=== PATIENT | female | born 1950 | race Caucasian/White ===

== ENCOUNTER 2018-08-08 11:29 | Emergency (ER) | payer MEDICARE, OTHER, SELFPAY ==
[2018-08-08] VITALS (8 sets, daily range): BP systolic 194–207; BP diastolic 107–134; PULSE 86–110; RESP 14–18; TEMP 36.9; O2SAT 91–95; BMI 29.5
--- NOTE | 2018-08-08 12:14 | EKG12_ITS ---
Test Reason : CP Blood Pressure : / mmHG Vent. Rate : 085 BPM Atrial Rate : 085 BPM P-R Int : 224 ms QRS Dur : 098 ms QT Int : 406 ms P-R-T Axes : 064 -22 074 degrees QTc Int : 483 ms Sinus rhythm with 1st degree A-V block Possible Left atrial enlargement Incomplete right bundle branch block Poor R wave progression Borderline ECG Confirmed by ALEJANDRO COX, ROBE ([id number]), offline editor KELVIN WAY ([id number]) on 08/11/2018 10:05:50 AM Referred By: EJ Confirmed By:ROBE ALLEN MD
[2018-08-08] MEDS: Ondansetron 4 MG/2 ML Vial IV (12:28)
[2018-08-08] MEDS: 0.9% Normal Saline 1,000 ML 1000 ML IV (12:28)
[2018-08-08 12:32] LABS: Absolute Lymphocyte Count 1.31 X10^3/ul (0.83-4.51); Absolute Neutrophil Count 6.2 X10^3/uL (2.0-7.7); Basophil# 0.03 X10^3/uL; Basophil% 0.4 % (0-1); Eosinophil# 0.01 X10^3/uL; Eosinophils% 0.1 % (0-5); Hematocrit 42.6 % (37-47); Hemoglobin 14.7 g/dl (12.0-15.0); Lymphocyte # 1.31 X10^3/ul (4.0); Mean Corp Hgb Conc 34.5 g/gl (32-36); Mean Corpuscular Hgb 31.6 pg (27.0-32.0); Mean Corpuscular Volume 91.6 fL (81-99); Mean Platelet Vol. 9.2 fl (6.2-12.0); Monocyte# 0.66 X10^3/uL; Monocyte% 8.1 % (0-10); Neutrophil # 6.16 X10^3/uL (2.7-7.7); Neutrophil % 75.2 % (47-70); Platelet Count 316 K/mm3 (150-450); RBC Distribution Width CV 13.1 % (11.6-14.6); RBC Distribution Width SD 43.3 fl (35.1-43.9); Red Blood Count 4.65 M/mm3 (4.2-5.4); White Blood Count 8.2 K/mm3 (4.4-11.0)
[2018-08-08 12:36] LABS: POSITIVE COUNT NO; POSITIVE DIFFERENTIAL NO; POSITIVE MORPHOLOGY NO
[2018-08-08 12:43] LABS: AST(SGOT) 68 U/L (15-37); Alanine Aminotransfer ALT/SGPT 88 U/L (13-56); Alkaline Phosphatase 110 U/L (45-117); Anion Gap 14 (5-15); BUN 11 mg/dL (7-18); BUN/Creat Ratio 17.7 RATIO (10-20); Bilirubin, Direct 0.22 mg/dL (0.00-0.30); Calcium,Total 9.2 mg/dL (8.5-10.1); Chloride 101 mmol/L (98-107); Creatinine, Serum 0.62 mg/dL (0.55-1.02); EST Glomerular Filtration Rate 102 mL/min (>60); Est Glom Filt Rate - Afr Amer 124 mL/min (>60); Estimated Creatinine Clearance 57.83 ml/min; Globulin 3.9 g/dL (2.2-4.2); Glucose 108 mg/dL (74-106); Lipase 83 U/L (73-393); Potassium 3.5 mmol/L (3.5-5.1); Protein, Total 7.9 g/dL (6.4-8.2); Sodium Level 137 mmol/L (136-145)
[2018-08-08 13:28] LABS: Lactic Acid 4.5 mmol/L (0.4-2.0)
[2018-08-08] MEDS: Mag Hydrox/Al Hydrox/Simeth 30 ML UDC PO (13:51)
--- NOTE | 2018-08-08 13:56 | CT_ITS ---
STUDY: CT ABDOMEN AND PELVIS WITH CONTRAST REASON FOR EXAM: Female, 68 years old. Nausea and vomiting RADIATION DOSAGE (If Supplied By Facility): CTDIvol = ( 19.55 ) mGy, DLP = ( 1431.92 ) mGycm TECHNIQUE: Transaxial images were obtained from the dome of the diaphragm to the symphysis pubis without oral contrast. 100 ml of Isovue 300 contrast was administered. Sagittal and coronal images were reconstructed. Individualized dose optimization techniques were used for this CT. COMPARISON: None. FINDINGS: There are chronic interstitial fibrotic changes of the lung bases. The visualized portions of the heart are within normal limits. There is hepatomegaly. Cysts in the liver measuring 4.2 cm and 1.6 cm. There is non-visualization of the gallbladder, which may be secondary to either contraction or a prior cholecystectomy. Normal spleen. Normal pancreas. Normal bilateral adrenal glands. Normal right kidney. Normal left kidney. There is a small hiatal hernia. Normal small intestine. There are multiple colonic diverticula consistent with diverticulosis. There is non-visualization of the appendix. Normal abdominal aorta. Normal inferior vena cava. Normal retroperitoneum. Normal urinary bladder. There is no free fluid in the abdomen or pelvis. Normal abdominal wall. There are diffuse degenerative changes of the visualized lumbar spine. Nonunited left ninth rib fracture. There are bilateral hip replacements. CT/Abdomen/Pelvis W IV Cont ONLY IMPRESSION: Colonic diverticulosis. No obstruction or abscess. Electronically Signed: Donaldo Santos MD at 15:08 EDT , Service support ,
--- NOTE | 2018-08-08 15:38 | ED.DCSUM_ITS ---
- ER Visit Summary Date of Service: 08/08/18 Chief Complaint: Vomiting History of Present Illness: The patient is a 68 F who states that she drank too much alcohol last night. She states that she probably drank more vodka than what she normally does. This morning she started vomiting around 10 AM and her brought her to the hospital and dropped her off. She notes a central to left-sided chest pain described as sharp. She states everything makes it worse. History of hypertension alcoholism neuropathy and GERD. Longtime smoker longtime drinker. Physical Examination: Afebrile vital signs are stable noted hypertension Gen: Well-nourished well-developed patient is holding in his face and with vomit on her face. Head: Normocephalic atraumatic Eyes: Perrl EOMI ENT: TMs clear no rhinorrhea moist mucous membranes Neck: Supple no lymphadenopathy no JVD nontender CVS: Regular rate rhythm no murmurs normal S1-S2 Respiratory: No distress clear to auscultation bilaterally anterior left chest wall is tender to palpation Abdomen: Soft nontender nondistended normal bowel sounds no masses Back: Nontender Extremity: Nontender no edema Skin: Normal color no rash Neuro: alert orientated ?3 CN II-XII intact normal strength sensation reflexes gait cerebellar Psych: Normal affect normal mood Test Results: Alcohol level 90. CBC normal. Chemistries glucose 108. Liver enzymes ALT of 88 AST of 68. Normal lipase. Troponin less than 0.015. Lactic acid 4.5. Ketones are negative. CT the abdomen pelvis was negative for acute. Chest x-ray I do not see any mediastinal air or infiltrate/effusion in the lung. Emergency Department Course and Treatment: Patient received IV fluids, Zofran, and a GI cocktail. I do not see evidence of Boerhaave syndrome. This is not the first time this is occurred. notes that typically when this happens she is hypertensive and Ativan usually helps her especially with some anxiety. I will give her some Ativan. She has had approximately 10 cups of ice and is no longer vomiting. Lactic acid is improved. Delta troponin is negative. Patient will be discharged home. She should follow-up with her doctor. Impression: 1. Vomiting 2. Alcoholism This note was generated with [employer] dictation software. It may contain incorrect words, spelling, and punctuation that were not noted in review of the chart prior to signing ED Disposition - Plan for ED Patient: Disposition: Home or Assisted Living Chief Complaint: ETOH Intox Instructions: ED Alcohol Abuse, ED Nausea Vomiting Prescriptions: Ondansetron [Zofran Odt] 4 mg PO Q8H PRN PRN #10 tab PRN Reason: Nausea Referrals: Yuki Lopez MD [Primary Care Provider] - As soon as possible
--- NOTE | 2018-08-08 15:40 | RAD_ITS ---
STUDY: X-RAY CHEST REASON FOR EXAM: Female, 68 years old. EtOH chest pain TECHNIQUE: Single AP portable view of the chest. COMPARISON: February 28, 2017 chest x-ray FINDINGS: There is slightly greater interstitial prominence in the lung bases when compared to prior study. There is no demonstrated pleural abnormality. There is mild cardiac enlargement. Normal mediastinum and althea. Normal visualized pulmonary arteries. There is atherosclerotic calcification of the aortic arch with tortuosity. Normal visualized thoracic spine. There is a right-sided shoulder arthroplasty. There is degenerative change in the left shoulder joint. There is no demonstrated abnormality of the visualized soft tissue structures of the upper abdomen. RAD/Chest 1 View (Portable) IMPRESSION: Lower lobe atelectasis. Mild cardiomegaly. Right shoulder arthroplasty. Electronically Signed: Pricila Bates MD at 16:30 EDT Tel , Service support ,
[2018-08-08 16:03] LABS: Lactic Acid 3.4 mmol/L (0.4-2.0)
[2018-08-08] MEDS: Ketorolac 15 MG/ML Vial IV (16:03)
[2018-08-08] MEDS: LORazepam 2 MG/ML Syringe 1 MG IV (16:26)
[2018-08-08 16:47] LABS: Reflex Lactate? Y
[2018-08-08 19:23] LABS: Reflex Lactate? Y
== END 2018-08-08 17:07 | disposition home or self-care (01) ==
PROVIDERS: Emergency Provider Emergency Medicine; Family Provider Internal Medicine; PCP Internal Medicine
DX: R11.2 Nausea with vomiting, unspecified (principal); R07.9 Chest pain, unspecified; F10.20 Alcohol dependence, uncomplicated; Y90.4 Blood alcohol level of 80-99 mg/100 ml; I10 Essential (primary) hypertension; K21.9 Gastro-esophageal reflux disease without esophagitis; G62.9 Polyneuropathy, unspecified; F17.200 Nicotine dependence, unspecified, uncomplicated
CPT/HCPCS: 71045; 74177; 80048; 80076; 80320; 82009; 83605; 83690; 84484; 85025; 93005; 96361; 96374; 96375; 99284; Q9967; A4216; G0480; J2405

== ENCOUNTER 2019-02-04 08:20 | Inpatient (IN) | payer MEDICARE, OTHER, SELFPAY ==
[2019-02-04] VITALS (15 sets, daily range): BP systolic 87–117; BP diastolic 59–74; PULSE 100–122; RESP 14–18; TEMP 36.4–37.5; O2SAT 90–96; BMI 27.3; BMI 25.1
--- NOTE | 2019-02-04 08:35 | ED.VISSUMM ---
- ER Visit Summary Date of Service: 02/04/19 Chief Complaint: Nausea and vomiting History of Present Illness: The patient is a 68 F with nausea and vomiting along with mild diarrhea for the past 3 days. She denies fever or chills. The pain is epigastric and suprapubic region. Patient did have shoulder surgery on January 05 at [facility]. said that her symptoms seem to worsen after they refilled her oxycodone, but is unsure if this is related or just coincidence. Patient is noted to have history of alcoholism in the computer. Her last drink was 6 days ago and patient states she has not been drinking much at all since her surgery. Physical Examination: Blood pressure is 101/60, temperature 98.2, heart rate 122, respiratory rate 18, pulse ox 94% on room air. Patient lying in the bed no acute distress. Head and neck examination unremarkable. Heart is tachycardic and regular. Lung sounds are clear. Abdomen is soft with epigastric tenderness. No guarding or rebound. Hypoactive bowel sounds are present throughout. Extremity examination reveals left arm to be in a sling. She has palpable distal pulses. Test Results: CBC was a white count 13.7 and hemoglobin is concentrated at 17.4. Chemistry studies significant for sodium of 125 and chloride of 83. Potassium slightly low at 3.4. Leukosis 220, BUN is 56, creatinine is 3.35. Her creatinine was 0.62 in July 2018. LFTs and lipase are grossly unremarkable. Emergency Department Course and Treatment: Patient received morphine, Zofran, and IV fluids. At this time she is tolerating ice chips. Because of her acute renal failure I do feel she will require IV fluids overnight. I will speak with hospitalist regarding admission. Treatment Plan: [] Disposition: Admit Impression: Dehydration with acute renal failure Addendum: Prior to the patient being taken upstairs, I was advised that she was complaining of increased nausea and had requested a dose of nausea meds. I was then told by nursing staff that she was complaining of pain rating up to the central portion of her chest. EKG is obtained and reveals sinus tachycardia at 103 with no sign of acute ischemia. When I reexamined the patient she states her pain is worse after trying the ice chips. Her abdomen is palpated multiple times. Occasionally she will complain of pain, but she will allow deep palpation of the epigastrium with no pain response at times as well. There is no guarding. Patient will be admitted at this time for further treatment. This note was generated with [employer] dictation software. It may contain incorrect words, spelling, and punctuation that were not noted in review of the chart prior to signing ED Disposition - Plan for ED Patient:
[2019-02-04] MEDS: 0.9% Normal Saline 1,000 ML 1000 ML IV (09:10)
[2019-02-04] MEDS: Morphine 4 MG/ML Syringe IV ×2 (09:13→11:15)
[2019-02-04] MEDS: Ondansetron 4 MG/2 ML Vial IV ×2 (09:13→10:44)
[2019-02-04 09:23] LABS: Absolute Neutrophil Count 11.5 X10^3/uL (2.0-7.7); Hematocrit 48.9 % (37-47); Lymphocyte % 5.9 % (19-41); Mean Corpuscular Volume 84.9 fL (81-99); Mean Platelet Vol. 9.7 fl (6.2-12.0); Monocyte# 1.28 X10^3/uL; Monocyte% 9.4 % (0-10); Neutrophil # 11.54 X10^3/uL (2.7-7.7); Neutrophil % 84.5 % (47-70); Platelet Count 332 K/mm3 (150-450); RBC Distribution Width CV 13.2 % (11.6-14.6); RBC Distribution Width SD 40.3 fl (35.1-43.9); Red Blood Count 5.76 M/mm3 (4.2-5.4); White Blood Count 13.7 K/mm3 (4.4-11.0)
[2019-02-04 09:25] LABS: Hemoglobin 17.4 g/dl (12.0-15.0); Mean Corp Hgb Conc 35.6 g/gl (32-36); Mean Corpuscular Hgb 30.2 pg (27.0-32.0)
[2019-02-04 09:26] LABS: POSITIVE COUNT NO; POSITIVE DIFFERENTIAL NO; POSITIVE MORPHOLOGY NO
[2019-02-04 09:34] LABS: AST(SGOT) 32 U/L (15-37); Alanine Aminotransfer ALT/SGPT 38 U/L (13-56); Albumin, Serum 4.2 g/dL (3.2-5.0); Alkaline Phosphatase 124 U/L (45-117); Anion Gap 19 (5-15); BUN 56 mg/dL (7-18); BUN/Creat Ratio 16.7 RATIO (10-20); Bilirubin, Direct 0.21 mg/dL (0.00-0.30); Calcium,Total 9.2 mg/dL (8.5-10.1); Chloride 83 mmol/L (98-107); Creatinine, Serum 3.35 mg/dL (0.55-1.02); EST Glomerular Filtration Rate 15 mL/min (>60); Est Glom Filt Rate - Afr Amer 18 mL/min (>60); Estimated Creatinine Clearance 17.26 ml/min; Globulin 4.6 g/dL (2.2-4.2); Glucose 220 mg/dL (74-106); Lipase 118 U/L (73-393); Potassium 3.4 mmol/L (3.5-5.1); Protein, Total 8.8 g/dL (6.4-8.2); Sodium Level 125 mmol/L (136-145)
--- NOTE | 2019-02-04 10:30 | EKG12_ITS ---
Test Reason : CP Blood Pressure : / mmHG Vent. Rate : 103 BPM Atrial Rate : 103 BPM P-R Int : 200 ms QRS Dur : 100 ms QT Int : 368 ms P-R-T Axes : 049 -40 038 degrees QTc Int : 482 ms Sinus tachycardia Left axis deviation Incomplete right bundle branch block Minimal voltage criteria for LVH, may be normal variant Cannot rule out Anterior infarct , age undetermined Abnormal ECG Confirmed by ALEJANDRO COX, ROBE ([id number]), deputy editor in chief RICHELLE GALICIA ([id number]) on 02/08/2019 10:57:42 AM Referred By: SAUL Confirmed By:ROBE ALLEN MD
[2019-02-04] MEDS: 0.9% Normal Saline 1,000 ML 150 ML IV (10:46)
--- NOTE | 2019-02-04 10:49 | ED.RN ---
DID NOT WANT PT STRAIGHT CATH FOR URINE.
--- NOTE | 2019-02-04 10:51 | CASEMGMT ---
RN CM Assessment Introduced role of RN CM to patient.? Patient is alert, oriented and able?to participate in RN CM Assessment. ?Care providers, pharmacy, and demographics verified. Presentation: N/V Admit Dx: KARIS, Chronic Alcohol Use Re-Admit: No Barriers/Issues: Smokes 1/2/Day, Alochol use- Patient stated Occasional to this CM during assessment, however per chart review h/o alcohol abuse, per ER note, last drink 6 days ago. Had Shoulder surgery at the end of December. PCP: Yuki Lopez Specialists: Ortho- [facility] DR Marr Preferred Pharmacy: [facility] Insurance: [employer], [employer] Rx Benefit:?Yes LNOK: Vicente Mascorro LW/HPOA: No, Would like information Living Arrangements:?Lives with her in a 2 story home, 2 steps to enter ADL?s: Independent with ambulation and ADL's Transportation: Patient drives, will transport on DC DME: [employer] HHC: Past, cannot recall Agency SNF: None Goal: Home and denies any needed help, concerns, issues, or questions. DC PLAN: Home with no anticipated needs identified at this time. CARLOS Salmeron
--- NOTE | 2019-02-04 10:54 | NURSING ---
MED SURG VOMITING, ARF JUDD
--- NOTE | 2019-02-04 11:33 | EKG12_ITS ---
Test Reason : AM Blood Pressure : / mmHG Vent. Rate : 085 BPM Atrial Rate : 085 BPM P-R Int : 190 ms QRS Dur : 102 ms QT Int : 394 ms P-R-T Axes : 048 -28 018 degrees QTc Int : 468 ms Normal sinus rhythm Leftward [place] Poor R-Wave Progression Confirmed by ALEJANDRO COX, ROBE ([id number]), sound editor RICHELLE GALICIA ([id number]) on 02/08/2019 12:34:05 PM Referred By: JUDD Confirmed By:ROBE ALLEN MD
[2019-02-04] MEDS: Enoxaparin 30 MG/0.3 ML Syringe SC (12:06)
[2019-02-04 12:46] LABS: Magnesium 1.5 mg/dL (1.6-2.6)
--- NOTE | 2019-02-04 13:19 | PCM.HP.STD ---
Problem List (1) ARF (acute renal failure) Status: Acute Qualifiers: (2) Fall Status: Chronic (3) Fractured nose Status: Chronic (4) Hypokalemia Status: Acute (5) Hypotension Status: Acute Qualifiers: (6) Hypothermia Status: Resolved (7) Hypoxia Status: Resolved (8) Alcohol abuse Status: Chronic (9) Alcohol dependence Status: Chronic (10) Anxiety Status: Chronic (11) Chest pain Status: Resolved (12) HTN (hypertension) Status: Chronic (13) Left shoulder pain Status: Chronic (14) Neuropathy Status: Chronic (15) Epigastric abdominal pain Status: Acute (16) Intractable nausea and vomiting Status: Acute (17) Acute alcohol withdrawal Status: Acute History of Present Illness Date of Admission: 02/04/19 Chief Complaint: Nausea vomiting and epigastric abdominal pain. The patient is a 68 year old F with history of chronic alcohol use and dependence with last admission in February 2017 for hypovolemic shock, alcohol withdrawal, , Acute kidney injury and hypokalemia came to ED with increased nausea, vomiting for last 2 days. Patient has about 5-10 clear vomitus since yesterday. She is also not eating since last Friday about 4 days ago. Complain of abdominal pain, mainly in epigastric location 7-8/10 intensity localized. Denies lower urinary tract symptoms including increased frequency, urgency, burning micturition or recent change. Denies fever or chills. No recent history of GI bleed. Patient had EGD done more than [address] burris [facility]. Patient does not know the report. In ED, patient was found febrile, heart rate in 100s, blood pressure 100/69 and pulse ox 90% on room air. Basic blood work in the ED shows leukocytosis 13.7 thousand, H&H 17.4/48.9 and platelet count 332,000. She is very dehydrated evident with hemoconcentration. BMP shows sodium 125, K3.4, chloride 83, BUN 56 and creatinine 3.35 suggestive of acute kidney injury. Her baseline creatinine runs around 1.0. Patient has tremors but denies recent history of seizures. She admits to drinking vodka once in 3 to 4 days but as per the nurse she drinks half pint vodka daily. [] Past Medical History Past Medical History (Chronic Problems): Chronic Problems Neuropathy (Chronic) Anxiety (Chronic) Left shoulder pain (Chronic) HTN (hypertension) (Chronic) Alcohol abuse (Chronic) Fractured nose (Chronic) Fall (Chronic) Alcohol dependence (Chronic) Allergies No Known Allergies Allergy (Verified 02/04/19 08:22) Home Medications: Ambulatory Orders Medication Instructions Recorded Fluoxetine HCl 40 mg PO DAILY 08/15/16 Gabapentin [Neurontin] 300 mg PO DAILY 08/15/16 Gabapentin [Neurontin] 600 mg PO QHS 08/15/16 Lamotrigine [Lamictal] 150 mg PO DAILY 08/15/16 Multivitamins,Therapeutic 1 tablet PO DAILY 08/15/16 [Multivitamin] Propranolol HCl [Inderal (Beta 10 mg PO DAILY 08/15/16 Samantha)] Quetiapine Fumarate [Seroquel] 100 - 150 mg PO QHS 08/15/16 Melatonin 20 mg PO QHS 02/28/17 Pantoprazole Sodium [Protonix] 40 mg PO DAILY #15 tablet 03/03/17 Surgical History: - - bilateral hip replacement, shoulder repair, cholecystectomy, hysterectomy Smoking Status: Heavy Smoker (>10/day) Tobacco Use: Cigarettes - *Family History Paternal History Items: No pertinent history Maternal History Items: - - alcohol abuse, heart attack Review of Systems Constitutional: Reports: Anorexia, Malaise, Weakness, Fatigue. Denies: Chills, Fever, Weight Change HEENT: Denies: Head Aches, Sinus Congestion, Sinus Drainage Cardiovascular: Denies: Chest Pain, Palpitations Respiratory: Denies: Cough, Shortness of breath at rest, Sputum production Gastrointestinal: Reports: Abdominal Pain, Diarrhea - Loose bowel movement, soft 1-2 for last 2 days. Denies melena or hematochezia, Nausea, Vomiting. Denies: Hematemesis, Hematochezia, Melena Genitourinary: Denies: Dysuria, Frequency, Hematuria, Hesitancy, Urgency Musculoskeletal: Reports: Arm Pain, Joint Pain, Shoulder Pain - Recent left shoulder surgery on January 05 at [facility]. Denies: Joint Tenderness Skin: Denies: Rash, Wounds Neurological: Reports: Balance problems. Denies: Focal weakness, Numbness, Tingling Psychiatric: Reports: Anxiety, Depression. Denies: Homicidal Ideations, Suicidal Ideations Hematologic/ Lymphatic: Denies: Easy Bruising, Easy Bleeding VTE Information - Inpt Only VTE Present on Admission: No VTE Mechan Device Prophylaxis: SCD's VTE Pharm Prophylaxis ordered?: No Patient Problems: Active and Suspected Problems Epigastric abdominal pain (Acute) Intractable nausea and vomiting (Acute) Acute alcohol withdrawal (Acute) - Physical Exam General: Oriented x3, Cooperative, Lethargic HEENT: Atraumatic, PERRLA, EOMI, Normocephalic Oral: Dry Mucosa Neck: Supple, No JVD, Negative Carotid Bruits Lungs: Clear to auscultation, No rhonchi, No wheeze, No rales, Diminished - Air entry is diminished in bilateral lung bases. Cardiovascular: Regular rate, Regular Rhythm, Normal S1, Normal S2, No murmurs Abdomen: Bowel Sounds Present, Soft, Hepatomegaly - Mild tender hepatomegaly. Spleen not palpable., Tender - Tenderness present over epigastrium. No guarding/rigidity. Extremities: No edema, Capillary Refill Less than 3 Seconds Musculoskeletal: Arthritic Changes, Muscle Wasting, Tenderness - Tenderness present over left shoulder with recent surgery. Lymphatic: No Cervical, Supraclavicular, or Inguinal Adenopathy Neurological: Cranial nerves II-XII grossly intact, Deep Tendon Reflexes 2+/4 and Symmetrical, Neuro grossly intact Vital Signs Temp Pulse Resp BP Pulse Ox 97.5 F L 100 16 101/69 96 02/04/19 12:00 02/04/19 12:00 02/04/19 12:00 02/04/19 12:00 02/04/19 12:00 Oxygen Flow Rate (L/min) 2 Oxygen Delivery Method Nasal Cannula Weight: 170 lb Body Mass Index (BMI) 25.1 Laboratory Tests Past 24 Hrs 02/04/19 02/04/19 02/04/19 09:05 09:05 09:05 WBC 13.7 H RBC 5.76 H Hgb 17.4 H Hct 48.9 H MCV 84.9 MCH 30.2 MCHC 35.6 RDW 13.2 RDW Differential 40.3 Plt Count 332 MPV 9.7 Immature Gran % (Auto) 0.200 Neut % (Auto) 84.5 H Lymph % (Auto) 5.9 L [place] % (Auto) 9.4 Eos % (Auto) 0.0 Baso % (Auto) 0.0 Absolute Neuts (auto) 11.5 H Absolute Lymphs (auto) 0.80 L Total Counted Not Reportable Sodium 125 L Potassium 3.4 L Chloride 83 L Carbon Dioxide 23.0 Anion Gap 19 H BUN 56 H Creatinine 3.35 H Estim Creat Clear Calc 17.26 Est GFR (MDRD) Af Amer 18 L Est GFR (MDRD) Non-Af 15 L BUN/Creatinine Ratio 16.7 Glucose 220 H Calcium 9.2 Magnesium 1.5 L Total Bilirubin 0.90 Direct Bilirubin 0.21 AST 32 ALT 38 Alkaline Phosphatase 124 H Total Protein 8.8 H Albumin 4.2 Globulin 4.6 H Lipase 118 Assessment/Plan All Active Problems Epigastric abdominal pain (Acute) Intractable nausea and vomiting (Acute) Acute alcohol withdrawal (Acute) Chest pain (Resolved) ARF (acute renal failure) (Acute) Hypokalemia (Acute) Hypotension (Acute) Hypothermia (Resolved) Hypoxia (Resolved) The patient is a 68 year old F with history of chronic alcohol use and dependence with last admission in February 2017 for hypovolemic shock, alcohol withdrawal, , Acute kidney injury and hypokalemia came to ED with increased nausea, vomiting for last 2 days. Patient has about 5-10 clear vomitus since yesterday. She is also not eating since last Friday about 4 days ago. Complain of abdominal pain, mainly in epigastric location 7-8/10 intensity localized. Denies lower urinary tract symptoms including increased frequency, urgency, burning micturition or recent change. Denies fever or chills. No recent history of GI bleed. Patient had EGD done more than [address] burris [facility]. Patient does not know the report. In ED, patient was found febrile, heart rate in 100s, blood pressure 100/69 and pulse ox 90% on room air. Basic blood work in the ED shows leukocytosis 13.7 thousand, H&H 17.4/48.9 and platelet count 332,000. She is very dehydrated evident with hemoconcentration. BMP shows sodium 125, K3.4, chloride 83, BUN 56 and creatinine 3.35 suggestive of acute kidney injury. Her baseline creatinine runs around 1.0. Patient has tremors but denies recent history of seizures. She admits to drinking vodka once in 3 to 4 days but as per the nurse she drinks half pint vodka daily. 1. Intractable nausea/vomiting and loose bowel movement with epigastric pain suggestive of acute gastritis/GERD: Patient is being admitted to [facility] floor. IV fluid resuscitation. General surgeon Dr. Barker is been consulted for EGD. There is suspicion that patient might have ulcerative gastritis. Lipase is negative. IV Protonix 40 mg every 12 hourly. Check H&H in the evening. Stool for occult blood ordered. 5. 2. Acute kidney injury, prerenal etiology from nausea and vomiting: Volume resuscitation with normal saline with IV KCl. Electrolyte abnormality with hypokalemia, hypotonic hypovolemic hyponatremia, hypochloremia: Electrolytes being replaced. Monitor kidney function and electrolytes daily. Monitor intake and output. 3. Acute alcohol withdrawal with history of chronic alcohol use and dependence: LFT shows normal ALT and AST but elevated alkaline phosphatase possible bowel origin. Hypomagnesemia, magnesium 1.5 being replaced. Tender hepatomegaly from chronic alcohol use. On Ativan scheduled and as needed protocol as per MANISHA. If patient alcohol withdrawal gets worse, will change Ativan to Librium. 4. Bilateral shoulder arthritis with recent left shoulder surgery on 01/05 in [facility] with old right shoulder surgical scar: PT and OT ordered. Pain management as required DVT prophylaxis: Bilateral SCDs. Pharmacological prophylaxis contraindicated in view of possible suspicion of GI bleed and also acute kidney injury. Code Visit Inpatient E&M: 34306 Init Hosp L3
--- NOTE | 2019-02-04 13:27 | HP.PCM_ITS ---
Problem List (1) ARF (acute renal failure) Status: Acute Qualifiers: (2) Fall Status: Chronic (3) Fractured nose Status: Chronic (4) Hypokalemia Status: Acute (5) Hypotension Status: Acute Qualifiers: (6) Hypothermia Status: Resolved (7) Hypoxia Status: Resolved (8) Alcohol abuse Status: Chronic (9) Alcohol dependence Status: Chronic (10) Anxiety Status: Chronic (11) Chest pain Status: Resolved (12) HTN (hypertension) Status: Chronic (13) Left shoulder pain Status: Chronic (14) Neuropathy Status: Chronic (15) Epigastric abdominal pain Status: Acute (16) Intractable nausea and vomiting Status: Acute (17) Acute alcohol withdrawal Status: Acute History of Present Illness Date of Admission: 02/04/19 Chief Complaint: Nausea vomiting and epigastric abdominal pain. The patient is a 68 year old F with history of chronic alcohol use and dependence with last admission in February 2017 for hypovolemic shock, alcohol withdrawal, , Acute kidney injury and hypokalemia came to ED with increased nausea, vomiting for last 2 days. Patient has about 5-10 clear vomitus since yesterday. She is also not eating since last Friday about 4 days ago. Complain of abdominal pain, mainly in epigastric location 7-8/10 intensity localized. Denies lower urinary tract symptoms including increased frequency, urgency, burning micturition or recent change. Denies fever or chills. No recent history of GI bleed. Patient had EGD done more than [address] burris [facility]. Patient does not know the report. In ED, patient was found febrile, heart rate in 100s, blood pressure 100/69 and pulse ox 90% on room air. Basic blood work in the ED shows leukocytosis 13.7 thousand, H&H 17.4/48.9 and platelet count 332,000. She is very dehydrated evident with hemoconcentration. BMP shows sodium 125, K3.4, chloride 83, BUN 56 and creatinine 3.35 suggestive of acute kidney injury. Her baseline creatinine runs around 1.0. Patient has tremors but denies recent history of seizures. She admits to drinking vodka once in 3 to 4 days but as per the nurse she drinks half pint vodka daily. [] Past Medical History Past Medical History (Chronic Problems): Chronic Problems Neuropathy (Chronic) Anxiety (Chronic) Left shoulder pain (Chronic) HTN (hypertension) (Chronic) Alcohol abuse (Chronic) Fractured nose (Chronic) Fall (Chronic) Alcohol dependence (Chronic) Allergies No Known Allergies Allergy (Verified 02/04/19 08:22) Home Medications: Ambulatory Orders Medication Instructions Recorded Fluoxetine HCl 40 mg PO DAILY 08/15/16 Gabapentin [Neurontin] 300 mg PO DAILY 08/15/16 Gabapentin [Neurontin] 600 mg PO QHS 08/15/16 Lamotrigine [Lamictal] 150 mg PO DAILY 08/15/16 Multivitamins,Therapeutic 1 tablet PO DAILY 08/15/16 [Multivitamin] Propranolol HCl [Inderal (Beta 10 mg PO DAILY 08/15/16 Samantha)] Quetiapine Fumarate [Seroquel] 100 - 150 mg PO QHS 08/15/16 Melatonin 20 mg PO QHS 02/28/17 Pantoprazole Sodium [Protonix] 40 mg PO DAILY #15 tablet 03/03/17 Surgical History: - - bilateral hip replacement, shoulder repair, cholecystectomy, hysterectomy Smoking Status: Heavy Smoker (>10/day) Tobacco Use: Cigarettes - *Family History Paternal History Items: No pertinent history Maternal History Items: - - alcohol abuse, heart attack Review of Systems Constitutional: Reports: Anorexia, Malaise, Weakness, Fatigue. Denies: Chills, Fever, Weight Change HEENT: Denies: Head Aches, Sinus Congestion, Sinus Drainage Cardiovascular: Denies: Chest Pain, Palpitations Respiratory: Denies: Cough, Shortness of breath at rest, Sputum production Gastrointestinal: Reports: Abdominal Pain, Diarrhea - Loose bowel movement, soft 1-2 for last 2 days. Denies melena or hematochezia, Nausea, Vomiting. Denies: Hematemesis, Hematochezia, Melena Genitourinary: Denies: Dysuria, Frequency, Hematuria, Hesitancy, Urgency Musculoskeletal: Reports: Arm Pain, Joint Pain, Shoulder Pain - Recent left shoulder surgery on January 05 at [facility]. Denies: Joint Tenderness Skin: Denies: Rash, Wounds Neurological: Reports: Balance problems. Denies: Focal weakness, Numbness, Tingling Psychiatric: Reports: Anxiety, Depression. Denies: Homicidal Ideations, Suicidal Ideations Hematologic/ Lymphatic: Denies: Easy Bruising, Easy Bleeding VTE Information - Inpt Only VTE Present on Admission: No VTE Mechan Device Prophylaxis: SCD's VTE Pharm Prophylaxis ordered?: No Patient Problems: Active and Suspected Problems Epigastric abdominal pain (Acute) Intractable nausea and vomiting (Acute) Acute alcohol withdrawal (Acute) - Physical Exam General: Oriented x3, Cooperative, Lethargic HEENT: Atraumatic, PERRLA, EOMI, Normocephalic Oral: Dry Mucosa Neck: Supple, No JVD, Negative Carotid Bruits Lungs: Clear to auscultation, No rhonchi, No wheeze, No rales, Diminished - Air entry is diminished in bilateral lung bases. Cardiovascular: Regular rate, Regular Rhythm, Normal S1, Normal S2, No murmurs Abdomen: Bowel Sounds Present, Soft, Hepatomegaly - Mild tender hepatomegaly. Spleen not palpable., Tender - Tenderness present over epigastrium. No guarding/rigidity. Extremities: No edema, Capillary Refill Less than 3 Seconds Musculoskeletal: Arthritic Changes, Muscle Wasting, Tenderness - Tenderness present over left shoulder with recent surgery. Lymphatic: No Cervical, Supraclavicular, or Inguinal Adenopathy Neurological: Cranial nerves II-XII grossly intact, Deep Tendon Reflexes 2+/4 and Symmetrical, Neuro grossly intact Vital Signs Temp Pulse Resp BP Pulse Ox 97.5 F L 100 16 101/69 96 02/04/19 12:00 02/04/19 12:00 02/04/19 12:00 02/04/19 12:00 02/04/19 12:00 Oxygen Flow Rate (L/min) 2 Oxygen Delivery Method Nasal Cannula Weight: 170 lb Body Mass Index (BMI) 25.1 Laboratory Tests Past 24 Hrs 02/04/19 02/04/19 02/04/19 09:05 09:05 09:05 WBC 13.7 H RBC 5.76 H Hgb 17.4 H Hct 48.9 H MCV 84.9 MCH 30.2 MCHC 35.6 RDW 13.2 RDW Differential 40.3 Plt Count 332 MPV 9.7 Immature Gran % (Auto) 0.200 Neut % (Auto) 84.5 H Lymph % (Auto) 5.9 L [place] % (Auto) 9.4 Eos % (Auto) 0.0 Baso % (Auto) 0.0 Absolute Neuts (auto) 11.5 H Absolute Lymphs (auto) 0.80 L Total Counted Not Reportable Sodium 125 L Potassium 3.4 L Chloride 83 L Carbon Dioxide 23.0 Anion Gap 19 H BUN 56 H Creatinine 3.35 H Estim Creat Clear Calc 17.26 Est GFR (MDRD) Af Amer 18 L Est GFR (MDRD) Non-Af 15 L BUN/Creatinine Ratio 16.7 Glucose 220 H Calcium 9.2 Magnesium 1.5 L Total Bilirubin 0.90 Direct Bilirubin 0.21 AST 32 ALT 38 Alkaline Phosphatase 124 H Total Protein 8.8 H Albumin 4.2 Globulin 4.6 H Lipase 118 Assessment/Plan All Active Problems Epigastric abdominal pain (Acute) Intractable nausea and vomiting (Acute) Acute alcohol withdrawal (Acute) Chest pain (Resolved) ARF (acute renal failure) (Acute) Hypokalemia (Acute) Hypotension (Acute) Hypothermia (Resolved) Hypoxia (Resolved) The patient is a 68 year old F with history of chronic alcohol use and dependence with last admission in February 2017 for hypovolemic shock, alcohol withdrawal, , Acute kidney injury and hypokalemia came to ED with increased n ausea, vomiting for last 2 days. Patient has about 5-10 clear vomitus since yesterday. She is also not eating since last Friday about 4 days ago. Complain of abdominal pain, mainly in epigastric location 7-8/10 intensity localized. Denies lower urinary tract symptoms including increased frequency, urgency, burning micturition or recent change. Denies fever or chills. No recent history of GI bleed. Patient had EGD done more than [address] burris [facility]. Patient does not know the report. In ED, patient was found febrile, heart rate in 100s, blood pressure 100/69 and pulse ox 90% on room air. Basic blood work in the ED shows leukocytosis 13.7 thousand, H&H 17.4/48.9 and platelet count 332,000. She is very dehydrated evident with hemoconcentration. BMP shows sodium 125, K3.4, chloride 83, BUN 56 and creatinine 3.35 suggestive of acute kidney injury. Her baseline creatinine runs around 1.0. Patient has tremors but denies recent history of seizures. She admits to drinking vodka once in 3 to 4 days but as per the nurse she drinks half pint vodka daily. 1. Intractable nausea/vomiting and loose bowel movement with epigastric pain suggestive of acute gastritis/GERD: [facility] IV fluid resuscitation. General surgeon Dr. Barker is been consulted for EGD. There is suspicion that patient might have ulcerative gastritis. Lipase is negative. IV Protonix 40 mg every 12 hourly. Check H&H in the evening. Stool for occult blood ordered. 5. 2. Acute kidney injury, prerenal etiology from nausea and vomiting: Volume resuscitation with normal saline with IV KCl. Electrolyte abnormality with hypokalemia, hypotonic hypovolemic hyponatremia, hypochloremia: Electrolytes being replaced. Monitor kidney function and electrolytes daily. Monitor intake and output. 3. Acute alcohol withdrawal with history of chronic alcohol use and dependence: LFT shows normal ALT and AST but elevated alkaline phosphatase possible bowel origin. Hypomagnesemia, magnesium 1.5 being replaced. Tender hepatomegaly from chronic alcohol use. On Ativan scheduled and as needed protocol as per CIWA. If patient alcohol withdrawal gets worse, will change Ativan to Librium. 4. Bilateral shoulder arthritis with recent left shoulder surgery on 01/05 in [facility] with old right shoulder surgical scar: PT and OT ordered. Pain management as required DVT prophylaxis: Bilateral SCDs. Pharmacological prophylaxis contraindicated in view of possible suspicion of GI bleed and also acute kidney injury. Code Visit Inpatient E&M: 29890 Init Hosp L3
[2019-02-04 13:30] LABS: Internal QC Validated? YES +Cl - CLEAR BKGD; Pregnancy, Serum, hCG Quali. NEGATIVE Negative
[2019-02-04 14:05] LABS: Alcohol, Blood (Medical)-Serum < 3.0 mg/dL
[2019-02-04 14:06] LABS: International Normalized Ratio 1.1; Prothrombin Time (Protime)PT. 13.9 SECONDS (11.7-14.9)
[2019-02-04] MEDS: LORazepam 1 MG Tablet PO ×2 (14:12→19:05)
[2019-02-04] MEDS: Thiamine Hydrochloride 100 MG Tablet PO ×2 (14:12→17:28)
--- NOTE | 2019-02-04 17:27 | PCM.CONS.GEN ---
Reason for Consult Date of Consultation: 02/04/19 History of Present Illness: The patient is a 68 year old F with a 2 day history of vomiting and upper abdominal pain. The patient has a long-standing history of alcohol abuse. She has been admitted in the past for alcohol withdrawal and renal failure secondary to dehydration likely felt to alcohol withdrawal. she states she is vomited 5-10 times since yesterday. This was clear vomitus without blood or coffee grounds. She said she is not been eating for the last 4 days she denies black tarry stools or melena. She notes her pain in the epigastric region be 7-8 out of 10. in the ER she was noted to be hemoconcentrated with an elevated BUN and creatinine. She admitted to the [place] physician that she drinks vodka once every 3-4 days but admitted to the nurse that she drinks approximately half pint of vodka daily. her past medical history includes generalized anxiety disorder, diverticulosis, depression. She underwent a colonoscopy Dr. Khan [id number] which demonstrated a diverticulosis and no other abnormalities.she had a colonoscopy in 2012 before that which demonstrated an adenomatous polyp.she had follow-up colonoscopy in June 2017 which demonstrated a 5 mm polyp in the sigmoid which was removed.this returned as a hyperplastic polyp.I do not see record of her previous upper endoscopy which she does carry a diagnosis of gastric esophageal reflux disease. Past Medical History Past Medical History (Chronic Problems): Chronic Problems Neuropathy (Chronic) Anxiety (Chronic) Left shoulder pain (Chronic) HTN (hypertension) (Chronic) Alcohol abuse (Chronic) Fractured nose (Chronic) Fall (Chronic) Alcohol dependence (Chronic) Allergies No Known Allergies Allergy (Verified 02/04/19 08:22) Home Medications: Ambulatory Orders Medication Instructions Recorded Fluoxetine HCl 40 mg PO DAILY 08/15/16 Gabapentin [Neurontin] 300 mg PO DAILY 08/15/16 Gabapentin [Neurontin] 600 mg PO QHS 08/15/16 Lamotrigine [Lamictal] 150 mg PO DAILY 08/15/16 Multivitamins,Therapeutic 1 tablet PO DAILY 08/15/16 [Multivitamin] Propranolol HCl [Inderal (Beta 10 mg PO DAILY 08/15/16 Samantha)] Quetiapine Fumarate [Seroquel] 100 - 150 mg PO QHS 08/15/16 Melatonin 20 mg PO QHS 02/28/17 Pantoprazole Sodium [Protonix] 40 mg PO DAILY #15 tablet 03/03/17 Surgical History: - - bilateral hip replacement, shoulder repair, cholecystectomy, hysterectomy Smoking Status: Heavy Smoker (>10/day) Tobacco Use: Cigarettes - *Family History Paternal History Items: No pertinent history Maternal History Items: - - alcohol abuse, heart attack Review of Systems Constitutional: Reports: Weakness. Denies: Chills, Fever, Weight Change HEENT: Denies: Head Aches, Sinus Congestion, Sinus Drainage Cardiovascular: Denies: Chest Pain, Palpitations Respiratory: Denies: Cough, Shortness of breath at rest, Sputum production Gastrointestinal: Reports: Abdominal Pain, Vomiting. Denies: Nausea Genitourinary: Denies: Dysuria Musculoskeletal: Denies: Joint Pain, Joint Tenderness Skin: Denies: Rash, Wounds Neurological: Denies: Numbness, Tingling, Focal weakness Psychiatric: Denies: Anxiety, Depression, Homicidal Ideations, Suicidal Ideations Hematologic/ Lymphatic: Denies: Easy Bruising, Easy Bleeding Unable to obtain accurate/complete ROS d/t: patient somewhat obtunded Patient Problems: Active and Suspected Problems Epigastric abdominal pain (Acute) Intractable nausea and vomiting (Acute) Acute alcohol withdrawal (Acute) - Physical Exam General: Cooperative HEENT: PERRLA, EOMI Lungs: Diminished, - - few coarse breath sounds Cardiovascular: Regular rate, Regular Rhythm Abdomen: Bowel Sounds Present, Soft, Tender - in the epigastrium Vital Signs Temp Pulse Resp BP Pulse Ox 99.5 F H 101 H 16 91/60 94 02/04/19 13:49 02/04/19 13:49 02/04/19 13:49 02/04/19 13:49 02/04/19 13:48 Oxygen Flow Rate (L/min) 2 Oxygen Delivery Method Room Air Weight: 77.111 kg Body Mass Index (BMI) 25.1 Laboratory Tests Past 24 Hrs 02/04/19 02/04/19 02/04/19 09:05 09:05 09:05 WBC 13.7 H RBC 5.76 H Hgb 17.4 H Hct 48.9 H MCV 84.9 MCH 30.2 MCHC 35.6 RDW 13.2 RDW Differential 40.3 Plt Count 332 MPV 9.7 Immature Gran % (Auto) 0.200 Neut % (Auto) 84.5 H Lymph % (Auto) 5.9 L [place] % (Auto) 9.4 Eos % (Auto) 0.0 Baso % (Auto) 0.0 Absolute Neuts (auto) 11.5 H Absolute Lymphs (auto) 0.80 L Total Counted Not Reportable PT INR Sodium 125 L Potassium 3.4 L Chloride 83 L Carbon Dioxide 23.0 Anion Gap 19 H BUN 56 H Creatinine 3.35 H Estim Creat Clear Calc 17.26 Est GFR (MDRD) Af Amer 18 L Est GFR (MDRD) Non-Af 15 L BUN/Creatinine Ratio 16.7 Glucose 220 H Calcium 9.2 Magnesium 1.5 L Total Bilirubin 0.90 Direct Bilirubin 0.21 AST 32 ALT 38 Alkaline Phosphatase 124 H Total Protein 8.8 H Albumin 4.2 Globulin 4.6 H Lipase 118 Serum , Qual Ethyl Alcohol 02/04/19 02/04/19 02/04/19 09:05 09:05 09:05 WBC RBC Hgb Hct MCV MCH MCHC RDW RDW Differential Plt Count MPV Immature Gran % (Auto) Neut % (Auto) Lymph % (Auto) [place] % (Auto) Eos % (Auto) Baso % (Auto) Absolute Neuts (auto) Absolute Lymphs (auto) Total Counted PT Cancelled INR Cancelled Sodium Potassium Chloride Carbon Dioxide Anion Gap BUN Creatinine Estim Creat Clear Calc Est GFR (MDRD) Af Amer Est GFR (MDRD) Non-Af BUN/Creatinine Ratio Glucose Calcium Magnesium Total Bilirubin Direct Bilirubin AST ALT Alkaline Phosphatase Total Protein Albumin Globulin Lipase Serum , Qual NEGATIVE Ethyl Alcohol < 3.0 02/04/19 13:40 WBC RBC Hgb Hct MCV MCH MCHC RDW RDW Differential Plt Count MPV Immature Gran % (Auto) Neut % (Auto) Lymph % (Auto) [place] % (Auto) Eos % (Auto) Baso % (Auto) Absolute Neuts (auto) Absolute Lymphs (auto) Total Counted PT 13.9 INR 1.1 Sodium Potassium Chloride Carbon Dioxide Anion Gap BUN Creatinine Estim Creat Clear Calc Est GFR (MDRD) Af Amer Est GFR (MDRD) Non-Af BUN/Creatinine Ratio Glucose Calcium Magnesium Total Bilirubin Direct Bilirubin AST ALT Alkaline Phosphatase Total Protein Albumin Globulin Lipase Serum , Qual Ethyl Alcohol Assessment/Plan All Active Problems Epigastric abdominal pain (Acute) Intractable nausea and vomiting (Acute) Acute alcohol withdrawal (Acute) Chest pain (Resolved) ARF (acute renal failure) (Acute) Hypokalemia (Acute) Hypotension (Acute) Hypothermia (Resolved) Hypoxia (Resolved) vomiting, epigastric pain, dehydration, ARF, Etoh Abuse Would plan to give IV thiamine/Folate/MVI - will bolus as no urine output since admission. Patient on Ativan for DT prevention - follow MSE vomiting/epigastric pain - Will plan for EGD tomorrow - The patient understands the risks, benefits and alternatives, Consents but will discuss again tomorrow. Will check stool for occult blood
[2019-02-04] MEDS: Ensure Clear 120 ML Liquid PO ×2 (17:28→22:34)
--- NOTE | 2019-02-04 20:24 | NURSING ---
Dr. Adamss up here on MS3 and he went in to see this pt since she was lethargic per Chelita BANEGAS's report. Adjustments made to pt's medications.
[2019-02-04 20:54] LABS: Hematocrit 42.6 % (37-47); Hemoglobin 15.6 g/dl (12.0-15.0)
[2019-02-04] MEDS: QUEtiapine 25 MG Tablet 50 MG PO (22:34)
[2019-02-04] MEDS: 0.9% NaCl Peripheral Flush Adult/Peds IV (22:48)
[2019-02-04 23:43] LABS: Mucous, Urine 0 SEEN /hpf (<or=2+)
[2019-02-04 23:56] LABS: Color, Urine Yellow (Yellow); Glucose, Dipstick Normal (Normal); Ketone-Dipstick 5 mg/dl (Negative); Leukocyte Esterase-Dipstick 25 /ul (Negative); Nitrite-Dipstick Negative (Negative); Occult Blood-Urine 50 /ul (Negative); Protein-Dipstick 100 mg/dl (Negative); Urine Clarity Sl. Cloudy (Clear); Urine Urobilinogen 1 mg/dl (Normal)
[2019-02-05] VITALS (12 sets, daily range): BP systolic 108–171; BP diastolic 62–104; PULSE 78–89; RESP 14–18; TEMP 36.6–37.2; O2SAT 92–97; BMI 25.1
--- NOTE | 2019-02-05 | IMM_PTH ---
PATIENT: SANDEEP KIMBLE LOC: PCU U#:[id number] AGE/SX: 68/F ROOM: [facility] RE02/04/[address]: Dr. Charles Viveros MD : 1950 BED: 1 DIS: 02/09/2019 SPEC #: [id number] RECD: 02/08/19 13:55 STATUS: ABELARDO REQ #: [id number] [place]: 02/05/19 00:[address]: Jeff Payne DEPT: IMMUNOHISTOCHEMISTRY RECD BY: Talia Wilkinson ENTERED: 02/08/19 13:56 SP TYPE: IMMUNO OTHR DR: DO Dr. Yuki Cortez MD Dr. Prakash Chand, MD Tissues: A - Stomach, NOS Procedures: H Pylori (initial) PHYSICIAN & INSTITUTION [place] [id number] SPECIMEN INFORMATION: Tissue Source: A - Antral biopsy Clinical Info: Epigastric pain, nausea, vomiting Specimen Number: [id number] CPT code: 44652 METHODOLOGY: Deparaffinized sections of prefer/formalin-fixed tissue or PAP/DQ stained slides are incubated with monoclonal/polyclonal antibodies/oligonucleotide probes. Localization is made via biotin free immunoperoxidase method. Appropriate controls are performed and reacted as expected. Results on target cell population are indicated in the following table: RESULTS: ANTIBODY / CLONE RESULT Block A H Pylori (polyclonal) negative These tests were developed and their performance characteristics determined by [facility]. They may not have been cleared or approved by the U.S. Food and Drug Administration. The FDA has determined that such clearance or approval is not necessary. INTERPRETATION: A. Antral biopsy: Negative for Helicobacter pylori organisms. SJ:zhou 02/09/19
[2019-02-05 00:04] LABS: Amphetamine Urine VISTA NEGATIVE (<1000 ng/mL); Barbiturate Urine VISTA NEGATIVE (< 200 ng/mL); Benzodiazepine Urine VISTA NEGATIVE (< 200 ng/mL); Cocaine Urine VISTA NEGATIVE (< 300 ng/mL); Ecstacy Urine VISTA NEGATIVE (< 500 ng/mL); Methadone Urine VISTA NEGATIVE (< 300 ng/mL); PCP Urine VISTA NEGATIVE (< 25 ng/mL); THC Urine VISTA NEGATIVE (< 50 ng/mL); Vista UDS pH Range 5
[2019-02-05 00:12] LABS: Urine Bilirubin Dipstick 3 mg/dL (Negative)
[2019-02-05 00:17] LABS: Bacteria 1+ /hpf (None Seen); Red Blood Cells-Urine 0-5 SEEN /hpf (0-5); Squamous Epithelial Cells - UA 0-5 SEEN /hpf (5-10); White Blood Cells 0-5 SEEN /hpf (0-5)
[2019-02-05 05:41] LABS: Absolute Lymphocyte Count 1.32 X10^3/ul (0.83-4.51); Absolute Neutrophil Count 7.3 X10^3/uL (2.0-7.7); Basophil# 0.01 X10^3/uL; Basophil% 0.1 % (0-1); Hematocrit 36.4 % (37-47); Hemoglobin 13.1 g/dl (12.0-15.0); Lymphocyte # 1.32 X10^3/ul (4.0); Lymphocyte % 13.4 % (19-41); Mean Corpuscular Volume 86.1 fL (81-99); Mean Platelet Vol. 9.7 fl (6.2-12.0); Monocyte# 1.18 X10^3/uL; Neutrophil # 7.29 X10^3/uL (2.7-7.7); Neutrophil % 74.3 % (47-70); Platelet Count 223 K/mm3 (150-450); RBC Distribution Width CV 12.6 % (11.6-14.6); RBC Distribution Width SD 38.5 fl (35.1-43.9); Red Blood Count 4.23 M/mm3 (4.2-5.4); White Blood Count 9.8 K/mm3 (4.4-11.0)
[2019-02-05 05:42] LABS: POSITIVE COUNT NO; POSITIVE DIFFERENTIAL NO; POSITIVE MORPHOLOGY NO
[2019-02-05 05:46] LABS: Partial Thromboplast Time 30.4 Seconds (24.1-36.2)
--- NOTE | 2019-02-05 05:55 | EKG12_ITS ---
Test Reason : CP Blood Pressure : / mmHG Vent. Rate : 083 BPM Atrial Rate : 083 BPM P-R Int : 204 ms QRS Dur : 090 ms QT Int : 354 ms P-R-T Axes : 028 -32 013 degrees QTc Int : 415 ms Normal sinus rhythm with sinus arrhythmia Left axis deviation Poor R-Wave Progression Abnormal ECG Confirmed by ALEJANDRO COX, ROBE ([id number]), field map editor RICHELLE GALICIA ([id number]) on 02/09/2019 11:25:31 AM Referred By: ROSARIO Confirmed By:ROBE ALLEN MD
[2019-02-05 06:03] LABS: AST(SGOT) 13 U/L (15-37); Alanine Aminotransfer ALT/SGPT 23 U/L (13-56); Albumin, Serum 2.9 g/dL (3.2-5.0); Alkaline Phosphatase 80 U/L (45-117); Anion Gap 11 (5-15); BUN 55 mg/dL (7-18); BUN/Creat Ratio 27.1 RATIO (10-20); Calcium,Total 7.9 mg/dL (8.5-10.1); Chloride 103 mmol/L (98-107); Creatinine, Serum 2.03 mg/dL (0.55-1.02); EST Glomerular Filtration Rate 26 mL/min (>60); Est Glom Filt Rate - Afr Amer 31 mL/min (>60); Estimated Creatinine Clearance 28.49 ml/min; Glucose 116 mg/dL (74-106); Magnesium 2.4 mg/dL (1.6-2.6); Phosphorus 2.1 mg/dL (2.5-4.9); Potassium 3.2 mmol/L (3.5-5.1); Protein, Total 5.9 g/dL (6.4-8.2); Sodium Level 137 mmol/L (136-145)
[2019-02-05] MEDS: Folic Acid 1 MG Tablet PO (07:39)
[2019-02-05] MEDS: Thiamine Hydrochloride 100 MG Tablet PO ×2 (07:40→17:09)
[2019-02-05] MEDS: Multivitamins,Ther W-Minerals Tablet 1 TABLET PO (07:40)
[2019-02-05] MEDS: Ensure Clear 120 ML Liquid PO ×2 (07:43→17:07)
[2019-02-05] MEDS: LORazepam 1 MG Tablet PO ×3 (08:16→18:59)
[2019-02-05] MEDS: Potassium Chloride 10mEq/100mL 10 MEQ/100 ML IV.SOLN. 100 MEQ IV BOLUS (08:54)
[2019-02-05] MEDS: LORazepam 2 MG/ML Syringe IV (09:26)
--- NOTE | 2019-02-05 09:30 | NURSING ---
pt restless in bed yelling out and pt also c/o nausea, anxiety and has tremors in arms and legs. pt vomited. dr chen at bedside and ordered libium and iv ativan to help calm pt down.
--- NOTE | 2019-02-05 10:53 | CASEMGMT ---
Social Work Note SW attempted to see pt in regards to advanced directives and ETOH abuse. Pt soundly sleeping. Per notes pt has been restless and vomiting today. SW will attempt to see pt as time permits today. Jodi Peralta ENGINEERING TECHNICAL WRITER, RESOLUTION AGENT
--- NOTE | 2019-02-05 11:05 | NURSING ---
called report to brendon [place] in [place]. pt left for procedure
--- NOTE | 2019-02-05 12:00 | EGD_PTH ---
PATIENT: SANDEEP KIMBLE LOC: PCU U#:[id number] AGE/SX: 68/F ROOM: [facility] RE02/04/[address]: Dr. Charles Viveros MD : 1950 BED: 1 DIS: 02/09/2019 SPEC #: [id number] RECD: 02/05/19 13:12 STATUS: ABELARDO RELetty #: [id number] [place]: 02/05/19 12:[address]: Jeff Payne DEPT: SURGICAL PATHOLOGY RECD BY: Clark Shaw ENTERED: 02/05/19 13:27 SP TYPE: EGD BIOPSY OT DR: MD Dr. Charles Ratliff MD Tissues: A - Gastric mucous membrane B - Esophageal mucous membrane C - Esophageal mucous membrane Procedures: PAS Fungus (control) Special Stain Group II Special Stain Group I Surgery Specimen Level IV Alcian Blue/PAS (control) HEADER OPERATION: EGD (MAC) PRE-OP DIAGNOSIS: Epigastric pain, nausea, vomiting TISSUE SUBMITTED: A - Antral biopsy, B - Distal esophagus biopsy, C - Mid esophagus biopsy MICROSCOPIC DIAGNOSIS A. Antral biopsy: Mild gastritis. See microscopic description and comment. B. Distal esophagus, biopsy: Fragments of squamous epithelium with extensive ulceration and acute inflammation. Special stain for fungi is negative for organisms; matched control is appropriate. C. Mid esophagus, biopsy: Fragments of squamous epithelium with extensive ulceration and acute inflammation. Special stain for fungi is positive for organisms (yeast and pseudohyphae),consistent with Jolene species; matched control is appropriate. SJ:zhou 02/08/19 COMMENT A. The results of immunohistochemistry for Helicobacter pylori will be reported separately ([id number]). Correlation with clinical, endoscopic findings and appropriate follow up are necessary. MICROSCOPIC DESCRIPTION Slides are reviewed. A. The specimen shows fragments of gastric mucosa with chronic inflammatory cell infiltrates in the lamina propria consisting of lymphocytes and plasma cells, consistent with mild chronic gastritis. A few cells suspicious for intestinal metaplasia (goblet cells metaplasia) are noted. Alcian blue/PAS stain with matched control is used in the evaluation of the specimen and negative for intestinal metaplasia. GROSS DESCRIPTION A - Received in fixative is one container labeled with the patient's name and designated antral biopsy. The specimen consists of one irregular fragment of light garay soft tissue that measures 0.8 x 0.2 x 0.1 cm. The specimen is totally submitted in one cassette. B - Received in fixative is one container labeled with the patient's name and designated distal esophagus biopsy. The specimen consists of multiple irregular fragments of light garay soft tissue that in aggregate measure 0.4 x 0.2 x 0.1 cm. The specimen is totally submitted in one cassette. C - Received in fixative is one container labeled with the patient's name and designated mid esophagus biopsy. The specimen consists of multiple irregular fragments of light garay soft tissue that in aggregate measure 0.4 x 0.2 x 0.1 cm. The specimen is totally submitted in one cassette. / SJ:rg 02/05/19 TC:2 CPT: 67735 x3, 20197, 33087 x2
--- NOTE | 2019-02-05 13:07 | OP.ENDO_ITS ---
02/05/2019 Yuki Lopez [address] [place] [address] Re : Upper GI endoscopy procedure for Karrie Mascorro Dear Dr. Lopez This procedure was performed on Tuesday, February 05, 2019. My impressions and recommendations are as follows: Impressions : - Normal examined jejunum. - Duodenitis. - Gastritis. Biopsied. - Moderately severe candidiasis esophagitis. Biopsied. Recommendations : - [facility]. - Use Protonix (pantoprazole) 80 mg IV daily. - Nystatin suspension 100,000 units PO QID. - Continue present medications. My findings are described in the full procedure note, which is enclosed. If I can be of further assistance, please feel free to contact me at Doctor phone number(s): , Work: . Sincerely, Jeff Payne MD 02/05/2019 1:06:57 PM This report has been signed electronically.
--- NOTE | 2019-02-05 13:31 | PCA ---
pt off floor
--- NOTE | 2019-02-05 13:43 | PCM.PN.HOSP ---
Patient Problems: Active and Suspected Problems Epigastric abdominal pain (Acute) Intractable nausea and vomiting (Acute) Acute alcohol withdrawal (Acute) Subjective: Patient complain of severe pain on swallowing food but denies food getting stuck in esophagus. This is consistent with odynophagia. Patient also has withdrawal symptoms including restlessness, anxiety and shivering in the morning. Patient did not respond with 2 mg p.o. Ativan and therefore 2 mg IV Ativan and Librium 50 mg oral given. Furthermore, patient had EGD which shows severe candidal esophagitis. Vitals/I&O's: Vital Signs Temp Pulse Resp BP Pulse Ox 97.9 F 85 16 143/90 H 94 02/05/19 13:20 02/05/19 13:20 02/05/19 13:20 02/05/19 13:20 02/05/19 13:20 Oxygen Flow Rate (L/min) 2 Oxygen Delivery Method Nasal Cannula Weight: 170 lb 0.01 oz Body Mass Index (BMI) 25.1 Intake and Output for Last 24 Hours 02/03/19 02/04/19 02/05/19 23:59 23:59 23:59 Intake Total 360 / 360 4070 / 4070 Output Total 1325 / 1325 Balance 360 / 360 2745 / 2745 General: Alert, Cooperative, Disoriented HEENT: Atraumatic, PERRLA, EOMI, Normocephalic Oral: Dry Mucosa, - - No whitish patch seen in the tongue or palate Neck: Supple, No JVD, Negative Carotid Bruits Lungs: Clear to auscultation, No rhonchi, No wheeze, No rales, Diminished Cardiovascular: Regular rate, Regular Rhythm, Normal S1, Normal S2, No murmurs Abdomen: Bowel Sounds Present, Soft, Non Tender, Non-Distended Extremities: No edema, Capillary Refill Less than 3 Seconds Skin: No rashes, No breakdown Musculoskeletal: No Tenderness to Palpation of Joints or Extremities, Arthritic Changes Neurological: Cranial nerves II-XII grossly intact Psych/Mental Status: Normal Affect, Appropriate Laboratory Results 02/04/19 09:05: Ethyl Alcohol < 3.0 02/04/19 13:40: PT 13.9, INR 1.1 02/04/19 20:20: Hgb 15.6 H, Hct 42.6 02/04/19 23:30: Urine Color Yellow, Urine Clarity Sl. Cloudy, Urine pH 5.0, Ur Specific [place] 1.020, Urine Protein 100 H, Urine Glucose (UA) Normal, Urine Ketones 5 H, Urine Occult Blood 50 H, Urine Nitrite Negative, Urine Bilirubin 3 H, Urine Urobilinogen 1 H, Ur Leukocyte Esterase 25 H, Urine RBC 0-5 SEEN, Urine WBC 0-5 SEEN, Ur Squamous Epith Cells 0-5 SEEN, Urine Bacteria 1+, Urine Mucus 0 SEEN 02/04/19 23:30: Urine Opiates Screen POSITIVE H, Urine Methadone Screen NEGATIVE, Ur Barbiturates Screen NEGATIVE, Ur Phencyclidine Scrn NEGATIVE, Ur Amphetamines Screen NEGATIVE, U Methamphetamin-MDMA NEGATIVE, U Benzodiazepines Scrn NEGATIVE, Urine Cocaine Screen NEGATIVE, U Cannabinoids Screen NEGATIVE, Ur Drug Screen Comment 02/05/19 05:17: WBC 9.8, RBC 4.23, Hgb 13.1, Hct 36.4 L, MCV 86.1, MCH 31.0, MCHC 36.0, RDW 12.6, RDW Differential 38.5, Plt Count 223, MPV 9.7, Immature Gran % (Auto) 0.200, Neut % (Auto) 74.3 H, Lymph % (Auto) 13.4 L, [place] % (Auto) 12.0 H, Eos % (Auto) 0.0, Baso % (Auto) 0.1, Absolute Neuts (auto) 7.3, Absolute Lymphs (auto) 1.32, Total Counted Not Reportable 02/05/19 05:17: Sodium 137, Potassium 3.2 L, Chloride 103, Carbon Dioxide 23.0, Anion Gap 11, BUN 55 H, Creatinine 2.03 H, Estim Creat Clear Calc 28.49, Est GFR (MDRD) Af Amer 31 L, Est GFR (MDRD) Non-Af 26 L, BUN/Creatinine Ratio 27.1 H, Glucose 116 H, Calcium 7.9 L, Phosphorus 2.1 L, Magnesium 2.4, Total Bilirubin 0.60, AST 13 L, ALT 23, Alkaline Phosphatase 80, Total Protein 5.9 L, Albumin 2.9 L, Globulin 3.0, Albumin/Globulin Ratio 1.0 02/05/19 05:17: APTT 30.4 02/05/19 05:17: Lamotrigine Pending Current Medications Acetaminophen (Tylenol) 650 mg PO Q6H PRN PRN PRN Reason: Mild Pain (1-3)/Temp > 100.7 F Albuterol Sulfate (Ventolin Aerosols) 2.5 mg INHALATION Q2H PRN PRN PRN Reason: Shortness of Breath/Wheezing Folic Acid (Folic Acid) 1 mg PO DAILY@0800 [facility] Stop: 02/07/19 08:01 Last Admin: 02/05/19 07:39 Dose: 1 mg Gabapentin (Neurontin) 600 mg PO QHS [facility] Last Admin: 02/04/19 22:33 Dose: Not Given Gabapentin (Neurontin) 300 mg PO DAILY [facility] Last Admin: 02/05/19 07:38 Dose: Not Given Potassium Chloride/Sodium Chloride () 1,000 mls @ 150 mls/hr IV .Q6H40M [facility] Last Admin: 02/05/19 08:54 Dose: 150 mls/hr Pantoprazole Sodium 40 mg/ (Sodium Chloride) 110 mls @ 330 mls/hr IV Q12 [facility] Last Admin: 02/05/19 08:59 Dose: 330 mls/hr Potassium Phosphate 30 mm/ (Sodium Chloride) 260 mls @ 42 mls/hr IV X1 ONE Stop: 02/05/19 17:41 Lamotrigine (Lamictal) 150 mg PO DAILY [facility] Lorazepam (Ativan) 2 mg PO Q2H PRN PRN; Protocol PRN Reason: CIWA score > 8 but <15 Lorazepam (Ativan) 2 mg PO UD PRN; Protocol PRN Reason: CIWA score >/=15. Lorazepam (Ativan) 2 mg IV Q2H PRN PRN; Protocol PRN Reason: CIWA score > 8 but <15 Last Admin: 02/05/19 09:26 Dose: 2 mg Lorazepam (Ativan) 2 mg IV UD PRN; Protocol PRN Reason: CIWA score >/=15. Lorazepam (Ativan) 2 mg PO Q6H [facility]; Taper Stop: 02/10/19 13:14 Last Admin: 02/05/19 08:16 Dose: 2 mg Lorazepam (Ativan) 1 mg PO Q24H PRN PRN Reason: Agitation Lorazepam (Ativan) 2 mg IV X1 PRN PRN Reason: Seizure Multivitamins/Minerals ([facility]) [facility] Admin: 02/05/19 07:40 Dose: 1 tablet Nicotine (Nicoderm Cq (Pbkc)) 21 mg TRANSDERM. DAILY [facility] Last Admin: 02/05/19 07:40 Dose: 21 mg Nutritional Formula (Lactose Free) (Ensure Clear) 120 ml PO 4X/DAY [facility] Last Admin: 02/05/19 07:43 Dose: 120 ml Oxycodone HCl (Oxyir) 5 mg PO Q4H PRN PRN PRN Reason: Moderate Pain (4-6/10) Potassium Chloride (K-Dur) 20 meq PO DAILY@0800 [facility] Last Admin: 02/05/19 07:40 Dose: 20 meq Prochlorperazine Edisylate (Compazine Iv) 5 mg IV Q4H PRN PRN PRN Reason: Breakthrough nausea/vomiting Propranolol HCl (Inderal) 10 mg PO DAILY@1200 [facility] Last Admin: 02/04/19 12:37 Dose: Not Given Quetiapine Fumarate (Seroquel) 50 mg PO QHS [facility] Last Admin: 02/04/19 22:34 Dose: 50 mg Sodium Chloride () 5 - 15 ml IV UD PRN PRN Reason: SALINE FLUSH Last Admin: 02/04/19 22:48 Dose: 10 ml Thiamine HCl ([facility]amin B1) [facility] Stop: 02/06/19 17:01 Last Admin: 02/05/19 07:40 Dose: 100 mg Trazodone HCl (Desyrel) 50 mg PO QHS [facility] Last Admin: 02/04/19 22:32 Dose: Not Given Medical Necessity - Tobacco Use Smoking Status: Heavy Smoker (>10/day) Tobacco Use: Cigarettes Assessment/Plan All Active Problems Epigastric abdominal pain (Acute) Intractable nausea and vomiting (Acute) Acute alcohol withdrawal (Acute) Chest pain (Resolved) ARF (acute renal failure) (Acute) Hypokalemia (Acute) Hypotension (Acute) Hypothermia (Resolved) Hypoxia (Resolved) The patient is a 68 year old F with history of chronic alcohol use and dependence with last admission in February 2017 for hypovolemic shock, alcohol withdrawal, , Acute kidney injury and hypokalemia came to ED with increased nausea, vomiting for last 2 days. Patient has about 5-10 clear vomitus since yesterday. She is also not eating since last Friday about 4 days ago. Complain of abdominal pain, mainly in epigastric location 7-8/10 intensity localized. Denies lower urinary tract symptoms including increased frequency, urgency, burning micturition or recent change. Denies fever or chills. No recent history of GI bleed. Patient had EGD done more than [address] burris [facility]. Patient does not know the report. In ED, patient was found febrile, heart rate in 100s, blood pressure 100/69 and pulse ox 90% on room air. Basic blood work in the ED shows leukocytosis 13.7 thousand, H&H 17.4/48.9 and platelet count 332,000. She is very dehydrated evident with hemoconcentration. BMP shows sodium 125, K3.4, chloride 83, BUN 56 and creatinine 3.35 suggestive of acute kidney injury. Her baseline creatinine runs around 1.0. Patient has tremors but denies recent history of seizures. She admits to drinking vodka once in 3 to 4 days but as per the nurse she drinks half pint vodka daily. 1. Intractable nausea/vomiting with epigastric pain and odynophagia suggestive of severe candidal esophagitis: Patient is being admitted to [facility] floor. IV fluid resuscitation. General surgeon Dr. Payne is been consulted for EGD. Lipase is negative. IV Protonix 40 mg every 12 hourly. Check H&H in the evening. Stool for occult blood ordered. EGD showed moderately severe esophagitis which was biopsied. Gastritis and duodenitis. Patient is on 40 mg IV Protonix twice daily. Nystatin suspension 100,006 and swallow 4 times daily. And fluconazole 200 mg daily. 2. Acute kidney injury, prerenal etiology from nausea and vomiting: Volume resuscitation with normal saline with IV KCl. Monitor kidney function and electrolytes daily. Monitor intake and output. BUN and creatinine shows improvement. Electrolyte abnormality with hypokalemia, hypotonic hypovolemic hyponatremia, hypochloremia and hypomagnesemia: Electrolytes being replaced.Patient is still hypokalemic, K3.2. Phosphorus 2.1. On IV K-Phos. Repeat magnesium after replacement is normal. 3. Acute alcohol withdrawal with history of chronic alcohol use and dependence: LFT shows normal ALT and AST but elevated alkaline phosphatase possible bowel origin. Hypomagnesemia, magnesium 1.5 being replaced. Tender hepatomegaly from chronic alcohol use. On Ativan scheduled and as needed protocol as per [facility]. If patient alcohol withdrawal gets worse, will change Ativan to Librium. On p.o. Ativan and IV Ativan as needed. If needed can give Librium intermittently. 4. Bilateral shoulder arthritis with recent left shoulder surgery on 01/05 in [facility] with old right shoulder surgical scar: PT and OT ordered. Pain management as required DVT prophylaxis: Bilateral SCDs. Pharmacological prophylaxis contraindicated in view of possible suspicion of GI bleed and also acute kidney injury. Laboratory Results 02/04/19 09:05: Ethyl Alcohol < 3.0 02/04/19 13:40: PT 13.9, INR 1.1 02/04/19 20:20: Hgb 15.6 H, Hct 42.6 02/04/19 23:30: Urine Color Yellow, Urine Clarity Sl. Cloudy, Urine pH 5.0, Ur Specific [place] 1.020, Urine Protein 100 H, Urine Glucose (UA) Normal, Urine Ketones 5 H, Urine Occult Blood 50 H, Urine Nitrite Negative, Urine Bilirubin 3 H, Urine Urobilinogen 1 H, Ur Leukocyte Esterase 25 H, Urine RBC 0-5 SEEN, Urine WBC 0-5 SEEN, Ur Squamous Epith Cells 0-5 SEEN, Urine Bacteria 1+, Urine Mucus 0 SEEN 02/04/19 23:30: Urine Opiates Screen POSITIVE H, Urine Methadone Screen NEGATIVE, Ur Barbiturates Screen NEGATIVE, Ur Phencyclidine Scrn NEGATIVE, Ur Amphetamines Screen NEGATIVE, U Methamphetamin-MDMA NEGATIVE, U Benzodiazepines Scrn NEGATIVE, Urine Cocaine Screen NEGATIVE, U Cannabinoids Screen NEGATIVE, Ur Drug Screen Comment 02/05/19 05:17: WBC 9.8, RBC 4.23, Hgb 13.1, Hct 36.4 L, MCV 86.1, MCH 31.0, MCHC 36.0, RDW 12.6, RDW Differential 38.5, Plt Count 223, MPV 9.7, Immature Gran % (Auto) 0.200, Neut % (Auto) 74.3 H, Lymph % (Auto) 13.4 L, [place] % (Auto) 12.0 H, Eos % (Auto) 0.0, Baso % (Auto) 0.1, Absolute Neuts (auto) 7.3, Absolute Lymphs (auto) 1.32, Total Counted Not Reportable 02/05/19 05:17: Sodium 137, Potassium 3.2 L, Chloride 103, Carbon Dioxide 23.0, Anion Gap 11, BUN 55 H, Creatinine 2.03 H, Estim Creat Clear Calc 28.49, Est GFR (MDRD) Af Amer 31 L, Est GFR (MDRD) Non-Af 26 L, BUN/Creatinine Ratio 27.1 H, Glucose 116 H, Calcium 7.9 L, Phosphorus 2.1 L, Magnesium 2.4, Total Bilirubin 0.60, AST 13 L, ALT 23, Alkaline Phosphatase 80, Total Protein 5.9 L, Albumin 2.9 L, Globulin 3.0, Albumin/Globulin Ratio 1.0 02/05/19 05:17: APTT 30.4 02/05/19 05:17: Lamotrigine Pending Active Medications Acetaminophen (Tylenol) 650 mg PO Q6H PRN PRN PRN Reason: Mild Pain (1-3)/Temp > 100.7 F Albuterol Sulfate (Ventolin Aerosols) 2.5 mg INHALATION Q2H PRN PRN PRN Reason: Shortness of Breath/Wheezing Folic Acid (Folic Acid) 1 mg PO DAILY@0800 [facility] Stop: 02/07/19 08:01 Last Admin: 02/05/19 07:39 Dose: 1 mg Gabapentin (Neurontin) 600 mg PO QHS [facility] Last Admin: 02/04/19 22:33 Dose: Not Given Gabapentin (Neurontin) 300 mg PO DAILY [facility] Last Admin: 02/05/19 07:38 Dose: Not Given Potassium Chloride/Sodium Chloride () 1,000 mls @ 150 mls/hr IV .Q6H40M [facility] Last Admin: 02/05/19 08:54 Dose: 150 mls/hr Pantoprazole Sodium 40 mg/ (Sodium Chloride) 110 mls @ 330 mls/hr IV Q12 [facility] Last Admin: 02/05/19 08:59 Dose: 330 mls/hr Potassium Phosphate 30 mm/ (Sodium Chloride) 260 mls @ 42 mls/hr IV X1 ONE Stop: 02/05/19 17:41 Lamotrigine (Lamictal) 150 mg PO DAILY [facility] Lorazepam (Ativan) 2 mg PO Q2H PRN PRN; Protocol PRN Reason: CIWA score > 8 but <15 Lorazepam (Ativan) 2 mg PO UD PRN; Protocol PRN Reason: CIWA score >/=15. Lorazepam (Ativan) 2 mg IV Q2H PRN PRN; Protocol PRN Reason: CIWA score > 8 but <15 Last Admin: 02/05/19 09:26 Dose: 2 mg Lorazepam (Ativan) 2 mg IV UD PRN; Protocol PRN Reason: CIWA score >/=15. Lorazepam (Ativan) 2 mg PO Q6H [facility]; Taper Stop: 02/10/19 13:14 Last Admin: 02/05/19 08:16 Dose: 2 mg Lorazepam (Ativan) 1 mg PO Q24H PRN PRN Reason: Agitation Lorazepam (Ativan) 2 mg IV X1 PRN PRN Reason: Seizure Multivitamins/Minerals ([facility]ivitamin With Minerals) [facility] Last Admin: 02/05/19 07:40 Dose: 1 tablet Nicotine (Nicoderm Cq (Pbkc)) 21 mg TRANSDERM. DAILY [facility] Last Admin: 02/05/19 07:40 Dose: 21 mg Nutritional Formula (Lactose Free) (Ensure Clear) 120 ml PO 4X/DAY [facility] Last Admin: 02/05/19 07:43 Dose: 120 ml Oxycodone HCl (Oxyir) 5 mg PO Q4H PRN PRN PRN Reason: Moderate Pain (4-6/10) Potassium Chloride (K-Dur) 20 meq PO DAILY@0800 [facility] Last Admin: 02/05/19 07:40 Dose: 20 meq Prochlorperazine Edisylate (Compazine Iv) 5 mg IV Q4H PRN PRN PRN Reason: Breakthrough nausea/vomiting Propranolol HCl (Inderal) 10 mg PO DAILY@1200 [facility] Last Admin: 02/04/19 12:37 Dose: Not Given Quetiapine Fumarate (Seroquel) 50 mg PO QHS [facility] Last Admin: 02/04/19 22:34 Dose: 50 mg Sodium Chloride () 5 - 15 ml IV UD PRN PRN Reason: SALINE FLUSH Last Admin: 02/04/19 22:48 Dose: 10 ml Thiamine HCl (Vitamin B1) [facility] Stop: 02/06/19 17:01 Last Admin: 02/05/19 07:40 Dose: 100 mg Trazodone HCl (Desyrel) 50 mg PO QHS [facility] Last Admin: 02/04/19 22:32 Dose: Not Given Code Visit Inpatient E&M: 14348 Subs Hosp L3
--- NOTE | 2019-02-05 13:50 | PN_ITS ---
Patient Problems: Active and Suspected Problems Epigastric abdominal pain (Acute) Intractable nausea and vomiting (Acute) Acute alcohol withdrawal (Acute) Subjective: Patient complain of severe pain on swallowing food but denies food getting stuck in esophagus. This is consistent with odynophagia. Patient also has withdrawal symptoms including restlessness, anxiety and shivering in the morning. Patient did not respond with 2 mg p.o. Ativan and therefore 2 mg IV Ativan and Librium 50 mg oral given. Furthermore, patient had EGD which shows severe candidal esophagitis. Vitals/I&O's: Vital Signs Temp Pulse Resp BP Pulse Ox 97.9 F 85 16 143/90 H 94 02/05/19 13:20 02/05/19 13:20 02/05/19 13:20 02/05/19 13:20 02/05/19 13:20 Oxygen Flow Rate (L/min) 2 Oxygen Delivery Method Nasal Cannula Weight: 170 lb 0.01 oz Body Mass Index (BMI) 25.1 Intake and Output for Last 24 Hours 02/03/19 02/04/19 02/05/19 23:59 23:59 23:59 Intake Total 360 / 360 4070 / 4070 Output Total 1325 / 1325 Balance 360 / 360 2745 / 2745 General: Alert, Cooperative, Disoriented HEENT: Atraumatic, PERRLA, EOMI, Normocephalic Oral: Dry Mucosa, - - No whitish patch seen in the tongue or palate Neck: Supple, No JVD, Negative Carotid Bruits Lungs: Clear to auscultation, No rhonchi, No wheeze, No rales, Diminished Cardiovascular: Regular rate, Regular Rhythm, Normal S1, Normal S2, No murmurs Abdomen: Bowel Sounds Present, Soft, Non Tender, Non-Distended Extremities: No edema, Capillary Refill Less than 3 Seconds Skin: No rashes, No breakdown Musculoskeletal: No Tenderness to Palpation of Joints or Extremities, Arthritic Changes Neurological: Cranial nerves II-XII grossly intact Psych/Mental Status: Normal Affect, Appropriate Laboratory Results 02/04/19 09:05: Ethyl Alcohol < 3.0 02/04/19 13:40: PT 13.9, INR 1.1 02/04/19 20:20: Hgb 15.6 H, Hct 42.6 02/04/19 23:30: Urine Color Yellow, Urine Clarity Sl. Cloudy, Urine pH 5.0, Ur Specific [place] 1.020, Urine Protein 100 H, Urine Glucose (UA) Normal, Urine Ketones 5 H, Urine Occult Blood 50 H, Urine Nitrite Negative, Urine Bilirubin 3 H, Urine Urobilinogen 1 H, Ur Leukocyte Esterase 25 H, Urine RBC 0-5 SEEN, Urine WBC 0-5 SEEN, Ur Squamous Epith Cells 0-5 SEEN, Urine Bacteria 1+, Urine Mucus 0 SEEN 02/04/19 23:30: Urine Opiates Screen POSITIVE H, Urine Methadone Screen NEGATIVE, Ur Barbiturates Screen NEGATIVE, Ur Phencyclidine Scrn NEGATIVE, Ur Amphetamines Screen NEGATIVE, U Methamphetamin-MDMA NEGATIVE, U Benzodiazepines Scrn NEGATIVE, Urine Cocaine Screen NEGATIVE, U Cannabinoids Screen NEGATIVE, Ur Drug Screen Comment 02/05/19 05:17: WBC 9.8, RBC 4.23, Hgb 13.1, Hct 36.4 L, MCV 86.1, MCH 31.0, MCHC 36.0, RDW 12.6, RDW Differential 38.5, Plt Count 223, MPV 9.7, Immature Gran % (Auto) 0.200, Neut % (Auto) 74.3 H, Lymph % (Auto) 13.4 L, [place] % (Auto) 12.0 H, Eos % (Auto) 0.0, Baso % (Auto) 0.1, Absolute Neuts (auto) 7.3, Absolute Lymphs (auto) 1.32, Total Counted Not Reportable 02/05/19 05:17: Sodium 137, Potassium 3.2 L, Chloride 103, Carbon Dioxide 23.0, Anion Gap 11, BUN 55 H, Creatinine 2.03 H, Estim Creat Clear Calc 28.49, Est GFR (MDRD) Af Amer 31 L, Est GFR (MDRD) Non-Af 26 L, BUN/Creatinine Ratio 27.1 H, Glucose 116 H, Calcium 7.9 L, Phosphorus 2.1 L, Magnesium 2.4, Total Bilirubin 0.60, AST 13 L, ALT 23, Alkaline Phosphatase 80, Total Protein 5.9 L, Albumin 2.9 L, Globulin 3.0, Albumin/Globulin Ratio 1.0 02/05/19 05:17: APTT 30.4 02/05/19 05:17: Lamotrigine Pending Current Medications Acetaminophen (Tylenol) 650 mg PO Q6H PRN PRN PRN Reason: Mild Pain (1-3)/Temp > 100.7 F Albuterol Sulfate (Ventolin Aerosols) 2.5 mg INHALATION Q2H PRN PRN PRN Reason: Shortness of Breath/Wheezing Folic Acid (Folic Acid) 1 mg PO DAILY@0800 [facility] Stop: 02/07/19 08:01 Last Admin: 02/05/19 07:39 Dose: 1 mg Gabapentin (Neurontin) 600 mg PO QHS [facility] Last Admin: 02/04/19 22:33 Dose: Not Given Gabapentin (Neurontin) 300 mg PO DAILY [facility] Last Admin: 02/05/19 07:38 Dose: Not Given Potassium Chloride/Sodium Chloride () 1,000 mls @ 150 mls/hr IV .Q6H40M [facility] Last Admin: 02/05/19 08:54 Dose: 150 mls/hr Pantoprazole Sodium 40 mg/ (Sodium Chloride) 110 mls @ 330 mls/hr IV Q12 [facility] Last Admin: 02/05/19 08:59 Dose: 330 mls/hr Potassium Phosphate 30 mm/ (Sodium Chloride) 260 mls @ 42 mls/hr IV X1 ONE Stop: 02/05/19 17:41 Lamotrigine (Lamictal) 150 mg PO DAILY [facility] Lorazepam (Ativan) 2 mg PO Q2H PRN PRN; Protocol PRN Reason: CIWA score > 8 but <15 Lorazepam (Ativan) 2 mg PO UD PRN; Protocol PRN Reason: CIWA score >/=15. Lorazepam (Ativan) 2 mg IV Q2H PRN PRN; Protocol PRN Reason: CIWA score > 8 but <15 Last Admin: 02/05/19 09:26 Dose: 2 mg Lorazepam (Ativan) 2 mg IV UD PRN; Protocol PRN Reason: CIWA score >/=15. Lorazepam (Ativan) 2 mg PO Q6H [facility]; Taper Stop: 02/10/19 13:14 Last Admin: 02/05/19 08:16 Dose: 2 mg Lorazepam (Ativan) 1 mg PO Q24H PRN PRN Reason: Agitation Lorazepam (Ativan) 2 mg IV X1 PRN PRN Reason: Seizure Multivitamins/Minerals ([facility]) [facility] Last Admin: 02/05/19 07:40 Dose: 1 tablet Nicotine (Nicoderm Cq (Pbkc)) 21 mg TRANSDERM. DAILY [facility] Last Admin: 02/05/19 07:40 Dose: 21 mg Nutritional Formula (Lactose Free) (Ensure Clear) 120 ml PO 4X/DAY [facility] Last Admin: 02/05/19 07:43 Dose: 120 ml Oxycodone HCl (Oxyir) 5 mg PO Q4H PRN PRN PRN Reason: Moderate Pain (4-6/10) Potassium Chloride (K-Dur) 20 meq PO DAILY@0800 [facility] Last Admin: 02/05/19 07:40 Dose: 20 meq Prochlorperazine Edisylate (Compazine Iv) 5 mg IV Q4H PRN PRN PRN Reason: Breakthrough nausea/vomiting Propranolol HCl (Inderal) 10 mg PO DAILY@1200 [facility] Last Admin: 02/04/19 12:37 Dose: Not Given Quetiapine Fumarate (Seroquel) 50 mg PO QHS [facility] Last Admin: 02/04/19 22:34 Dose: 50 mg Sodium Chloride () 5 - 15 ml IV UD PRN PRN Reason: SALINE FLUSH Last Admin: 02/04/19 22:48 Dose: 10 ml Thiamine HCl ([facility]itamin B1) [facility] Stop: 02/06/19 17:01 Last Admin: 02/05/19 07:40 Dose: 100 mg Trazodone HCl (Desyrel) 50 mg PO QHS [facility] Last Admin: 02/04/19 22:32 Dose: Not Given Medical Necessity - Tobacco Use Smoking Status: Heavy Smoker (>10/day) Tobacco Use: Cigarettes Assessment/Plan All Active Problems Epigastric abdominal pain (Acute) Intractable nausea and vomiting (Acute) Acute alcohol withdrawal (Acute) Chest pain (Resolved) ARF (acute renal failure) (Acute) Hypokalemia (Acute) Hypotension (Acute) Hypothermia (Resolved) Hypoxia (Resolved) The patient is a 68 year old F with history of chronic alcohol use and dependence with last admission in February 2017 for hypovolemic shock, alcohol withdrawal, , Acute kidney injury and hypokalemia came to ED with increased nausea, vomiting for last 2 days. Patient has about 5-10 clear vomitus since yesterday. She is also not eating since last Friday about 4 days ago. Complain of abdominal pain, mainly in epigastric location 7-8/10 intensity localized. Denies lower urinary tract symptoms including increased frequency, urgency, burning micturition or recent change. Denies fever or chills. No recent history of GI bleed. Patient had EGD done more than [address] burris [facility]. Patient does not know the report. In ED, patient was found febrile, heart rate in 100s, blood pressure 100/69 and pulse ox 90% on room air. Basic blood work in the ED shows leukocytosis 13.7 thousand, H&H 17.4/48.9 and platelet count 332,000. She is very dehydrated evident with hemoconcentration. BMP shows sodium 125, K3.4, chloride 83, BUN 56 and creatinine 3.35 suggestive of acute kidney injury. Her baseline creatinine runs around 1.0. Patient has tremors but denies recent history of seizures. She admits to drinking vodka once in 3 to 4 days but as per the nurse she drinks half pint vodka daily. 1. Intractable nausea/vomiting with epigastric pain and odynophagia suggestive of severe candidal esophagitis: Patient is being admitted to MedSur floor. IV fluid resuscitation. General surgeon Dr. Payne is been consulted for EGD. Lipase is negative. IV Protonix 40 mg every 12 hourly. Check H&H in the evening. Stool for occult blood ordered. EGD showed moderately severe esophagitis which was biopsied. Gastritis and duodenitis. Patient is on 40 mg IV Protonix twice daily. Nystatin suspension 100,006 and swallow 4 times daily. And fluconazole 200 mg daily. 2. Acute kidney injury, prerenal etiology from nausea and vomiting: Volume resuscitation with normal saline with IV KCl. Monitor kidney function and electrolytes daily. Monitor intake and output. BUN and creatinine shows improvement. Electrolyte abnormality with hypokalemia, hypotonic hypovolemic hyponatremia, hypochloremia and hypomagnesemia: Electrolytes being replaced.Patient is still hypokalemic, K3.2. Phosphorus 2.1. On IV K-Phos. Repeat magnesium after replacement is normal. 3. Acute alcohol withdrawal with history of chronic alcohol use and dependence: LFT shows normal ALT and AST but elevated alkaline phosphatase possible bowel origin. Hypomagnesemia, magnesium 1.5 being replaced. Tender hepatomegaly from chronic alcohol use. On Ativan scheduled and as needed protocol as per [facility]. If patient alcohol withdrawal gets worse, will change Ativan to Librium. On p.o. Ativan and IV Ativan as needed. If needed can give Librium intermittently. 4. Bilateral shoulder arthritis with recent left shoulder surgery on 01/05 in [facility] with old right shoulder surgical scar: PT and OT ordered. Pain management as required DVT prophylaxis: Bilateral SCDs. Pharmacological prophylaxis contraindicated in view of possible suspicion of GI bleed and also acute kidney injury. Laboratory Results 02/04/19 09:05: Ethyl Alcohol < 3.0 02/04/19 13:40: PT 13.9, INR 1.1 02/04/19 20:20: Hgb 15.6 H, Hct 42.6 02/04/19 23:30: Urine Color Yellow, Urine Clarity Sl. Cloudy, Urine pH 5.0, Ur Specific [place] 1.020, Urine Protein 100 H, Urine Glucose (UA) Normal, Urine Ketones 5 H, Urine Occult Blood 50 H, Urine Nitrite Negative, Urine Bilirubin 3 H, Urine Urobilinogen 1 H, Ur Leukocyte Esterase 25 H, Urine RBC 0-5 SEEN, Urine WBC 0-5 SEEN, Ur Squamous Epith Cells 0-5 SEEN, Urine Bacteria 1+, Urine Mucus 0 SEEN 02/04/19 23:30: Urine Opiates Screen POSITIVE H, Urine Methadone Screen NEGATIVE, Ur Barbiturates Screen NEGATIVE, Ur Phencyclidine Scrn NEGATIVE, Ur Amphetamines Screen NEGATIVE, U Methamphetamin-MDMA NEGATIVE, U Benzodiazepines Scrn NEGATIVE, Urine Cocaine Screen NEGATIVE, U Cannabinoids Screen NEGATIVE, Ur Drug Screen Comment 02/05/19 05:17: WBC 9.8, RBC 4.23, Hgb 13.1, Hct 36.4 L, MCV 86.1, MCH 31.0, MCHC 36.0, RDW 12.6, RDW Differential 38.5, Plt Count 223, MPV 9.7, Immature Gran % (Auto) 0.200, Neut % (Auto) 74.3 H, Lymph % (Auto) 13.4 L, [place] % (Auto) 12.0 H, Eos % (Auto) 0.0, Baso % (Auto) 0.1, Absolute Neuts (auto) 7.3, Absolute Lymphs (auto) 1.32, Total Counted Not Reportable 02/05/19 05:17: Sodium 137, Potassium 3.2 L, Chloride 103, Carbon Dioxide 23.0, Anion Gap 11, BUN 55 H, Creatinine 2.03 H, Estim Creat Clear Calc 28.49, Est GFR (MDRD) Af Amer 31 L, Est GFR (MDRD) Non-Af 26 L, BUN/Creatinine Ratio 27.1 H, Glucose 116 H, Calcium 7.9 L, Phosphorus 2.1 L, Magnesium 2.4, Total Bilirubin 0.60, AST 13 L, ALT 23, Alkaline Phosphatase 80, Total Protein 5.9 L, Albumin 2.9 L, Globulin 3.0, Albumin/Globulin Ratio 1.0 02/05/19 05:17: APTT 30.4 02/05/19 05:17: Lamotrigine Pending Active Medications Acetaminophen (Tylenol) 650 mg PO Q6H PRN PRN PRN Reason: Mild Pain (1-3)/Temp > 100.7 F Albuterol Sulfate (Ventolin Aerosols) 2.5 mg INHALATION Q2H PRN PRN PRN Reason: Shortness of Breath/Wheezing Folic Acid (Folic Acid) 1 mg PO DAILY@0800 [facility] Stop: 02/07/19 08:01 Last Admin: 02/05/19 07:39 Dose: 1 mg Gabapentin (Neurontin) 600 mg PO QHS [facility] Last Admin: 02/04/19 22:33 Dose: Not Given Gabapentin (Neurontin) 300 mg PO DAILY [facility] Last Admin: 02/05/19 07:38 Dose: Not Given Potassium Chloride/Sodium Chloride () 1,000 mls @ 150 mls/hr IV .Q6H40M [facility] Last Admin: 02/05/19 08:54 Dose: 150 mls/hr Pantoprazole Sodium 40 mg/ (Sodium Chloride) 110 mls @ 330 mls/hr IV Q12 [facility] Last Admin: 02/05/19 08:59 Dose: 330 mls/hr Potassium Phosphate 30 mm/ (Sodium Chloride) 260 mls @ 42 mls/hr IV X1 ONE Stop: 02/05/19 17:41 Lamotrigine (Lamictal) 150 mg PO DAILY [facility] Lorazepam (Ativan) 2 mg PO Q2H PRN PRN; Protocol PRN Reason: CIWA score > 8 but <15 Lorazepam (Ativan) 2 mg PO UD PRN; Protocol PRN Reason: CIWA score >/=15. Lorazepam (Ativan) 2 mg IV Q2H PRN PRN; Protocol PRN Reason: CIWA score > 8 but <15 Last Admin: 02/05/19 09:26 Dose: 2 mg Lorazepam (Ativan) 2 mg IV UD PRN; Protocol PRN Reason: CIWA score >/=15. Lorazepam (Ativan) 2 mg PO Q6H [facility]; Taper Stop: 02/10/19 13:14 Last Admin: 02/05/19 08:16 Dose: 2 mg Lorazepam (Ativan) 1 mg PO Q24H PRN PRN Reason: Agitation Lorazepam (Ativan) 2 mg IV X1 PRN PRN Reason: Seizure Multivitamins/Minerals (Multivitamin With Minerals) [facility] Last Admin: 02/05/19 07:40 Dose: 1 tablet Nicotine (Nicoderm Cq (Pbkc)) 21 mg TRANSDERM. DAILY [facility] Last Admin: 02/05/19 07:40 Dose: 21 mg Nutritional Formula (Lactose Free) (Ensure Clear) 120 ml PO 4X/DAY [facility] Last Admin: 02/05/19 07:43 Dose: 120 ml Oxycodone HCl (Oxyir) 5 mg PO Q4H PRN PRN PRN Reason: Moderate Pain (4-6/10) Potassium Chloride (K-Dur) 20 meq PO DAILY@0800 [facility] Last Admin: 02/05/19 07:40 Dose: 20 meq Prochlorperazine Edisylate (Compazine Iv) 5 mg IV Q4H PRN PRN PRN Reason: Breakthrough nausea/vomiting Propranolol HCl (Inderal) 10 mg PO DAILY@1200 [facility] Last Admin: 02/04/19 12:37 Dose: Not Given Quetiapine Fumarate (Seroquel) 50 mg PO QHS [facility] Last Admin: 02/04/19 22:34 Dose: 50 mg Sodium Chloride () 5 - 15 ml IV UD PRN PRN Reason: SALINE FLUSH Last Admin: 02/04/19 22:48 Dose: 10 ml Thiamine HCl (Vitamin B1) [facility] Stop: 02/06/19 17:01 Last Admin: 02/05/19 07:40 Dose: 100 mg Trazodone HCl (Desyrel) 50 mg PO QHS [facility] Last Admin: 02/04/19 22:32 Dose: Not Given Code Visit Inpatient E&M: 49046 Subs Hosp L3
[2019-02-05] MEDS: lamoTRIgine 150 MG Tablet PO (13:51)
[2019-02-05] MEDS: Propranolol 10 MG Tablet PO (13:51)
--- NOTE | 2019-02-05 14:08 | CASEMGMT ---
Social Work Note Pt back from procedure. CESAR met with pt, introduced self and role at [facility]. Pt is alert and orientated but states she has a major headache right now. Per RN POONAM Manzanares pt wanted more information regarding advanced directives. SW provided pt with advanced directive documents, encouraged pt to review documents, and provided pt with Social Service Rac Card for advanced directives. Pt states understanding, denied wanting to complete documents at this time. Pt states that she has anxiety and depression, states she was previously in counseling but not currently. Pt denied wanting counseling resources. Pt denied any suicidal/homicidal thoughts/plans/ideations. Pt states that she has a past alcohol abuse history, but currently denied any alcohol abuse. Per H+P, pt had told RN that she drinks half pint of vodka a day. Pt denied wanting any substance abuse resources. Jodi Peralta HUNTING AND FISHING GUIDE, DIRECTOR REGULATORY AGENCY
[2019-02-05] MEDS: NYSTATIN 500,000 UNIT/5 ML UDC 500000 UNIT PO ×3 (15:47→21:54)
[2019-02-05] MEDS: chlordiazePOXIDE 25 MG Capsule PO ×2 (17:08→21:52)
[2019-02-05] MEDS: Acetaminophen 325 MG Tablet 650 MG PO (17:13)
--- NOTE | 2019-02-05 19:05 | PCM.PN.SRG ---
Patient Problems: Active and Suspected Problems Epigastric abdominal pain (Acute) Intractable nausea and vomiting (Acute) Acute alcohol withdrawal (Acute) Subjective: still complaining of epigastric pain. - Physical Exam Lungs: Clear to auscultation, Diminished Cardiovascular: Regular rate, Regular Rhythm Abdomen: Bowel Sounds Present, Soft, Tender - in the epigastrium Vital Signs Temp Pulse Resp BP Pulse Ox 98.3 F 78 16 171/104 H 97 02/05/19 19:00 02/05/19 19:00 02/05/19 19:00 02/05/19 19:00 02/05/19 19:00 Oxygen Flow Rate (L/min) 2 Oxygen Delivery Method Nasal Cannula Weight: 77.111 kg Body Mass Index (BMI) 25.1 Intake and Output for Last 24 Hours 02/03/19 02/04/19 02/05/19 23:59 23:59 23:59 Intake Total 360 / 360 4791 / 4791 Output Total 2975 / 2975 Balance 360 / 360 1816 / 1816 Laboratory Tests Past 24 Hrs 02/04/19 02/04/19 02/04/19 20:20 23:30 23:30 WBC RBC Hgb 15.6 H Hct 42.6 MCV MCH MCHC RDW RDW Differential Plt Count MPV Immature Gran % (Auto) Neut % (Auto) Lymph % (Auto) [place] % (Auto) Eos % (Auto) Baso % (Auto) Absolute Neuts (auto) Absolute Lymphs (auto) Total Counted APTT Sodium Potassium Chloride Carbon Dioxide Anion Gap BUN Creatinine Estim Creat Clear Calc Est GFR (MDRD) Af Amer Est GFR (MDRD) Non-Af BUN/Creatinine Ratio Glucose Calcium Phosphorus Magnesium Total Bilirubin AST ALT Alkaline Phosphatase Total Protein Albumin Globulin Albumin/Globulin Ratio Urine Color Yellow Urine Clarity Sl. Cloudy Urine pH 5.0 Ur Specific [place] 1.020 Urine Protein 100 H Urine Glucose (UA) Normal Urine Ketones 5 H Urine Occult Blood 50 H Urine Nitrite Negative Urine Bilirubin 3 H Urine Urobilinogen 1 H Ur Leukocyte Esterase 25 H Urine RBC 0-5 SEEN Urine WBC 0-5 SEEN Ur Squamous Epith Cells 0-5 SEEN Urine Bacteria 1+ Urine Mucus 0 SEEN Urine Opiates Screen POSITIVE H Urine Methadone Screen NEGATIVE Ur Barbiturates Screen NEGATIVE Lamotrigine Ur Phencyclidine Scrn NEGATIVE Ur Amphetamines Screen NEGATIVE U Methamphetamin-MDMA NEGATIVE U Benzodiazepines Scrn NEGATIVE Urine Cocaine Screen NEGATIVE U Cannabinoids Screen NEGATIVE Ur Drug Screen Comment 02/05/19 02/05/19 02/05/19 05:17 05:17 05:17 WBC 9.8 RBC 4.23 Hgb 13.1 Hct 36.4 L MCV 86.1 MCH 31.0 MCHC 36.0 RDW 12.6 RDW Differential 38.5 Plt Count 223 MPV 9.7 Immature Gran % (Auto) 0.200 Neut % (Auto) 74.3 H Lymph % (Auto) 13.4 L [place] % (Auto) 12.0 H Eos % (Auto) 0.0 Baso % (Auto) 0.1 Absolute Neuts (auto) 7.3 Absolute Lymphs (auto) 1.32 Total Counted Not Reportable APTT 30.4 Sodium 137 Potassium 3.2 L Chloride 103 Carbon Dioxide 23.0 Anion Gap 11 BUN 55 H Creatinine 2.03 H Estim Creat Clear Calc 28.49 Est GFR (MDRD) Af Amer 31 L Est GFR (MDRD) Non-Af 26 L BUN/Creatinine Ratio 27.1 H Glucose 116 H Calcium 7.9 L Phosphorus 2.1 L Magnesium 2.4 Total Bilirubin 0.60 AST 13 L ALT 23 Alkaline Phosphatase 80 Total Protein 5.9 L Albumin 2.9 L Globulin 3.0 Albumin/Globulin Ratio 1.0 Urine Color Urine Clarity Urine pH Ur Specific [place] Urine Protein Urine Glucose (UA) Urine Ketones Urine Occult Blood Urine Nitrite Urine Bilirubin Urine Urobilinogen Ur Leukocyte Esterase Urine RBC Urine WBC Ur Squamous Epith Cells Urine Bacteria Urine Mucus Urine Opiates Screen Urine Methadone Screen Ur Barbiturates Screen Lamotrigine Ur Phencyclidine Scrn Ur Amphetamines Screen U Methamphetamin-MDMA U Benzodiazepines Scrn Urine Cocaine Screen U Cannabinoids Screen Ur Drug Screen Comment 02/05/19 05:17 WBC RBC Hgb Hct MCV MCH MCHC RDW RDW Differential Plt Count MPV Immature Gran % (Auto) Neut % (Auto) Lymph % (Auto) [place] % (Auto) Eos % (Auto) Baso % (Auto) Absolute Neuts (auto) Absolute Lymphs (auto) Total Counted APTT Sodium Potassium Chloride Carbon Dioxide Anion Gap BUN Creatinine Estim Creat Clear Calc Est GFR (MDRD) Af Amer Est GFR (MDRD) Non-Af BUN/Creatinine Ratio Glucose Calcium Phosphorus Magnesium Total Bilirubin AST ALT Alkaline Phosphatase Total Protein Albumin Globulin Albumin/Globulin Ratio Urine Color Urine Clarity Urine pH Ur Specific [place] Urine Protein Urine Glucose (UA) Urine Ketones Urine Occult Blood Urine Nitrite Urine Bilirubin Urine Urobilinogen Ur Leukocyte Esterase Urine RBC Urine WBC Ur Squamous Epith Cells Urine Bacteria Urine Mucus Urine Opiates Screen Urine Methadone Screen Ur Barbiturates Screen Lamotrigine Pending Ur Phencyclidine Scrn Ur Amphetamines Screen U Methamphetamin-MDMA U Benzodiazepines Scrn Urine Cocaine Screen U Cannabinoids Screen Ur Drug Screen Comment Medical Necessity - Tobacco Use Smoking Status: Heavy Smoker (>10/day) Tobacco Use: Cigarettes Assessment/Plan All Active Problems Epigastric abdominal pain (Acute) Intractable nausea and vomiting (Acute) Acute alcohol withdrawal (Acute) Chest pain (Resolved) ARF (acute renal failure) (Acute) Hypokalemia (Acute) Hypotension (Acute) Hypothermia (Resolved) Hypoxia (Resolved) vomiting, epigastric pain, dehydration, ARF, Etoh Abuse EGD was performed. This demonstrated hemorrhagic gastritis consistent with alcohol abuse. There was also diffuse esophagitis felt to be likely Jolene esophagitis. Biopsies were obtained. Would recommend continue the patient on proton pump inhibitors and start nystatin.
[2019-02-05] MEDS: proCHLORPERazine 10 MG/2 ML Vial 5 MG IV (21:50)
[2019-02-05] MEDS: Gabapentin 600 MG Tablet PO (21:52)
[2019-02-05] MEDS: QUEtiapine 25 MG Tablet 50 MG PO (21:53)
[2019-02-06] VITALS (7 sets, daily range): BP systolic 95–177; BP diastolic 64–118; PULSE 71–95; RESP 14–18; TEMP 36.7–37.4; O2SAT 93–98
--- NOTE | 2019-02-06 05:55 | EKG12_ITS ---
Test Reason : Blood Pressure : / mmHG Vent. Rate : 098 BPM Atrial Rate : 098 BPM P-R Int : 194 ms QRS Dur : 098 ms QT Int : 392 ms P-R-T Axes : 040 -42 034 degrees QTc Int : 500 ms Normal sinus rhythm Left axis deviation Poor R-Wave Progression Abnormal ECG Confirmed by ALEJANDRO COX, ROBE ([id number]), communications editor RICHELLE GALICIA ([id number]) on 02/08/2019 12:34:35 PM Referred By: ODELL Confirmed By:ROBE ALLEN MD
[2019-02-06 06:49] LABS: Absolute Lymphocyte Count 2.08 X10^3/ul (0.83-4.51); Absolute Neutrophil Count 3.8 X10^3/uL (2.0-7.7); Basophil# 0.01 X10^3/uL; Basophil% 0.1 % (0-1); Eosinophil# 0.05 X10^3/uL; Eosinophils% 0.7 % (0-5); Hematocrit 35.5 % (37-47); Hemoglobin 12.5 g/dl (12.0-15.0); Lymphocyte # 2.08 X10^3/ul (4.0); Mean Corp Hgb Conc 35.2 g/gl (32-36); Mean Corpuscular Hgb 31.1 pg (27.0-32.0); Mean Corpuscular Volume 88.3 fL (81-99); Mean Platelet Vol. 9.8 fl (6.2-12.0); Monocyte% 11.9 % (0-10); Neutrophil # 3.76 X10^3/uL (2.7-7.7); Neutrophil % 56.3 % (47-70); Platelet Count 211 K/mm3 (150-450); RBC Distribution Width CV 12.4 % (11.6-14.6); Red Blood Count 4.02 M/mm3 (4.2-5.4); White Blood Count 6.7 K/mm3 (4.4-11.0)
[2019-02-06 06:50] LABS: POSITIVE COUNT NO; POSITIVE DIFFERENTIAL NO; POSITIVE MORPHOLOGY NO
[2019-02-06] MEDS: chlordiazePOXIDE 25 MG Capsule PO (06:58)
[2019-02-06 07:06] LABS: Anion Gap 7 (5-15); BUN 25 mg/dL (7-18); BUN/Creat Ratio 25.4 RATIO (10-20); Chloride 109 mmol/L (98-107); Creatinine, Serum 0.98 mg/dL (0.55-1.02); EST Glomerular Filtration Rate 60 mL/min (>60); Est Glom Filt Rate - Afr Amer 72 mL/min (>60); Estimated Creatinine Clearance 59.01 ml/min; Glucose 89 mg/dL (74-106); Magnesium 1.8 mg/dL (1.6-2.6); Phosphorus 2.2 mg/dL (2.5-4.9); Potassium 3.5 mmol/L (3.5-5.1); Sodium Level 141 mmol/L (136-145)
[2019-02-06] MEDS: Acetaminophen 325 MG Tablet 650 MG PO (07:06)
--- NOTE | 2019-02-06 10:12 | PCM.PN.HOSP ---
Patient Problems: Active and Suspected Problems Epigastric abdominal pain (Acute) Intractable nausea and vomiting (Acute) Acute alcohol withdrawal (Acute) Subjective: Patient seen and examined. She was very lethargic during review. Per discussion with her nurse, patient has been receiving Librium as well as Ativan on account of alcohol withdrawal. Was noted that as soon as patient gets Librium she becomes very lethargic. Unable to do review of systems as patient is lethargic. Per her nurse, patient was alert and oriented and able to communicate this morning prior to her getting Librium. Vitals/I&O's: Vital Signs Temp Pulse Resp BP Pulse Ox 98.4 F 73 16 119/73 93 02/06/19 08:38 02/06/19 08:38 02/06/19 08:38 02/06/19 08:38 02/06/19 08:38 Oxygen Flow Rate (L/min) 2 Oxygen Delivery Method Nasal Cannula Weight: 170 lb 0.01 oz Body Mass Index (BMI) 25.1 Intake and Output for Last 24 Hours 02/04/19 02/05/19 02/06/19 23:59 23:59 23:59 Intake Total 360 / 360 6061 / 6061 759 / 759 Output Total 3375 / 3375 450 / 450 Balance 360 / 360 2686 / 2686 309 / 309 General: Disoriented, Lethargic, Non-Cooperative HEENT: Atraumatic, PERRLA, EOMI, Normocephalic Oral: Moist Mucosa Neck: Supple, No JVD, Negative Carotid Bruits Lungs: Clear to auscultation, Normal air movement, No rhonchi, No wheeze, No rales Cardiovascular: Regular rate, Regular Rhythm, Normal S1, Normal S2, No murmurs Abdomen: Bowel Sounds Present, Soft, Non Tender, Non-Distended, No Hepato-splenomegaly Extremities: No clubbing, No cyanosis, No edema, Capillary Refill Less than 3 Seconds Skin: No rashes, No breakdown Musculoskeletal: No Tenderness to Palpation of Joints or Extremities Lymphatic: No Cervical, Supraclavicular, or Inguinal Adenopathy Neurological: Muscle tone normal, - - very lethargic Psych/Mental Status: - - lethargic, noncooperative Microbiology Past 72 Hours 02/04/19 23:30 Urine Catheter - Fregoso Urine Culture - Preliminary Culture exhibits no growth. Laboratory Results 02/06/19 06:25: WBC 6.7, RBC 4.02 L, Hgb 12.5, Hct 35.5 L, MCV 88.3, MCH 31.1, MCHC 35.2, RDW 12.4, RDW Differential 39.0, Plt Count 211, MPV 9.8, Immature Gran % (Auto) 0.000, Neut % (Auto) 56.3, Lymph % (Auto) 31.0, Kleberg % (Auto) 11.9 H, Eos % (Auto) 0.7, Baso % (Auto) 0.1, Absolute Neuts (auto) 3.8, Absolute Lymphs (auto) 2.08, Total Counted Not Reportable 02/06/19 06:25: Sodium 141, Potassium 3.5, Chloride 109 H, Carbon Dioxide 25.0, Anion Gap 7, BUN 25 H, Creatinine 0.98, Estim Creat Clear Calc 59.01, Est GFR (MDRD) Af Amer 72, Est GFR (MDRD) Non-Af 60, BUN/Creatinine Ratio 25.4 H, Glucose 89, Calcium 8.0 L, Phosphorus 2.2 L, Magnesium 1.8 Current Medications Acetaminophen (Tylenol) 650 mg PO Q6H PRN PRN PRN Reason: Mild Pain (1-3)/Temp > 100.7 F Last Admin: 02/06/19 07:06 Dose: 650 mg Albuterol Sulfate (Ventolin Aerosols) 2.5 mg INHALATION Q2H PRN PRN PRN Reason: Shortness of Breath/Wheezing Folic Acid (Folic Acid) 1 mg PO DAILY@0800 [facility] Stop: 02/07/19 08:01 Last Admin: 02/06/19 08:28 Dose: Not Given Gabapentin (Neurontin) 600 mg PO QHS [facility] Last Admin: 02/05/19 21:52 Dose: 600 mg Gabapentin (Neurontin) 300 mg PO DAILY [facility] Last Admin: 02/06/19 08:29 Dose: Not Given Pantoprazole Sodium 40 mg/ (Sodium Chloride) 110 mls @ 330 mls/hr IV Q12 [facility] Last Admin: 02/06/19 08:32 Dose: 330 mls/hr Fluconazole (Diflucan) 200 mg in 100 mls @ 100 mls/hr IV Q24 [facility] Last Admin: 02/06/19 09:05 Dose: 100 mls/hr Potassium Chloride/Sodium Chloride () 1,000 mls @ 100 mls/hr IV .Q10H [facility] Last Admin: 02/06/19 07:00 Dose: 100 mls/hr Lamotrigine (Lamictal) 150 mg PO DAILY [facility] Last Admin: 02/06/19 08:29 Dose: Not Given Lorazepam (Ativan) 2 mg PO Q2H PRN PRN; Protocol PRN Reason: CIWA score > 8 but <15 Lorazepam (Ativan) 2 mg PO UD PRN; Protocol PRN Reason: CIWA score >/=15. Lorazepam (Ativan) 2 mg IV Q2H PRN PRN; Protocol PRN Reason: CIWA score > 8 but <15 Last Admin: 02/05/19 09:26 Dose: 2 mg Lorazepam (Ativan) 2 mg IV UD PRN; Protocol PRN Reason: CIWA score >/=15. Lorazepam (Ativan) 2 mg PO Q6H [facility]; Taper Stop: 02/10/19 13:14 Last Admin: 02/06/19 08:24 Dose: Not Given Lorazepam (Ativan) 1 mg PO Q24H PRN PRN Reason: Agitation Lorazepam (Ativan) 2 mg IV X1 PRN PRN Reason: Seizure Multivitamins/Minerals ([facility] With [facility]) [facility] Last Admin: 02/06/19 08:28 Dose: Not Given Nicotine (Nicoderm Cq (Pbkc)) 21 mg TRANSDERM. DAILY [facility] Last Admin: 02/06/19 08:32 Dose: 21 mg Nutritional Formula (Lactose Free) (Ensure Clear) 120 ml PO 4X/DAY [facility] Last Admin: 02/06/19 08:28 Dose: Not Given Nystatin (Nystatin) 500,000 unit PO 4X/DAY [facility] Last Admin: 02/06/19 08:29 Dose: Not Given Oxycodone HCl (Oxyir) 5 mg PO Q4H PRN PRN PRN Reason: Moderate Pain (4-6/10) Potassium Chloride (K-Dur) 40 meq PO BIDCM [facility] Stop: 02/07/19 17:01 Last Admin: 02/06/19 08:28 Dose: Not Given Prochlorperazine Edisylate (Compazine Iv) 5 mg IV Q4H PRN PRN PRN Reason: Breakthrough nausea/vomiting Last Admin: 02/05/19 21:50 Dose: 5 mg Propranolol HCl (Inderal) 10 mg PO DAILY@1200 [facility] Last Admin: 02/05/19 13:51 Dose: 10 mg Quetiapine Fumarate (Seroquel) 50 mg PO QHS [facility] Last Admin: 02/05/19 21:53 Dose: 50 mg Sodium Chloride () 5 - 15 ml IV UD PRN PRN Reason: SALINE FLUSH Last Admin: 02/04/19 22:48 Dose: 10 ml Thiamine HCl (Vitamin B1) 100 mg PO BIDCM [facility] Stop: 02/06/19 17:01 Last Admin: 02/06/19 08:28 Dose: Not Given Medical Necessity - Tobacco Use Smoking Status: Heavy Smoker (>10/day) Tobacco Use: Cigarettes Assessment/Plan All Active Problems Epigastric abdominal pain (Acute) Intractable nausea and vomiting (Acute) Acute alcohol withdrawal (Acute) Chest pain (Resolved) ARF (acute renal failure) (Acute) Hypokalemia (Acute) Hypotension (Acute) Hypothermia (Resolved) Hypoxia (Resolved) 1.Acute metabolic encephalopathy likely medication induced patient was started on librium yesterday as she wasnt responding very well to Ativan patient now gets very lethargic after receiving librium will dc librium and continue with ativan for alcohol withdrawal aspiration precautions fall precautions We will hold gabapentin as can contribute to confusion. 2. Esophageal candidiasis EGD showed moderately severe esophagitis as well as gastritis and duodenitis on IV protonix 40mg bid and Nystatin suspension swish and swallow 4x daily. also on IV fluconazole 200mg daily. WIll monitor 3. KARIS: resolved. Cr was 3.35 on admission and is now 0.98 today. 4. Hyponatremia: Sodium was 125 on admission and is not up to 141. Resolved with IV fluid demonstration. 5. Hypokalemia: Potassium is 3.5 today. Will monitor. 6. Acute alcohol withdrawal Has history of chronic alcohol abuse. Librium added on as under 1. Will DC Librium on account of acute metabolic encephalopathy and will continue with Ativan. CIWA score this morning was 6. 7. Bilateral shoulder arthritis 6 weeks post left shoulder surgery at [facility] on 326. Board. DVT prophylaxis: On SCDs. Code Visit Inpatient E&M: 26787 [facility] Hosp L3
--- NOTE | 2019-02-06 10:22 | PN_ITS ---
Patient Problems: Active and Suspected Problems Epigastric abdominal pain (Acute) Intractable nausea and vomiting (Acute) Acute alcohol withdrawal (Acute) Subjective: Patient seen and examined. She was very lethargic during review. Per discussion with her nurse, patient has been receiving Librium as well as Ativan on account of alcohol withdrawal. Was noted that as soon as patient gets Librium she becomes very lethargic. Unable to do review of systems as patient is lethargic. Per her nurse, patient was alert and oriented and able to communicate this morning prior to her getting Librium. Vitals/I&O's: Vital Signs Temp Pulse Resp BP Pulse Ox 98.4 F 73 16 119/73 93 02/06/19 08:38 02/06/19 08:38 02/06/19 08:38 02/06/19 08:38 02/06/19 08:38 Oxygen Flow Rate (L/min) 2 Oxygen Delivery Method Nasal Cannula Weight: 170 lb 0.01 oz Body Mass Index (BMI) 25.1 Intake and Output for Last 24 Hours 02/04/19 02/05/19 02/06/19 23:59 23:59 23:59 Intake Total 360 / 360 6061 / 6061 759 / 759 Output Total 3375 / 3375 450 / 450 Balance 360 / 360 2686 / 2686 309 / 309 General: Disoriented, Lethargic, Non-Cooperative HEENT: Atraumatic, PERRLA, EOMI, Normocephalic Oral: Moist Mucosa Neck: Supple, No JVD, Negative Carotid Bruits Lungs: Clear to auscultation, Normal air movement, No rhonchi, No wheeze, No rales Cardiovascular: Regular rate, Regular Rhythm, Normal S1, Normal S2, No murmurs Abdomen: Bowel Sounds Present, Soft, Non Tender, Non-Distended, No Hepato-splenomegaly Extremities: No clubbing, No cyanosis, No edema, Capillary Refill Less than 3 Seconds Skin: No rashes, No breakdown Musculoskeletal: No Tenderness to Palpation of Joints or Extremities Lymphatic: No Cervical, Supraclavicular, or Inguinal Adenopathy Neurological: Muscle tone normal, - - very lethargic Psych/Mental Status: - - lethargic, noncooperative Microbiology Past 72 Hours 02/04/19 23:30 Urine Catheter - Fregoso Urine Culture - Preliminary Culture exhibits no growth. Laboratory Results 02/06/19 06:25: WBC 6.7, RBC 4.02 L, Hgb 12.5, Hct 35.5 L, MCV 88.3, MCH 31.1, MCHC 35.2, RDW 12.4, RDW Differential 39.0, Plt Count 211, MPV 9.8, Immature Gran % (Auto) 0.000, Neut % (Auto) 56.3, Lymph % (Auto) 31.0, Wallace % (Auto) 11.9 H, Eos % (Auto) 0.7, Baso % (Auto) 0.1, Absolute Neuts (auto) 3.8, Absolute Lymphs (auto) 2.08, Total Counted Not Reportable 02/06/19 06:25: Sodium 141, Potassium 3.5, Chloride 109 H, Carbon Dioxide 25.0, Anion Gap 7, BUN 25 H, Creatinine 0.98, Estim Creat Clear Calc 59.01, Est GFR (MDRD) Af Amer 72, Est GFR (MDRD) Non-Af 60, BUN/Creatinine Ratio 25.4 H, Glucose 89, Calcium 8.0 L, Phosphorus 2.2 L, Magnesium 1.8 Current Medications Acetaminophen (Tylenol) 650 mg PO Q6H PRN PRN PRN Reason: Mild Pain (1-3)/Temp > 100.7 F Last Admin: 02/06/19 07:06 Dose: 650 mg Albuterol Sulfate (Ventolin Aerosols) 2.5 mg INHALATION Q2H PRN PRN PRN Reason: Shortness of Breath/Wheezing Folic Acid (Folic Acid) 1 mg PO DAILY@0800 [facility] Stop: 02/07/19 08:01 Last Admin: 02/06/19 08:28 Dose: Not Given Gabapentin (Neurontin) 600 mg PO QHS [facility] Last Admin: 02/05/19 21:52 Dose: 600 mg Gabapentin (Neurontin) 300 mg PO DAILY [facility] Last Admin: 02/06/19 08:29 Dose: Not Given Pantoprazole Sodium 40 mg/ (Sodium Chloride) 110 mls @ 330 mls/hr IV Q12 [facility] Last Admin: 02/06/19 08:32 Dose: 330 mls/hr Fluconazole (Diflucan) 200 mg in 100 mls @ 100 mls/hr IV Q24 [facility] Last Admin: 02/06/19 09:05 Dose: 100 mls/hr Potassium Chloride/Sodium Chloride () 1,000 mls @ 100 mls/hr IV .Q10H [facility] Last Admin: 02/06/19 07:00 Dose: 100 mls/hr Lamotrigine (Lamictal) 150 mg PO DAILY [facility] Last Admin: 02/06/19 08:29 Dose: Not Given Lorazepam (Ativan) 2 mg PO Q2H PRN PRN; Protocol PRN Reason: CIWA score > 8 but <15 Lorazepam (Ativan) 2 mg PO UD PRN; Protocol PRN Reason: CIWA score >/=15. Lorazepam (Ativan) 2 mg IV Q2H PRN PRN; Protocol PRN Reason: CIWA score > 8 but <15 Last Admin: 02/05/19 09:26 Dose: 2 mg Lorazepam (Ativan) 2 mg IV UD PRN; Protocol PRN Reason: CIWA score >/=15. Lorazepam (Ativan) 2 mg PO Q6H [facility]; Taper Stop: 02/10/19 13:14 Last Admin: 02/06/19 08:24 Dose: Not Given Lorazepam (Ativan) 1 mg PO Q24H PRN PRN Reason: Agitation Lorazepam (Ativan) 2 mg IV X1 PRN PRN Reason: Seizure Multivitamins/Minerals ([facility]) [facility] Last Admin: 02/06/19 08:28 Dose: Not Given Nicotine (Nicoderm Cq (Pbkc)) 21 mg TRANSDERM. DAILY [facility] Last Admin: 02/06/19 08:32 Dose: 21 mg Nutritional Formula (Lactose Free) (Ensure Clear) 120 ml PO 4X/DAY [facility] Last Admin: 02/06/19 08:28 Dose: Not Given Nystatin (Nystatin) 500,000 unit PO 4X/DAY [facility] Last Admin: 02/06/19 08:29 Dose: Not Given Oxycodone HCl (Oxyir) 5 mg PO Q4H PRN PRN PRN Reason: Moderate Pain (4-6/10) Potassium Chloride (K-Dur) 40 meq PO BIDCM [facility] Stop: 02/07/19 17:01 Last Admin: 02/06/19 08:28 Dose: Not Given Prochlorperazine Edisylate (Compazine Iv) 5 mg IV Q4H PRN PRN PRN Reason: Breakthrough nausea/vomiting Last Admin: 02/05/19 21:50 Dose: 5 mg Propranolol HCl (Inderal) 10 mg PO DAILY@1200 [facility] Last Admin: 02/05/19 13:51 Dose: 10 mg Quetiapine Fumarate (Seroquel) 50 mg PO QHS [facility] Last Admin: 02/05/19 21:53 Dose: 50 mg Sodium Chloride () 5 - 15 ml IV UD PRN PRN Reason: SALINE FLUSH Last Admin: 02/04/19 22:48 Dose: 10 ml Thiamine HCl (Vitamin B1) 100 mg PO BIDCM [facility] Stop: 02/06/19 17:01 Last Admin: 02/06/19 08:28 Dose: Not Given Medical Necessity - Tobacco Use Smoking Status: Heavy Smoker (>10/day) Tobacco Use: Cigarettes Assessment/Plan All Active Problems Epigastric abdominal pain (Acute) Intractable nausea and vomiting (Acute) Acute alcohol withdrawal (Acute) Chest pain (Resolved) ARF (acute renal failure) (Acute) Hypokalemia (Acute) Hypotension (Acute) Hypothermia (Resolved) Hypoxia (Resolved) 1.Acute metabolic encephalopathy likely medication induced * patient was started on librium yesterday as she wasnt responding very well to Ativan * patient now gets very lethargic after receiving librium * will dc librium and continue with ativan for alcohol withdrawal * aspiration precautions * fall precautions * We will hold gabapentin as can contribute to confusion. * 2. Esophageal candidiasis * EGD showed moderately severe esophagitis as well as gastritis and duodenitis * on IV protonix 40mg bid and Nystatin suspension swish and swallow 4x daily. * also on IV fluconazole 200mg daily. * WIll monitor * 3. KARIS: resolved. Cr was 3.35 on admission and is now 0.98 today. 4. Hyponatremia: Sodium was 125 on admission and is not up to 141. Resolved with IV fluid demonstration. 5. Hypokalemia: Potassium is 3.5 today. Will monitor. 6. Acute alcohol withdrawal * Has history of chronic alcohol abuse. Librium added on as under 1. Will DC Librium on account of acute metabolic encephalopathy and will continue with Ativan. * CIWA score this morning was 6. * * 7. Bilateral shoulder arthritis * 6 weeks post left shoulder surgery at [facility] on 326. * Board. DVT prophylaxis: On SCDs. Code Visit Inpatient E&M: 78423 [facility] Hosp L3
[2019-02-06] MEDS: NYSTATIN 500,000 UNIT/5 ML UDC 500000 UNIT PO ×3 (13:40→21:28)
[2019-02-06] MEDS: Ensure Clear 120 ML Liquid PO ×2 (13:40→21:30)
[2019-02-06] MEDS: LORazepam 1 MG Tablet PO ×2 (13:42→21:29)
[2019-02-06] MEDS: proCHLORPERazine 10 MG/2 ML Vial 5 MG IV (15:10)
[2019-02-06] MEDS: LORazepam 1 MG Tablet 2 MG PO (15:32)
[2019-02-06] MEDS: lamoTRIgine 150 MG Tablet PO (21:29)
[2019-02-06] MEDS: QUEtiapine 25 MG Tablet 50 MG PO (21:29)
[2019-02-06] MEDS: Propranolol 10 MG Tablet PO (21:30)
[2019-02-07] VITALS (26 sets, daily range): BP systolic 128–212; BP diastolic 81–133; PULSE 75–88; RESP 14–24; TEMP 36.7–37.3; O2SAT 94–98
[2019-02-07] MEDS: LORazepam 1 MG Tablet PO ×3 (05:18→21:43)
[2019-02-07] MEDS: Acetaminophen 325 MG Tablet 650 MG PO (06:03)
[2019-02-07 07:34] LABS: Absolute Lymphocyte Count 2.42 X10^3/ul (0.83-4.51); Absolute Neutrophil Count 6.3 X10^3/uL (2.0-7.7); Basophil# 0.01 X10^3/uL; Basophil% 0.1 % (0-1); Eosinophil# 0.15 X10^3/uL; Eosinophils% 1.5 % (0-5); Hematocrit 38.5 % (37-47); Hemoglobin 13.6 g/dl (12.0-15.0); Lymphocyte # 2.42 X10^3/ul (4.0); Lymphocyte % 24.3 % (19-41); Mean Corp Hgb Conc 35.3 g/gl (32-36); Mean Corpuscular Hgb 30.8 pg (27.0-32.0); Mean Corpuscular Volume 87.3 fL (81-99); Mean Platelet Vol. 9.9 fl (6.2-12.0); Monocyte# 1.07 X10^3/uL; Monocyte% 10.8 % (0-10); Neutrophil # 6.28 X10^3/uL (2.7-7.7); Neutrophil % 63.1 % (47-70); Platelet Count 256 K/mm3 (150-450); RBC Distribution Width CV 12.2 % (11.6-14.6); RBC Distribution Width SD 38.5 fl (35.1-43.9); Red Blood Count 4.41 M/mm3 (4.2-5.4)
[2019-02-07 07:42] LABS: POSITIVE COUNT NO; POSITIVE DIFFERENTIAL NO; POSITIVE MORPHOLOGY NO
[2019-02-07] MEDS: Folic Acid 1 MG Tablet PO (07:44)
[2019-02-07] MEDS: Multivitamins,Ther W-Minerals Tablet 1 TABLET PO (07:46)
[2019-02-07] MEDS: Ensure Clear 120 ML Liquid PO ×3 (07:47→21:43)
[2019-02-07] MEDS: NYSTATIN 500,000 UNIT/5 ML UDC 500000 UNIT PO ×4 (07:47→21:44)
[2019-02-07] MEDS: lamoTRIgine 150 MG Tablet PO (07:48)
--- NOTE | 2019-02-07 08:05 | EKG12_ITS ---
Test Reason : CP Blood Pressure : / mmHG Vent. Rate : 083 BPM Atrial Rate : 083 BPM P-R Int : 204 ms QRS Dur : 100 ms QT Int : 378 ms P-R-T Axes : 035 -38 026 degrees QTc Int : 444 ms Normal sinus rhythm Left axis deviation Poor R-Wave Progression Abnormal ECG Confirmed by ALEJANDRO COX, ROBE ([id number]), restaurant expeditor RICHELLE GALICIA ([id number]) on 02/09/2019 11:39:14 AM Referred By: ROSARIO Confirmed By:ROBE ALLEN MD
--- NOTE | 2019-02-07 08:07 | NURSING ---
Addendum entered by Lakisha López 02/07/19 08:10: replies that she just vomitted. 100cc of emesis but complaining of sharp pain to her chest. C.o SOB, applied 2L [place] oxygen. Vitals taken, BP 204/134. paged Dr. Bruce stat via doughnut machine operator helper. Original Note: Bed exit alarming. pt still in bed, leg hanging out. pt c/o pain swallowing.
--- NOTE | 2019-02-07 08:18 | NURSING ---
Addendum entered by Lakisha López 02/07/19 08:21: Dr. Bruce up here to see pt. Manual bp being done by Carmen BANEGAS at this time. Another BP was 207/[address] Bruce looked at EKG that was done. Original Note: 12 lead EKG done at this time by Morena HARMON.
--- NOTE | 2019-02-07 08:27 | NURSING ---
Pt climbing out of bed, states intense chest pressure, call placed for stat ekg, paged to whom reported to room, pt remain diaphretic, bp remains elevated, pt continous to complain of intense chest pressure, and bp remains elevated. orders obtained for stat sl nitrox1 ,hydralazine, would like pt transferred and started on nitro drip.
[2019-02-07] MEDS: hydrALAZINE 20 MG/ML Vial 10 MG IV (08:33)
[2019-02-07 08:34] LABS: ALB/GLOB Ratio 1.1 RATIO (0.9-2.4); AST(SGOT) 14 U/L (15-37); Alanine Aminotransfer ALT/SGPT 21 U/L (13-56); Alkaline Phosphatase 84 U/L (45-117); Anion Gap 10 (5-15); BUN 15 mg/dL (7-18); BUN/Creat Ratio 17.1 RATIO (10-20); Calcium,Total 8.6 mg/dL (8.5-10.1); Chloride 107 mmol/L (98-107); Creatinine, Serum 0.88 mg/dL (0.55-1.02); EST Glomerular Filtration Rate 68 mL/min (>60); Est Glom Filt Rate - Afr Amer 83 mL/min (>60); Estimated Creatinine Clearance 65.72 ml/min; Globulin 2.8 g/dL (2.2-4.2); Glucose 124 mg/dL (74-106); Potassium 3.4 mmol/L (3.5-5.1); Protein, Total 5.8 g/dL (6.4-8.2); Sodium Level 138 mmol/L (136-145)
--- NOTE | 2019-02-07 09:06 | CT_ITS ---
STUDY: CTA CHEST REASON FOR EXAM: Female, 68 years old. Substernal chest pain, hypertension RADIATION DOSAGE (If Supplied By Facility): CTDIvol = ( 12.62 ) mGy, DLP = ( 457.35 ) mGycm TECHNIQUE: The examination was performed with the intravenous administration of 75 IV Isovue 370. Post-processing of the angiographic images was performed, with multiplanar reformation and 3D reconstruction. Individualized dose optimization techniques were used for this CT. COMPARISON: Previous plain films FINDINGS: There are subtle, but persistent filling defects noted within branches of the left pulmonary artery leading to the left lower lobe, these are best seen on axial images 81, 85, and 90 as well as on coronal recon images 182-184. There is mild prominence to the ascending aorta without aneurysm or dissection. Maximum dimension of the ascending aorta is 4.4 cm. There is no demonstrated aortic dissection. Normal heart and pericardium. Normal mediastinum. Normal hilar regions. There is peribronchial thickening. The lungs are well expanded. Chronic interstitial changes noted in both lung gage, bibasilar atelectasis. No organized infiltrate, or suspicious noncalcified mass or nodule. Normal pleura. Normal chest wall structures. There are degenerative changes of thoracic spine. Limited cuts through the upper abdomen show multiple likely hepatic cysts the largest measures [address]/CTA Chest W/WO Contrast IMPRESSION: Subtle but persistent filling defects noted in branches of the left pulmonary artery and the left lower lobe as described above. No evidence of aortic dissection, there is mild prominence to the ascending aorta at 4.4 cm. Chronic interstitial changes in both lung gage with bibasilar atelectasis, no organized infiltrate Degenerative bony changes Likely hepatic cysts Findings discussed with patient's nurse prior to dictation N.B. : The above information has been verbally conveyed by Melo Regan MD to BASSAM Nava, on 02/07/2019 10:05:15 (ET). Electronically Signed: Melo Regan MD at 10:07 EDT , Service support ,
--- NOTE | 2019-02-07 09:08 | PCM.PN.HOSP ---
Patient Problems: Active and Suspected Problems Epigastric abdominal pain (Acute) Intractable nausea and vomiting (Acute) Acute alcohol withdrawal (Acute) Subjective: Patient seen and examined. She developed sudden onset sharp chest pain this morning. Pain was very severe and much worse than the retrosternal chest pain showed me having from candidal esophagitis. Her blood pressure was also severely elevated was in the 200 systolic when checked. Repeat check manually in both arms still showed elevated blood pressure with systolic being around 230. Patient denied any shortness of breath but looks very anxious and agitated during review. Of note, hair Librium was stopped yesterday on account of lethargy and patient was much more alert this morning. She had also thrown up once this morning. Stat EKG done showed normal sinus rhythm with no acute ST changes. Decision made to transfer patient emergently to ICU with PCU status. Vitals/I&O's: Vital Signs Temp Pulse Resp BP Pulse Ox 99.1 F 88 18 202/120 H 96 02/07/19 07:39 02/07/19 08:39 02/07/19 07:39 02/07/19 08:39 02/07/19 07:39 Oxygen Flow Rate (L/min) 2 Oxygen Delivery Method Room Air Weight: 170 lb 0.01 oz Body Mass Index (BMI) 25.1 Intake and Output for Last 24 Hours 02/05/19 02/06/19 02/07/19 23:59 23:59 23:59 Intake Total 6061 / 6061 3892 / 3892 511 / 511 Output Total 3375 / 3375 950 / 950 400 / 400 Balance 2686 / 2686 2942 / 2942 111 / 111 General: Alert, Oriented x3, Cooperative, - - agitated, very anxious and in pain HEENT: Atraumatic, PERRLA, EOMI, Normocephalic Oral: Dry Mucosa Neck: Supple, No JVD, Negative Carotid Bruits Lungs: Clear to auscultation, Normal air movement, No rhonchi, No wheeze, No rales Cardiovascular: Regular rate, Regular Rhythm, Normal S1, Normal S2, No murmurs Abdomen: Bowel Sounds Present, Soft, Non Tender, Non-Distended, No Hepato-splenomegaly Extremities: No clubbing, No cyanosis, No edema, Capillary Refill Less than 3 Seconds Skin: No rashes, No breakdown Musculoskeletal: No Tenderness to Palpation of Joints or Extremities Lymphatic: No Cervical, Supraclavicular, or Inguinal Adenopathy Neurological: Cranial nerves II-XII grossly intact, Neuro grossly intact, Motor Exam 5/5 strength throughout Psych/Mental Status: Agitated, Anxious, Alert and oriented to time, place, person, mood and affect Microbiology Past 72 Hours 02/04/19 23:30 Urine Catheter - Fregoso Urine Culture - Final Culture exhibits no growth. Laboratory Results 02/06/19 10:46: Ammonia 23.0 02/07/19 06:15: WBC 10.0, RBC 4.41, Hgb 13.6, Hct 38.5, MCV 87.3, MCH 30.8, MCHC 35.3, RDW 12.2, RDW Differential 38.5, Plt Count 256, MPV 9.9, Immature Gran % (Auto) 0.200, Neut % (Auto) 63.1, Lymph % (Auto) 24.3, [place] % (Auto) 10.8 H, Eos % (Auto) 1.5, Baso % (Auto) 0.1, Absolute Neuts (auto) 6.3, Absolute Lymphs (auto) 2.42, Total Counted Not Reportable 02/07/19 06:15: Sodium 138, Potassium 3.4 L, Chloride 107, Carbon Dioxide 21.0, Anion Gap 10, BUN 15, Creatinine 0.88, Estim Creat Clear Calc 65.72, Est GFR (MDRD) Af Amer 83, Est GFR (MDRD) Non-Af 68, BUN/Creatinine Ratio 17.1, Glucose 124 H, Calcium 8.6, Total Bilirubin 0.60, AST 14 L, ALT 21, Alkaline Phosphatase 84, Total Protein 5.8 L, Albumin 3.0 L, Globulin 2.8, Albumin/Globulin Ratio 1.1 02/07/19 06:15: Troponin I < 0.015 02/07/19 07:00: Troponin I Cancelled Current Medications Acetaminophen (Tylenol) 650 mg PO Q6H PRN PRN PRN Reason: Mild Pain (1-3)/Temp > 100.7 F Last Admin: 02/07/19 06:03 Dose: 650 mg Albuterol Sulfate (Ventolin Aerosols) 2.5 mg INHALATION Q2H PRN PRN PRN Reason: Shortness of Breath/Wheezing Gabapentin (Neurontin) 600 mg PO QHS [facility] Last Admin: 02/05/19 21:52 Dose: 600 mg Gabapentin (Neurontin) 300 mg PO DAILY [facility] Last Admin: 02/06/19 08:29 Dose: Not Given Pantoprazole Sodium 40 mg/ (Sodium Chloride) 110 mls @ 330 mls/hr IV Q12 [facility] Last Admin: 02/07/19 07:43 Dose: 330 mls/hr Fluconazole (Diflucan) 200 mg in 100 mls @ 100 mls/hr IV Q24 [facility] Last Admin: 02/06/19 09:05 Dose: 100 mls/hr Potassium Chloride/Sodium Chloride () 1,000 mls @ 100 mls/hr IV .Q10H [facility] Last Admin: 02/07/19 05:18 Dose: 100 mls/hr Nitroglycerin/Dextrose () 250 mls @ 3 mls/hr CONT INF .[id number] [facility] Lamotrigine (Lamictal) 150 mg PO DAILY [facility] Last Admin: 02/07/19 07:48 Dose: 150 mg Lorazepam (Ativan) 2 mg PO Q2H PRN PRN; Protocol PRN Reason: CIWA score > 8 but <15 Last Admin: 02/06/19 15:32 Dose: 2 mg Lorazepam (Ativan) 2 mg PO UD PRN; Protocol PRN Reason: CIWA score >/=15. Lorazepam (Ativan) 2 mg IV Q2H PRN PRN; Protocol PRN Reason: CIWA score > 8 but <15 Last Admin: 02/05/19 09:26 Dose: 2 mg Lorazepam (Ativan) 2 mg IV UD PRN; Protocol PRN Reason: CIWA score >/=15. Lorazepam (Ativan) 2 mg PO Q8H [facility]; Taper Stop: 02/10/19 13:14 Last Admin: 02/07/19 05:18 Dose: 2 mg Lorazepam (Ativan) 1 mg PO Q24H PRN PRN Reason: Agitation Lorazepam (Ativan) 2 mg IV X1 PRN PRN Reason: Seizure Multivitamins/Minerals ([facility]ivitamin With Minerals) [facility] Last Admin: 02/07/19 07:46 Dose: 1 tablet Nicotine (Nicoderm Cq (Pbkc)) 21 mg TRANSDERM. DAILY [facility] Last Admin: 02/07/19 07:47 Dose: 21 mg Nutritional Formula (Lactose Free) (Ensure Clear) 120 ml PO 4X/DAY [facility] Last Admin: 02/07/19 07:47 Dose: 120 ml Nystatin (Nystatin) 500,000 unit PO 4X/DAY [facility] Last Admin: 02/07/19 07:47 Dose: 500,000 unit Oxycodone HCl (Oxyir) 5 mg PO Q4H PRN PRN PRN Reason: Moderate Pain (4-6/10) Potassium Chloride (K-Dur) 40 meq PO BIDCM [facility] Stop: 02/07/19 17:01 Last Admin: 02/07/19 07:44 Dose: 40 meq Prochlorperazine Edisylate (Compazine Iv) 5 mg IV Q4H PRN PRN PRN Reason: Breakthrough nausea/vomiting Last Admin: 02/06/19 15:10 Dose: 5 mg Propranolol HCl (Inderal) 10 mg PO DAILY@1200 [facility] Last Admin: 02/06/19 21:30 Dose: 10 mg Quetiapine Fumarate (Seroquel) 50 mg PO QHS [facility] Last Admin: 02/06/19 21:29 Dose: 50 mg Sodium Chloride () 5 - 15 ml IV UD PRN PRN Reason: SALINE FLUSH Last Admin: 02/04/19 22:48 Dose: 10 ml Medical Necessity - Tobacco Use Smoking Status: Heavy Smoker (>10/day) Tobacco Use: Cigarettes Assessment/Plan All Active Problems Epigastric abdominal pain (Acute) Intractable nausea and vomiting (Acute) Acute alcohol withdrawal (Acute) Chest pain (Resolved) ARF (acute renal failure) (Acute) Hypokalemia (Acute) Hypotension (Acute) Hypothermia (Resolved) Hypoxia (Resolved) 1.Acute metabolic encephalopathy likely medication induced resolved. Librium was dc's yesterday and patient's mentation improved. on ativan protocol for alcohol withdrawal aspiration precautions. gabapentin and opiates on hold 2. hypertensive emergency patient developed sudden onset chest pain this morning, with associated elevated BP; BP was in 230s systolic EKG done showed normal sinus rhythm with no acute ST changes will start nitroglycerin drip, and transfer patient to ICU stat troponin and will cycle patient has been on SCDs for DVT prophylaxis; stat CTA showed small filling defects in left pulmonary artery branches started on SC lovenox therapeutic dose. PUlmonology consulted 3. PE: as under 2. 4. Esophageal candidiasis EGD showed moderately severe esophagitis as well as gastritis and duodenitis on IV protonix 40mg bid and Nystatin suspension swish and swallow 4x daily. also on IV fluconazole 200mg daily. 5. KARIS: resolved. Cr was 3.35 on admission and is now 0.98 today. 6. Hyponatremia: resolved. 7. Hypokalemia: Potassium is 3.4 today. will replace and monitor 8. Acute alcohol withdrawal CIWA score this morning is 20, due to agitation from chest pain and elevated BP continue ativan withdrawal protocol continue holding librium 9. Bilateral shoulder arthritis 6 weeks post left shoulder surgery at [facility] on 326. Board. DVT prophylaxis:therapeutic lovenox Code Visit Inpatient E&M: [id number] [facility] L3
[2019-02-07] MEDS: LORazepam 2 MG/ML Syringe IV (09:09)
--- NOTE | 2019-02-07 09:16 | PN_ITS ---
Patient Problems: Active and Suspected Problems Epigastric abdominal pain (Acute) Intractable nausea and vomiting (Acute) Acute alcohol withdrawal (Acute) Subjective: Patient seen and examined. She developed sudden onset sharp chest pain this morning. Pain was very severe and much worse than the retrosternal chest pain showed me having from candidal esophagitis. Her blood pressure was also severely elevated was in the 200 systolic when checked. Repeat check manually in both arms still showed elevated blood pressure with systolic being around 230. Patient denied any shortness of breath but looks very anxious and agitated during review. Of note, hair Librium was stopped yesterday on account of lethargy and patient was much more alert this morning. She had also thrown up once this morning. Stat EKG done showed normal sinus rhythm with no acute ST changes. Decision made to transfer patient emergently to ICU with PCU status. Vitals/I&O's: Vital Signs Temp Pulse Resp BP Pulse Ox 99.1 F 88 18 202/120 H 96 02/07/19 07:39 02/07/19 08:39 02/07/19 07:39 02/07/19 08:39 02/07/19 07:39 Oxygen Flow Rate (L/min) 2 Oxygen Delivery Method Room Air Weight: 170 lb 0.01 oz Body Mass Index (BMI) 25.1 Intake and Output for Last 24 Hours 02/05/19 02/06/19 02/07/19 23:59 23:59 23:59 Intake Total 6061 / 6061 3892 / 3892 511 / 511 Output Total 3375 / 3375 950 / 950 400 / 400 Balance 2686 / 2686 2942 / 2942 111 / 111 General: Alert, Oriented x3, Cooperative, - - agitated, very anxious and in pain HEENT: Atraumatic, PERRLA, EOMI, Normocephalic Oral: Dry Mucosa Neck: Supple, No JVD, Negative Carotid Bruits Lungs: Clear to auscultation, Normal air movement, No rhonchi, No wheeze, No rales Cardiovascular: Regular rate, Regular Rhythm, Normal S1, Normal S2, No murmurs Abdomen: Bowel Sounds Present, Soft, Non Tender, Non-Distended, No Hepato- splenomegaly Extremities: No clubbing, No cyanosis, No edema, Capillary Refill Less than 3 Seconds Skin: No rashes, No breakdown Musculoskeletal: No Tenderness to Palpation of Joints or Extremities Lymphatic: No Cervical, Supraclavicular, or Inguinal Adenopathy Neurological: Cranial nerves II-XII grossly intact, Neuro grossly intact, Motor Exam 5/5 strength throughout Psych/Mental Status: Agitated, Anxious, Alert and oriented to time, place, person, mood and affect Microbiology Past 72 Hours 02/04/19 23:30 Urine Catheter - Fregoso Urine Culture - Final Culture exhibits no growth. Laboratory Results 02/06/19 10:46: Ammonia 23.0 02/07/19 06:15: WBC 10.0, RBC 4.41, Hgb 13.6, Hct 38.5, MCV 87.3, MCH 30.8, MCHC 35.3, RDW 12.2, RDW Differential 38.5, Plt Count 256, MPV 9.9, Immature Gran % (Auto) 0.200, Neut % (Auto) 63.1, Lymph % (Auto) 24.3, [place] % (Auto) 10.8 H, Eos % (Auto) 1.5, Baso % (Auto) 0.1, Absolute Neuts (auto) 6.3, Absolute Lymphs (auto) 2.42, Total Counted Not Reportable 02/07/19 06:15: Sodium 138, Potassium 3.4 L, Chloride 107, Carbon Dioxide 21.0, Anion Gap 10, BUN 15, Creatinine 0.88, Estim Creat Clear Calc 65.72, Est GFR (MDRD) Af Amer 83, Est GFR (MDRD) Non-Af 68, BUN/Creatinine Ratio 17.1, Glucose 124 H, Calcium 8.6, Total Bilirubin 0.60, AST 14 L, ALT 21, Alkaline Phosphatase 84, Total Protein 5.8 L, Albumin 3.0 L, Globulin 2.8, Albumin/Globulin Ratio 1.1 02/07/19 06:15: Troponin I < 0.015 02/07/19 07:00: Troponin I Cancelled Current Medications Acetaminophen (Tylenol) 650 mg PO Q6H PRN PRN PRN Reason: Mild Pain (1-3)/Temp > 100.7 F Last Admin: 02/07/19 06:03 Dose: 650 mg Albuterol Sulfate (Ventolin Aerosols) 2.5 mg INHALATION Q2H PRN PRN PRN Reason: Shortness of Breath/Wheezing Gabapentin (Neurontin) 600 mg PO QHS [facility] Last Admin: 02/05/19 21:52 Dose: 600 mg Gabapentin (Neurontin) 300 mg PO DAILY [facility] Last Admin: 02/06/19 08:29 Dose: Not Given Pantoprazole Sodium 40 mg/ (Sodium Chloride) 110 mls @ 330 mls/hr IV Q12 [facility] Last Admin: 02/07/19 07:43 Dose: 330 mls/hr Fluconazole (Diflucan) 200 mg in 100 mls @ 100 mls/hr IV Q24 [facility] Last Admin: 02/06/19 09:05 Dose: 100 mls/hr Potassium Chloride/Sodium Chloride () 1,000 mls @ 100 mls/hr IV .Q10H [facility] Last Admin: 02/07/19 05:18 Dose: 100 mls/hr Nitroglycerin/Dextrose () 250 mls @ 3 mls/hr CONT INF .[id number] [facility] Lamotrigine (Lamictal) 150 mg PO DAILY [facility] Last Admin: 02/07/19 07:48 Dose: 150 mg Lorazepam (Ativan) 2 mg PO Q2H PRN PRN; Protocol PRN Reason: CIWA score > 8 but <15 Last Admin: 02/06/19 15:32 Dose: 2 mg Lorazepam (Ativan) 2 mg PO UD PRN; Protocol PRN Reason: CIWA score >/=15. Lorazepam (Ativan) 2 mg IV Q2H PRN PRN; Protocol PRN Reason: CIWA score > 8 but <15 Last Admin: 02/05/19 09:26 Dose: 2 mg Lorazepam (Ativan) 2 mg IV UD PRN; Protocol PRN Reason: CIWA score >/=15. Lorazepam (Ativan) 2 mg PO Q8H [facility]; Taper Stop: 02/10/19 13:14 Last Admin: 02/07/19 05:18 Dose: 2 mg Lorazepam (Ativan) 1 mg PO Q24H PRN PRN Reason: Agitation Lorazepam (Ativan) 2 mg IV X1 PRN PRN Reason: Seizure Multivitamins/Minerals (Multivitamin With Minerals) [facility] Last Admin: 02/07/19 07:46 Dose: 1 tablet Nicotine (Nicoderm Cq (Pbkc)) 21 mg TRANSDERM. DAILY [facility] Last Admin: 02/07/19 07:47 Dose: 21 mg Nutritional Formula (Lactose Free) (Ensure Clear) 120 ml PO 4X/DAY [facility] Last Admin: 02/07/19 07:47 Dose: 120 ml Nystatin (Nystatin) 500,000 unit PO 4X/DAY [facility] Last Admin: 02/07/19 07:47 Dose: 500,000 unit Oxycodone HCl (Oxyir) 5 mg PO Q4H PRN PRN PRN Reason: Moderate Pain (4-6/10) Potassium Chloride (K-Dur) 40 meq PO BIDCM [facility] Stop: 02/07/19 17:01 Last Admin: 02/07/19 07:44 Dose: 40 meq Prochlorperazine Edisylate (Compazine Iv) 5 mg IV Q4H PRN PRN PRN Reason: Breakthrough nausea/vomiting Last Admin: 02/06/19 15:10 Dose: 5 mg Propranolol HCl (Inderal) 10 mg PO DAILY@1200 [facility] Last Admin: 02/06/19 21:30 Dose: 10 mg Quetiapine Fumarate (Seroquel) 50 mg PO QHS [facility] Last Admin: 02/06/19 21:29 Dose: 50 mg Sodium Chloride () 5 - 15 ml IV UD PRN PRN Reason: SALINE FLUSH Last Admin: 02/04/19 22:48 Dose: 10 ml Medical Necessity - Tobacco Use Smoking Status: Heavy Smoker (>10/day) Tobacco Use: Cigarettes Assessment/Plan All Active Problems Epigastric abdominal pain (Acute) Intractable nausea and vomiting (Acute) Acute alcohol withdrawal (Acute) Chest pain (Resolved) ARF (acute renal failure) (Acute) Hypokalemia (Acute) Hypotension (Acute) Hypothermia (Resolved) Hypoxia (Resolved) 1.Acute metabolic encephalopathy likely medication induced * resolved. Librium was dc's yesterday and patient's mentation improved. * on ativan protocol for alcohol withdrawal * aspiration precautions. * gabapentin and opiates on hold * 2. hypertensive emergency * patient developed sudden onset chest pain this morning, with associated elevated BP; BP was in 230s systolic * EKG done showed normal sinus rhythm with no acute ST changes * will start nitroglycerin drip, and transfer patient to ICU * stat troponin and will cycle * patient has been on SCDs for DVT prophylaxis; * stat CTA showed small filling defects in left pulmonary artery branches * started on SC lovenox therapeutic dose. PUlmonology consulted * 3. PE: as under 2. * 4. Esophageal candidiasis * EGD showed moderately severe esophagitis as well as gastritis and duodenitis * on IV protonix 40mg bid and Nystatin suspension swish and swallow 4x daily. * also on IV fluconazole 200mg daily. * * 5. KARIS: resolved. Cr was 3.35 on admission and is now 0.98 today. 6. Hyponatremia: resolved. 7. Hypokalemia: Potassium is 3.4 today. will replace and monitor 8. Acute alcohol withdrawal * CIWA score this morning is 20, due to agitation from chest pain and elevated BP * continue ativan withdrawal protocol * continue holding librium * 9. Bilateral shoulder arthritis * 6 weeks post left shoulder surgery at [facility] on 326. * Board. DVT prophylaxis:therapeutic lovenox Code Visit Inpatient E&M: [id number] [facility] L3
[2019-02-07] MEDS: Enoxaparin 80 MG/0.8 ML Syringe SC ×2 (10:33→17:09)
[2019-02-07] MEDS: 0.9% NaCl Peripheral Flush Adult/Peds IV (10:34)
[2019-02-07] MEDS: Morphine 2 MG/ML Syringe 1 MG IV (13:16)
[2019-02-07] MEDS: Propranolol 10 MG Tablet PO (13:22)
[2019-02-07] MEDS: oxyCODONE 5 MG Tablet PO (16:58)
[2019-02-07] MEDS: QUEtiapine 25 MG Tablet 50 MG PO (21:44)
[2019-02-08] VITALS (12 sets, daily range): BP systolic 101–220; BP diastolic 64–140; PULSE 68–92; RESP 16–20; TEMP 36.7–37; O2SAT 92–96
[2019-02-08] MEDS: LORazepam 1 MG Tablet PO ×2 (05:46→13:33)
[2019-02-08] MEDS: Enoxaparin 80 MG/0.8 ML Syringe SC ×2 (05:46→17:58)
--- NOTE | 2019-02-08 05:55 | ECHOD_ITS ---
Reason For Study: Hypertension Procedure This was a 2D Doppler, Color Flow transthoracic echocardiogram. The study was technically difficult. Exam performed with patient supine due to left shoulder surgery. PT had chest pain and vomitted during exam. Exam performed portable in patient room. Left Ventricle Normal LV size. Left ventricular systolic function is normal. The estimated ejection fraction is 60 %. Diastolic function is indeterminate. No regional wall motion abnormalities noted. Right Ventricle Normal RV size. Normal systolic function. Atria Normal left atrium. Normal right atrium. No doppler evidence for ASD. Mitral Valve There is no mitral annular calcification. Normal mitral valve. Trivial mitral valve insufficiency. Tricuspid Valve Normal tricuspid valve. Trivial tricuspid valve insufficiency. Unable to estimate RV systolic pressure/pulmonary artery pressure due to technically difficult study. Aortic Valve The aortic valve is not well visualized. Pulmonic Valve The pulmonic valve is not well visualized. Great Vessels Normal sized aortic root. Pericardium/Pleural No pericardial effusion. MMode/2D Measurements & Calculations LVIDd: 4.5 cm IVSd: 1.2 cm Ao root diam: 3.6 cm LVIDs: 3.1 cm LVPWd: 1.3 cm RVDd: 2.9 cm FS: 32.4 % LAV(MOD-bp): 59.7 ml LA A4 area: 17.8 cm2 LA dimension(2D): 3.1 cm LAV(MOD-bp) Indexed: 31.0 ml/m2 LAV(MOD-sp2): 53.3 ml LAV(MOD-sp4): 52.9 ml RA A4 area: 13.1 cm2 Time Measurements MV dec time: 0.12 sec Doppler Measurements & Calculations MV E max amadou: 71.3 cm/sec Lat Peak E' Amadou: 5.2 cm/sec Med Peak E' Amadou: 5.6 cm/sec MV A max amadou: 139.5 cm/sec E/E' lat: 13.8 E/E' med: 12.7 MV E/A: 0.51 Ao V2 max: 121.5 cm/sec LV V1 max: 105.2 cm/sec PA V2 max: 100.0 cm/sec Ao max P.9 mmHg LV V1 max P.4 mmHg Interpretation Summary The study was technically difficult. Left ventricular systolic function is normal. The estimated ejection fraction is 60 %. Trivial mitral valve insufficiency. Trivial tricuspid valve insufficiency. Unable to estimate RV systolic pressure/pulmonary artery pressure due to technically difficult study. Diastolic function is indeterminate. Ordering Physician: Samia Bruce Referring Physician: Yuki Lopez Performed By: Monica Leon, TR, RVT
[2019-02-08 06:59] LABS: Absolute Lymphocyte Count 2.69 X10^3/ul (0.83-4.51); Absolute Neutrophil Count 5.1 X10^3/uL (2.0-7.7); Basophil# 0.02 X10^3/uL; Basophil% 0.2 % (0-1); Eosinophil# 0.29 X10^3/uL; Eosinophils% 3.1 % (0-5); Hematocrit 40.5 % (37-47); Hemoglobin 14.1 g/dl (12.0-15.0); Lymphocyte # 2.69 X10^3/ul (4.0); Lymphocyte % 28.5 % (19-41); Mean Corp Hgb Conc 34.8 g/gl (32-36); Mean Corpuscular Hgb 30.5 pg (27.0-32.0); Mean Corpuscular Volume 87.5 fL (81-99); Mean Platelet Vol. 9.6 fl (6.2-12.0); Monocyte# 1.29 X10^3/uL; Monocyte% 13.7 % (0-10); Neutrophil # 5.13 X10^3/uL (2.7-7.7); Neutrophil % 54.2 % (47-70); Platelet Count 308 K/mm3 (150-450); RBC Distribution Width CV 12.5 % (11.6-14.6); RBC Distribution Width SD 39.1 fl (35.1-43.9); Red Blood Count 4.63 M/mm3 (4.2-5.4); White Blood Count 9.5 K/mm3 (4.4-11.0)
[2019-02-08 07:11] LABS: ALB/GLOB Ratio 0.9 RATIO (0.9-2.4); AST(SGOT) 14 U/L (15-37); Alanine Aminotransfer ALT/SGPT 19 U/L (13-56); Albumin, Serum 2.9 g/dL (3.2-5.0); Alkaline Phosphatase 82 U/L (45-117); Anion Gap 5 (5-15); BUN 14 mg/dL (7-18); BUN/Creat Ratio 14.9 RATIO (10-20); Calcium,Total 8.5 mg/dL (8.5-10.1); Chloride 111 mmol/L (98-107); Creatinine, Serum 0.94 mg/dL (0.55-1.02); EST Glomerular Filtration Rate 63 mL/min (>60); Est Glom Filt Rate - Afr Amer 76 mL/min (>60); Estimated Creatinine Clearance 61.52 ml/min; Globulin 3.3 g/dL (2.2-4.2); Glucose 98 mg/dL (74-106); Protein, Total 6.2 g/dL (6.4-8.2); Sodium Level 138 mmol/L (136-145)
[2019-02-08 07:18] LABS: POSITIVE COUNT NO; POSITIVE DIFFERENTIAL NO; POSITIVE MORPHOLOGY NO
[2019-02-08] MEDS: Propranolol 10 MG Tablet PO (09:45)
[2019-02-08] MEDS: lamoTRIgine 150 MG Tablet PO (09:45)
[2019-02-08] MEDS: Multivitamins,Ther W-Minerals Tablet 1 TABLET PO (09:45)
[2019-02-08] MEDS: Morphine 2 MG/ML Syringe 1 MG IV (10:00)
--- NOTE | 2019-02-08 10:23 | EKG12_ITS ---
Test Reason : AM EKG Blood Pressure : / mmHG Vent. Rate : 064 BPM Atrial Rate : 064 BPM P-R Int : 208 ms QRS Dur : 096 ms QT Int : 414 ms P-R-T Axes : 019 -27 014 degrees QTc Int : 427 ms Normal sinus rhythm Leftward [place] Poor R-Wave Progression Confirmed by ALEJANDRO COX, ROBE ([id number]), communications editor RICHELLE GALICIA ([id number]) on 02/09/2019 11:39:38 AM Referred By: JUDD Confirmed By:ROBE ALLEN MD
[2019-02-08] MEDS: cloNIDine HCl 0.1 MG Tablet 0.2 MG PO ×2 (11:57→22:20)
[2019-02-08] MEDS: NYSTATIN 500,000 UNIT/5 ML UDC 500000 UNIT PO ×4 (11:57→22:20)
--- NOTE | 2019-02-08 12:19 | CON.PCM_ITS ---
Problem List (1) Intractable nausea and vomiting Status: Acute (2) Acute alcohol withdrawal Status: Acute (3) Neuropathy Status: Chronic (4) Anxiety Status: Chronic (5) Left shoulder pain Status: Chronic (6) HTN (hypertension) Status: Chronic (7) Alcohol abuse Status: Chronic Reason for Consult Date of Consultation: 02/08/19 Reason for Consultation: Pulmonary embolism History of Present Illness: The patient is a 68 year old F, with past medical history listed below, who presented to [facility] on 02/04/2019 secondary to nausea and vomiting for 3 days duration. Patient denied any fever or chills. Patient stated the pain was epigastric and suprapubic without radiation. Patient had recently had shoulder surgery at the [facility] on January 05 and reportedly symptoms had worsened with the refill of oxycodone. Patient reportedly had a history of alcoholism, but had reported she had not drank in 6 days. On presentation to the ER, patient was tachycardic at 122 bpm and 94% on room air. Blood pressure was acceptable. Abdomen was soft with epigastric tenderness. CBC showed a concentrated hemoglobin at 17.4, sodium of 125 and creatinine of 3.35. This was up significantly from her baseline of 0.62. Patient was placed on IV fluids and then admitted to the hospital for evaluation of acute renal failure. While in the hospital, patient had reported odynophagia and once seen by surgery. Patient was initiated on Librium therapy and did require 2 L nasal cannula to maintain saturations. An EGD was performed showing moderately severe esophagitis which was biopsied. Patient was placed on PPI and nystatin. Patient's renal function improved with IV hydration, but patient has had multiple electrolyte abnormalities through the hospitalization. Patient is on CIWA protocol. Yesterday, patient was noted to be very lethargic and this was thought to be secondary to Librium. This was held and patient reportedly is having better mental status. Patient has had significantly elevated blood pressures after cessation of Librium therapy. There was discussion about transfer to the intensive care unit for antihypertensive therapy. This led to a CT scan showing pulmonary embolism. Patient was initiated on Lovenox therapy. Patient is a very poor historian. Patient denies any issues with alcohol or opiate medications. Patient states she is never been seen by administrative assistant receptionist. Patient does have an extensive smoking history, but is never had pulmonary function tests for quantification of lung function. Patient does report a cough on a daily basis that is productive of clear to white sputum. Patient denies any history of previous blood clots. Patient does report decreased mobility secondary to recent surgery. Review of systems otherwise negative x10 systems. Past Medical History Past Medical History (Chronic Problems): Chronic Problems Neuropathy (Chronic) Anxiety (Chronic) Left shoulder pain (Chronic) HTN (hypertension) (Chronic) Alcohol abuse (Chronic) Fractured nose (Chronic) Fall (Chronic) Alcohol dependence (Chronic) Allergies No Known Allergies Allergy (Verified 02/04/19 08:22) Home Medications: Ambulatory Orders Medication Instructions Recorded Fluoxetine HCl 40 mg PO DAILY 08/15/16 Gabapentin [Neurontin] 300 mg PO DAILY 08/15/16 Gabapentin [Neurontin] 600 mg PO QHS 08/15/16 Lamotrigine [Lamictal] 150 mg PO DAILY 08/15/16 Multivitamins,Therapeutic 1 tablet PO DAILY 08/15/16 [Multivitamin] Propranolol HCl [Inderal (Beta 10 mg PO DAILY 08/15/16 Samantha)] Quetiapine Fumarate [Seroquel] 100 - 150 mg PO QHS 08/15/16 Melatonin 20 mg PO QHS 02/28/17 Pantoprazole Sodium [Protonix] 40 mg PO DAILY #15 tablet 03/03/17 Surgical History: - - bilateral hip replacement, shoulder repair, cholecystectomy, hysterectomy Smoking Status: Heavy Smoker (>10/day) Tobacco Use: Cigarettes - *Family History Paternal History Items: No pertinent history Maternal History Items: - - alcohol abuse, heart attack Review of Systems Comment: See HPI Patient Problems: Active and Suspected Problems Epigastric abdominal pain (Acute) Intractable nausea and vomiting (Acute) Acute alcohol withdrawal (Acute) Objective: All imaging was personally reviewed. CT scan of the chest does show left filling defects and chronic interstitial changes. Some emphysematous changes are appreciated. Patient states the echocardiogram was completed, but formal report is not available prior to my evaluation - Physical Exam General: Alert, Cooperative, No apparent distress, - - Slow to respond to some questions. No conversational dyspnea. HEENT: Atraumatic, PERRLA, EOMI, Normocephalic, - - Scleral injection without icterus Oral: Moist Mucosa, No Gingival or Mucosal Lesions/ Ulcerations Neck: Supple, No Nodes, Trachea Midline, JVD, Right Lungs: No rhonchi, No wheeze, No rales, Diminished, - - Symmetric expansion. No dullness to percussion. Cardiovascular: Regular rate, Regular Rhythm, Normal S1, Normal S2, No murmurs, No rub noted, No Gallop Abdomen: Bowel Sounds Present, Soft, Non Tender, Non-Distended Extremities: No clubbing, No cyanosis, Edema Skin: No rashes, No breakdown Musculoskeletal: No Tenderness to Palpation of Joints or Extremities Lymphatic: No Cervical, Supraclavicular, or Inguinal Adenopathy Neurological: Cranial nerves II-XII grossly intact, Neuro grossly intact, Motor Exam 5/5 strength throughout Psych/Mental Status: - - Odd affect. Answers appropriately, but slow to respond. Vital Signs Temp Pulse Resp BP Pulse Ox 36.7 C 82 18 220/140 H 96 02/08/19 11:15 02/08/19 11:15 02/08/19 11:15 02/08/19 11:15 02/08/19 11:15 Oxygen Flow Rate (L/min) 2 Oxygen Delivery Method Room Air Weight: 79.2 kg Body Mass Index (BMI) 25.1 Intake and Output for Last 24 Hours 02/06/19 02/07/19 02/08/19 23:59 23:59 23:59 Intake Total 3892 / 3892 1443 / 1443 2292 / 2292 Output Total 950 / 950 1000 / 1000 300 / 300 Balance 2942 / 2942 443 / 443 1991 Microbiology Past 72 Hours 02/04/19 23:30 Urine Culture - Final Urine Catheter - Fregoso Culture exhibits no growth. Laboratory Tests Past 24 Hrs 02/07/19 02/08/19 02/08/19 13:30 06:30 06:30 WBC 9.5 RBC 4.63 Hgb 14.1 Hct 40.5 MCV 87.5 MCH 30.5 MCHC 34.8 RDW 12.5 RDW Differential 39.1 Plt Count 308 MPV 9.6 Immature Gran % (Auto) 0.300 Neut % (Auto) 54.2 Lymph % (Auto) 28.5 Mora % (Auto) 13.7 H Eos % (Auto) 3.1 Baso % (Auto) 0.2 Absolute Neuts (auto) 5.1 Absolute Lymphs (auto) 2.69 Total Counted Not Reportable Sodium 138 Potassium 4.0 Chloride 111 H Carbon Dioxide 22.0 Anion Gap 5 BUN 14 Creatinine 0.94 Estim Creat Clear Calc 61.52 Est GFR (MDRD) Af Amer 76 Est GFR (MDRD) Non-Af 63 BUN/Creatinine Ratio 14.9 Glucose 98 Calcium 8.5 Total Bilirubin 0.50 AST 14 L ALT 19 Alkaline Phosphatase 82 Troponin I < 0.015 Total Protein 6.2 L Albumin 2.9 L Globulin 3.3 Albumin/Globulin Ratio 0.9 Assessment/Plan All Active Problems Epigastric abdominal pain (Acute) Intractable nausea and vomiting (Acute) Acute alcohol withdrawal (Acute) Chest pain (Resolved) ARF (acute renal failure) (Acute) Hypokalemia (Acute) Hypotension (Acute) Hypothermia (Resolved) Hypoxia (Resolved) RECOMMENDATIONS: 1. Continue anticoagulation 2. Await esophageal biopsies 3. Aggressive control of blood pressure 4. Continue with CIWA protocol 5. Outpatient complete PFT 6. Await echocardiogram, walking oximetry prior to discharge IMPRESSIONS: 1. Acute pulmonary embolism Likely secondary to recent surgery. Would not recommend obtaining lower extremity Dopplers as this will not change therapeutic intervention. Patient is not a very good historian, but agree with systemic anticoagulation for at least 6 months. Await echocardiogram for evaluation of pulmonary artery pressures. Patient should have a walking oximetry prior to discharge. Some concern patient may have malignancy leading to increased risk, but biopsies are currently pending. 2. Acute toxic encephalopathy Patient is receiving Ativan and Librium secondary to alcohol withdrawal. Patient is very slow to respond, but has a nonfocal exam at this time. Clinical suspicion for medication side effects. Continue to monitor closely. Defer to hospitalist. 3. Esophageal candidiasis Patient currently on antifungal therapy. Biopsies are pending. General surgery is following. 4. Resolved acute kidney injury/hyponatremia/hypokalemia/recent shoulder surgery/suspected COPD/hypertensive urgency Complicates care, management, recovery and prognosis. Continue with current therapy. Appears to be effective. Patient should complete PFT as an outpatient for quantification and clarification of lung function. Rate well controlled at this time. Defer antihypertensives to hospitalist. Code Visit Inpatient E&M: 26409 Init Hosp L3
--- NOTE | 2019-02-08 15:56 | PCM.PN.HOSP ---
Patient Problems: Active and Suspected Problems Epigastric abdominal pain (Acute) Intractable nausea and vomiting (Acute) Acute alcohol withdrawal (Acute) Subjective: Patient is awake but I think she has difficulty in retaining information and deep understanding. Complain of pain over epigastrium which radiates along the diaphragm as per the patient. When I told this probably secondary to esophageal candidiasis as her serial troponin enzymes are negative. She is asking question again and again about esophageal candidiasis She had CTPA done which shows pulmonary embolism and left lower lobe branch of pulmonary artery. On Lovenox. Vitals/I&O's: Vital Signs Temp Pulse Resp BP Pulse Ox 98.3 F 70 16 156/113 H 94 02/08/19 13:30 02/08/19 15:08 02/08/19 13:30 02/08/19 13:30 02/08/19 13:30 Oxygen Flow Rate (L/min) 2 Oxygen Delivery Method Room Air Weight: 174 lb 9.698 oz Body Mass Index (BMI) 25.1 Intake and Output for Last 24 Hours 02/06/19 02/07/19 02/08/19 23:59 23:59 23:59 Intake Total 3892 / 3892 1443 / 1443 2292 / 2292 Output Total 950 / 950 1000 / 1000 300 / 300 Balance 2942 / 2942 443 / 443 1991 General: Alert, Cooperative, Lethargic, - - Slow to respond HEENT: Atraumatic, PERRLA, EOMI, Normocephalic Neck: Supple, No JVD, Negative Carotid Bruits Lungs: No rhonchi, No wheeze, No rales, Diminished Cardiovascular: Regular rate, Regular Rhythm, Normal S1, Normal S2, No murmurs Abdomen: Bowel Sounds Present, Soft, Non Tender, Non-Distended Extremities: No edema, Capillary Refill Less than 3 Seconds Skin: No rashes, No breakdown Musculoskeletal: No Tenderness to Palpation of Joints or Extremities, Arthritic Changes, Muscle Wasting Neurological: Cranial nerves II-XII grossly intact Psych/Mental Status: Normal Affect, Appropriate Microbiology Past 72 Hours 02/04/19 23:30 Urine Catheter - Fregoso Urine Culture - Final Culture exhibits no growth. Laboratory Results 02/08/19 06:30: WBC 9.5, RBC 4.63, Hgb 14.1, Hct 40.5, MCV 87.5, MCH 30.5, MCHC 34.8, RDW 12.5, RDW Differential 39.1, Plt Count 308, MPV 9.6, Immature Gran % (Auto) 0.300, Neut % (Auto) 54.2, Lymph % (Auto) 28.5, Geary % (Auto) 13.7 H, Eos % (Auto) 3.1, Baso % (Auto) 0.2, Absolute Neuts (auto) 5.1, Absolute Lymphs (auto) 2.69, Total Counted Not Reportable 02/08/19 06:30: Sodium 138, Potassium 4.0, Chloride 111 H, Carbon Dioxide 22.0, Anion Gap 5, BUN 14, Creatinine 0.94, Estim Creat Clear Calc 61.52, Est GFR (MDRD) Af Amer 76, Est GFR (MDRD) Non-Af 63, BUN/Creatinine Ratio 14.9, Glucose 98, Calcium 8.5, Total Bilirubin 0.50, AST 14 L, ALT 19, Alkaline Phosphatase 82, Total Protein 6.2 L, Albumin 2.9 L, Globulin 3.3, Albumin/Globulin Ratio 0.9 Current Medications Acetaminophen (Tylenol) 650 mg PO Q6H PRN PRN PRN Reason: Mild Pain (1-3)/Temp > 100.7 F Last Admin: 02/07/19 06:03 Dose: 650 mg Albuterol Sulfate (Ventolin Aerosols) 2.5 mg INHALATION Q2H PRN PRN PRN Reason: Shortness of Breath/Wheezing Clonidine (Catapres) 0.2 mg PO BID [facility] Last Admin: 02/08/19 11:57 Dose: 0.2 mg Enoxaparin Sodium (Lovenox) 80 mg SC Q12@0600,1800 [facility] Last Admin: 02/08/19 05:46 Dose: 80 mg Gabapentin (Neurontin) 600 mg PO QHS [facility] Last Admin: 02/05/19 21:52 Dose: 600 mg Gabapentin (Neurontin) 300 mg PO DAILY [facility] Last Admin: 02/06/19 08:29 Dose: Not Given Hydralazine HCl (Apresoline Iv) 10 mg IV Q4H PRN PRN PRN Reason: BP > 180 mmhg Pantoprazole Sodium 40 mg/ (Sodium Chloride) 110 mls @ 330 mls/hr IV Q12 [facility] Last Admin: 02/08/19 10:30 Dose: 330 mls/hr Fluconazole (Diflucan) 200 mg in 100 mls @ 100 mls/hr IV Q24 [facility] Last Admin: 02/08/19 11:19 Dose: 100 mls/hr Potassium Chloride/Sodium Chloride () 1,000 mls @ 100 mls/hr IV .Q10H [facility] Last Admin: 02/08/19 09:46 Dose: 100 mls/hr Lamotrigine (Lamictal) 150 mg PO DAILY [facility] Last Admin: 02/08/19 09:45 Dose: 150 mg Lorazepam (Ativan) 2 mg PO Q2H PRN PRN; Protocol PRN Reason: CIWA score > 8 but <15 Last Admin: 02/06/19 15:32 Dose: 2 mg Lorazepam (Ativan) 2 mg PO UD PRN; Protocol PRN Reason: CIWA score >/=15. Lorazepam (Ativan) 2 mg IV Q2H PRN PRN; Protocol PRN Reason: CIWA score > 8 but <15 Last Admin: 02/05/19 09:26 Dose: 2 mg Lorazepam (Ativan) 2 mg IV UD PRN; Protocol PRN Reason: CIWA score >/=15. Last Admin: 02/07/19 09:09 Dose: 2 mg Lorazepam (Ativan) 1 mg PO Q12H [facility]; Taper Stop: 02/10/19 13:14 Last Admin: 02/08/19 13:33 Dose: 1 mg Lorazepam (Ativan) 1 mg PO Q24H PRN PRN Reason: Agitation Lorazepam (Ativan) 2 mg IV X1 PRN PRN Reason: Seizure Morphine Sulfate () 1 mg IV Q4H PRN PRN PRN Reason: SEVERE PAIN (6-10/10) Last Admin: 02/08/19 10:00 Dose: 1 mg Multivitamins/Minerals (Multivitamin With Minerals) 1 tablet PO DAILYCM [facility] Last Admin: 02/08/19 09:45 Dose: 1 tablet Nicotine (Nicoderm Cq (Pbkc)) 21 mg TRANSDERM. DAILY [facility] Last Admin: 02/08/19 09:45 Dose: 21 mg Nutritional Formula (Lactose Free) (Ensure Clear) 120 ml PO 4X/DAY [facility] Last Admin: 02/08/19 13:34 Dose: Not Given Nystatin (Nystatin) 500,000 unit PO 4X/DAY [facility] Last Admin: 02/08/19 13:34 Dose: 500,000 unit Oxycodone HCl (Oxyir) 5 mg PO Q4H PRN PRN PRN Reason: Moderate Pain (4-6/10) Last Admin: 02/07/19 16:58 Dose: 5 mg Prochlorperazine Edisylate (Compazine Iv) 5 mg IV Q4H PRN PRN PRN Reason: Breakthrough nausea/vomiting Last Admin: 02/06/19 15:10 Dose: 5 mg Propranolol HCl (Inderal) 10 mg PO DAILY@1200 RAFFAELE Last Admin: 02/08/19 09:45 Dose: 10 mg Quetiapine Fumarate (Seroquel) 50 mg PO QHS [facility] Last Admin: 02/07/19 21:44 Dose: 50 mg Sodium Chloride () 5 - 15 ml IV UD PRN PRN Reason: SALINE FLUSH Last Admin: 02/07/19 10:34 Dose: 10 ml Medical Necessity - Tobacco Use Smoking Status: Heavy Smoker (>10/day) Tobacco Use: Cigarettes Assessment/Plan All Active Problems Epigastric abdominal pain (Acute) Intractable nausea and vomiting (Acute) Acute alcohol withdrawal (Acute) Chest pain (Resolved) ARF (acute renal failure) (Acute) Hypokalemia (Acute) Hypotension (Acute) Hypothermia (Resolved) Hypoxia (Resolved) The patient is a 68 year old F with history of chronic alcohol use and dependence with last admission in February 2017 for hypovolemic shock, alcohol withdrawal, , Acute kidney injury and hypokalemia came to ED with increased nausea, vomiting for last 2 days. Patient has about 5-10 clear vomitus since yesterday. She is also not eating since last Friday about 4 days ago. Complain of abdominal pain, mainly in epigastric location 7-8/10 intensity localized. Denies lower urinary tract symptoms including increased frequency, urgency, burning micturition or recent change. Denies fever or chills. No recent history of GI bleed. Patient had EGD done more than [address] burris [facility]. Patient does not know the report. In ED, patient was found febrile, heart rate in 100s, blood pressure 100/69 and pulse ox 90% on room air. Basic blood work in the ED shows leukocytosis 13.7 thousand, H&H 17.4/48.9 and platelet count 332,000. She is very dehydrated evident with hemoconcentration. BMP shows sodium 125, K3.4, chloride 83, BUN 56 and creatinine 3.35 suggestive of acute kidney injury. Her baseline creatinine runs around 1.0. Patient has tremors but denies recent history of seizures. She admits to drinking vodka once in 3 to 4 days but as per the nurse she drinks half pint vodka daily. 1. Intractable nausea/vomiting with epigastric pain and odynophagia suggestive of severe candidal esophagitis: Patient is being admitted to [facility] floor. IV fluid resuscitation. General surgeon Dr. Payne is been consulted for EGD. Lipase is negative. IV Protonix 40 mg every 12 hourly. Check H&H in the evening. Stool for occult blood ordered. EGD showed moderately severe esophagitis which was biopsied. Gastritis and duodenitis. Patient is on 40 mg IV Protonix twice daily. Nystatin suspension 100,006 and swallow 4 times daily. And fluconazole 200 mg daily. 2. Atypical chest pain most relief from candidal esophagitis: Repeated EKGs were done. normal sinus rhythm with sinus arrhythmia at 83 bpm. QTc interval 450 ms improved from the first EKG of 500 ms on 02/04. CTPA was done which showed persistent filling defect in left pulmonary artery leading to left lower lobe branch. On Lovenox 1 mg/kg body weight. Will transition to Eliquis 10 mg p.o. twice daily. No RV strain as troponins are negative. ACS ruled out. College [employer] consult reviewed and appreciated. Echo was done reported as normal LV size systolic function with EF 60%. Normal RV size and systolic function. Trivial TR and unable to estimate RV systolic pressure due to technically difficult study. Aortic and pulmonic valve not well visualized. 3. Acute kidney injury, prerenal etiology from nausea and vomiting: Patient was resuscitated with normal saline with IV KCl. Resolved 3. Electrolyte abnormality with hypokalemia, hypotonic hypovolemic hyponatremia, hypochloremia and hypomagnesemia: Replaced. Resolved. 3. Acute alcohol withdrawal with history of chronic alcohol use and dependence: LFT shows normal ALT and AST but elevated alkaline phosphatase possible bowel origin. Tender hepatomegaly from chronic alcohol use. On Ativan as needed protocol as per MANISHA. Librium discontinued. 4. Hypertensive urgency: She was transferred to ICU on weekend and was started on nitroglycerin drip secondary to chest pain and blood pressure systolic 230s. Acute coronary syndrome ruled out and patient transferred to PCU. Blood pressure still high 220/140 in the morning. Started on clonidine 0.2 mg twice daily and hydralazine 10 mg IV as needed. 5 Bilateral shoulder arthritis with recent left shoulder surgery on 01/05 in [facility] with old right shoulder surgical scar: PT and OT ordered. Pain management as required Other comorbidities include suspected COPD due to history smoking: It further follow-up PCP and outpatient PFT to clarify and quantify the diagnosis of COPD. DVT prophylaxis: Bilateral SCDs. Pharmacological prophylaxis contraindicated in view of possible suspicion of GI bleed and also acute kidney injury. Clinical Impression(s) from Imaging Studies Chest CTA 02/07/19 09:06 IMPRESSION: Subtle but persistent filling defects noted in branches of the left pulmonary artery and the left lower lobe as described above. No evidence of aortic dissection, there is mild prominence to the ascending aorta at 4.4 cm. Chronic interstitial changes in both lung gage with bibasilar atelectasis, no organized infiltrate Degenerative bony changes Likely hepatic cysts Microbiology Past 72 Hours 02/04/19 23:30 Urine Catheter - Fregoso Urine Culture - Final Culture exhibits no growth. Laboratory Results 02/08/19 06:30: WBC 9.5, RBC 4.63, Hgb 14.1, Hct 40.5, MCV 87.5, MCH 30.5, MCHC 34.8, RDW 12.5, RDW Differential 39.1, Plt Count 308, MPV 9.6, Immature Gran % (Auto) 0.300, Neut % (Auto) 54.2, Lymph % (Auto) 28.5, Geary % (Auto) 13.7 H, Eos % (Auto) 3.1, Baso % (Auto) 0.2, Absolute Neuts (auto) 5.1, Absolute Lymphs (auto) 2.69, Total Counted Not Reportable 02/08/19 06:30: Sodium 138, Potassium 4.0, Chloride 111 H, Carbon Dioxide 22.0, Anion Gap 5, BUN 14, Creatinine 0.94, Estim Creat Clear Calc 61.52, Est GFR (MDRD) Af Amer 76, Est GFR (MDRD) Non-Af 63, BUN/Creatinine Ratio 14.9, Glucose 98, Calcium 8.5, Total Bilirubin 0.50, AST 14 L, ALT 19, Alkaline Phosphatase 82, Total Protein 6.2 L, Albumin 2.9 L, Globulin 3.3, Albumin/Globulin Ratio 0.9 Microbiology Past 72 Hours 02/04/19 23:30 Urine Catheter - Fregoso Urine Culture - Final Culture exhibits no growth. Active Medications Acetaminophen (Tylenol) 650 mg PO Q6H PRN PRN PRN Reason: Mild Pain (1-3)/Temp > 100.7 F Last Admin: 02/07/19 06:03 Dose: 650 mg Albuterol Sulfate (Ventolin Aerosols) 2.5 mg INHALATION Q2H PRN PRN PRN Reason: Shortness of Breath/Wheezing Clonidine (Catapres) 0.2 mg PO BID [facility] Last Admin: 02/08/19 11:57 Dose: 0.2 mg Enoxaparin Sodium (Lovenox) 80 mg SC Q12@0600,1800 [facility] Last Admin: 02/08/19 05:46 Dose: 80 mg Gabapentin (Neurontin) 600 mg PO QHS [facility] Last Admin: 02/05/19 21:52 Dose: 600 mg Gabapentin (Neurontin) 300 mg PO DAILY [facility] Last Admin: 02/06/19 08:29 Dose: Not Given Hydralazine HCl (Apresoline Iv) 10 mg IV Q4H PRN PRN PRN Reason: BP > 180 mmhg Pantoprazole Sodium 40 mg/ (Sodium Chloride) 110 mls @ 330 mls/hr IV Q12 [facility] Last Admin: 02/08/19 10:30 Dose: 330 mls/hr Fluconazole (Diflucan) 200 mg in 100 mls @ 100 mls/hr IV Q24 [facility] Last Admin: 02/08/19 11:19 Dose: 100 mls/hr Potassium Chloride/Sodium Chloride () 1,000 mls @ 100 mls/hr IV .Q10H [facility] Last Admin: 02/08/19 09:46 Dose: 100 mls/hr Lamotrigine (Lamictal) 150 mg PO DAILY [facility] Last Admin: 02/08/19 09:45 Dose: 150 mg Lorazepam (Ativan) 2 mg PO Q2H PRN PRN; Protocol PRN Reason: CIWA score > 8 but <15 Last Admin: 02/06/19 15:32 Dose: 2 mg Lorazepam (Ativan) 2 mg PO UD PRN; Protocol PRN Reason: CIWA score >/=15. Lorazepam (Ativan) 2 mg IV Q2H PRN PRN; Protocol PRN Reason: CIWA score > 8 but <15 Last Admin: 02/05/19 09:26 Dose: 2 mg Lorazepam (Ativan) 2 mg IV UD PRN; Protocol PRN Reason: CIWA score >/=15. Last Admin: 02/07/19 09:09 Dose: 2 mg Lorazepam (Ativan) 1 mg PO Q12H RAFFAELE; Taper Stop: 02/10/19 13:14 Last Admin: 02/08/19 13:33 Dose: 1 mg Lorazepam (Ativan) 1 mg PO Q24H PRN PRN Reason: Agitation Lorazepam (Ativan) 2 mg IV X1 PRN PRN Reason: Seizure Morphine Sulfate () 1 mg IV Q4H PRN PRN PRN Reason: SEVERE PAIN (6-10/10) Last Admin: 02/08/19 10:00 Dose: 1 mg Multivitamins/Minerals (Multivitamin With Minerals) 1 tablet PO DAILYCM [facility] Last Admin: 02/08/19 09:45 Dose: 1 tablet Nicotine (Nicoderm Cq (Pbkc)) 21 mg TRANSDERM. DAILY [facility] Last Admin: 02/08/19 09:45 Dose: 21 mg Nutritional Formula (Lactose Free) (Ensure Clear) 120 ml PO 4X/DAY [facility] Last Admin: 02/08/19 13:34 Dose: Not Given Nystatin (Nystatin) 500,000 unit PO 4X/DAY [facility] Last Admin: 02/08/19 13:34 Dose: 500,000 unit Oxycodone HCl (Oxyir) 5 mg PO Q4H PRN PRN PRN Reason: Moderate Pain (4-6/10) Last Admin: 02/07/19 16:58 Dose: 5 mg Prochlorperazine Edisylate (Compazine Iv) 5 mg IV Q4H PRN PRN PRN Reason: Breakthrough nausea/vomiting Last Admin: 02/06/19 15:10 Dose: 5 mg Propranolol HCl (Inderal) 10 mg PO DAILY@1200 RAFFAELE Last Admin: 02/08/19 09:45 Dose: 10 mg Quetiapine Fumarate (Seroquel) 50 mg PO QHS [facility] Last Admin: 02/07/19 21:44 Dose: 50 mg Sodium Chloride () 5 - 15 ml IV UD PRN PRN Reason: SALINE FLUSH Last Admin: 02/07/19 10:34 Dose: 10 ml Code Visit Inpatient E&M: 68974 Subs Hosp L3
--- NOTE | 2019-02-08 16:10 | PN_ITS ---
Patient Problems: Active and Suspected Problems Epigastric abdominal pain (Acute) Intractable nausea and vomiting (Acute) Acute alcohol withdrawal (Acute) Subjective: Patient is awake but I think she has difficulty in retaining information and deep understanding. Complain of pain over epigastrium which radiates along the diaphragm as per the patient. When I told this probably secondary to esophageal candidiasis as her serial troponin enzymes are negative. She is asking question again and again about esophageal candidiasis She had CTPA done which shows pulmonary embolism and left lower lobe branch of pulmonary artery. On Lovenox. Vitals/I&O's: Vital Signs Temp Pulse Resp BP Pulse Ox 98.3 F 70 16 156/113 H 94 02/08/19 13:30 02/08/19 15:08 02/08/19 13:30 02/08/19 13:30 02/08/19 13:30 Oxygen Flow Rate (L/min) 2 Oxygen Delivery Method Room Air Weight: 174 lb 9.698 oz Body Mass Index (BMI) 25.1 Intake and Output for Last 24 Hours 02/06/19 02/07/19 02/08/19 23:59 23:59 23:59 Intake Total 3892 / 3892 1443 / 1443 2292 / 2292 Output Total 950 / 950 1000 / 1000 300 / 300 Balance 2942 / 2942 443 / 443 1991 General: Alert, Cooperative, Lethargic, - - Slow to respond HEENT: Atraumatic, PERRLA, EOMI, Normocephalic Neck: Supple, No JVD, Negative Carotid Bruits Lungs: No rhonchi, No wheeze, No rales, Diminished Cardiovascular: Regular rate, Regular Rhythm, Normal S1, Normal S2, No murmurs Abdomen: Bowel Sounds Present, Soft, Non Tender, Non-Distended Extremities: No edema, Capillary Refill Less than 3 Seconds Skin: No rashes, No breakdown Musculoskeletal: No Tenderness to Palpation of Joints or Extremities, Arthritic Changes, Muscle Wasting Neurological: Cranial nerves II-XII grossly intact Psych/Mental Status: Normal Affect, Appropriate Microbiology Past 72 Hours 02/04/19 23:30 Urine Catheter - Fregoso Urine Culture - Final Culture exhibits no growth. Laboratory Results 02/08/19 06:30: WBC 9.5, RBC 4.63, Hgb 14.1, Hct 40.5, MCV 87.5, MCH 30.5, MCHC 34.8, RDW 12.5, RDW Differential 39.1, Plt Count 308, MPV 9.6, Immature Gran % (Auto) 0.300, Neut % (Auto) 54.2, Lymph % (Auto) 28.5, Glasscock % (Auto) 13.7 H, Eos % (Auto) 3.1, Baso % (Auto) 0.2, Absolute Neuts (auto) 5.1, Absolute Lymphs (auto) 2.69, Total Counted Not Reportable 02/08/19 06:30: Sodium 138, Potassium 4.0, Chloride 111 H, Carbon Dioxide 22.0, Anion Gap 5, BUN 14, Creatinine 0.94, Estim Creat Clear Calc 61.52, Est GFR (MDRD) Af Amer 76, Est GFR (MDRD) Non-Af 63, BUN/Creatinine Ratio 14.9, Glucose 98, Calcium 8.5, Total Bilirubin 0.50, AST 14 L, ALT 19, Alkaline Phosphatase 82, Total Protein 6.2 L, Albumin 2.9 L, Globulin 3.3, Albumin/Globulin Ratio 0.9 Current Medications Acetaminophen (Tylenol) 650 mg PO Q6H PRN PRN PRN Reason: Mild Pain (1-3)/Temp > 100.7 F Last Admin: 02/07/19 06:03 Dose: 650 mg Albuterol Sulfate (Ventolin Aerosols) 2.5 mg INHALATION Q2H PRN PRN PRN Reason: Shortness of Breath/Wheezing Clonidine (Catapres) 0.2 mg PO BID [facility] Last Admin: 02/08/19 11:57 Dose: 0.2 mg Enoxaparin Sodium (Lovenox) 80 mg SC Q12@0600,1800 [facility] Last Admin: 02/08/19 05:46 Dose: 80 mg Gabapentin (Neurontin) 600 mg PO QHS [facility] Last Admin: 02/05/19 21:52 Dose: 600 mg Gabapentin (Neurontin) 300 mg PO DAILY [facility] Last Admin: 02/06/19 08:29 Dose: Not Given Hydralazine HCl (Apresoline Iv) 10 mg IV Q4H PRN PRN PRN Reason: BP > 180 mmhg Pantoprazole Sodium 40 mg/ (Sodium Chloride) 110 mls @ 330 mls/hr IV Q12 [facility] Last Admin: 02/08/19 10:30 Dose: 330 mls/hr Fluconazole (Diflucan) 200 mg in 100 mls @ 100 mls/hr IV Q24 [facility] Last Admin: 02/08/19 11:19 Dose: 100 mls/hr Potassium Chloride/Sodium Chloride () 1,000 mls @ 100 mls/hr IV .Q10H [facility] Last Admin: 02/08/19 09:46 Dose: 100 mls/hr Lamotrigine (Lamictal) 150 mg PO DAILY [facility] Last Admin: 02/08/19 09:45 Dose: 150 mg Lorazepam (Ativan) 2 mg PO Q2H PRN PRN; Protocol PRN Reason: CIWA score > 8 but <15 Last Admin: 02/06/19 15:32 Dose: 2 mg Lorazepam (Ativan) 2 mg PO UD PRN; Protocol PRN Reason: CIWA score >/=15. Lorazepam (Ativan) 2 mg IV Q2H PRN PRN; Protocol PRN Reason: CIWA score > 8 but <15 Last Admin: 02/05/19 09:26 Dose: 2 mg Lorazepam (Ativan) 2 mg IV UD PRN; Protocol PRN Reason: CIWA score >/=15. Last Admin: 02/07/19 09:09 Dose: 2 mg Lorazepam (Ativan) 1 mg PO Q12H [facility]; Taper Stop: 02/10/19 13:14 Last Admin: 02/08/19 13:33 Dose: 1 mg Lorazepam (Ativan) 1 mg PO Q24H PRN PRN Reason: Agitation Lorazepam (Ativan) 2 mg IV X1 PRN PRN Reason: Seizure Morphine Sulfate () 1 mg IV Q4H PRN PRN PRN Reason: SEVERE PAIN (6-10/10) Last Admin: 02/08/19 10:00 Dose: 1 mg Multivitamins/Minerals (Multivitamin With Minerals) 1 tablet PO DAILYCM [facility] Last Admin: 02/08/19 09:45 Dose: 1 tablet Nicotine (Nicoderm Cq (Pbkc)) 21 mg TRANSDERM. DAILY [facility] Last Admin: 02/08/19 09:45 Dose: 21 mg Nutritional Formula (Lactose Free) (Ensure Clear) 120 ml PO 4X/DAY [facility] Last Admin: 02/08/19 13:34 Dose: Not Given Nystatin (Nystatin) 500,000 unit PO 4X/DAY [facility] Last Admin: 02/08/19 13:34 Dose: 500,000 unit Oxycodone HCl (Oxyir) 5 mg PO Q4H PRN PRN PRN Reason: Moderate Pain (4-6/10) Last Admin: 02/07/19 16:58 Dose: 5 mg Prochlorperazine Edisylate (Compazine Iv) 5 mg IV Q4H PRN PRN PRN Reason: Breakthrough nausea/vomiting Last Admin: 02/06/19 15:10 Dose: 5 mg Propranolol HCl (Inderal) 10 mg PO DAILY@1200 [facility] Last Admin: 02/08/19 09:45 Dose: 10 mg Quetiapine Fumarate (Seroquel) 50 mg PO QHS [facility] Last Admin: 02/07/19 21:44 Dose: 50 mg Sodium Chloride () 5 - 15 ml IV UD PRN PRN Reason: SALINE FLUSH Last Admin: 02/07/19 10:34 Dose: 10 ml Medical Necessity - Tobacco Use Smoking Status: Heavy Smoker (>10/day) Tobacco Use: Cigarettes Assessment/Plan All Active Problems Epigastric abdominal pain (Acute) Intractable nausea and vomiting (Acute) Acute alcohol withdrawal (Acute) Chest pain (Resolved) ARF (acute renal failure) (Acute) Hypokalemia (Acute) Hypotension (Acute) Hypothermia (Resolved) Hypoxia (Resolved) The patient is a 68 year old F with history of chronic alcohol use and dependence with last admission in February 2017 for hypovolemic shock, alcohol withdrawal, , Acute kidney injury and hypokalemia came to ED with increased nausea, vomiting for last 2 days. Patient has about 5-10 clear vomitus since yesterday. She is also not eating since last Friday about 4 days ago. Complain of abdominal pain, mainly in epigastric location 7-8/10 intensity localized. Denies lower urinary tract symptoms including increased frequency, urgency, burning micturition or recent change. Denies fever or chills. No recent history of GI bleed. Patient had EGD done more than [address] burris [facility]. Patient does not know the report. In ED, patient was found febrile, heart rate in 100s, blood pressure 100/69 and pulse ox 90% on room air. Basic blood work in the ED shows leukocytosis 13.7 thousand, H&H 17.4/48.9 and platelet count 332,000. She is very dehydrated evident with hemoconcentration. BMP shows sodium 125, K3.4, chloride 83, BUN 56 and creatinine 3.35 suggestive of acute kidney injury. Her baseline creatinine runs around 1.0. Patient has tremors but denies recent history of seizures. She admits to drinking vodka once in 3 to 4 days but as per the nurse she drinks half pint vodka daily. 1. Intractable nausea/vomiting with epigastric pain and odynophagia suggestive of severe candidal esophagitis: Patient is being admitted to [facility] floor. IV fluid resuscitation. General surgeon Dr. Payne is been consulted for EGD. Lipase is negative. IV Protonix 40 mg every 12 hourly. Check H&H in the evening. Stool for occult blood ordered. EGD showed moderately severe esophagitis which was biopsied. Gastritis and duodenitis. Patient is on 40 mg IV Protonix twice daily. Nystatin suspension 100,006 and swallow 4 times daily. And fluconazole 200 mg daily. 2. Atypical chest pain most relief from candidal esophagitis: Repeated EKGs were done. normal sinus rhythm with sinus arrhythmia at 83 bpm. QTc interval 450 ms improved from the first EKG of 500 ms on 02/04. CTPA was done which showed persistent filling defect in left pulmonary artery leading to left lower lobe branch. On Lovenox 1 mg/kg body weight. Will transition to Eliquis 10 mg p.o. twice daily. No RV strain as troponins are negative. ACS ruled out. Inventory Associate consult reviewed and appreciated. Echo was done reported as normal LV size systolic function with EF 60%. Normal RV size and systolic function. Trivial TR and unable to estimate RV systolic pressure due to technically difficult study. Aortic and pulmonic valve not well visualized. 3. Acute kidney injury, prerenal etiology from nausea and vomiting: Patient was resuscitated with normal saline with IV KCl. Resolved 3. Electrolyte abnormality with hypokalemia, hypotonic hypovolemic hyponatremia, hypochloremia and hypomagnesemia: Replaced. Resolved. 3. Acute alcohol withdrawal with history of chronic alcohol use and dependence: LFT shows normal ALT and AST but elevated alkaline phosphatase possible bowel origin. Tender hepatomegaly from chronic alcohol use. On Ativan as needed protocol as per MANISHA. Librium discontinued. 4. Hypertensive urgency: She was transferred to ICU on weekend and was started on nitroglycerin drip secondary to chest pain and blood pressure systolic 230s. Acute coronary syndrome ruled out and patient transferred to PCU. Blood pressure still high 220/140 in the morning. Started on clonidine 0.2 mg twice daily and hydralazine 10 mg IV as needed. 5 Bilateral shoulder arthritis with recent left shoulder surgery on 01/05 in [facility] with old right shoulder surgical scar: PT and OT ordered. Pain management as required Other comorbidities include suspected COPD due to history smoking: It further follow-up PCP and outpatient PFT to clarify and quantify the diagnosis of COPD. DVT prophylaxis: Bilateral SCDs. Pharmacological prophylaxis contraindicated in view of possible suspicion of GI bleed and also acute kidney injury. Clinical Impression(s) from Imaging Studies Chest CTA 02/07/19 09:06 IMPRESSION: Subtle but persistent filling defects noted in branches of the left pulmonary artery and the left lower lobe as described above. No evidence of aortic dissection, there is mild prominence to the ascending aorta at 4.4 cm. Chronic interstitial changes in both lung gage with bibasilar atelectasis, no organized infiltrate Degenerative bony changes Likely hepatic cysts Microbiology Past 72 Hours 02/04/19 23:30 Urine Catheter - Fregoso Urine Culture - Final Culture exhibits no growth. Laboratory Results 02/08/19 06:30: WBC 9.5, RBC 4.63, Hgb 14.1, Hct 40.5, MCV 87.5, MCH 30.5, MCHC 34.8, RDW 12.5, RDW Differential 39.1, Plt Count 308, MPV 9.6, Immature Gran % (Auto) 0.300, Neut % (Auto) 54.2, Lymph % (Auto) 28.5, Glasscock % (Auto) 13.7 H, Eos % (Auto) 3.1, Baso % (Auto) 0.2, Absolute Neuts (auto) 5.1, Absolute Lymphs (auto) 2.69, Total Counted Not Reportable 02/08/19 06:30: Sodium 138, Potassium 4.0, Chloride 111 H, Carbon Dioxide 22.0, Anion Gap 5, BUN 14, Creatinine 0.94, Estim Creat Clear Calc 61.52, Est GFR (MDRD) Af Amer 76, Est GFR (MDRD) Non-Af 63, BUN/Creatinine Ratio 14.9, Glucose 98, Calcium 8.5, Total Bilirubin 0.50, AST 14 L, ALT 19, Alkaline Phosphatase 82, Total Protein 6.2 L, Albumin 2.9 L, Globulin 3.3, Albumin/Globulin Ratio 0.9 Microbiology Past 72 Hours 02/04/19 23:30 Urine Catheter - Fregoso Urine Culture - Final Culture exhibits no growth. Active Medications Acetaminophen (Tylenol) 650 mg PO Q6H PRN PRN PRN Reason: Mild Pain (1-3)/Temp > 100.7 F Last Admin: 02/07/19 06:03 Dose: 650 mg Albuterol Sulfate (Ventolin Aerosols) 2.5 mg INHALATION Q2H PRN PRN PRN Reason: Shortness of Breath/Wheezing Clonidine (Catapres) 0.2 mg PO BID [facility] Last Admin: 02/08/19 11:57 Dose: 0.2 mg Enoxaparin Sodium (Lovenox) 80 mg SC Q12@0600,1800 [facility] Last Admin: 02/08/19 05:46 Dose: 80 mg Gabapentin (Neurontin) 600 mg PO QHS [facility] Last Admin: 02/05/19 21:52 Dose: 600 mg Gabapentin (Neurontin) 300 mg PO DAILY [facility] Last Admin: 02/06/19 08:29 Dose: Not Given Hydralazine HCl (Apresoline Iv) 10 mg IV Q4H PRN PRN PRN Reason: BP > 180 mmhg Pantoprazole Sodium 40 mg/ (Sodium Chloride) 110 mls @ 330 mls/hr IV Q12 [facility] Last Admin: 02/08/19 10:30 Dose: 330 mls/hr Fluconazole (Diflucan) 200 mg in 100 mls @ 100 mls/hr IV Q24 [facility] Last Admin: 02/08/19 11:19 Dose: 100 mls/hr Potassium Chloride/Sodium Chloride () 1,000 mls @ 100 mls/hr IV .Q10H [facility] Last Admin: 02/08/19 09:46 Dose: 100 mls/hr Lamotrigine (Lamictal) 150 mg PO DAILY [facility] Last Admin: 02/08/19 09:45 Dose: 150 mg Lorazepam (Ativan) 2 mg PO Q2H PRN PRN; Protocol PRN Reason: CIWA score > 8 but <15 Last Admin: 02/06/19 15:32 Dose: 2 mg Lorazepam (Ativan) 2 mg PO UD PRN; Protocol PRN Reason: CIWA score >/=15. Lorazepam (Ativan) 2 mg IV Q2H PRN PRN; Protocol PRN Reason: CIWA score > 8 but <15 Last Admin: 02/05/19 09:26 Dose: 2 mg Lorazepam (Ativan) 2 mg IV UD PRN; Protocol PRN Reason: CIWA score >/=15. Last Admin: 02/07/19 09:09 Dose: 2 mg Lorazepam (Ativan) 1 mg PO Q12H [facility]; Taper Stop: 02/10/19 13:14 Last Admin: 02/08/19 13:33 Dose: 1 mg Lorazepam (Ativan) 1 mg PO Q24H PRN PRN Reason: Agitation Lorazepam (Ativan) 2 mg IV X1 PRN PRN Reason: Seizure Morphine Sulfate () 1 mg IV Q4H PRN PRN PRN Reason: SEVERE PAIN (6-10/10) Last Admin: 02/08/19 10:00 Dose: 1 mg Multivitamins/Minerals (Multivitamin With Minerals) 1 tablet PO DAILYCM [facility] Last Admin: 02/08/19 09:45 Dose: 1 tablet Nicotine (Nicoderm Cq (Pbkc)) 21 mg TRANSDERM. DAILY [facility] Last Admin: 02/08/19 09:45 Dose: 21 mg Nutritional Formula (Lactose Free) (Ensure Clear) 120 ml PO 4X/DAY [facility] Last Admin: 02/08/19 13:34 Dose: Not Given Nystatin (Nystatin) 500,000 unit PO 4X/DAY [facility] Last Admin: 02/08/19 13:34 Dose: 500,000 unit Oxycodone HCl (Oxyir) 5 mg PO Q4H PRN PRN PRN Reason: Moderate Pain (4-6/10) Last Admin: 02/07/19 16:58 Dose: 5 mg Prochlorperazine Edisylate (Compazine Iv) 5 mg IV Q4H PRN PRN PRN Reason: Breakthrough nausea/vomiting Last Admin: 02/06/19 15:10 Dose: 5 mg Propranolol HCl (Inderal) 10 mg PO DAILY@1200 [facility] Last Admin: 02/08/19 09:45 Dose: 10 mg Quetiapine Fumarate (Seroquel) 50 mg PO QHS [facility] Last Admin: 02/07/19 21:44 Dose: 50 mg Sodium Chloride () 5 - 15 ml IV UD PRN PRN Reason: SALINE FLUSH Last Admin: 02/07/19 10:34 Dose: 10 ml Code Visit Inpatient E&M: 89145 Subs Hosp L3
--- NOTE | 2019-02-08 16:55 | NEWVISION ---
Dr Viveros request consult for patient. Patient was with 2 staff members from therapy. [facility] to follow up in the morning to attempt to provide resources for patient's AOD problem.
[2019-02-08] MEDS: Ensure Clear 120 ML Liquid PO (22:21)
[2019-02-08] MEDS: QUEtiapine 25 MG Tablet 50 MG PO (22:21)
[2019-02-08] MEDS: oxyCODONE 5 MG Tablet PO (22:27)
[2019-02-09] VITALS (10 sets, daily range): BP systolic 89–132; BP diastolic 50–85; PULSE 55–67; RESP 16; TEMP 36.4–36.8; O2SAT 92–95
[2019-02-09] MEDS: LORazepam 1 MG Tablet PO (01:02)
[2019-02-09] MEDS: Enoxaparin 80 MG/0.8 ML Syringe SC (05:26)
[2019-02-09] MEDS: Acetaminophen 325 MG Tablet 650 MG PO (05:32)
[2019-02-09] MEDS: NYSTATIN 500,000 UNIT/5 ML UDC 500000 UNIT PO ×2 (08:36→13:25)
[2019-02-09] MEDS: Multivitamins,Ther W-Minerals Tablet 1 TABLET PO (08:36)
[2019-02-09] MEDS: lamoTRIgine 150 MG Tablet PO (08:36)
[2019-02-09] MEDS: cloNIDine HCl 0.1 MG Tablet 0.2 MG PO (08:36)
[2019-02-09] MEDS: Ensure Clear 120 ML Liquid PO (08:39)
[2019-02-09] MEDS: oxyCODONE 5 MG Tablet PO (08:41)
--- NOTE | 2019-02-09 10:34 | PCM.PN.PUL ---
Patient Problems: Active and Suspected Problems Epigastric abdominal pain (Acute) Intractable nausea and vomiting (Acute) Acute alcohol withdrawal (Acute) Subjective: Patient did okay overnight. No acute issues were reported. Patient feels subjectively improved compared to previous. Patient has been weaned to room air overnight. No bleeding complications have been reported. - Physical Exam General: Alert, Cooperative, No apparent distress, - - Woken from sleep. Answered appropriately. Appears older than stated age. HEENT: Atraumatic, PERRLA, EOMI, Normocephalic, - - Scleral injection without icterus Oral: Moist Mucosa, No Gingival or Mucosal Lesions/ Ulcerations Neck: Supple, No JVD, No Nodes, Trachea Midline Lungs: No rhonchi, No wheeze, No rales, Diminished, - - Symmetric expansion Cardiovascular: Regular rate, Regular Rhythm, Normal S1, Normal S2, No murmurs, No rub noted, No Gallop Abdomen: Bowel Sounds Present, Soft, Non Tender, Non-Distended Extremities: No clubbing, No cyanosis, Edema - Trace lower extremity Skin: No rashes, No breakdown, - - No excessive bruising noted Musculoskeletal: No Tenderness to Palpation of Joints or Extremities Lymphatic: No Cervical, Supraclavicular, or Inguinal Adenopathy Neurological: Cranial nerves II-XII grossly intact, Neuro grossly intact Psych/Mental Status: Normal Affect, Appropriate Vital Signs Temp Pulse Resp BP Pulse Ox 36.7 C 61 16 109/76 95 02/09/19 08:23 02/09/19 08:23 02/09/19 08:23 02/09/19 08:23 02/09/19 08:23 Oxygen Flow Rate (L/min) 2 Oxygen Delivery Method Room Air Weight: 79.9 kg Body Mass Index (BMI) 25.1 Intake and Output for Last 24 Hours 02/07/19 02/08/19 02/09/19 23:59 23:59 23:59 Intake Total 1443 / 1443 3300 / 3300 1432 / 1432 Output Total 1000 / 1000 300 / 300 Balance 443 / 443 3000 / 3000 1432 / 1432 Microbiology Past 72 Hours 02/04/19 23:30 Urine Culture - Final Urine Catheter - Fregoso Culture exhibits no growth. Medical Necessity - Tobacco Use Smoking Status: Heavy Smoker (>10/day) Tobacco Use: Cigarettes Assessment/Plan All Active Problems Epigastric abdominal pain (Acute) Intractable nausea and vomiting (Acute) Acute alcohol withdrawal (Acute) Chest pain (Resolved) ARF (acute renal failure) (Acute) Hypokalemia (Acute) Hypotension (Acute) Hypothermia (Resolved) Hypoxia (Resolved) RECOMMENDATIONS: 1. Continue anticoagulation 2. Obtain walking oximetry prior to discharge 3. Follow-up with nurse practitioner in 2 weeks 4. Outpatient complete PFT 5. Echocardiogram probably does not need to be repeated IMPRESSIONS: 1. Acute pulmonary embolism Likely secondary to recent surgery. Would not recommend obtaining lower extremity Dopplers as this will not change therapeutic intervention. Patient is not a very good historian, but agree with systemic anticoagulation for at least 6 months. Echocardiogram did not show any significant pulmonary artery jet, but poor windows. Likely not necessary to repeat this testing from my perspective. Patient should have a walking oximetry prior to discharge to ensure that supplemental oxygen is not indicated. Patient can then follow-up in 2 weeks in our office for an outpatient pulmonary function test. 2. Acute toxic encephalopathy Patient is receiving Ativan and Librium secondary to alcohol withdrawal. Patient is slightly improved from yesterday, but still slow to respond. Patient has a nonfocal exam at this time. Clinical suspicion for medication side effects. Continue to monitor closely. Defer to hospitalist. 3. Esophageal candidiasis Patient currently on antifungal therapy. Some atypia noted on biopsies. Would defer to general surgery. General surgery is following. 4. Resolved acute kidney injury/hyponatremia/hypokalemia/recent shoulder surgery/suspected COPD/hypertensive urgency Complicates care, management, recovery and prognosis. Continue with current therapy. Appears to be effective. Patient should complete PFT as an outpatient for quantification and clarification of lung function. Rate well controlled at this time. Defer antihypertensives to hospitalist. Code Visit Inpatient E&M: 57444 Subs Hosp L2
--- NOTE | 2019-02-09 11:45 | DCINST_ITS ---
- Discharge Diagnoses Current Active Problems: Current Active and Chronic Problems Epigastric abdominal pain (Acute) Intractable nausea and vomiting (Acute) Acute alcohol withdrawal (Acute) You will use the following diet at home:: Other - soft diet for 3 days then solid foot with low residue Your food should be the consistency of: Mechanical soft (ground) Discharge Activity: May Not Drive Call your doctor if you observe: Fever of 101 or Higher, Numbness or Tingling, Inability to urinate, Inability to have a bowel movement, Shortness of breath, Dizziness, Swelling in the ankles, Prolonged hiccoughing, Increased palpitations (irregular heartbeat) Allergies/Adverse Reactions: Allergies No Known Allergies Allergy (Verified 02/04/19 08:22) Medications to take at Discharge Gabapentin [Neurontin] 300 mg PO DAILY 08/15/16 Gabapentin [Neurontin] 600 mg PO QHS 08/15/16 Lamotrigine [Lamictal] 150 mg PO DAILY 08/15/16 Multivitamins,Therapeutic [Multivitamin] 1 tablet PO DAILY 08/15/16 Propranolol HCl [Inderal (Beta Samantha)] 10 mg PO DAILY 08/15/16 Melatonin 20 mg PO QHS 02/28/17 Apixaban [Eliquis] 5 mg PO BID #60 tablet 02/09/19 Fluconazole [Diflucan] 200 mg PO DAILY #7 tablet 02/09/19 Multivitamins,Ther W-Minerals [Multivitamin With Minerals] 1 tablet PO DAILYCM tablet 02/09/19 Nicotine [Nicoderm Cq] 21 mg TRANSDERM. DAILY patch 02/09/19 Nystatin 500,000 unit PO 4X/DAY #150 ud[facility] 02/09/19 Pantoprazole Sodium [Protonix] 40 mg PO DAILY #30 tablet 02/09/19 Quetiapine Fumarate [Seroquel] 25 mg PO QHS #0 02/09/19 The following prescriptions were given: Fluconazole [Diflucan] 200 mg PO DAILY #7 tablet Pantoprazole Sodium [Protonix] 40 mg PO DAILY #30 tablet Apixaban [Eliquis] 5 mg PO BID #60 tablet Nystatin 500,000 unit PO 4X/DAY #150 [facility] Primary Care Physician: Yuki Lopez MD [Primary Care Provider] - Please follow up with your Primary Care Physician in: in 1-2 week Test Results: Test results from this visit will be discussed in further detail at your follow- up appointment, if applicable. Please Follow Up With: Korey Santillan MD When: outpatient PFT, Follow up PE Please Follow Up With: Jeff Payne MD When: IN 1 week
--- NOTE | 2019-02-09 11:47 | DS.PCM_ITS ---
Discharge Date and Diagnosis Date of Admission: 02/04/19 Date of Discharge: 02/09/19 - Primary Discharge Diagnosis Active and Suspected Problems Epigastric abdominal pain (Acute) Intractable nausea and vomiting (Acute) Acute alcohol withdrawal (Acute) - Secondary Discharge Diagnosis Chronic Problems Neuropathy (Chronic) Anxiety (Chronic) Left shoulder pain (Chronic) HTN (hypertension) (Chronic) Alcohol abuse (Chronic) Fractured nose (Chronic) Fall (Chronic) Alcohol dependence (Chronic) Hospital Course and Treatment Operations: None Summary of Care Provided: The patient is a 68 year old F with history of chronic alcohol use and dependence with last admission in February 2017 for hypovolemic shock, alcohol withdrawal, , Acute kidney injury and hypokalemia came to ED with increased nausea, vomiting for last 2 days. Patient has about 5-10 clear vomitus since yesterday. She is also not eating since last Friday about 4 days ago. Complain of abdominal pain, mainly in epigastric location 7-8/10 intensity localized. Denies lower urinary tract symptoms including increased frequency, urgency, burning micturition or recent change. Denies fever or chills. No recent history of GI bleed. Patient had EGD done more than [address] burris [facility]. Patient does not know the report. In ED, patient was found febrile, heart rate in 100s, blood pressure 100/69 and pulse ox 90% on room air. Basic blood work in the ED shows leukocytosis 13.7 thousand, H&H 17.4/48.9 and platelet count 332,000. She is very dehydrated evident with hemoconcentration. BMP shows sodium 125, K3.4, chloride 83, BUN 56 and creatinine 3.35 suggestive of acute kidney injury. Her baseline creatinine runs around 1.0. Patient has tremors but denies recent history of seizures. She admits to drinking vodka once in 3 to 4 days but as per the nurse she drinks half pint vodka daily. 1. Intractable nausea/vomiting with epigastric pain and odynophagia suggestive of severe candidal esophagitis: Patient is being admitted to MedSurg floor. IV fluid resuscitation. General surgeon Dr. Payne is been consulted for EGD. Lipase is negative. IV Protonix 40 mg every 12 hourly. H&H is stable. Last 114.1/40.5. EGD showed moderately severe esophagitis which was biopsied. Gastritis and duodenitis. Patient is on 40 mg IV Protonix twice daily. Nystatin suspension 500,000 vincentian and swallow 4 times daily and fluconazole 200 mg daily. Patient is discharged on 7 more days of Diflucan and nystatin swish and swallow. Seroquel dose decreased to 25 mg because of risk for QTC prolongation. Fluoxetine is stopped. 2. Atypical chest pain most relief from candidal esophagitis: Repeated EKGs were done. normal sinus rhythm with sinus arrhythmia at 83 bpm. QTc interval 450 ms improved from the first EKG of 500 ms on 02/04. CTPA was done which showed persistent filling defect in left pulmonary artery leading to left lower lobe branch. On Lovenox 1 mg/kg body weight. No RV strain as troponins are negative. ACS ruled out. Buck Swamper consult reviewed and appreciated. Patient is discharged on Eliquis 10 mg twice daily for 1 week and then 5 mg twice daily. Prescription given. Echo was done reported as normal LV size systolic function with EF 60%. Normal RV size and systolic function. Trivial TR and unable to estimate RV systolic pressure due to technically difficult study. Aortic and pulmonic valve not well visualized. 3. Acute kidney injury, prerenal etiology from nausea and vomiting: Patient was resuscitated with normal saline with IV KCl. Resolved 3. Electrolyte abnormality with hypokalemia, hypotonic hypovolemic hyponatremia, hypochloremia and hypomagnesemia: Replaced. Resolved. 3. Acute alcohol withdrawal with history of chronic alcohol use and dependence: LFT shows normal ALT and AST but elevated alkaline phosphatase possible bowel origin. Tender hepatomegaly from chronic alcohol use. On Ativan as needed protocol as per MANISHA. Librium discontinued. 4. Hypertensive urgency candidate with alcohol withdrawal: She was transferred to ICU on weekend and was started on nitroglycerin drip secondary to chest pain and blood pressure systolic 230s. Acute coronary syndrome ruled out and patient transferred to PCU. Blood pressure still high 220/140 in the morning. Started on clonidine 0.2 mg twice daily and hydralazine 10 mg IV as needed. On 02/09, blood pressure dropped 89/50 and heart rate in 50s secondary to clonidine. Clonidine was discontinued. Patient was given 1 L of normal saline bolus and blood pressure went to 132/85. Patient blood pressure was secondary to alcohol withdrawal 5 Bilateral shoulder arthritis with recent left shoulder surgery on 01/05 in [facility] with old right shoulder surgical scar: PT and OT ordered. Pain management as required Other comorbidities include suspected COPD due to history smoking: It further follow-up PCP and outpatient PFT to clarify and quantify the diagnosis of COPD. DVT prophylaxis: Bilateral SCDs. Pharmacological prophylaxis contraindicated in view of possible suspicion of GI bleed and also acute kidney injury. Discharge medication reconciliation done. Discharge follow-up instructions completed. Discharge process discussed with the patient and all questions were answered to patient's satisfaction. Denies significant anxiety and depression and was on Seroquel, fluoxetine and melatonin. Did fluoxetine was discontinued. Seroquel dose was reduced. Patient to follow with PCP in 1 to 2 weeks to watch for QTC prolongation as she is on Diflucan. Follow-up with Dr. Barker in 1 to 2 weeks. Follow with pulmonary clinic in 2 weeks Total time spent, exact 35 minutes on discharge meds reconciliation, examination, review of imaging and blood test and discussion with the patient on follow-up instructions. Subjective: Seen and examined. Patient abdominal pain is better. Patient able to keep her liquid and tolerated full liquid and soft diet. Patient further advise to keep soft diet for 3-4 more days for severe esophageal candidiasis with odynophagia. Patient is Sitting in the chair. - Physical Exam General: Alert, Oriented x3, Cooperative HEENT: Atraumatic, PERRLA, EOMI, Normocephalic Neck: Supple, No JVD, Negative Carotid Bruits Lungs: Clear to auscultation, No rhonchi, No wheeze, No rales, Diminished Cardiovascular: Regular rate, Regular Rhythm, Normal S1, Normal S2, No murmurs Abdomen: Bowel Sounds Present, Soft, Non Tender, Non-Distended Extremities: No edema, Capillary Refill Less than 3 Seconds Skin: No rashes, No breakdown Musculoskeletal: No Tenderness to Palpation of Joints or Extremities, Arthritic Changes Lymphatic: No Cervical, Supraclavicular, or Inguinal Adenopathy Neurological: Cranial nerves II-XII grossly intact, Deep Tendon Reflexes 2+/4 and Symmetrical, Neuro grossly intact Psych/Mental Status: Normal Affect, Appropriate Vital Signs Temp Pulse Resp BP Pulse Ox 98.1 F 61 16 109/76 95 02/09/19 08:23 02/09/19 08:23 02/09/19 08:23 02/09/19 08:23 02/09/19 10:59 Oxygen Flow Rate (L/min) 2 Oxygen Delivery Method Room Air Weight: 176 lb 2.389 oz Body Mass Index (BMI) 25.1 Intake and Output for Last 24 Hours 02/07/19 02/08/19 02/09/19 23:59 23:59 23:59 Intake Total 1443 / 1443 3300 / 3300 1432 / 1432 Output Total 1000 / 1000 300 / 300 Balance 443 / 443 3000 / 3000 1432 / 1432 Microbiology Past 72 Hours 02/04/19 23:30 Urine Culture - Final Urine Catheter - Fregoso Culture exhibits no growth. Discharge Activity: May Not Drive Call your doctor if you observe: Fever of 101 or Higher, Numbness or Tingling, Inability to urinate, Inability to have a bowel movement, Shortness of breath, Dizziness, Swelling in the ankles, Prolonged hiccoughing, Increased palpitations (irregular heartbeat) Home Medications: Medications to take at Discharge Gabapentin [Neurontin] 300 mg PO DAILY 08/15/16 Gabapentin [Neurontin] 600 mg PO QHS 08/15/16 Lamotrigine [Lamictal] 150 mg PO DAILY 08/15/16 Multivitamins,Therapeutic [Multivitamin] 1 tablet PO DAILY 08/15/16 Propranolol HCl [Inderal (Beta Samantha)] 10 mg PO DAILY 08/15/16 Melatonin 20 mg PO QHS 02/28/17 Apixaban [Eliquis] 5 mg PO BID #60 tablet 02/09/19 Fluconazole [Diflucan] 200 mg PO DAILY #7 tablet 02/09/19 Multivitamins,Ther W-Minerals [Multivitamin With Minerals] 1 tablet PO DAILYCM tablet 02/09/19 Nicotine [Nicoderm Cq] 21 mg TRANSDERM. DAILY patch 02/09/19 Nystatin 500,000U/5ML [Mycostatin] 5 ml PO 4X/DAY #150 ml 02/09/19 Pantoprazole Sodium [Protonix] 40 mg PO DAILY #30 tablet 02/09/19 Quetiapine Fumarate [Seroquel] 25 mg PO QHS #0 02/09/19 Following Prescrptions Were Given to Patient: Fluconazole [Diflucan] 200 mg PO DAILY #7 tablet Pantoprazole Sodium [Protonix] 40 mg PO DAILY #30 tablet Apixaban [Eliquis] 5 mg PO BID #60 tablet Nystatin 500,000U/5ML [Mycostatin] 5 ml PO 4X/DAY #150 ml Primary Care Physician: Yuki Lopez MD [Primary Care Provider] - Please follow up with your Primary Care Physician in: in 1-2 week Please Follow Up With: Korey Santillan MD When: outpatient PFT, Follow up PE Please Follow Up With: Jeff Payne MD When: IN 1 week Medical Necessity - Tobacco Use Smoking Status: Heavy Smoker (>10/day) Tobacco Use: Cigarettes Meaningful Use Info Meaningful Use Diagnoses (Choose all that apply): None applicable Code Visit Inpatient E&M: [address] [facility]
--- NOTE | 2019-02-09 11:55 | CASEMGMT ---
This RN CM to room to speak with pt regarding discharge plan at this time. Pt declines need for HHC or OP therapy at this time. Pt states that she has someone to take her home. Advised pt that this RN CM will check on Eliquis co-pay prior to discharge, voices understanding. Pt voices no further questions/concerns/needs at this time. SStduong BANEGAS CM
--- NOTE | 2019-02-09 13:15 | CASEMGMT ---
Per Cornelio, pharmacist, pt's Eliquis co-pay is $25.99 and they will apply 30 day free trial card at this time. Hannah BANEGAS CM
[2019-02-09] MEDS: 0.9% Normal Saline 1,000 ML 999 ML IV (13:24)
--- NOTE | 2019-02-09 13:53 | CASEMGMT ---
This BASSAM LEVIN received a call from [facility] stating that the nystatin that Dr. Viveros ordered is on back order for 6 months and they state the equivalent is clotrimazole deanna and Dr. Viveros aware at this time but states that pt cannot go on that med at this time. This BASSAM LEVIN offered to call [facility] pharmacy to see if they have in stock and Dr. Viveros states that he will just send a script to them. Hannah BANEGAS CM
--- NOTE | 2019-02-09 14:43 | NEWVISION ---
Patient was in the bathroom with nursing staff when [employer] went to meet with patient. Valerie GUERRERO informed [employer] that patient was reporting that she did not need resources since she doesn't have a drinking problem.
== END 2019-02-09 15:00 | disposition home or self-care (01) | DRG 368 ==
LOC: ED 09:19 → MS3 11:05 → ICU 02-07 09:03 → PCU 02-07 15:39
PROVIDERS: Anesthesiology; Student in an Organized Health Care Education/Training Program; Surgery; Admitting Provider Internal Medicine; Emergency Provider Emergency Medicine; Family Provider Internal Medicine; PCP Internal Medicine; Visit Provider Internal Medicine
PROC: 0DJ08ZZ Inspection of Upper Intestinal Tract, Via Natural or Artificial Opening Endoscopic (ICD-10-PCS; CPT 43235; principal; 2019-02-05 11:55)
DX: B37.81 Candidal esophagitis (principal); G92 Toxic encephalopathy; I26.99 Other pulmonary embolism without acute cor pulmonale; N17.9 Acute kidney failure, unspecified; E87.1 Hypo-osmolality and hyponatremia; F10.239 Alcohol dependence with withdrawal, unspecified; K29.70 Gastritis, unspecified, without bleeding; K29.80 Duodenitis without bleeding; E86.0 Dehydration; F17.210 Nicotine dependence, cigarettes, uncomplicated; E87.6 Hypokalemia; E87.8 Other disorders of electrolyte and fluid balance, not elsewhere classified; E83.42 Hypomagnesemia; G62.9 Polyneuropathy, unspecified; I16.0 Hypertensive urgency; M19.012 Primary osteoarthritis, left shoulder; M19.011 Primary osteoarthritis, right shoulder; T42.4X5A Adverse effect of benzodiazepines, initial encounter; R07.89 Other chest pain; E86.1 Hypovolemia; I10 Essential (primary) hypertension; F41.9 Anxiety disorder, unspecified
CPT/HCPCS: 36415; 71275; 80048; 80053; 80076; 80307; 80320; 81001; 82140; 82542; 83690; 83735; 84100; 84484; 84703; 85014; 85018; 85025; 85610; 85730; 87086; 88305; 88312; 88313; 88342; 93005; 93306; 97110; 97161; 97166; 97802; 99282; 99285; 99406; J7030; J7040; J7050; Q9967; A4216; G0480; J2405

== ENCOUNTER 2019-06-02 13:02 | Emergency (ER) | payer MEDICARE, OTHER, SELFPAY ==
[2019-02-05 09:56] VITALS: BMI 25.1
[2019-06-02 13:04] VITALS: BP 109/71; PULSE 65; RESP 16; TEMP 36.4; O2SAT 93; BMI 27.6
--- NOTE | 2019-06-02 13:26 | CT_ITS ---
STUDY: CT CERVICAL SPINE WITHOUT CONTRAST REASON FOR EXAM: Female, 69 years old. Trauma RADIATION DOSAGE (If Supplied By Facility): CTDIvol = ( 26.50 ) mGy, DLP = ( 531.12 ) mGycm TECHNIQUE: High resolution transaxial imaging was performed without contrast material. Sagittal and coronal images were reconstructed. Individualized dose optimization techniques were used for this CT. COMPARISON: CT cervical spine 08/15/2016 FINDINGS: Normal craniovertebral junction. Normal anterior atlantoaxial articulation. Normal odontoid process. No fracture or subluxation. Normal cervical lordosis. Normal vertebral bodies and posterior osseous elements. There are degenerative changes of the spine with moderate multilevel degenerative disc disease and small anterior osteophytes. Normal visualized soft tissue structures. CT/Spine Cervical without Contras IMPRESSION: No fracture or subluxation. Multilevel degenerative changes, as described above. Electronically Signed: Jane Vazquez, at 14:17 EDT Tel , Service support ,
--- NOTE | 2019-06-02 13:26 | CT_ITS ---
STUDY: CT BRAIN WITHOUT CONTRAST REASON FOR EXAM: Female, 69 years old. Trauma RADIATION DOSAGE (If Supplied By Facility): CTDIvol = ( 44.99 ) mGy, DLP = ( 779.24 ) mGycm TECHNIQUE: Transaxial CT imaging of the brain was performed without administration of intravenous contrast material. Individualized dose optimization techniques were used for this CT. COMPARISON: CT head 03/01/2017. FINDINGS: Normal soft tissue structures. Normal calvarium. Normal size ventricles and extra-axial spaces for the patient's age. There are areas of decreased attenuation within the white matter tracts of the supratentorial brain, consistent with microvascular disease changes. Normal basal ganglia and thalami. Normal brainstem. Normal cerebellum. There is no intracranial hemorrhage. There are no findings of an acute ischemic infarction. Normal visualized paranasal sinuses. CT/Brain/Head without Contrast IMPRESSION: Chronic involutional changes of the brain. Electronically Signed: Jane Vazquez, at 14:13 EDT Tel , Service support ,
--- NOTE | 2019-06-02 13:27 | ED.VIS.GEN ---
History of Present Illness Informant: Patient Onset: Today Current Severity: Mild Maximum Severity: Mild Narrative: Patient is a 69-year-old female with history of regular alcohol use and pulmonary embolism presenting after mechanical fall. Patient states she was at the grocery store when she slipped and fell. Patient states she hit the divider that was between the checkout lanes. Patient did hit her head. She denies any loss of consciousness. Patient states that bystanders were concerned and called 911. She states that is why she is in the emergency room. Patient is on Eliquis because of her history of pulmonary embolism. She states she had a couple cocktails today. She states she normally drinks this much. She denies feeling significantly intoxicated. Patient denies any associated numbness or tingling. She has no pain or other complaints. She denies any other complaints at this time. <Trinidad Grimaldo - Last Filed: 06/02/19 15:38> <Ventura Portillo - Last Filed: 06/02/19 16:01> Chief Complaint: Head Injury - Past Medical History (1) Epigastric abdominal pain Status: Acute (2) Hypokalemia Status: Acute (3) Hypotension Status: Acute (4) Intractable nausea and vomiting Status: Acute (5) Alcohol dependence Status: Chronic <DillanTrinidad - Last Filed: 06/02/19 15:38> Past Medical History Surgical History: - - bilateral hip replacement, shoulder repair, cholecystectomy, hysterectomy Lives: Spouse/ Significant Other Smoking Status: Current every day smoker - Family History Paternal Family History: Reports: No pertinent history Maternal Family History: Reports: - - alcohol abuse, heart attack <Trinidad Grimaldo - Last Filed: 06/02/19 15:38> <Ventura Portillo - Last Filed: 06/02/19 16:01> - Allergies and Home Meds Allergies/Adverse Reactions: Allergies No Known Allergies Allergy (Verified 06/02/19 13:11) Primary Care Physician: Yuki Lopez MD [Primary Care Provider] - Review of Systems General: Denies: Chills, Fever, Sweats Eyes: Denies: Visual changes - bilaterally, Diplopia ENT: Denies: Rhinorrhea, Sore throat Cardiovascular: Denies: Chest pain, Palpitations Respiratory: Denies: Dyspnea, Cough, Dyspnea on exertion Gastrointestinal: Denies: Abdominal pain, Nausea, Vomiting, Diarrhea, Melena, Hematochezia Genitourinary: Denies: Dysuria, Hematuria, Frequency Musculoskeletal: Denies: Back pain, Extremity Pain Skin: Denies: Rash, Wounds Neurological: Denies: Headache, Weakness, Numbness <Ponce Grimaldodney - Last Filed: 06/02/19 15:38> Physical Exam Vital Signs/Narrative: Vital Signs Temp Pulse Resp BP Pulse Ox 06/02/19 13:04 97.6 F L 65 16 109/71 93 Inital Vital Signs reviewed: Yes General: Well nourished, Well developed, No Acute Distress Head: Normocephalic, Atraumatic Eyes: Perrl, EOMI, - - No nystagmus ENT: Moist mucous membranes, No rhinorrhea Neck: Supple, Nontender Cardiovascular: Regular rate, Regular rhythm, No murmurs Respiratory: No distress, CTA bilaterally, Chest nontender Abdomen: Soft, Nontender, Nondistended, Normal bowel sounds Back: Nontender, Normal Inspection Extremities: Nontender, No edema Skin: Normal color, No rash, Trauma - 2 cm linear laceration posterior scalp, full-thickness and gaping with pressure but closely approximated without Neurological: Alert, Oriented x3, Cranial nerves II-XII grossly intact, Normal Strength, Normal Sensation, - - Slightly slurred speech, patient appears mildly intoxicated but behaving appropriately Psychological: Normal affect, Normal Mood <DillanTrinidad - Last Filed: 06/02/19 15:38> Vital Signs/Narrative: Vital Signs Temp Pulse Resp BP Pulse Ox 06/02/19 15:03 70 16 112/82 H 93 06/02/19 13:04 97.6 F L 65 16 109/71 93 <Ventura Portillo - Last Filed: 06/02/19 16:01> Diagnostic/Tx/Re-eval CT brain and C-spine?no acute process - Medical Decision Making Patient is evaluated after mechanical fall. She is clinically intoxicated but otherwise behaving appropriately. Patient is on Eliquis. Head CT and C-spine is obtained does not show any acute process. Patient does have a small laceration of the back of her scalp which is repaired. See procedure note. Tetanus is ordered. Patient has a normal neurologic exam. I believe she is safe for discharge. Patient is counseled on generalized wound care and need for staple removal in the next 7 days either at the emergency room or with her primary care provider. Patient is discharged home with a sober ride. She is able to ambulate and tolerate liquids in the emergency room. Patient is counseled on signs and symptoms requiring return to the emergency room. Patient verbalizes agreement and understand this plan. Patient discharged home in stable and improved condition. <Trinidad Grimaldo - Last Filed: 06/02/19 15:38> - Medical Decision Making Attending note: Patient presented after mechanical fall. Physical exam shows a mildly intoxicated female with a scalp laceration. CT brain and neck were found to be negative. Laceration was repaired as noted in the procedure note. Patient's tetanus was updated. Patient was discharged with a sober ride. <Ventura Portillo - Last Filed: 06/02/19 16:01> Procedures - Lacerations No standard instances Length: 0.79 in Depth: Skin Shape: Linear Prep: Sterile Conditions Laceration repair: - - Abraham Number of Sutures/Abraham: 2 <Trinidad Grimaldo - Last Filed: 06/02/19 15:38> ED Disposition <Trinidad Grimaldo - Last Filed: 06/02/19 15:38> <Ventura Portillo - Last Filed: 06/02/19 16:01> - Plan for ED Patient: Disposition: Home or Assisted Living Diagnosis: Accident due to mechanical fall without injury, Scalp laceration Instructions: HEAD INJURY, No Wake-Up (Adult), LACERATION, Extrem (Suture, Staple or Tape) Referrals: Yuki Lopez MD [Primary Care Provider] -
[2019-06-02 15:03] VITALS: BP 112/82; PULSE 70; RESP 16; O2SAT 93
[2019-06-02] MEDS: Diphth,Pertuss(Acell),Tet Vac 0.5 ML Vial IM (15:49)
== END 2019-06-02 15:52 | disposition home or self-care (01) ==
PROVIDERS: Emergency Provider Emergency Medicine; Family Provider Internal Medicine; PCP Internal Medicine
DX: S01.01XA Laceration without foreign body of scalp, initial encounter (principal); W01.198A Fall on same level from slipping, tripping and stumbling with subsequent striking against other object, initial encounter; Y93.89 Activity, other specified; Y92.512 Supermarket, store or market as the place of occurrence of the external cause; Y99.9 Unspecified external cause status; F17.200 Nicotine dependence, unspecified, uncomplicated; Z79.01 Long term (current) use of anticoagulants; Z86.711 Personal history of pulmonary embolism; Z90.49 Acquired absence of other specified parts of digestive tract; Z90.710 Acquired absence of both cervix and uterus; Z96.643 Presence of artificial hip joint, bilateral; F10.229 Alcohol dependence with intoxication, unspecified; Y90.9 Presence of alcohol in blood, level not specified; Z23 Encounter for immunization
CPT/HCPCS: 12001; 70450; 72125; 90715; 99282

== ENCOUNTER 2019-07-13 16:04 | Emergency (ER) | payer MEDICARE, OTHER, SELFPAY ==
[2019-07-13 16:04] VITALS: BP 110/74; PULSE 72; RESP 16; TEMP 36.8; O2SAT 96; BMI 29.2
--- NOTE | 2019-07-13 16:22 | CT_ITS ---
STUDY: CT CHEST WITHOUT CONTRAST REASON FOR EXAM: Female, 69 years old. Fall. Laceration to forehead. Left rib pain. RADIATION DOSAGE (If Supplied By Facility): CTDIvol = ( 28.22 ) mGy, DLP = ( 1071.56 ) mGycm TECHNIQUE: Transaxial imaging was performed without the administration of intravenous contrast material. Multiplanar coronal and sagittal images were reformatted. Individualized dose optimization techniques were used for this CT. COMPARISON: CTA of the chest, February 07, 2019. FINDINGS: The lungs are normal. There is no demonstrated pleural abnormality. Normal heart and pericardium. Normal mediastinum. Normal hilar regions. Normal unenhanced pulmonary arteries. The ascending thoracic aorta measures 4.3 cm in diameter at the level of the right pulmonary artery (image 59, series 2) this appears unchanged from the prior exam. This tapers into the arch with mild degenerative change. There are multi-level degenerative changes of the thoracic spine. There is a fracture of the posterior left ninth rib which is remote and unchanged. There is no acute rib fracture. There is evidence of bilateral shoulder replacements. There are multiple low attenuation masses in the liver consistent with simple cysts. There is mild fatty infiltration liver. The abdomen is otherwise grossly unremarkable. CT/Chest without Contrast IMPRESSION: 1. No acute pulmonary disease. 2. Prominent ascending thoracic aorta with maximum diameter of 4.3 cm. This appears stable. 3. Stable hepatic cysts. 4. Mild fatty infiltration of liver not noted in the prior study. Electronically Signed: Basilio Riojas DO at 17:25 EDT Tel [phone], Service support ,
--- NOTE | 2019-07-13 16:22 | CT_ITS ---
STUDY: CT BRAIN WITHOUT CONTRAST REASON FOR EXAM: Female, 69 years old. Fall. Laceration to the leslie. Left-sided rib pain. RADIATION DOSAGE (If Supplied By Facility): CTDIvol = ( 44.99 ) mGy, DLP = ( 779.24 ) mGycm TECHNIQUE: Transaxial CT imaging of the brain was performed without administration of intravenous contrast material. Individualized dose optimization techniques were used for this CT. COMPARISON: June 02, 2019. FINDINGS: There is minimal subcutaneous stranding over the left frontal region. No visualized cutaneous disruption. Normal calvarium. There is mild cerebral atrophy with widening of the extra-axial spaces and ventricular dilatation. There is a small stable hypodensity in the mid left parietal white matter measuring 0.9 x 0.5 x 0.8 cm. Question remote white matter infarct. Otherwise normal white matter tracts of the cerebral hemispheres. Normal basal ganglia and thalami. Normal brainstem. Normal cerebellum. There is no intracranial hemorrhage. There are no findings of an acute ischemic infarction. Normal visualized paranasal sinuses. CT/Brain/Head without Contrast IMPRESSION: Chronic involutional changes without evidence of acute intracranial or calvarial abnormality. There is no interval change. Electronically Signed: Basilio Riojas DO at 17:20 EDT Tel [phone], Service support ,
--- NOTE | 2019-07-13 16:33 | RAD_ITS ---
STUDY: X-RAY - LEFT ELBOW REASON FOR EXAM: Female, 69 years old. Fall. Pain. TECHNIQUE: 3 view(s) of the elbow. COMPARISON: None. FINDINGS: There is degenerative arthrosis of the radiocapitellar and ulnotrochlear articulations. The humerus appears grossly normal. There is well-corticated bony densities adjacent to the glenoid process. There is also a well-corticated bony density anterior to the medial radial capitellar joint. There is deformity of the radial head with cardiac activity there is no definite fracture line seen. The soft tissue structures are unremarkable. RAD/Elbow min 3 Views IMPRESSION: Marked degenerative changes of the elbow with bony productivity. There is no visualized fracture. If there is strong concern for fracture, MRI is suggested. Electronically Signed: Basilio Riojas DO at 17:29 EDT Tel [phone], Service support ,
[2019-07-13 16:49] VITALS: O2SAT 96
--- NOTE | 2019-07-13 17:49 | ED.DCSUM_ITS ---
- ER Visit Summary Date of Service: 07/13/19 Chief Complaint: Fall History of Present Illness: The patient is a 69 F who presents the emergency department following a fall. She tells me that her legs gave out on her she was crossing the street she fell forward striking her head. She is on Eliquis. She notes a facial laceration on her mid left forehead. She notes pain of the left lower ribs and the left elbow. She has a history of alcoholism and does admit to some alcohol today. There is no loss of consciousness. Tetanus was updated earlier this year Physical Examination: Afebrile vital signs are stable Gen: Well-nourished well-developed Head: Normocephalic there is a 2 cm gaping forehead laceration over the left eyebrow no bony depression Eyes: Perrl EOMI ENT: TMs clear no rhinorrhea moist mucous membranes Neck: Supple no lymphadenopathy no JVD nontender CVS: Regular rate rhythm no murmurs normal S1-S2 Respiratory: No distress clear to auscultation bilaterally chest to palpation over the lower anterior left ribs Abdomen: Soft nontender nondistended normal bowel sounds no masses Back: Nontender Extremity: There is abrasion contusion noted over the posterior aspect of the left elbow full range of motion Skin: Normal color no rash Neuro: alert orientated ?3 CN II-XII intact normal strength sensation Psych: Normal affect normal mood Test Results: CT of the brain and chest were negative. X-rays of the elbow were negative for fracture Emergency Department Course and Treatment: Wound was locally anesthetized using 1% lidocaine washed with Shur-Clens and explored. A total of 4 simple interrup lauren 5-0 Ethilon sutures were placed. Patient tolerated procedure well. Stitches will need to be removed in 7 days. Impression: 1. 2 cm facial laceration with repair 2. Left elbow and chest contusion This note was generated with [employer] dictation software. It may contain incorrect words, spelling, and punctuation that were not noted in review of the chart prior to signing ED Disposition - Plan for ED Patient: Disposition: Home or Assisted Living Instructions: LACERATION, All, Chest Wall Contusion Referrals: Yuki Lopez MD [Primary Care Provider] - 7 Days for suture removal
== END 2019-07-13 18:06 | disposition home or self-care (01) ==
PROVIDERS: Emergency Provider Emergency Medicine; Family Provider Internal Medicine; PCP Internal Medicine
DX: S01.81XA Laceration without foreign body of other part of head, initial encounter (principal); S20.219A Contusion of unspecified front wall of thorax, initial encounter; W19.XXXA Unspecified fall, initial encounter; Z79.01 Long term (current) use of anticoagulants; K76.89 Other specified diseases of liver; I10 Essential (primary) hypertension; Z72.0 Tobacco use; F10.21 Alcohol dependence, in remission
CPT/HCPCS: 12011; 70450; 71250; 73080; 99282

== ENCOUNTER 2019-11-01 12:38 | Emergency (ER) | payer MEDICARE, OTHER, SELFPAY ==
[2019-11-01 12:39] VITALS: BP 172/121; PULSE 87; RESP 16; TEMP 36.4; O2SAT 93; BMI 28.4
--- NOTE | 2019-11-01 14:17 | VDLE_ITS ---
Reason For Study: LLE SWELLING RIGHT LEFT CFV is compressible, spontaneous, phasic, GSV is normal. competent and demonstrates normal CFV is compressible, spontaneous, phasic, augmentation. competent, and demonstrates normal Procedure augmentation. Exam performed portable in ED. FV is compressible, spontaneous, phasic, The exam was diagnostic. competent and demonstrates normal A preliminary report was called and/or faxed augmentation. to ED. POP V is compressible, spontaneous, phasic, competent and demonstrates normal augmentation. T/P Trunk is compressible. PTV is compressible. LT PerV is compressible. NON-vascular structure noted in the proximal medial calf/knee area. Measured 3.48 x 1.44cm in transverse. Interpretation Summary Deep veins of the left lower extremity are patent and compressible segmentally. There is no evidence of left lower extremity deep vein thrombosis. Valvular competence appears intact within the proximal deep venous system on the left . The left great saphenous vein appears patent and compressible segmentally. A non-vascular, hypoechoic structure is noted in the left proximal, medial calf, measuring 3.48 cm x 1.44 cm. This may represent a hematoma or seroma. Clinical correlation is advised. Ordering Physician: Mikhail Santillan Referring Physician: Yuki Lopez Performed By: Monica Leon, RDCS, RVT
--- NOTE | 2019-11-01 15:41 | ED.DCSUM_ITS ---
- ER Visit Summary Date of Service: 11/01/19 Chief Complaint: Left leg swelling History of Present Illness: The patient is a 69 F who presents with left leg pain and swelling that has been getting worse over the past 3 days. Patient describes her pain is dull. Patient states nothing makes it better or worse. Patient denies any paresthesias or weakness. Patient denies any trauma or injury. Patient does have a history of pulmonary embolism and recently stopped her Eliquis because she had it for 6 months and was told to stop after 6 months. Physical Examination: Vital signs are stable. Patient is afebrile. Patient is in no acute distress. Musculoskeletal exam reveals some tenderness over the left calf with compression. There is also pain with dorsiflexion of the left ankle. Pedal pulses are equal bilateral. Strength is 5/5 bilateral in the lower extremities. There are no sensory deficits noted. There is full range of motion. Heart was regular rate and rhythm. Lungs are clear and equal bilaterally. Abdomen is soft and nontender. Test Results: Venous duplex of the left lower extremity was obtained. There is a nonvascular structure noted in the proximal medial calf/knee area that measured 3.48 x 1.44 cm. There is no evidence of DVT. Because of this finding, an x-ray of the tib-fib was obtained. There is no acute process noted. There is no mass noted. This was interpreted by the radiologist and myself. Emergency Department Course and Treatment: Patient was advised of her findings. Patient was instructed to elevate the left leg. Patient was instructed to follow-up with her primary care physician in 3 to 5 days. Patient understood and was agreeable with the plan. All questions were answered. Disposition: Discharge home Impression: Left leg pain This note was generated with [employer] dictation software. It may contain incorrect words, spelling, and punctuation that were not noted in review of the chart prior to signing ED Disposition - Plan for ED Patient: Disposition: Home or Assisted Living Diagnosis: Left leg pain Instructions: MUSCLE STRAIN, Extremity Referrals: Yuki Lopez MD [Primary Care Provider] - Keep Jovanny appointment
--- NOTE | 2019-11-01 16:15 | RAD_ITS ---
STUDY: X-RAY - LEFT TIBIA AND FIBULA REASON FOR EXAM: Female, 69 years old. lower leg pain, no injury TECHNIQUE: 2 view(s) of the tibia and fibula were obtained. COMPARISON: None. FINDINGS: Normal visualized tibia. Normal visualized fibula. The soft tissue structures are unremarkable. RAD/Tibia & Fibula 2 Views IMPRESSION: Normal x-ray examination of the tibia and fibula. Electronically Signed: Jeff Jordan MD at 16:35 EST Tel , Service support ,
[2019-11-01 16:22] VITALS: BP 193/123; PULSE 75; RESP 16; O2SAT 98
[2019-11-01 16:33] VITALS: BP 124/112; PULSE 70; RESP 16; O2SAT 95
== END 2019-11-01 16:34 | disposition home or self-care (01) ==
PROVIDERS: Emergency Provider Emergency Medicine; PCP Internal Medicine
DX: M79.662 Pain in left lower leg (principal); Z86.711 Personal history of pulmonary embolism; G89.29 Other chronic pain; M54.9 Dorsalgia, unspecified; F17.210 Nicotine dependence, cigarettes, uncomplicated
CPT/HCPCS: 73590; 93971; 99282

== ENCOUNTER 2019-11-14 07:25 | Inpatient (IN) | payer MEDICARE, OTHER, SELFPAY ==
[2019-11-14] VITALS (10 sets, daily range): BP systolic 135–190; BP diastolic 81–105; PULSE 90–103; RESP 16–20; TEMP 36.6–37.2; O2SAT 88–99; BMI 26.6; BMI 26.7
--- NOTE | 2019-11-14 07:45 | EKG12_ITS ---
Test Reason : Blood Pressure : / mmHG Vent. Rate : 087 BPM Atrial Rate : 087 BPM P-R Int : 224 ms QRS Dur : 094 ms QT Int : 404 ms P-R-T Axes : 045 -36 022 degrees QTc Int : 486 ms Sinus rhythm with 1st degree A-V block Possible Left atrial enlargement Left axis deviation Incomplete right bundle branch block Anterior infarct , age undetermined Abnormal ECG Confirmed by LEEANN COX, TITI ([id number]), editorial clerk RICHELLE GALICIA ([id number]) on 11/16/2019 8:23:37 AM Referred By: Yuki Lopez Confirmed By:TITI BRADSHAW MD
--- NOTE | 2019-11-14 07:46 | ED.VIS.GEN ---
History of Present Illness Chief Complaint: Substance Abuse Informant: Patient Narrative: Per nursing note patient is going through DTs from alcohol withdrawal and wants treatment. Patient states that her problem is that she is not currently drunk. She states she does not want to go home and drink. She is interested in detox. Patient has a hard time expressing what she wants secondary to her high level of anxiety. She does report some nausea. Reportedly her last drink was yesterday. She normally drinks vodka every day. - Past Medical History (1) Alcohol abuse Status: Chronic (2) Anxiety Status: Chronic (3) HTN (hypertension) Status: Chronic (4) Neuropathy Status: Chronic Past Medical History - Allergies and Home Meds Allergies/Adverse Reactions: Allergies No Known Allergies Allergy (Verified 11/14/19 07:27) Primary Care Physician: Yuki Lopez MD [Primary Care Provider] - Prior records reviewed: Yes Surgical History: - - bilateral hip replacement, shoulder repair, cholecystectomy, hysterectomy Lives: Spouse/ Significant Other Smoking Status: Current every day smoker - Family History Paternal Family History: Reports: No pertinent history Maternal Family History: Reports: - - alcohol abuse, heart attack Review of Systems General: Denies: Chills, Fever Eyes: Denies: Visual changes - bilaterally ENT: Denies: Bilateral ear pain Cardiovascular: Denies: Chest pain Respiratory: Denies: Dyspnea Gastrointestinal: Reports: Nausea Genitourinary: Denies: Dysuria Musculoskeletal: Denies: Extremity Pain Psych: Reports: Anxiety Allergy: Denies: Uticaria Physical Exam Vital Signs/Narrative: Vital Signs Temp Pulse Resp BP Pulse Ox 11/14/19 07:27 97.8 F 101 H 17 135/82 H 95 Inital Vital Signs reviewed: Yes General: Well nourished, Well developed Head: Normocephalic ENT: Moist mucous membranes Neck: Supple Cardiovascular: Regular rate, Regular rhythm Respiratory: No distress, CTA bilaterally Abdomen: Soft, Nontender, Hypoactive bowel sounds Extremities: Nontender Skin: Normal color Neurological: Alert Psychological: - - Anxious Diagnostic/Tx/Re-eval Laboratory Results 11/14/19 11/14/19 11/14/19 08:05 08:05 08:05 WBC 5.4 RBC 4.56 Hgb 13.4 Hct 40.0 MCV 87.7 MCH 29.4 MCHC 33.5 RDW Std Deviation 44.6 H RDW Coeff of Mikayla 13.9 Plt Count 327 MPV 8.6 Immature Gran % (Auto) 0.400 Neut % (Auto) 62.3 Lymph % (Auto) 27.4 [place] % (Auto) 8.8 Eos % (Auto) 0.2 Baso % (Auto) 0.9 Absolute Neuts (auto) 3.4 Absolute Lymphs (auto) 1.47 Nucleated RBC % 0 PT 13.3 INR 1.0 APTT 29.6 Sodium 142 Potassium 3.4 L Chloride 108 H Carbon Dioxide 22.0 Anion Gap 12 BUN 8 Creatinine 0.76 Estim Creat Clear Calc 57.05 Est GFR (MDRD) Af Amer 98 Est GFR (MDRD) Non-Af 81 BUN/Creatinine Ratio 10.6 Glucose 117 H Calcium 9.1 Total Bilirubin 0.40 Direct Bilirubin 0.15 AST 76 H ALT 63 H Alkaline Phosphatase 120 H Total Protein 8.0 Albumin 3.9 Globulin 4.1 Lipase 118 Ethyl Alcohol 11/14/19 08:05 WBC RBC Hgb Hct MCV MCH MCHC RDW Std Deviation RDW Coeff of Mikayla Plt Count MPV Immature Gran % (Auto) Neut % (Auto) Lymph % (Auto) [place] % (Auto) Eos % (Auto) Baso % (Auto) Absolute Neuts (auto) Absolute Lymphs (auto) Nucleated RBC % PT INR APTT Sodium Potassium Chloride Carbon Dioxide Anion Gap BUN Creatinine Estim Creat Clear Calc Est GFR (MDRD) Af Amer Est GFR (MDRD) Non-Af BUN/Creatinine Ratio Glucose Calcium Total Bilirubin Direct Bilirubin AST ALT Alkaline Phosphatase Total Protein Albumin Globulin Lipase Ethyl Alcohol 260.0 - EKG Initial EKG Interpretation: Sinus Rhythm - Sinus 87 with incomplete right bundle branch. 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 She was given Zofran and 0.5 mg IV Ativan to help with her agitation. On repeat evaluation she is resting comfortably. She continues to voice desire for detox. I will speak with hospitalist. ED Disposition - Plan for ED Patient: Disposition: Acute Care Hospital [facility] Diagnosis: Desire for detoxification, Alcohol abuse Referrals: Yuki Lopez MD [Primary Care Provider] -
[2019-11-14] MEDS: 0.9% Normal Saline 1,000 ML 150 ML IV (08:07)
[2019-11-14] MEDS: Ondansetron 4 MG/2 ML Vial IV (08:07)
[2019-11-14] MEDS: LORazepam 2 MG/ML Syringe 0.5 MG IV ×2 (08:07→09:56)
[2019-11-14 08:13] LABS: Absolute Lymphocyte Count 1.47 X10^3/uL (0.83-4.51); Absolute Neutrophil Count 3.4 X10^3/uL (2.0-7.7); Basophil# 0.05 X10^3/uL; Basophil% 0.9 % (0-1); Eosinophil# 0.01 X10^3/uL; Eosinophils% 0.2 % (0-5); Hemoglobin 13.4 g/dL (12.0-15.0); Lymphocyte # 1.47 X10^3/ul (4.0); Lymphocyte % 27.4 % (19-41); Mean Corp Hgb Conc 33.5 g/dL (32-36); Mean Corpuscular Hgb 29.4 pg (27.0-32.0); Mean Corpuscular Volume 87.7 fL (81-99); Mean Platelet Vol. 8.6 fl (6.2-12.0); Monocyte# 0.47 X10^3/uL; Monocyte% 8.8 % (0-10); NRBC Flagged by Analyzer 0 % (0-5); Neutrophil # 3.35 X10^3/uL (2.7-7.7); Neutrophil % 62.3 % (47-70); Platelet Count 327 K/mm3 (150-450); RBC Distribution Width CV 13.9 % (11.6-14.6); RBC Distribution Width SD 44.6 fl (35.1-43.9); Red Blood Count 4.56 M/mm3 (4.2-5.4); White Blood Count 5.4 K/mm3 (4.4-11.0)
[2019-11-14 08:41] LABS: AST(SGOT) 76 U/L (15-37); Alanine Aminotransfer ALT/SGPT 63 U/L (13-56); Albumin, Serum 3.9 g/dL (3.2-5.0); Alkaline Phosphatase 120 U/L (45-117); Anion Gap 12 (5-15); BUN 8 mg/dL (7-18); BUN/Creat Ratio 10.6 RATIO (10-20); Bilirubin, Direct 0.15 mg/dL (0.00-0.30); Calcium,Total 9.1 mg/dL (8.5-10.1); Chloride 108 mmol/L (98-107); Creatinine, Serum 0.76 mg/dL (0.55-1.02); EST Glomerular Filtration Rate 81 mL/min (>60); Est Glom Filt Rate - Afr Amer 98 mL/min (>60); Estimated Creatinine Clearance 57.05 ml/min; Globulin 4.1 g/dL (2.2-4.2); Glucose 117 mg/dL (74-106); Lipase 118 U/L (73-393); Potassium 3.4 mmol/L (3.5-5.1); Sodium Level 142 mmol/L (136-145)
[2019-11-14 08:54] LABS: Prothrombin Time (Protime)PT. 13.3 SECONDS (11.7-14.9)
[2019-11-14 08:56] LABS: Partial Thromboplast Time 29.6 Seconds (24.1-36.2)
--- NOTE | 2019-11-14 10:24 | PCM.HP.STD ---
Problem List (1) Acute alcohol withdrawal Status: Acute (2) Anxiety and depression Status: Chronic (3) Bipolar disorder Status: Chronic Qualifiers: Active/Remission status: remission status unspecified Qualified Code(s): F31.9 - Bipolar disorder, unspecified (4) Tobacco use Status: Chronic (5) GERD (gastroesophageal reflux disease) Status: Chronic Qualifiers: Esophagitis presence: esophagitis presence not specified Qualified Code(s): K21.9 - Gastro-esophageal reflux disease without esophagitis (6) Neuropathy Status: Chronic (7) Overweight (BMI 25.0-29.9) Status: Chronic History of Present Illness Date of Admission: 11/14/19 Chief Complaint: Acute EtOH Withdrawal The patient is a 69 y/o F w/ PMHx: Anxiety and Depression/Bipolar disorder, GERD, Overweight, Tobacco use, Chronic Neuropathy, Alcohol abuse who presents to the [facility] ED on 11/14/19 w/ noted acute EtOH withdrawal, onset starting earlier today prior to ED presentation following last EtOH intake late evening day prior with normal daily intake of ~ 750 ml 40 proof vodka with onset of nausea, tremors, agitation, tactile disturbances. Patient interested in attaining sober status. She has been through detoxification prior also. She notes coming in today as she notes she has had recent difficulties and eager for attempted sobriety. She notes she lives at home with her who does not have any substance abuse problems and is very supportive of her attempts. In the ED following Ativan administration she notes feeling mildly improved. Work-up in the ED included T 97.8, heart rate 101, BP initially 135/82 with increased to 190/97, respiratory rate 18, 95% room air, CBC unremarkable, unremarkable coags, CMP with potassium 3.4, chloride 108, glucose 117, AST/ALT 76/63, alk phos 120, lipase 118, urine tox screen pending, lamotrigine pending, ethyl alcohol level 260. In the ED patient administered Zofran, Ativan 0.5 mg IV x2, normal saline. Past Medical History Past Medical History (Chronic Problems): Chronic Problems Anxiety and depression (Chronic) Bipolar disorder (Chronic) Tobacco use (Chronic) GERD (gastroesophageal reflux disease) (Chronic) Neuropathy (Chronic) Overweight (BMI 25.0-29.9) (Chronic) Neuropathy (Chronic) Anxiety (Chronic) Left shoulder pain (Chronic) HTN (hypertension) (Chronic) Alcohol abuse (Chronic) Fractured nose (Chronic) Fall (Chronic) Alcohol dependence (Chronic) Allergies No Known Allergies Allergy (Verified 11/14/19 07:27) Home Medications: Ambulatory Orders Medication Instructions Recorded Gabapentin [Neurontin] 300 mg PO DAILY 08/15/16 Gabapentin [Neurontin] 600 mg PO QHS 08/15/16 Lamotrigine [Lamictal] 150 mg PO DAILY 08/15/16 Multivitamins,Therapeutic 1 tablet PO DAILY 08/15/16 [Multivitamin] Propranolol HCl [Inderal (Beta 10 mg PO DAILY 08/15/16 Samantha)] Melatonin 20 mg PO QHS 02/28/17 Pantoprazole Sodium [Protonix] 40 mg PO DAILY #30 tablet 02/09/19 Quetiapine Fumarate [Seroquel] 25 mg PO QHS #0 02/09/19 Fluoxetine HCl 40 mg PO DAILY 06/02/19 Surgical History: - - BL total hip replacement, BL shoulder repair, cholecystectomy, hysterectomy, ? appendectomy. 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 Smoking Status: Heavy Smoker (>10/day) - Patient notes three-quarter pack per day cigarette tobacco usage ongoing since teenager. Tobacco Use: Cigarettes Alcohol: Heavy - Patient notes routinely approximately 750 ml 40 proof vodka daily. Drugs: None - *Family History Paternal History Items: Cancer - Father with history of cancer, unclear type. Maternal History Items: - - Other with a history of heart disease, NC, substance abuse including alcohol abuse. Review of Systems Constitutional: Reports: Anorexia, Malaise, Weakness, Fatigue. Denies: Chills, Fever, Weight Change HEENT: Denies: Head Aches, Sinus Congestion, Sinus Drainage Cardiovascular: Denies: Chest Pain, Palpitations Respiratory: Denies: Cough, Shortness of breath at rest, Sputum production Gastrointestinal: Reports: Nausea. Denies: Abdominal Pain, Vomiting Genitourinary: Denies: Dysuria Musculoskeletal: Reports: Back Pain, Joint Pain. Denies: Joint Tenderness Skin: Denies: Rash, Wounds Neurological: Reports: Tremor. Denies: Focal weakness, Numbness, Tingling Psychiatric: Reports: Anxiety, Depression. Denies: Homicidal Ideations, Suicidal Ideations Hematologic/ Lymphatic: Denies: Easy Bruising, Easy Bleeding VTE Information - Inpt Only VTE Present on Admission: No VTE Mechan Device Prophylaxis: None VTE Pharm Prophylaxis ordered?: No Reason prophylaxis not ordered:: Treatment Not Indicated Patient Problems: Active and Suspected Problems Desire for detoxification (Acute) Subjective: Seated upright in ED bed, fatigued appearance, notes some improvement of symptoms, mild tremor, recent Ativan administration in the ED. Objective: Physical Examination: General: awake, alert, oriented x 3 and cooperative, seated upright in the ED bed, fatigued appearance, some residual mild tremors, recent IV Ativan per ED. Skin: normal color, turgor, no icterus, cyanosis. HEENT: AT/NC, EOMI, PERRLA, dry MM, no carotid bruits or JVD noted. Lungs: CTA bilaterally, moderate effort, moderate decrease BL bases, no rales, ronchi or wheezing. Heart: Mildly tachycardic with regular rhythm; no gallop, rub audible. Abdomen: soft, overweight, NTTP, ND, normal BS, no market severe HM. Extremities: no cyanosis, clubbing, or edema. Neurological: patient awake, alert, oriented x 3; cognitive function suspect decreased from baseline intact but near with acute presentation as noted; pupils equally reactive to light and accomodation; cranial nerves II-XII grossly normal, moving all 4 extremities, no focal deficits, strength moderately to severely global decrease given acute alcohol withdrawal presentation but improving with IV Ativan in the ED, mild residual tremor, fatigued appearing. Psychiatric: affect appears fatigued, uncomfortable, no acute evidence of depressive or anxiety feelings. - Physical Exam Vitals/I&O's: Vital Signs Temp Pulse Resp BP Pulse Ox 97.8 F 95 18 190/97 H 93 11/14/19 07:27 11/14/19 10:02 11/14/19 10:02 11/14/19 10:02 11/14/19 10:02 Oxygen Delivery Method Room Air Weight: 180 lb Body Mass Index (BMI) 26.6 Laboratory Results 11/14/19 08:05: WBC 5.4, RBC 4.56, Hgb 13.4, Hct 40.0, MCV 87.7, MCH 29.4, MCHC 33.5, RDW Std Deviation 44.6 H, RDW Coeff of Mikayla 13.9, Plt Count 327, MPV 8.6, Immature Gran % (Auto) 0.400, Neut % (Auto) 62.3, Lymph % (Auto) 27.4, [place] % (Auto) 8.8, Eos % (Auto) 0.2, Baso % (Auto) 0.9, Absolute Neuts (auto) 3.4, Absolute Lymphs (auto) 1.47, Nucleated RBC % 0 11/14/19 08:05: PT 13.3, INR 1.0, APTT 29.6 11/14/19 08:05: Sodium 142, Potassium 3.4 L, Chloride 108 H, Carbon Dioxide 22.0, Anion Gap 12, BUN 8, Creatinine 0.76, Estim Creat Clear Calc 57.05, Est GFR (MDRD) Af Amer 98, Est GFR (MDRD) Non-Af 81, BUN/Creatinine Ratio 10.6, Glucose 117 H, Calcium 9.1, Total Bilirubin 0.40, Direct Bilirubin 0.15, AST 76 H, ALT 63 H, Alkaline Phosphatase 120 H, Total Protein 8.0, Albumin 3.9, Globulin 4.1, Lipase 118 11/14/19 08:05: Lamotrigine Pending 11/14/19 08:05: Ethyl Alcohol 260.0 Current Medications Sodium Chloride () 1,000 mls @ 150 mls/hr IV .[id number] [facility] Last Admin: 11/14/19 08:07 Dose: 150 mls/hr Documented by: Assessment/Plan All Active Problems Epigastric abdominal pain (Acute) Intractable nausea and vomiting (Acute) Acute alcohol withdrawal (Acute) Desire for detoxification (Acute) Chest pain (Resolved) ARF (acute renal failure) (Acute) Hypokalemia (Acute) Hypotension (Acute) Hypothermia (Resolved) Hypoxia (Resolved) The patient is a 69 y/o F w/ PMHx: Anxiety and Depression/Bipolar disorder, GERD, Overweight, Tobacco use, Chronic Neuropathy, Alcohol abuse who presents to the [facility] ED on 11/14/19 w/ noted acute EtOH withdrawal, onset starting earlier today prior to ED presentation following last EtOH intake late evening day prior with normal daily intake of ~ 750 ml 40 proof vodka with onset of nausea, tremors, agitation, tactile disturbances. 1. Acute EtOH Withdrawal: Will admit to MS, routine labs obtained in the ED upon presentation, pending urine tox screen requested, pending lamotrigine level, alcohol level 260 upon presentation, electrolytes significant for only potassium 3.4, AST/ALT 76/63, alk phos 120, unremarkable CBC, administered IV Ativan x2 while in the ED, will transition to initiate phenobarbital taper protocol with additional PRN agents including CIWA with ativan for breakthrough and as needed Bentyl, Vistaril, IV fluids, IV antiemetics, Tylenol as needed for pain. Mag, phos pending. CM/SW consulted for discharge early planning for next level of care following acute detoxification. 2. Hypokalemia: Admission K+ 3.4, supplementation given, repeat level in AM. Magnesium level requested. 3. Elevated BP without hypertensive history: Patient denies any history of hypertension, on propranolol more for anxiety, elevated BP while in the ED but acute withdrawal symptoms, will continue to closely monitor and add oral regimen if appropriate. 4. Elevated LFTs: Admission AST/ALT 76/63, alk phos 120, likely chronic component given alcohol abuse history. 5. Chronic neuropathy: We will continue patient home Neurontin regimen. 6. Anxiety and depression/bipolar disorder: We will continue patient home fluoxetine, Lamictal, Seroquel as well as low-dose propranolol regimen. 7. Tobacco Abuse: Encouraged cessation, inpatient consultation per RT, NR if desired. 8. GERD: Continue home PPI. 9. Overweight: Weight loss and lifestyle changes encouraged. 10. DVT prophylaxis: Low risk, encourage ambulation. Code Visit Inpatient E&M: 46810 Init Hosp L3
[2019-11-14 11:26] LABS: Magnesium 1.7 mg/dL (1.6-2.6); Phosphorus 2.7 mg/dL (2.5-4.9)
[2019-11-14 11:36] LABS: Bedside Glucose 103 mg/dL (70-110)
[2019-11-14] MEDS: Loperamide 2 MG Capsule PO (11:39)
[2019-11-14] MEDS: Acetaminophen 500 MG Tablet PO ×2 (11:39→15:54)
[2019-11-14] MEDS: Lactated Ringers 1,000 ML 125 ML IV (11:39)
[2019-11-14] MEDS: Ondansetron ODT 4 MG Tablet PO (11:39)
[2019-11-14] MEDS: LORazepam 2 MG/ML Syringe 1 MG IV ×3 (11:44→20:04)
[2019-11-14] MEDS: Folic Acid 1 MG Tablet PO (12:34)
[2019-11-14] MEDS: Thiamine Hydrochloride 100 MG Tablet PO (12:34)
[2019-11-14] MEDS: Phenobarbital 32.4 MG Tablet 64.8 MG PO ×3 (12:34→23:59)
[2019-11-14] MEDS: 0.9% Saline Lock 10 ML Syringe IV (20:05)
[2019-11-14] MEDS: QUEtiapine 25 MG Tablet PO (21:02)
[2019-11-14] MEDS: Gabapentin 300 MG Capsule 600 MG PO (21:02)
[2019-11-14] MEDS: MELATONIN 10 MG TABLET 20 MG PO (21:02)
[2019-11-14] MEDS: traZODone 50 MG Tablet PO (21:02)
[2019-11-15 04:00] VITALS: BP 138/93; PULSE 93; RESP 18; TEMP 37.2; O2SAT 96
[2019-11-15] MEDS: Phenobarbital 32.4 MG Tablet 64.8 MG PO ×3 (06:05→21:56)
[2019-11-15] MEDS: Ibuprofen 600 MG Tablet PO (06:07)
[2019-11-15] MEDS: Multivitamins,Therapeutic Tablet 1 TABLET PO (08:28)
[2019-11-15] MEDS: FLUoxetine 20 MG Capsule 40 MG PO (08:28)
[2019-11-15] MEDS: Thiamine Hydrochloride 100 MG Tablet PO (08:28)
--- NOTE | 2019-11-15 08:28 | PN_ITS ---
Subjective: Chief complaint: Follow-up after admission for acute alcohol withdrawal for medical stabilization. Patient seen and examined. No acute events overnight. She is still complaining of tremors and shakiness with minimal improvement. She has no more nausea or vomiting. She was able to sleep last night. Blood pressure still slightly elevated, other vital signs are stable. - Physical Exam Vitals/I&O's: Vital Signs Temp Pulse Resp BP Pulse Ox 98.9 F 93 18 138/93 H 96 11/15/19 04:00 11/15/19 04:00 11/15/19 04:00 11/15/19 04:00 11/15/19 04:00 Oxygen Flow Rate (L/min) 2 Oxygen Delivery Method Nasal Cannula Weight: 181 lb Body Mass Index (BMI) 26.7 Intake and Output for Last 24 Hours 11/13/19 11/14/19 11/15/19 23:59 23:59 23:59 Intake Total 2123.75 / 2123.75 Balance 2123.75 / 2123.75 General: Alert, Oriented x3, Cooperative, No apparent distress HEENT: Atraumatic, PERRLA, EOMI, Normocephalic Oral: Moist Mucosa, No Gingival or Mucosal Lesions/ Ulcerations Neck: Supple, No JVD, Negative Carotid Bruits, Trachea Midline, Thyroid Normal Size and Texture Lungs: Clear to auscultation, Normal air movement, No rhonchi, No wheeze, No rales, Diminished Cardiovascular: Regular rate, Regular Rhythm, Normal S1, Normal S2, PMI Normal Abdomen: Bowel Sounds Present, Soft, Non Tender, Non-Distended, No Hepato- splenomegaly Extremities: No clubbing, No cyanosis, No edema Skin: No rashes, No breakdown Lymphatic: No Cervical, Supraclavicular, or Inguinal Adenopathy Neurological: Cranial nerves II-XII grossly intact, Motor Exam 5/5 strength throughout Psych/Mental Status: Normal Affect, Appropriate, Alert and oriented to time, place, person, mood and affect Laboratory Results 11/14/19 08:05: PT 13.3, INR 1.0, APTT 29.6 11/14/19 08:05: Sodium 142, Potassium 3.4 L, Chloride 108 H, Carbon Dioxide 22.0, Anion Gap 12, BUN 8, Creatinine 0.76, Estim Creat Clear Calc 57.05, Est GFR (MDRD) Af Amer 98, Est GFR (MDRD) Non-Af 81, BUN/Creatinine Ratio 10.6, Glucose 117 H, Calcium 9.1, Total Bilirubin 0.40, Direct Bilirubin 0.15, AST 76 H, ALT 63 H, Alkaline Phosphatase 120 H, Total Protein 8.0, Albumin 3.9, Globulin 4.1, Lipase 118 11/14/19 08:05: Ethyl Alcohol 260.0 11/14/19 08:05: Phosphorus 2.7, Magnesium 1.7 11/14/19 11:32: POC Glucose 103 Current Medications Acetaminophen (Tylenol) 500 mg PO Q4H PRN PRN PRN Reason: Temp > 100.4 F Last Admin: 11/14/19 15:54 Dose: 500 mg Documented by: Al Hydroxide/Mg Hydroxide (Mylanta Ii) 30 ml PO Q6H PRN PRN PRN Reason: dyspesia Bisacodyl (Dulcolax) 10 mg RECTAL DAILY PRN PRN Reason: Constipation Dicyclomine HCl (Bentyl) 20 mg PO Q6H PRN PRN PRN Reason: abdominal discomfort Fluoxetine HCl (Prozac) 40 mg PO DAILY [facility] Folic Acid (Folic Acid) [facility] Stop: 11/16/19 08:01 Last Admin: 11/14/19 12:34 Dose: 1 mg Documented by: Gabapentin (Neurontin) 600 mg PO QHS [facility] Last Admin: 11/14/19 21:02 Dose: 600 mg Documented by: Gabapentin (Neurontin) 300 mg PO DAILY@0800 [facility] Hydroxyzine Pamoate (Vistaril Pamoate Capsule) 50 mg PO Q6H PRN PRN PRN Reason: Mild Anxiety (score 1/3) Ibuprofen (Motrin) 600 mg PO Q8H PRN PRN PRN Reason: Pain Score 1-5/10 Last Admin: 11/15/19 06:07 Dose: 600 mg Documented by: Lamotrigine (Lamictal) 150 mg PO DAILY [facility] Loperamide HCl (Imodium) 2 - 4 mg PO UD PRN PRN Reason: LOOSE STOOLS Last Admin: 11/14/19 11:39 Dose: 4 mg Documented by: Lorazepam (Ativan) 1 mg IV Q4H PRN PRN PRN Reason: Severe Anxiety Last Admin: 11/14/19 20:04 Dose: 1 mg Documented by: Lorazepam (Ativan) 2 mg IV X1 PRN PRN Reason: Seizure Melatonin (Melatonin) 20 mg PO QHS [facility] Last Admin: 11/14/19 21:02 Dose: 20 mg Documented by: Methocarbamol (Methocarbamol) 750 mg PO Q6H PRN PRN PRN Reason: Muscle Aches Multivitamins (Multivitamin) [facility] Nicotine (Nicoderm Cq (Pbkc)) 21 mg TRANSDERM. DAILY [facility] Last Admin: 11/14/19 11:39 Dose: 21 mg Documented by: Ondansetron HCl (Zofran Odt) 4 mg PO Q6H PRN PRN PRN Reason: NAUSEA Last Admin: 11/14/19 11:39 Dose: 4 mg Documented by: Pantoprazole Sodium (Protonix) 40 mg PO DAILY [facility] Phenobarbital (Phenobarbital) 64.8 mg PO Q8H [facility] Stop: 11/16/19 06:01 Phenobarbital (Phenobarbital) 64.8 mg PO Q12H [facility] Stop: 11/17/19 06:01 Propranolol HCl (Inderal) 10 mg PO DAILY [facility] Quetiapine Fumarate (Seroquel) 25 mg PO QHS [facility] Last Admin: 11/14/19 21:02 Dose: 25 mg Documented by: Senna (Senokot) 1 tablet PO QHS PRN PRN Reason: Constipation Sodium Chloride () 10 - 40 ml IV UD PRN PRN Reason: SALINE FLUSH Last Admin: 11/14/19 20:05 Dose: 10 ml Documented by: Thiamine HCl (Vitamin B1) 100 mg [facility] Stop: 11/16/19 08:01 Last Admin: 11/14/19 12:34 Dose: 100 mg Documented by: Trazodone HCl (Desyrel) 50 mg PO QHS [facility] Last Admin: 11/14/19 21:02 Dose: 50 mg Documented by: Medical Necessity - Tobacco Use Smoking Status: Heavy Smoker (>10/day) Tobacco Use: Cigarettes Assessment/Plan All Active Problems Acute alcohol withdrawal (Acute) This is a 69 years old female patient admitted for acute alcohol withdrawal for medical stabilization. #1 acute alcohol withdrawal: She is on tapering phenobarbital, PRN Ativan, thiamine and folic acid as well as PRN Bentyl, methocarbamol, Zofran and trazodone. Her routine blood work was remarkable for potassium of 3.4, it was replaced and corrected. LFT revealed slight elevated liver transaminases and alkaline phosphatase which is probably due to chronic liver disease due to alcohol abuse. Pro time and INR were normal. Plan to continue same treatment. #2 elevated blood pressure: Without history of hypertension although hypertension was listed in her problem list. Blood pressure has been elevated but started to come down this morning. Plan to keep monitoring, may need to start on antihypertensive medication. #3 elevated LFT: Attributed to chronic alcohol liver disease. Both liver transaminases and alkaline phosphatase slight elevated, bilirubin is normal. #4 anxiety/depression/bipolar disorder: Stable, continue fluoxetine, Lamictal, melatonin, Seroquel and trazodone. #5 GERD: Stable, continue PPI. #6 chronic neuropathy: Continue gabapentin. #7 tobacco abuse: On NicoDerm patch. #8 DVT prophylaxis: Ambulate, low risk patient. This note was generated with [employer] dictation software. It may contain incorrect words, spelling, and punctuation that were not noted in checking the note before signing. Code Visit Inpatient E&M: 37469 Subs Hosp L2
[2019-11-15] MEDS: Pantoprazole Sodium 40 MG Tablet PO (08:29)
[2019-11-15] MEDS: lamoTRIgine 150 MG Tablet PO (08:29)
[2019-11-15] MEDS: Folic Acid 1 MG Tablet PO (08:29)
[2019-11-15] MEDS: Gabapentin 300 MG Capsule PO (08:29)
[2019-11-15 08:30] VITALS: BP 116/72; PULSE 83; RESP 16; TEMP 37.3; O2SAT 93
[2019-11-15] MEDS: Propranolol 10 MG Tablet PO (08:30)
[2019-11-15 09:00] VITALS: O2SAT 95
[2019-11-15 10:48] LABS: Amphetamine Urine VISTA NEGATIVE (<1000 ng/mL); Barbiturate Urine VISTA POSITIVE (< 200 ng/mL); Benzodiazepine Urine VISTA NEGATIVE (< 200 ng/mL); Cocaine Urine VISTA NEGATIVE (< 300 ng/mL); Ecstacy Urine VISTA NEGATIVE (< 500 ng/mL); Methadone Urine VISTA NEGATIVE (< 300 ng/mL); PCP Urine VISTA NEGATIVE (< 25 ng/mL); THC Urine VISTA NEGATIVE (< 50 ng/mL); Vista UDS pH Range 6
--- NOTE | 2019-11-15 12:26 | CASEMGMT ---
Social Work Note Pt is at [facility] for ETOH withdrawal. SW met with pt and introduced self and role at [facility]. Pt sleeping but woke when this worker entered the room. Pt is alert and orientated x3. Pt states that she plans on following up with AA meetings at discharge, states she doesn't need to follow up with a counselor at discharge. Pt states that she has good support around her. SW did provide pt with additional substance abuse resources. Pt denied additional needs or concerns at this time. Plan: AA meetings at discharge Jodi Peralta MSW, [employer]
[2019-11-15 14:50] VITALS: BP 105/62; PULSE 72; RESP 16; TEMP 37.1; O2SAT 93
[2019-11-15] MEDS: LORazepam 2 MG/ML Syringe 1 MG IV (20:14)
[2019-11-15 20:17] VITALS: BP 139/95; PULSE 80; RESP 22; TEMP 37.3; O2SAT 95
[2019-11-15] MEDS: QUEtiapine 25 MG Tablet PO (21:55)
[2019-11-15] MEDS: MELATONIN 10 MG TABLET 20 MG PO (21:55)
[2019-11-15] MEDS: Gabapentin 300 MG Capsule 600 MG PO (21:55)
[2019-11-15] MEDS: traZODone 50 MG Tablet PO (21:56)
[2019-11-16] VITALS (10 sets, daily range): BP systolic 90–112; BP diastolic 53–63; PULSE 63–71; RESP 16–18; TEMP 36.6–36.9; O2SAT 93–95
[2019-11-16] MEDS: Phenobarbital 32.4 MG Tablet 64.8 MG PO ×2 (05:55→17:36)
--- NOTE | 2019-11-16 09:34 | PN_ITS ---
Subjective: Chief complaint: Follow-up after admission for acute alcohol withdrawal for medical stabilization. Patient seen and examined. No acute events overnight. Today, she denied any complaints. Her vital signs are stable. - Physical Exam Vitals/I&O's: Vital Signs Temp Pulse Resp BP Pulse Ox 98.4 F 66 16 97/56 L 94 11/16/19 08:09 11/16/19 08:09 11/16/19 08:09 11/16/19 08:09 11/16/19 08:09 Oxygen Flow Rate (L/min) 2 Oxygen Delivery Method Nasal Cannula Weight: 181 lb Body Mass Index (BMI) 26.7 Intake and Output for Last 24 Hours 11/14/19 11/15/19 11/16/19 23:59 23:59 23:59 Intake Total 2123.75 / 2123.75 590 / 990 700 / 700 Balance 2123.75 / 2123.75 590 / 990 700 / 700 General: Alert, Oriented x3, Cooperative, No apparent distress HEENT: Atraumatic, PERRLA, EOMI, Normocephalic Oral: Moist Mucosa, No Gingival or Mucosal Lesions/ Ulcerations Neck: Supple, No JVD, Negative Carotid Bruits, Trachea Midline, Thyroid Normal Size and Texture Lungs: Clear to auscultation, Normal air movement, No rhonchi, No wheeze, No rales Cardiovascular: Regular rate, Regular Rhythm, Normal S1, Normal S2, PMI Normal Abdomen: Bowel Sounds Present, Soft, Non Tender, Non-Distended, No Hepato- splenomegaly Extremities: No clubbing, No cyanosis, No edema Skin: No rashes, No breakdown Lymphatic: No Cervical, Supraclavicular, or Inguinal Adenopathy Neurological: Cranial nerves II-XII grossly intact, Neuro grossly intact Psych/Mental Status: Normal Affect, Appropriate Laboratory Results 11/14/19 10:20: Urine Opiates Screen NEGATIVE, Urine Methadone Screen NEGATIVE, Ur Barbiturates Screen POSITIVE H, Ur Phencyclidine Scrn NEGATIVE, Ur Amphetamines Screen NEGATIVE, U Methamphetamin-MDMA NEGATIVE, U Benzodiazepines Scrn NEGATIVE, Urine Cocaine Screen NEGATIVE, U Cannabinoids Screen NEGATIVE, Ur Drug Screen Comment Current Medications Acetaminophen (Tylenol) 500 mg PO Q4H PRN PRN PRN Reason: Temp > 100.4 F Last Admin: 11/14/19 15:54 Dose: 500 mg Documented by: Al Hydroxide/Mg Hydroxide (Mylanta Ii) 30 ml PO Q6H PRN PRN PRN Reason: dyspesia Bisacodyl (Dulcolax) 10 mg RECTAL DAILY PRN PRN Reason: Constipation Dicyclomine HCl (Bentyl) 20 mg PO Q6H PRN PRN PRN Reason: abdominal discomfort Fluoxetine HCl (Prozac) 40 mg PO DAILY [facility] Last Admin: 11/15/19 08:28 Dose: 40 mg Documented by: Gabapentin (Neurontin) 600 mg PO QHS [facility] Last Admin: 11/15/19 21:55 Dose: 600 mg Documented by: Gabapentin (Neurontin) 300 mg PO DAILY@0800 [facility] Last Admin: 11/15/19 08:29 Dose: 300 mg Documented by: Hydroxyzine Pamoate (Vistaril Pamoate Capsule) 50 mg PO Q6H PRN PRN PRN Reason: Mild Anxiety (score 1/3) Ibuprofen (Motrin) 600 mg PO Q8H PRN PRN PRN Reason: Pain Score 1-5/10 Last Admin: 11/15/19 06:07 Dose: 600 mg Documented by: Lamotrigine (Lamictal) 150 mg PO DAILY [facility] Last Admin: 11/15/19 08:29 Dose: 150 mg Documented by: Loperamide HCl (Imodium) 2 - 4 mg PO UD PRN PRN Reason: LOOSE STOOLS Last Admin: 11/14/19 11:39 Dose: 4 mg Documented by: Lorazepam (Ativan) 1 mg IV Q4H PRN PRN PRN Reason: Severe Anxiety Last Admin: 11/15/19 20:14 Dose: 1 mg Documented by: Lorazepam (Ativan) 2 mg IV X1 PRN PRN Reason: Seizure Melatonin (Melatonin) 20 mg PO QHS [facility] Last Admin: 11/15/19 21:55 Dose: 20 mg Documented by: Methocarbamol (Methocarbamol) 750 mg PO Q6H PRN PRN PRN Reason: Muscle Aches [facility] Last Admin: 11/15/19 08:28 Dose: 1 tablet Documented by: Nicotine (Nicoderm Cq (Pbkc)) 21 mg TRANSDERM. DAILY [facility] Last Admin: 02/03/20 08:29 Dose: 21 mg Documented by: Ondansetron HCl (Zofran Odt) 4 mg PO Q6H PRN PRN PRN Reason: NAUSEA Last Admin: 11/14/19 11:39 Dose: 4 mg Documented by: Pantoprazole Sodium (Protonix) 40 mg PO DAILY [facility] Last Admin: 11/15/19 08:29 Dose: 40 mg Documented by: Phenobarbital (Phenobarbital) 64.8 mg PO Q12H [facility] Stop: 11/17/19 06:01 Propranolol HCl (Inderal) 10 mg PO DAILY [facility] Last Admin: 11/15/19 08:30 Dose: 10 mg Documented by: Quetiapine Fumarate (Seroquel) 25 mg PO QHS [facility] Last Admin: 11/15/19 21:55 Dose: 25 mg Documented by: Senna (Senokot) 1 tablet PO QHS PRN PRN Reason: Constipation Sodium Chloride () 10 - 40 ml IV UD PRN PRN Reason: SALINE FLUSH Last Admin: 11/14/19 20:05 Dose: 10 ml Documented by: Trazodone HCl (Desyrel) 50 mg PO QHS [facility] Last Admin: 11/15/19 21:56 Dose: 50 mg Documented by: Medical Necessity - Tobacco Use Smoking Status: Heavy Smoker (>10/day) Tobacco Use: Cigarettes Assessment/Plan All Active Problems Acute alcohol withdrawal (Acute) This is a 69 years old female patient admitted for acute alcohol withdrawal for medical stabilization. #1 acute alcohol withdrawal: Remained on tapering phenobarbital, PRN Ativan, thiamine and folic acid as well as PRN Bentyl, methocarbamol, Zofran and trazodone. Symptoms are improving. Vital signs are stable. LFT revealed slight elevated liver transaminases and alkaline phosphatase which is probably due to chronic liver disease due to alcohol abuse. Pro time and INR were normal. Plan to continue same treatment, DC home tomorrow. #2 elevated blood pressure: Without history of hypertension although hypertension was listed in her problem list. Today, blood pressure significantly improved without medications. Plan to continue monitoring. #3 elevated LFT: Attributed to chronic alcohol liver disease. Both liver transaminases and alkaline phosphatase slight elevated, bilirubin is normal. #4 anxiety/depression/bipolar disorder: Stable, continue fluoxetine, Lamictal, melatonin, Seroquel and trazodone. #5 GERD: Stable, continue PPI. #6 chronic neuropathy: Continue gabapentin. #7 tobacco abuse: On NicoDerm patch. #8 DVT prophylaxis: Ambulate, low risk patient. This note was generated with [employer] dictation software. It may contain incorrect words, spelling, and punctuation that were not noted in checking the note before signing. Code Visit Inpatient E&M: 10371 Subs Hosp L2
[2019-11-16] MEDS: Pantoprazole Sodium 40 MG Tablet PO (10:39)
[2019-11-16] MEDS: Multivitamins,Therapeutic Tablet 1 TABLET PO (10:39)
[2019-11-16] MEDS: Propranolol 10 MG Tablet PO (10:39)
[2019-11-16] MEDS: Gabapentin 300 MG Capsule PO (10:40)
[2019-11-16] MEDS: lamoTRIgine 150 MG Tablet PO (10:40)
[2019-11-16] MEDS: Thiamine Hydrochloride 100 MG Tablet PO (10:40)
[2019-11-16] MEDS: Folic Acid 1 MG Tablet PO (10:40)
[2019-11-16] MEDS: FLUoxetine 20 MG Capsule 40 MG PO (10:41)
[2019-11-16] MEDS: Ibuprofen 600 MG Tablet PO ×2 (10:49→21:11)
[2019-11-16] MEDS: hydrOXYzine PAM 25 MG Capsule 50 MG PO (10:52)
[2019-11-16] MEDS: Methocarbamol 750 MG Tablet PO (14:43)
[2019-11-16] MEDS: Acetaminophen 500 MG Tablet PO (14:43)
[2019-11-16] MEDS: Gabapentin 300 MG Capsule 600 MG PO (21:11)
[2019-11-16] MEDS: traZODone 50 MG Tablet PO (21:12)
[2019-11-16] MEDS: MELATONIN 10 MG TABLET 20 MG PO (21:12)
[2019-11-16] MEDS: QUEtiapine 25 MG Tablet PO (21:12)
[2019-11-17 05:33] VITALS: BP 97/67; PULSE 64; RESP 16; TEMP 36.9; O2SAT 92
[2019-11-17] MEDS: Phenobarbital 32.4 MG Tablet 64.8 MG PO (05:37)
[2019-11-17 08:24] VITALS: BP 84/48; PULSE 69; RESP 18; TEMP 36.7; O2SAT 91
[2019-11-17 08:30] VITALS: PULSE 69; RESP 18
--- NOTE | 2019-11-17 08:37 | DCINST_ITS ---
- Discharge Diagnoses Current Active Problems: Current Active and Chronic Problems Anxiety and depression (Chronic) Bipolar disorder (Chronic) Tobacco use (Chronic) GERD (gastroesophageal reflux disease) (Chronic) Neuropathy (Chronic) Overweight (BMI 25.0-29.9) (Chronic) Alcohol abuse (Chronic) You will use the following diet at home:: Regular Your food should be the consistency of: Regular Discharge Activity: Return to Normal Activity Weight Bearing Status: Weight bearing as tolerated Call your doctor if you observe: Fever of 101 or Higher, Shortness of breath, Dizziness, Fainting spells, Chest pain, Increased palpitations (irregular heartbeat), Uncontrolled pain Additional Instructions: Please follow-up with the 180 program. Allergies/Adverse Reactions: Allergies No Known Allergies Allergy (Verified 11/14/19 07:27) Medications to take at Discharge Gabapentin [Neurontin] 300 mg PO DAILY 08/15/16 Gabapentin [Neurontin] 600 mg PO QHS 08/15/16 Lamotrigine [Lamictal] 150 mg PO DAILY 08/15/16 Multivitamins,Therapeutic [Multivitamin] 1 tablet PO DAILY 08/15/16 Propranolol HCl [Inderal (Beta Samantha)] 10 mg PO DAILY 08/15/16 Melatonin 20 mg PO QHS 02/28/17 Pantoprazole Sodium [Protonix] 40 mg PO DAILY #30 tablet 02/09/19 Quetiapine Fumarate [Seroquel] 25 mg PO QHS #0 02/09/19 Fluoxetine HCl 40 mg PO DAILY 06/02/19 Primary Care Physician: Yuki Lopez MD [Primary Care Provider] - Please follow up with your Primary Care Physician in: 2 weeks. Test Results: Test results from this visit will be discussed in further detail at your follow- up appointment, if applicable.
[2019-11-17 08:40] VITALS: O2SAT 91
[2019-11-17 09:23] VITALS: BP 98/60; PULSE 80; RESP 18; TEMP 36.6; O2SAT 91
[2019-11-17] MEDS: FLUoxetine 20 MG Capsule 40 MG PO (09:34)
[2019-11-17] MEDS: Propranolol 10 MG Tablet PO (09:35)
[2019-11-17] MEDS: Multivitamins,Therapeutic Tablet 1 TABLET PO (09:35)
[2019-11-17] MEDS: Gabapentin 300 MG Capsule PO (09:35)
[2019-11-17] MEDS: Pantoprazole Sodium 40 MG Tablet PO (09:35)
[2019-11-17] MEDS: lamoTRIgine 150 MG Tablet PO (09:35)
[2019-11-17 11:19] VITALS: BP 108/68; PULSE 84; RESP 16; TEMP 36.7; O2SAT 97
--- NOTE | 2019-11-17 11:39 | DS.PCM_ITS ---
Discharge Date and Diagnosis Date of Admission: 11/14/19 Date of Discharge: 11/17/19 - Primary Discharge Diagnosis #1 acute alcohol withdrawal. #2 elevated blood pressure, resolved. #3 elevated LFT, attributed to chronic alcoholic liver disease. - Secondary Discharge Diagnosis Chronic Problems Anxiety and depression (Chronic) Bipolar disorder (Chronic) Tobacco use (Chronic) GERD (gastroesophageal reflux disease) (Chronic) Neuropathy (Chronic) Overweight (BMI 25.0-29.9) (Chronic) Neuropathy (Chronic) Anxiety (Chronic) HTN (hypertension) (Chronic) Alcohol abuse (Chronic) Fractured nose (Chronic) Hospital Course and Treatment Operations: None Procedures: None Summary of Care Provided: Patient seen and examined on the day of discharge and appeared to be stable to be discharged home. She has no complaints and she is feeling much better. Her vital signs are stable, blood pressure significantly improved. The patient is a 69 year old F patient presented to the emergency room requesting admission for alcohol withdrawal for medical stabilization. Her routine blood work was unremarkable except for potassium 3.4 which was corrected and replaced. Her LFT revealed slight elevated liver transaminases and alkaline phosphatase and this was attributed to chronic alcoholic liver disease. Her lipase was normal. Urine drug screen was positive for barbiturates. Her blood alcohol level admission was 260. Patient was treated with tapering course of phenobarbital, thiamine, folic acid, PRN Ativan, PRN Bentyl, methocarbamol, Zofran and trazodone. Initially, her potassium was elevated but with treatment, hyper pressure came down to normal and resolved. With above-mentioned treatment, her symptoms improved and she was able to sleep overnight. Hand tremors and shakiness improved. Patient discharged home in a stable condition,, discharged on her same previous home medications without any changes, recommended follow-up with the 180 program, follow-up with PCP in 2 weeks. - Physical Exam Vitals/I&O's: Vital Signs Temp Pulse Resp BP Pulse Ox 98.0 F 84 16 108/68 97 11/17/19 11:19 11/17/19 11:19 11/17/19 11:19 11/17/19 11:19 11/17/19 11:19 Oxygen Flow Rate (L/min) 2 Oxygen Delivery Method Room Air Weight: 181 lb Body Mass Index (BMI) 26.7 Intake and Output for Last 24 Hours 02/12/3011/16/19 11/17/19 23:59 23:59 23:59 Intake Total 590 / 990 700 / 700 Balance 590 / 990 700 / 700 General: Alert, Oriented x3, Cooperative, No apparent distress HEENT: Atraumatic, PERRLA, EOMI, Normocephalic Oral: Moist Mucosa, No Gingival or Mucosal Lesions/ Ulcerations Neck: Supple, No JVD, Negative Carotid Bruits, Trachea Midline, Thyroid Normal Size and Texture Lungs: Clear to auscultation, Normal air movement, No rhonchi, No wheeze, No rales Cardiovascular: Regular rate, Regular Rhythm, Normal S1, Normal S2, PMI Normal Abdomen: Bowel Sounds Present, Soft, Non Tender, Non-Distended, No Hepato- splenomegaly Extremities: No clubbing, No cyanosis, No edema Skin: No rashes, No breakdown Lymphatic: No Cervical, Supraclavicular, or Inguinal Adenopathy Neurological: Cranial nerves II-XII grossly intact, Neuro grossly intact Psych/Mental Status: Normal Affect, Appropriate Discharge Activity: Return to Normal Activity Weight Bearing Status: Weight bearing as tolerated Call your doctor if you observe: Fever of 101 or Higher, Shortness of breath, Dizziness, Fainting spells, Chest pain, Increased palpitations (irregular heartbeat), Uncontrolled pain Home Medications: Medications to take at Discharge Gabapentin [Neurontin] 300 mg PO DAILY 08/15/16 Gabapentin [Neurontin] 600 mg PO QHS 08/15/16 Lamotrigine [Lamictal] 150 mg PO DAILY 08/15/16 Multivitamins,Therapeutic [Multivitamin] 1 tablet PO DAILY 08/15/16 Propranolol HCl [Inderal (Beta Samantha)] 10 mg PO DAILY 08/15/16 Melatonin 20 mg PO QHS 02/28/17 Pantoprazole Sodium [Protonix] 40 mg PO DAILY #30 tablet 02/09/19 Quetiapine Fumarate [Seroquel] 25 mg PO QHS #0 02/09/19 Fluoxetine HCl 40 mg PO DAILY 06/02/19 Primary Care Physician: Yuki Lopez MD [Primary Care Provider] - Please follow up with your Primary Care Physician in: 2 weeks. Please Follow Up With: ROBE TERRELL When: 12/02/19 Disposition: Home Minutes spent on discharge:: 27 Patient Condition:: Stable Medical Necessity - Tobacco Use Smoking Status: Heavy Smoker (>10/day) Tobacco Use: Cigarettes Meaningful Use Info Meaningful Use Diagnoses (Choose all that apply): None applicable Code Visit Inpatient E&M: 90971 Disch Hosp
--- NOTE | 2019-11-17 12:42 | NURSING ---
Late entry: Student documentation reviewed.
[2019-11-17 20:41] LABS: Lamotrigine (Lamictal) Level 1.7 ug/mL (2.0-20.0)
== END 2019-11-17 11:21 | disposition home or self-care (01) | DRG 897 ==
LOC: ED 09:22 → MS3 10:33
PROVIDERS: Admitting Provider Family Medicine; Emergency Provider Emergency Medicine; PCP Internal Medicine; Referring Provider Internal Medicine; Visit Provider Hospitalist
DX: F10.239 Alcohol dependence with withdrawal, unspecified (principal); I10 Essential (primary) hypertension; K70.9 Alcoholic liver disease, unspecified; E87.6 Hypokalemia; K21.9 Gastro-esophageal reflux disease without esophagitis; E66.3 Overweight; Z68.26 Body mass index [BMI] 26.0-26.9, adult; F41.9 Anxiety disorder, unspecified; F31.9 Bipolar disorder, unspecified; G62.9 Polyneuropathy, unspecified; Z79.899 Other long term (current) drug therapy; F17.210 Nicotine dependence, cigarettes, uncomplicated
CPT/HCPCS: 80048; 80076; 80307; 80320; 82542; 82962; 83690; 83735; 84100; 85025; 85610; 85730; 93005; 99285; 99406; J7030; J7120; A4216; G0480; J2405

== ENCOUNTER 2019-12-02 16:07 | Emergency (ER) | payer MEDICARE, OTHER, SELFPAY ==
[2019-11-14 11:12] VITALS: BMI 26.7
[2019-12-02 16:07] VITALS: BP 144/93; PULSE 91; RESP 14; TEMP 36.7; O2SAT 92; BMI 27.6
--- NOTE | 2019-12-02 16:18 | EKG12_ITS ---
Test Reason : Blood Pressure : / mmHG Vent. Rate : 083 BPM Atrial Rate : 083 BPM P-R Int : 216 ms QRS Dur : 096 ms QT Int : 416 ms P-R-T Axes : 063 -45 057 degrees QTc Int : 488 ms Sinus rhythm with 1st degree A-V block Incomplete right bundle branch block Left anterior fascicular block Cannot rule out Inferior infarct , age undetermined Abnormal ECG Confirmed by LEWIS COX, EULALIA ([id number]), material expeditor RICHELLE GALICIA ([id number]) on 12/06/2019 2:21:05 PM Referred By: ELVA Confirmed By:EMELINA SAUCEDO MD
--- NOTE | 2019-12-02 16:19 | ED.VIS.GEN ---
History of Present Illness Chief Complaint: ETOH Intox Informant: Patient, Family Limited by: Intoxicated Onset: Days Context: Onset with activity Timing: Intermittent Current Severity: Moderate Maximum Severity: Moderate Narrative: The patient presents to the emergency department with alcohol intoxication. She is a 69-year-old female with longstanding of alcohol abuse. She actually just went through detox and was discharged on the fifth. She states that she started drinking again. The patient is ambivalent about detox but her states that she needs it. She denies being suicidal or homicidal. She states that she drinks daily. She drinks the small bottles of vodka from the drugstore which are 40 proof. She states she does not help with her pain. Prior similar symptoms: Yes Recent Illness/Hospitalization: Yes Past Medical History - Allergies and Home Meds Allergies/Adverse Reactions: Allergies No Known Allergies Allergy (Verified 11/14/19 07:27) Primary Care Physician: Yuki Lopez MD [Primary Care Provider] - Prior records reviewed: Yes Past Medical History: - Surgical History: noncontributory - Chronic pain, alcohol abuse, - - BL total hip replacement, BL shoulder repair, cholecystectomy, hysterectomy, ? appendectomy. Smoking Status: Heavy Smoker (>10/day) - Family History Paternal Family History: Reports: Cancer - Father with history of cancer, unclear type. Maternal Family History: Reports: - - Other with a history of heart disease, [place], substance abuse including alcohol abuse. Review of Systems General: Denies: Chills, Fever, Sweats Eyes: Denies: Visual changes - bilaterally, Diplopia ENT: Denies: Rhinorrhea, Sore throat Cardiovascular: Denies: Chest pain, Palpitations Respiratory: Denies: Dyspnea, Cough, Dyspnea on exertion Gastrointestinal: Denies: Abdominal pain, Nausea, Vomiting, Diarrhea, Melena, Hematochezia Genitourinary: Denies: Dysuria, Hematuria, Frequency Musculoskeletal: Denies: Back pain, Extremity Pain Skin: Denies: Rash, Wounds Neurological: Denies: Headache, Weakness, Numbness Physical Exam Vital Signs/Narrative: Vital Signs Temp Pulse Resp BP Pulse Ox 12/02/19 16:07 98.1 F 91 14 144/93 H 92 Inital Vital Signs reviewed: Yes General: Well nourished, Well developed, No Acute Distress Head: Normocephalic, Atraumatic Eyes: Perrl, EOMI ENT: Moist mucous membranes, No rhinorrhea Neck: Supple, Nontender Cardiovascular: Regular rate, Regular rhythm, No murmurs Respiratory: No distress, CTA bilaterally, Chest nontender Abdomen: Soft, Nontender, Nondistended, Normal bowel sounds Back: Nontender, Normal Inspection Extremities: Nontender, No edema Skin: Normal color, No rash Neurological: Alert, Oriented x3, Cranial nerves II-XII grossly intact, Normal Strength, Normal Sensation Psychological: Normal affect, Normal Mood Diagnostic/Tx/Re-eval Abnormal Lab Results 12/02/19 12/02/19 12/02/19 16:44 16:44 16:44 WBC 7.1 RBC 4.28 Hgb 12.6 Hct 37.6 MCV 87.9 MCH 29.4 MCHC 33.5 RDW Std Deviation 44.7 H RDW Coeff of Mikayla 13.9 Plt Count 326 MPV 8.9 Immature Gran % (Auto) 0.600 Neut % (Auto) 71.2 H Lymph % (Auto) 19.9 Isabela % (Auto) 7.2 Eos % (Auto) 0.0 Baso % (Auto) 1.1 H Absolute Neuts (auto) 5.0 Absolute Lymphs (auto) 1.41 Nucleated RBC % 0 Sodium 141 Potassium 3.3 L Chloride 105 Carbon Dioxide 23.0 Anion Gap 13 BUN 8 Creatinine 0.72 Estim Creat Clear Calc 57.05 Est GFR (MDRD) Af Amer 104 Est GFR (MDRD) Non-Af 86 BUN/Creatinine Ratio 11.1 Glucose 93 Calcium 8.5 Total Bilirubin 0.50 AST 91 H ALT 90 H Alkaline Phosphatase 121 H Total Protein 7.5 Albumin 3.7 Globulin 3.8 Albumin/Globulin Ratio 1.0 Ethyl Alcohol 354.0 H* - Medical Decision Making The patient presents to the emergency department with her . Her states that she needs detox. The patient is very ambivalent about this. She did however become acutely agitated and aggressive towards staff. She was given 10 mg of Geodon. Metabolic work-up was pursued. The patient is intoxicated. Her alcohol level is about 350. The rest of her screening labs are at her baseline. The patient was seen and evaluated by social work. She has no interest in detox at this time. She states that she wants to continue to drink. She was counseled that this is not an appropriate pathway, but she states that she still does not want any detox. The patient will be observed in the emergency department until she can demonstrate sobriety. At that point, she will be discharged with outpatient follow-up. Impression 1. Alcohol intoxication and dependence ED Disposition - Plan for ED Patient: Instructions: Alcohol Intoxication Referrals: Counseling,Center [GROUP OF PHYSICIANS] -
[2019-12-02 16:46] VITALS: BP 146/81; PULSE 85; RESP 18; O2SAT 92
[2019-12-02] MEDS: 0.9% Normal Saline 1,000 ML 1000 ML IV (16:51)
[2019-12-02 17:21] LABS: Absolute Lymphocyte Count 1.41 X10^3/uL (0.83-4.51); Basophil# 0.08 X10^3/uL; Basophil% 1.1 % (0-1); Hematocrit 37.6 % (37-47); Hemoglobin 12.6 g/dL (12.0-15.0); Lymphocyte # 1.41 X10^3/ul (4.0); Lymphocyte % 19.9 % (19-41); Mean Corp Hgb Conc 33.5 g/dL (32-36); Mean Corpuscular Hgb 29.4 pg (27.0-32.0); Mean Corpuscular Volume 87.9 fL (81-99); Mean Platelet Vol. 8.9 fl (6.2-12.0); Monocyte# 0.51 X10^3/uL; Monocyte% 7.2 % (0-10); NRBC Flagged by Analyzer 0 % (0-5); Neutrophil # 5.04 X10^3/uL (2.7-7.7); Neutrophil % 71.2 % (47-70); Platelet Count 326 K/mm3 (150-450); RBC Distribution Width CV 13.9 % (11.6-14.6); RBC Distribution Width SD 44.7 fl (35.1-43.9); Red Blood Count 4.28 M/mm3 (4.2-5.4); White Blood Count 7.1 K/mm3 (4.4-11.0)
[2019-12-02 17:24] LABS: AST(SGOT) 91 U/L (15-37); Alanine Aminotransfer ALT/SGPT 90 U/L (13-56); Albumin, Serum 3.7 g/dL (3.2-5.0); Alkaline Phosphatase 121 U/L (45-117); Anion Gap 13 (5-15); BUN 8 mg/dL (7-18); BUN/Creat Ratio 11.1 RATIO (10-20); Calcium,Total 8.5 mg/dL (8.5-10.1); Chloride 105 mmol/L (98-107); Creatinine, Serum 0.72 mg/dL (0.55-1.02); EST Glomerular Filtration Rate 86 mL/min (>60); Est Glom Filt Rate - Afr Amer 104 mL/min (>60); Estimated Creatinine Clearance 57.05 ml/min; Globulin 3.8 g/dL (2.2-4.2); Glucose 93 mg/dL (74-106); Potassium 3.3 mmol/L (3.5-5.1); Protein, Total 7.5 g/dL (6.4-8.2); Sodium Level 141 mmol/L (136-145)
[2019-12-02] MEDS: Ziprasidone IM 20 MG/ML VIAL 10 MG IM (17:26)
--- NOTE | 2019-12-02 17:35 | ED.RN ---
lab called etoh of 354. dr dempsey
[2019-12-02] MEDS: Ondansetron 4 MG/2 ML Vial IV (17:50)
[2019-12-02 18:20] VITALS: O2SAT 75
[2019-12-02 18:28] VITALS: BP 161/92; PULSE 90; RESP 17; O2SAT 95
--- NOTE | 2019-12-02 18:30 | CM.ED ---
Social Work Consult: Alcohol Abuse Informant: Dr. Panchal Chief Complaint: Patient presenting to the Emergency Department intoxicated. Per patient spouse, patient needs assistance with detox. Patient noted to have discharged from [facility] on 11/14/2019 after completing alcohol detox. Marital/Social History: Patient to[place] for the past 45 years. Living Situation: Patient lives with spouse Support/Resources: Patient family for support. History: None Education/Employment History: Patient stating to have completed high school and to have no concerns with learning or comprehension. Patient currently retired. Mental Health Treatment/History: Patient stating to have a history of depression and anxiety. Patient stating to take medication for both depression and anxiety prescribed by Dr. Lopez. Patient denies any history of inpatient psychiatric placements. Patient denies being in any active counseling services, but reporting to have had a history of counseling. Patient stating to not be interested in counseling services. Abuse Issues: Patient denies Substance Abuse Hx: Patient stating substance of choice is Vodka. Patient stating to not be sure how much patient is consuming on a daily basis. Patient confirming to have discharged from [facility] on 11/14/2019 for detox for alcohol abuse. Patient confirming to have had a plan to follow up with 180 at time to discharge and to have not followed up with this plan. Patient stating a history of inpatient treatment at [facility]. Patient stating to not want to stop drinking. Patient stating to smoke tobacco, 3/4 of a pack per a day. Patient denies any other substance abuse. This social work supervisor broached topic of reason for why patient used/abuses tobacco, patient stating I don't know, I just like to drink. Risk to Self/Others: Patient denies any active or history of suicidal/homicidal thoughts. Mental Health Exam: A&Ox3 Appearance/General Behavior: Patient appearing as intoxicated. Disheveled. Mood/Affect: Pleasant. Tired. Communication Pattern: Responding to questions. Slurred speech at times. Thought Process: Appropriate Assessment: Met with patient in room. Introduced self as well as social work supervisor role. Patient agreeable to meeting with this social work supervisor. Patient stating to have no desire to stop drinking and stating to plan to continue with drinking. Patient pleasant with this social work supervisor and thanking this social work supervisor for time. Attempted to speak with patient spouse, patient spouse not present at this time. Collaborating with Dr. Panchal. Plan is for patient to stay and sober up and then discharge back to the community as patient is not wanting help with services at this time. Bharathi RODRIGUEZ, LEVON
[2019-12-02 20:06] VITALS: BP 126/105; PULSE 91; RESP 16; O2SAT 95
[2019-12-02 21:24] LABS: Amphetamine Urine VISTA NEGATIVE (<1000 ng/mL); Barbiturate Urine VISTA POSITIVE (< 200 ng/mL); Benzodiazepine Urine VISTA NEGATIVE (< 200 ng/mL); Cocaine Urine VISTA NEGATIVE (< 300 ng/mL); Ecstacy Urine VISTA NEGATIVE (< 500 ng/mL); Methadone Urine VISTA NEGATIVE (< 300 ng/mL); PCP Urine VISTA NEGATIVE (< 25 ng/mL); THC Urine VISTA NEGATIVE (< 50 ng/mL); Vista UDS pH Range 6
[2019-12-02 22:06] VITALS: BP 128/77; PULSE 84; RESP 14; O2SAT 92
[2019-12-03 00:20] VITALS: BP 152/94; PULSE 87; RESP 15; O2SAT 92
[2019-12-03] MEDS: proMETHazine 25 MG/ML Syringe 12.5 MG IV (01:22)
[2019-12-03 02:27] VITALS: BP 161/99; PULSE 85; RESP 16; O2SAT 99
--- NOTE | 2019-12-03 03:40 | ED.RN ---
pt stated she did not want to go to rehab and she wanted to go home. spoke to dr renetta tillmaning pt's request and he stated she can be discharged. attempt to call pt's the call went right to his voice mail. pt left a mesage.
[2019-12-03 04:20] VITALS: BP 140/90; PULSE 108; RESP 18; O2SAT 95
[2019-12-03] MEDS: LORazepam 2 MG/ML Syringe 0.5 MG IV (04:49)
[2019-12-03 05:45] VITALS: BP 172/90; PULSE 90; RESP 18; O2SAT 95
== END 2019-12-03 05:46 | disposition home or self-care (01) ==
LOC: ED 16:52
PROVIDERS: Emergency Provider Emergency Medicine; PCP Internal Medicine
DX: F10.229 Alcohol dependence with intoxication, unspecified (principal); F17.200 Nicotine dependence, unspecified, uncomplicated; Z82.49 Family history of ischemic heart disease and other diseases of the circulatory system; Z90.49 Acquired absence of other specified parts of digestive tract; Y90.8 Blood alcohol level of 240 mg/100 ml or more; Z79.899 Other long term (current) drug therapy
CPT/HCPCS: 80053; 80307; 80320; 85025; 93005; 96361; 96372; 96374; 96375; 99284; J7030; A4216; G0480; J2405; J3486

== ENCOUNTER 2020-08-13 07:09 | Inpatient (IN) | payer MEDICARE, OTHER, SELFPAY ==
[2020-08-13] VITALS (14 sets, daily range): BP systolic 95–132; BP diastolic 54–96; PULSE 75–88; RESP 16–38; TEMP 35.6–37.1; O2SAT 94–98; BMI 25.7
--- NOTE | 2020-08-13 07:23 | EKG12_ITS ---
Test Reason : SOB Blood Pressure : / mmHG Vent. Rate : 085 BPM Atrial Rate : 085 BPM P-R Int : 190 ms QRS Dur : 090 ms QT Int : 430 ms P-R-T Axes : 010 -52 016 degrees QTc Int : 511 ms Normal sinus rhythm Possible Left atrial enlargement Pulmonary disease pattern Left anterior fascicular block Possible Inferior infarct , age undetermined Prolonged QT Abnormal ECG Confirmed by LEEANN COX, TITI ([id number]), film editor RICHELLE GALICIA ([id number]) on 08/15/2020 11:25:12 AM Referred By: MICK Confirmed By:TITI BRADSHAW MD
--- NOTE | 2020-08-13 07:23 | RAD_ITS ---
STUDY: X-RAY CHEST REASON FOR EXAM: Female, 70 years old. Shortness of breath TECHNIQUE: Single AP portable view of the chest. COMPARISON: CT chest 07/13/2019 08/08/2018 FINDINGS: The lungs are clear and expanded. There is no demonstrated pleural abnormality. Normal size heart. Normal mediastinum and althea. Normal visualized pulmonary arteries. Normal visualized aortic arch and descending thoracic aorta. Normal visualized thoracic spine. Normal visualized ribs, clavicles. There is bilateral shoulder prostheses, the left shoulder prosthesis appears dislocated, similar to prior exam. There is no demonstrated abnormality of the visualized soft tissue structures of the upper abdomen. RAD/Chest 1 View (Portable) IMPRESSION: The lungs are clear. Bilateral shoulder prostheses. 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 Electronically Signed: Jane Vazquez, at 8:39 EST Tel , Service support ,
--- NOTE | 2020-08-13 07:24 | ED.VIS.GEN ---
History of Present Illness Chief Complaint: Shortness of Breath Narrative: This patient is a 70-year-old female who presents with chest pain shortness of breath. In April she had COVID-19 complicated by pulmonary embolism. She is on Eliquis. She had been feeling better. Couple of days ago she developed a constant substernal dull chest pain with no exacerbating or relieving factors. She complains of feeling short of breath. She states she is had a little bit of vomiting and diarrhea. She denies fever or cough. She denies congestion or rhinorrhea or sore throat. No extremity pain. No extremity swelling. No sick contacts. She denies history of diabetes hypertension hyperlipidemia or coronary disease. Past Medical History - Allergies and Home Meds Allergies/Adverse Reactions: Allergies No Known Allergies Allergy (Verified 08/13/20 07:10) Primary Care Physician: Yuki Lopez MD [Primary Care Provider] - Past Medical History: - - Prior history of alcohol abuse and alcohol withdrawal, COVID-19 in April of this year, pulmonary embolism Surgical History: noncontributory - Chronic pain, alcohol abuse, - - BL total hip replacement, BL shoulder repair, cholecystectomy, hysterectomy, ? appendectomy. Smoking Status: Current every day smoker - Family History Paternal Family History: Reports: Cancer - Father with history of cancer, unclear type. Maternal Family History: Reports: - - Other with a history of heart disease, [place], substance abuse including alcohol abuse. Review of Systems All systems negative except as indicated General: Denies: Fever Eyes: Denies: Visual changes - bilaterally ENT: Denies: Bilateral ear pain Cardiovascular: Reports: Chest pain Respiratory: Reports: Dyspnea. Denies: Cough, Sputum Gastrointestinal: Reports: Nausea, Vomiting, Diarrhea. Denies: Abdominal pain Musculoskeletal: Denies: Myalgias, Arthralgias, Swelling, Extremity Pain Skin: Denies: Rash Neurological: Denies: Headache Hematologic: Denies: Easy bruising Allergy: Denies: Uticaria Physical Exam Vital Signs/Narrative: Vital Signs Temp Pulse Resp BP Pulse Ox 08/13/20 07:10 96.1 F L 88 19 H 105/56 L 98 Inital Vital Signs reviewed: Yes General: Well nourished Head: Normocephalic Eyes: EOMI ENT: Moist mucous membranes Neck: Supple Cardiovascular: Regular rate, Regular rhythm Respiratory: No distress, CTA bilaterally. Negative for: Rales, Rhonchi, Wheezing Abdomen: Soft, Nontender, Nondistended Extremities: Nontender, No edema Skin: Normal color Neurological: Alert Psychological: Normal affect Diagnostic/Tx/Re-eval Impressions Chest X-Ray 08/13/20 07:23 IMPRESSION: The lungs are clear. Bilateral shoulder prostheses. 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 Electronically Signed: Jane Vazquez, at 8:39 EST Tel , Service support , 08/13/20 07:23 Chest 1 View (Portable) [RAD] Stat Laboratory Results 08/13/20 08/13/20 08/13/20 07:25 07:25 07:25 WBC 13.1 H RBC 5.96 H Hgb 17.4 H Hct 51.2 H MCV 85.9 MCH 29.2 MCHC 34.0 RDW Std Deviation 46.1 H RDW Coeff of Mikayla 14.6 Plt Count 598 H MPV 9.1 Immature Gran % (Auto) 0.600 Neut % (Auto) 74.1 H Lymph % (Auto) 16.6 L [place] % (Auto) 8.4 Eos % (Auto) 0.0 Baso % (Auto) 0.3 Absolute Neuts (auto) 9.7 H Absolute Lymphs (auto) 2.17 Nucleated RBC % 0.4 PT 15.0 H INR 1.2 D-Dimer Quant (PE/DVT) 1.80 H* Sodium 131 L Potassium 3.2 L Chloride 92 L Carbon Dioxide 20.0 L Anion Gap 19 H BUN 50 H Creatinine 3.95 H Estim Creat Clear Calc 1.46 Est GFR (MDRD) Af Amer 15 L Est GFR (MDRD) Non-Af 12 L BUN/Creatinine Ratio 12.7 Glucose 142 H Calcium 9.7 Total Bilirubin Direct Bilirubin AST ALT Alkaline Phosphatase Troponin I 0.052 H Total Protein Albumin Globulin Lipase COVID-19 (JERE) 08/13/20 08/13/20 08/13/20 07:25 07:25 08:51 WBC RBC Hgb Hct MCV MCH MCHC RDW Std Deviation RDW Coeff of Mikayla Plt Count MPV Immature Gran % (Auto) Neut % (Auto) Lymph % (Auto) [place] % (Auto) Eos % (Auto) Baso % (Auto) Absolute Neuts (auto) Absolute Lymphs (auto) Nucleated RBC % PT INR D-Dimer Quant (PE/DVT) Sodium Potassium Chloride Carbon Dioxide Anion Gap BUN Creatinine Estim Creat Clear Calc Est GFR (MDRD) Af Amer Est GFR (MDRD) Non-Af BUN/Creatinine Ratio Glucose Calcium Total Bilirubin 0.90 Direct Bilirubin 0.32 H AST 19 ALT 38 Alkaline Phosphatase 160 H Troponin I Total Protein 8.7 H Albumin 4.0 Globulin 4.7 H Lipase 136 COVID-19 (JERE) Not Detected - Medical Decision Making EKG shows normal sinus rhythm with an incomplete right bundle branch block and left anterior fascicular block. Chest x-ray unremarkable. Laboratory studies returned notable for acute renal failure, previous creatinine is normal. Creatinine today is 3.95. Patient was treated with IV fluids. She complained of increasing dizziness and had borderline hypotension. Repeat EKG is unchanged showing normal sinus rhythm with a left anterior fascicular block and incomplete right bundle branch block. Given her history of prior pulmonary embolism with chest pain or shortness of breath I did obtain a D-dimer which is elevated. However we cannot pursue CTA due to her acute renal failure and she is currently anticoagulated. Patient was discussed with the hospitalist and will be admitted for further evaluation and treatment. ED Disposition - Plan for ED Patient: Disposition: Acute Care Hospital [facility] Diagnosis: KARIS (acute kidney injury), Elevated d-dimer, Chest pain Referrals: Yuki Lopez MD [Primary Care Provider] -
[2020-08-13 07:40] LABS: Absolute Lymphocyte Count 2.17 X10^3/uL (0.83-4.51); Absolute Neutrophil Count 9.7 X10^3/uL (2.0-7.7); Basophil# 0.04 X10^3/uL; Basophil% 0.3 % (0-1); Hematocrit 51.2 % (37-47); Hemoglobin 17.4 g/dL (12.0-15.0); Lymphocyte # 2.17 X10^3/ul (4.0); Lymphocyte % 16.6 % (19-41); Mean Corpuscular Hgb 29.2 pg (27.0-32.0); Mean Corpuscular Volume 85.9 fL (81-99); Mean Platelet Vol. 9.1 fl (6.2-12.0); Monocyte% 8.4 % (0-10); NRBC Flagged by Analyzer 0.4 % (0-5); Neutrophil # 9.68 X10^3/uL (2.7-7.7); Neutrophil % 74.1 % (47-70); Platelet Count 598 K/mm3 (150-450); RBC Distribution Width CV 14.6 % (11.6-14.6); RBC Distribution Width SD 46.1 fl (35.1-43.9); Red Blood Count 5.96 M/mm3 (4.2-5.4); White Blood Count 13.1 K/mm3 (4.4-11.0)
[2020-08-13] MEDS: Ondansetron 4 MG/2 ML Vial IV ×2 (07:53→19:44)
[2020-08-13] MEDS: Aspirin 81 MG TAB.CHEW 324 MG PO (07:53)
[2020-08-13 07:57] LABS: Anion Gap 19 (5-15); BUN 50 mg/dL (7-18); BUN/Creat Ratio 12.7 RATIO (10-20); Calcium,Total 9.7 mg/dL (8.5-10.1); Chloride 92 mmol/L (98-107); Creatinine, Serum 3.95 mg/dL (0.55-1.02); EST Glomerular Filtration Rate 12 mL/min (>60); Est Glom Filt Rate - Afr Amer 15 mL/min (>60); Estimated Creatinine Clearance 1.46 ml/min; Glucose 142 mg/dL (74-106); Potassium 3.2 mmol/L (3.5-5.1); Sodium Level 131 mmol/L (136-145)
[2020-08-13 08:06] LABS: Lipase 136 U/L (73-393)
[2020-08-13 08:12] LABS: AST(SGOT) 19 U/L (15-37); Alanine Aminotransfer ALT/SGPT 38 U/L (13-56); Alkaline Phosphatase 160 U/L (45-117); Bilirubin, Direct 0.32 mg/dL (0.00-0.30); Globulin 4.7 g/dL (2.2-4.2); Protein, Total 8.7 g/dL (6.4-8.2)
[2020-08-13 08:23] LABS: International Normalized Ratio 1.2
--- NOTE | 2020-08-13 08:23 | EKG12_ITS ---
Test Reason : REPEAT Blood Pressure : / mmHG Vent. Rate : 081 BPM Atrial Rate : 081 BPM P-R Int : 184 ms QRS Dur : 090 ms QT Int : 406 ms P-R-T Axes : -02 -55 004 degrees QTc Int : 471 ms Normal sinus rhythm Left anterior fascicular block Cannot rule out Anterior infarct , age undetermined Abnormal ECG When compared with ECG of 13-AUG-2020 07:38, MANUAL COMPARISON REQUIRED, DATA IS UNCONFIRMED Confirmed by LEWIS COX, EULALIA ([id number]), editorial intern IFEOMA LUTHER ([id number]) on 09/15/2020 2:20:15 PM Referred By: MICK Confirmed By:EMELINA SAUCEDO MD
[2020-08-13] MEDS: 0.9% Normal Saline 1,000 ML 999 ML IV ×2 (08:35→10:54)
[2020-08-13] MEDS: LORazepam 2 MG/ML Syringe 1 MG IV (08:38)
--- NOTE | 2020-08-13 13:32 | PCM.HP.STD ---
<Virgilio Mcguire - Last Filed: 08/13/20 13:32> Problem List (1) KARIS (acute kidney injury) Status: Acute (2) Chest pain Status: Acute (3) Alcohol abuse Status: Chronic (4) Anxiety Status: Chronic (5) Anxiety and depression Status: Chronic (6) Bipolar disorder Status: Chronic Qualifiers: Active/Remission status: remission status unspecified Qualified Code(s): F31.9 - Bipolar disorder, unspecified (7) GERD (gastroesophageal reflux disease) Status: Chronic Qualifiers: Esophagitis presence: esophagitis presence not specified Qualified Code(s): K21.9 - Gastro-esophageal reflux disease without esophagitis (8) HTN (hypertension) Status: Chronic (9) Tobacco use Status: Chronic History of Present Illness Date of Admission: 08/13/20 Chief Complaint: chest tightness The patient is a 70 year old F with pmhx of covid 19 in april, , heavy smoking hx, alcoholism, bipolar disorder, HTN, heart palpitations, who presented to the ER with c/o chest tightness. The patient has had progressively increasing chest tightness for 3 days. She states she has not slept in 3 days either. This is midsternal and non radiating. It is associated with SOB and is worse with activity. She has also had nausea and vomiting at home. She denies a hx of heart disease. She last had a stress test in 2012 that was negative. She has ongoing 7/10 tightness currently. She is lying in bed semi [place] in [facility]. She is requesting medication for anxiety. [] Past Medical History Past Medical History (Chronic Problems): Chronic Problems Elevated d-dimer (Chronic) Anxiety and depression (Chronic) Bipolar disorder (Chronic) Tobacco use (Chronic) GERD (gastroesophageal reflux disease) (Chronic) Neuropathy (Chronic) Overweight (BMI 25.0-29.9) (Chronic) Neuropathy (Chronic) Anxiety (Chronic) HTN (hypertension) (Chronic) Alcohol abuse (Chronic) Fractured nose (Chronic) Allergies No Known Allergies Allergy (Verified 08/13/20 07:10) Home Medications: Ambulatory Orders Medication Instructions Recorded Gabapentin [Neurontin] 300 mg PO DAILY 08/15/16 Gabapentin [Neurontin] 600 mg PO QHS 08/15/16 Lamotrigine [Lamictal] 150 mg PO DAILY 11/03/16 Multivitamins,Therapeutic 1 tablet PO DAILY 08/15/16 [Multivitamin] Propranolol HCl [Inderal (Beta 10 mg PO DAILY 08/15/16 Samantha)] Melatonin 20 mg PO QHS 02/28/17 Fluoxetine HCl 40 mg PO DAILY 06/02/19 Apixaban [Eliquis] 10 mg PO BID 08/13/20 Pantoprazole Sodium [Protonix] 40 mg PO DAILY 08/13/20 Quetiapine Fumarate [Seroquel] 50 mg PO QHS 08/13/20 Surgical History: - - BL total hip replacement, BL shoulder repair, cholecystectomy, hysterectomy, ? appendectomy. 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 Maternal History Items: Heart Disease - DC Review of Systems Constitutional: Denies: Chills, Fever, Weight Change HEENT: Denies: Head Aches, Sinus Congestion, Sinus Drainage Cardiovascular: Reports: Chest Pain, Chest Tightness. Denies: Edema, Palpitations Respiratory: Reports: Shortness of Breath, Shortness of breath at rest, Shortness of breath upon exertion. Denies: Cough, Sputum production Gastrointestinal: Reports: Diarrhea, Nausea, Vomiting. Denies: Abdominal Pain Genitourinary: Denies: Dysuria, Hesitancy, Urgency Musculoskeletal: Denies: Joint Pain, Joint Tenderness Skin: Denies: Lesions, Rash, Wounds Neurological: Denies: Numbness, Tingling, Focal weakness Psychiatric: Denies: Anxiety, Depression, Homicidal Ideations, Suicidal Ideations Hematologic/ Lymphatic: Denies: Easy Bruising, Easy Bleeding VTE Information - Inpt Only VTE Present on Admission: No VTE Mechan Device Prophylaxis: None VTE Pharm Prophylaxis ordered?: Yes Patient Problems: Active and Suspected Problems KARIS (acute kidney injury) (Acute) Chest pain (Acute) - Physical Exam Vitals/I&O's: Vital Signs Temp Pulse Resp BP Pulse Ox 98 F 76 17 127/81 H 96 08/13/20 12:59 08/13/20 13:15 08/13/20 12:59 08/13/20 12:59 08/13/20 12:59 Oxygen Flow Rate (L/min) 2 Oxygen Delivery Method Nasal Cannula Weight: 164 lb 3.91 oz Body Mass Index (BMI) 25.7 Intake and Output for Last 24 Hours 08/11/20 08/12/20 08/13/20 23:59 23:59 22:59 Intake Total 1999 Balance 1999 General: Alert, Oriented x3, Cooperative HEENT: Atraumatic, PERRLA, EOMI, Normocephalic Neck: Supple, No JVD, Negative Carotid Bruits Lungs: Clear to auscultation, Normal air movement Cardiovascular: Regular rate, No murmurs Abdomen: Bowel Sounds Present, Soft, Non Tender Extremities: No edema, Capillary Refill Less than 3 Seconds Skin: No rashes, No breakdown Musculoskeletal: No Tenderness to Palpation of Joints or Extremities Neurological: Cranial nerves II-XII grossly intact Psych/Mental Status: Normal Affect, Appropriate Laboratory Results 08/13/20 07:25: WBC 13.1 H, RBC 5.96 H, Hgb 17.4 H, Hct 51.2 H, MCV 85.9, MCH 29.2, MCHC 34.0, RDW Std Deviation 46.1 H, RDW Coeff of Mikayla 14.6, Plt Count 598 H, MPV 9.1, Immature Gran % (Auto) 0.600, Neut % (Auto) 74.1 H, Lymph % (Auto) 16.6 L, Franklin % (Auto) 8.4, Eos % (Auto) 0.0, Baso % (Auto) 0.3, Absolute Neuts (auto) 9.7 H, Absolute Lymphs (auto) 2.17, Nucleated RBC % 0.4 08/13/20 07:25: Sodium 131 L, Potassium 3.2 L, Chloride 92 L, Carbon Dioxide 20.0 L, Anion Gap 19 H, BUN 50 H, Creatinine 3.95 H, Estim Creat Clear Calc 1.46, Est GFR (MDRD) Af Amer 15 L, Est GFR (MDRD) Non-Af 12 L, BUN/Creatinine Ratio 12.7, Glucose 142 H, Calcium 9.7, Troponin I 0.052 H 08/13/20 07:25: PT 15.0 H, INR 1.2, D-Dimer Quant (PE/DVT) 1.80 H* 08/13/20 07:25: Total Bilirubin 0.90, Direct Bilirubin 0.32 H, AST 19, ALT 38, Alkaline Phosphatase 160 H, Total Protein 8.7 H, Albumin 4.0, Globulin 4.7 H 08/13/20 07:25: Lipase 136 08/13/20 08:51: COVID-19 (JERE) Not Detected 08/13/20 13:10: Troponin I Pending Current Medications Acetaminophen (Acetaminophen 325 Mg Tablet) 650 mg PO Q6H PRN PRN PRN Reason: Pain Score 1-10/Temp > 100.7 F Sodium Chloride () 1,000 mls @ 100 mls/hr IV .Q10H RAFFAELE Melatonin (Melatonin 3 Mg Tablet) 3 mg PO QHS PRN PRN PRN Reason: INSOMNIA Ondansetron HCl (Ondansetron 4 Mg/2 Ml Vial) 4 mg IV Q8H PRN PRN PRN Reason: NAUSEA/VOMITING Sodium Chloride (0.9% Saline Lock 10 Ml Syringe) 10 - 40 ml IV UD PRN PRN Reason: SALINE FLUSH Assessment/Plan All Active Problems KARIS (acute kidney injury) (Acute) Chest pain (Acute) Acute alcohol withdrawal (Acute) 1. Chest tightness - indeterminate trop. ekg no acute changes. cycle troponin. d dimer elevated however pt with hx PE and is on eliquis. CXR non acute. direct bili elevated. stress test in AM. check am ekg. covid neg. check am lipid panel. start daily baby aspirin. 2. KARIS - likely 2/2 dehydration - nausea / vomiting / diarrhea this week. IVF overnight. 2. alcoholism - CIWA protocol, prn ativan, thiamine/folate. pt states she drinks vodka and beer, a few drinks only a few days weekly. i am suspicious that the actual amount is higher and more frequent. 3. nicotine abuse - 1/2 ppd smoker x 40 years. denies lung dz. provide patch 4. Hx heart palpitations - pt takes propranolol for this. will continue. 5. Bipolar disorder - lamictal, seroquel, fluoxetine 6. Hx PE - eliquis DVT ppx: eliquis This patient was seen by Virgilio Mcguire PA-C under the supervision of Dr. Ta. <Gustavo Ta - Last Filed: 08/13/20 17:03> History of Present Illness The patient is a 70 year old F [] Past Medical History Allergies No Known Allergies Allergy (Verified 08/13/20 07:10) - Physical Exam Vitals/I&O's: Vital Signs Temp Pulse Resp BP Pulse Ox 98 F 76 17 127/81 H 96 08/13/20 12:59 08/13/20 13:15 08/13/20 12:59 08/13/20 12:59 08/13/20 12:59 Oxygen Flow Rate (L/min) 2 Oxygen Delivery Method Room Air Weight: 164 lb 3.91 oz Body Mass Index (BMI) 25.7 Intake and Output for Last 24 Hours 08/11/20 08/12/20 08/13/20 23:59 23:59 22:59 Intake Total 1999 Balance 1999 Laboratory Results 08/13/20 07:25: WBC 13.1 H, RBC 5.96 H, Hgb 17.4 H, Hct 51.2 H, MCV 85.9, MCH 29.2, MCHC 34.0, RDW Std Deviation 46.1 H, RDW Coeff of Mikayla 14.6, Plt Count 598 H, MPV 9.1, Immature Gran % (Auto) 0.600, Neut % (Auto) 74.1 H, Lymph % (Auto) 16.6 L, Franklin % (Auto) 8.4, Eos % (Auto) 0.0, Baso % (Auto) 0.3, Absolute Neuts (auto) 9.7 H, Absolute Lymphs (auto) 2.17, Nucleated RBC % 0.4 08/13/20 07:25: Sodium 131 L, Potassium 3.2 L, Chloride 92 L, Carbon Dioxide 20.0 L, Anion Gap 19 H, BUN 50 H, Creatinine 3.95 H, Estim Creat Clear Calc 1.46, Est GFR (MDRD) Af Amer 15 L, Est GFR (MDRD) Non-Af 12 L, BUN/Creatinine Ratio 12.7, Glucose 142 H, Calcium 9.7, Troponin I 0.052 H 08/13/20 07:25: PT 15.0 H, INR 1.2, D-Dimer Quant (PE/DVT) 1.80 H* 08/13/20 07:25: Total Bilirubin 0.90, Direct Bilirubin 0.32 H, AST 19, ALT 38, Alkaline Phosphatase 160 H, Total Protein 8.7 H, Albumin 4.0, Globulin 4.7 H 08/13/20 07:25: Lipase 136 08/13/20 08:51: COVID-19 (JERE) Not Detected 08/13/20 13:10: Troponin I 0.024 08/13/20 16:01: Troponin I 0.024 Current Medications Acetaminophen (Acetaminophen 325 Mg Tablet) 650 mg PO Q6H PRN PRN PRN Reason: Pain Score 1-10/Temp > 100.7 F Apixaban (Apixaban 5 Mg Tablet) 10 mg PO BID [facility] Aspirin (Aspirin 81 Mg Tab.Chew) 81 mg PO DAILY@0800 [facility] Fluoxetine HCl (Fluoxetine 20 Mg Capsule) 40 mg PO DAILY [facility] Folic Acid (Folic Acid 1 Mg Tablet) 1 mg PO DAILY@0800 [facility] Gabapentin (Gabapentin 300 Mg Capsule) 300 mg PO DAILY [facility] Hydroxyzine Pamoate (Hydroxyzine Desiree 25 Mg Capsule) 50 mg PO TID PRN PRN PRN Reason: ANXIETY Sodium Chloride () 1,000 mls @ 100 mls/hr IV .Q10H [facility] Last Admin: 08/13/20 13:40 Dose: 100 mls/hr Documented by: Lamotrigine (Lamotrigine 100 Mg Tablet) 150 mg PO DAILY [facility] Lorazepam (Lorazepam 1 Mg Tablet) 2 mg PO Q2H PRN PRN; Protocol PRN Reason: CIWA score > 8 but <15 Last Admin: 08/13/20 14:56 Dose: 2 mg Documented by: Lorazepam (Lorazepam 1 Mg Tablet) 2 mg PO UD PRN; Protocol PRN Reason: CIWA score >/=15. Lorazepam (Lorazepam 2 Mg/Ml Syringe) 2 mg IV Q2H PRN PRN; Protocol PRN Reason: CIWA score > 8 but <15 Lorazepam (Lorazepam 2 Mg/Ml Syringe) 2 mg IV UD PRN; Protocol PRN Reason: CIWA score >/=15. Melatonin (Melatonin 10 Mg Tablet) 20 mg PO QHS [facility] Morphine Sulfate (Morphine 2 Mg/Ml Syringe) 1 mg IV Q3H PRN PRN PRN Reason: Pain Score 6-10 Nicotine (Nicotine 21 Mg Patch) 21 mg TRANSDERM. DAILY [facility] Last Admin: 08/13/20 14:54 Dose: 21 mg Documented by: Ondansetron HCl (Ondansetron 4 Mg/2 Ml Vial) 4 mg IV Q8H PRN PRN PRN Reason: NAUSEA/VOMITING Pantoprazole Sodium (Pantoprazole Sodium 40 Mg Tablet) 40 mg PO DAILY RA[facility]LE Propranolol HCl (Propranolol 10 Mg Tablet) 10 mg PO DAILY [facility] Quetiapine Fumarate (Quetiapine 25 Mg Tablet) 50 mg PO QHS RAFFAELE Sodium Chloride (0.9% Saline Lock 10 Ml Syringe) 10 - 40 ml IV UD PRN PRN Reason: SALINE FLUSH Thiamine HCl (Thiamine Hydrochloride 100 Mg Tablet) 100 mg PO DAILYCM RAFFAELE Addendum: Dr. Ta I personally examined the patient and reviewed the chart. I agree with the above. 70-year-old female presenting from home with palpitations, chest tightness, chest pain. She was recently diagnosed with Covid and a PE in April of this year. Repeat Covid testing is negative. She is already on Eliquis therefore CTA of her chest is unnecessary given the elevation in her D-dimer. She is a difficult patient to get a clear history on, she has had 3 days of increasing chest tightness but she also has not slept in 3 days. When I palpate her chest, she states that that is the same pain that she has been feeling that brought her into the hospital. Her initial troponin was slightly elevated to 0.052. 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 Of note she is in acute renal failure with a creatinine of almost 4 with a baseline creatinine of around 1, which could explain the initial elevation in her troponin. Repeat troponins were 0.024 and 0.024. Inpatient E&M: 23261 Init Hosp L3
--- NOTE | 2020-08-13 13:39 | EKG12_ITS ---
Test Reason : CP Blood Pressure : / mmHG Vent. Rate : 072 BPM Atrial Rate : 072 BPM P-R Int : 186 ms QRS Dur : 090 ms QT Int : 456 ms P-R-T Axes : -16 -42 006 degrees QTc Int : 499 ms Normal sinus rhythm Left axis deviation Possible LAFB Poor R wave progression Abnormal ECG Confirmed by ALEJANDRO COX, ROBE ([id number]), production editor RICHELLE GALICIA ([id number]) on 08/16/2020 10:58:24 AM Referred By: AKSHAT Confirmed By:ROBE ALLEN MD
[2020-08-13] MEDS: 0.9% Normal Saline 1,000 ML 100 ML IV (13:40)
--- NOTE | 2020-08-13 14:02 | EKG12_ITS ---
Test Reason : REPEAT Blood Pressure : / mmHG Vent. Rate : 079 BPM Atrial Rate : 079 BPM P-R Int : 184 ms QRS Dur : 102 ms QT Int : 462 ms P-R-T Axes : 001 -57 016 degrees QTc Int : 529 ms Normal sinus rhythm Possible Left atrial enlargement Incomplete right bundle branch block Left anterior fascicular block Cannot rule out Anterior infarct , age undetermined Prolonged QT Abnormal ECG Confirmed by LEEANN COX, TITI ([id number]), scientific publications editor RICHELLE GALICIA ([id number]) on 08/15/2020 11:24:57 AM Referred By: MICK Confirmed By:TITI BRADSHAW MD
[2020-08-13] MEDS: LORazepam 1 MG Tablet 2 MG PO ×2 (14:56→23:34)
[2020-08-13] MEDS: 0.9% Saline Lock 10 ML Syringe IV (19:44)
[2020-08-13] MEDS: APIXABAN 5 MG TABLET 10 MG PO (21:51)
[2020-08-13] MEDS: QUEtiapine 25 MG Tablet 50 MG PO (21:51)
[2020-08-13] MEDS: MELATONIN 10 MG TABLET 20 MG PO (21:51)
--- NOTE | 2020-08-14 | NURSING ---
Nicotine patch removed @ 0000 for stress test today
[2020-08-14 02:32] VITALS: PULSE 79
[2020-08-14] MEDS: 0.9% Normal Saline 1,000 ML 100 ML IV (03:31)
[2020-08-14 03:33] VITALS: BP 97/62; PULSE 76; RESP 16; TEMP 36.4; O2SAT 94
[2020-08-14 05:22] LABS: Absolute Lymphocyte Count 2.38 X10^3/uL (0.83-4.51); Basophil# 0.02 X10^3/uL; Basophil% 0.2 % (0-1); Eosinophil# 0.04 X10^3/uL; Eosinophils% 0.4 % (0-5); Hematocrit 40.1 % (37-47); Hemoglobin 13.5 g/dL (12.0-15.0); Lymphocyte # 2.38 X10^3/ul (4.0); Lymphocyte % 23.3 % (19-41); Mean Corp Hgb Conc 33.7 g/dL (32-36); Mean Corpuscular Hgb 29.8 pg (27.0-32.0); Mean Corpuscular Volume 88.5 fL (81-99); Mean Platelet Vol. 9.1 fl (6.2-12.0); Monocyte# 0.71 X10^3/uL; NRBC Flagged by Analyzer 0 % (0-5); Neutrophil % 68.5 % (47-70); Platelet Count 351 K/mm3 (150-450); RBC Distribution Width CV 14.7 % (11.6-14.6); RBC Distribution Width SD 47.8 fl (35.1-43.9); Red Blood Count 4.53 M/mm3 (4.2-5.4); White Blood Count 10.2 K/mm3 (4.4-11.0)
--- NOTE | 2020-08-14 05:55 | EKG12_ITS ---
Test Reason : MORNING EKG Blood Pressure : / mmHG Vent. Rate : 078 BPM Atrial Rate : 078 BPM P-R Int : 202 ms QRS Dur : 094 ms QT Int : 412 ms P-R-T Axes : 026 -19 017 degrees QTc Int : 469 ms Normal sinus rhythm Leftward axis Poor R wave progression Confirmed by ALEJANDRO COX, ROBE ([id number]), digital editor RICHELLE GALICIA ([id number]) on 08/16/2020 10:46:18 AM Referred By: CHERYL Confirmed By:ROBE ALLEN MD
[2020-08-14 06:04] LABS: ALB/GLOB Ratio 0.8 RATIO (0.9-2.4); AST(SGOT) 18 U/L (15-37); Alanine Aminotransfer ALT/SGPT 26 U/L (13-56); Albumin, Serum 2.9 g/dL (3.2-5.0); Alkaline Phosphatase 114 U/L (45-117); Anion Gap 12 (5-15); BUN 57 mg/dL (7-18); Calcium,Total 7.6 mg/dL (8.5-10.1); Chloride 104 mmol/L (98-107); Cholesterol 228 mg/dL (200); Creatinine, Serum 2.48 mg/dL (0.55-1.02); EST Glomerular Filtration Rate 21 mL/min (>60); Est Glom Filt Rate - Afr Amer 25 mL/min (>60); Estimated Creatinine Clearance 21.11 ml/min; Globulin 3.6 g/dL (2.2-4.2); Glucose 100 mg/dL (74-106); High Density Lipoprotein 108 mg/dL; Potassium 3.4 mmol/L (3.5-5.1); Protein, Total 6.5 g/dL (6.4-8.2); Sodium Level 133 mmol/L (136-145); Triglycerides 85 mg/dL; Very Low Density Lipoprotein 17 mg/dL (5-40)
[2020-08-14 07:52] VITALS: PULSE 76
[2020-08-14 08:02] VITALS: BP 105/61; PULSE 75; RESP 16; TEMP 37.1; O2SAT 95
[2020-08-14 11:41] VITALS: PULSE 76; RESP 18; O2SAT 95
--- NOTE | 2020-08-14 11:48 | DCINST_ITS ---
- Discharge Diagnoses Current Active Problems: Current Active and Chronic Problems KARIS (acute kidney injury) (Acute) Elevated d-dimer (Chronic) Chest pain (Acute) Anxiety and depression (Chronic) Bipolar disorder (Chronic) Tobacco use (Chronic) GERD (gastroesophageal reflux disease) (Chronic) Anxiety (Chronic) HTN (hypertension) (Chronic) Alcohol abuse (Chronic) You will use the following diet at home:: Cardiac Your food should be the consistency of: Regular Your liquids should be the consistency of: Regular/Thin Discharge Activity: Return to Normal Activity, May Not Drive - no driving while using alcohol Additional Instructions: You will need a BMP (lab) in one week, call your PCP to arrange this. Allergies/Adverse Reactions: Allergies No Known Allergies Allergy (Verified 08/13/20 07:10) Medications to take at Discharge Gabapentin [Neurontin] 300 mg PO DAILY 08/15/16 Gabapentin [Neurontin] 600 mg PO QHS 08/15/16 Lamotrigine [Lamictal] 150 mg PO DAILY 08/15/16 Propranolol HCl [Inderal (Beta Samantha)] 10 mg PO DAILY 08/15/16 Melatonin 20 mg PO QHS 02/28/17 Fluoxetine HCl 40 mg PO DAILY 06/02/19 Apixaban [Eliquis] 10 mg PO BID 08/13/20 Pantoprazole Sodium [Protonix] 40 mg PO DAILY 08/13/20 Quetiapine Fumarate [Seroquel] 50 mg PO QHS 08/13/20 Primary Care Physician: Yuki Lopez MD [Primary Care Provider] - Please follow up with your Primary Care Physician in: 1-2 weeks Test Results: Test results from this visit will be discussed in further detail at your follow- up appointment, if applicable. Proposed Discharge Date: 08/14/20
[2020-08-14] MEDS: APIXABAN 5 MG TABLET 10 MG PO (11:55)
[2020-08-14] MEDS: lamoTRIgine 100 MG Tablet 150 MG PO (11:55)
[2020-08-14] MEDS: Gabapentin 300 MG Capsule PO (11:55)
[2020-08-14] MEDS: Propranolol 10 MG Tablet PO (11:56)
[2020-08-14] MEDS: Pantoprazole Sodium 40 MG Tablet PO (11:56)
[2020-08-14] MEDS: FLUoxetine 20 MG Capsule 40 MG PO (11:56)
--- NOTE | 2020-08-14 12:11 | CASEMGMT ---
BASSAM LEVIN assessment: Face to Face with patient for initial transition planning/care coordination assessment. BASSAM LEVIN introduced self and role at [facility], pt voices understanding and consents to assessment at this time. Pt is sitting up in bed in no distress at this time. Pt is A/Ox4 at this time and answers all questions appropriately at this time. Care providers, pharmacy, and demographics verified at this time Presentation: Increased SOB/CP for several days, had PE in April as well as COVID-CP worse with deep breath Admitting dx: Renal failure, CP PCP: John Specialists: Pt states no current specialists. Preferred Pharmacy: [facility] [place] Insurance: MCR A/B, [employer] Prescription Benefit: Yes Living Will/HPOA: Pt states does not have LW/HPOA and declines AD info at this time. LNOK: Vicente Mascorro, Living Arrangements: Pt states lives with in 2 story home with bedroom on 2nd floor and states no concerns at home at this time. Pt states is independent with ADL's. Transportation: Pt states drives self and states no transportation concerns at this time. DME/HHC: Pt states has the following DME: cane, walker, and shower chair. Pt states no need for any further DME. Pt states no hx of HHC or SNF in the past. Pt states no concerns with going home at time of discharge. Pt states is retired. Pt states smokes 1/2 pack/day and drinks a couple vodka drinks every couple days. Pt states no further concerns/needs at this time. CM to follow for any further discharge planning/needs. Advised pt to ask for CM if any further questions/concerns/needs arise, voices understanding. Pt Goal: Home Plan[place] BASSAM LEVIN
--- NOTE | 2020-08-14 13:43 | PHA.DC.MR ---
Pharmacy Service has performed discharge medication reconciliation for this patient. The patient's discharge medication list was reviewed for discrepancies and discrepancies were resolved. Home Medications Gabapentin [Neurontin] 300 mg PO DAILY 08/15/16 Gabapentin [Neurontin] 600 mg PO QHS 08/15/16 Lamotrigine [Lamictal] 150 mg PO DAILY 08/15/16 Propranolol HCl [Inderal (Beta Samantha)] 10 mg PO DAILY 08/15/16 Melatonin 20 mg PO QHS 02/28/17 Fluoxetine HCl 40 mg PO DAILY 06/02/19 Apixaban [Eliquis] 10 mg PO BID 08/13/20 Pantoprazole Sodium [Protonix] 40 mg PO DAILY 08/13/20 Quetiapine Fumarate [Seroquel] 50 mg PO QHS 08/13/20
[2020-08-14 13:50] VITALS: BP 134/69; PULSE 78; RESP 16; TEMP 36.7; O2SAT 94
--- NOTE | 2020-08-14 14:02 | STRESSREP ---
Stress Test Report Pharmacologic myocardial perfusion stress test. Stress protocol: Resting EKG demonstrates normal sinus rhythm with a rate of 74 bpm normal intervals are noted resting blood pressure is 116/78 mmHg. 0.4 mg of regadenoson was infused per usual protocol followed by rapid intravenous saline flush injection continuous EKG monitoring was performed. The maximum heart rate attained was 96 bpm which was 63% of maximum predicted heart rate the maximum workload was 1 metabolic equivalent. At rest there were no ST or T wave changes noted to suggest abnormal flow reserve and at peak infusion nonspecific ST-T wave changes were noted. No clinical angina was noted. The resting blood pressure was 116/78 with a final blood pressure 102/64 mmHg. Myocardial perfusion protocol. 12.0 mCi of technetium 99m sestamibi was injected at rest. 0.4 mg of regadenoson was infused per usual protocol and at peak infusion 33.6 mCi of technetium 99m sestamibi was injected stress images were obtained stress and rest images were reconstructed and compared in the short axis vertical long horizontal long axis. Gated images were also obtained per Perfusion SPECT analysis: Review of the images demonstrate normal uptake of tracer noted in all areas of the myocardium the resting images similarly demonstrate normal uptake of tracer noted in all areas of the myocardium. No areas of reversibility are noted suggest ischemia no previous infarct is noted. Gated SPECT analysis: The gated ejection fraction is 70%. Conclusion: Normal pharmacologic myocardial perfusion stress test. Preserved ejection fraction.
--- NOTE | 2020-08-14 14:37 | DS.PCM_ITS ---
Discharge Date and Diagnosis - Problem List Patient Problems: Active and Suspected Problems KARIS (acute kidney injury) (Acute) Chest pain (Acute) Date of Admission: 08/13/20 Date of Discharge: 08/14/20 - Primary Discharge Diagnosis Acute Problems: Active Problems KARIS (acute kidney injury) (Acute) Chest pain (Acute) - GERD Alcoholism with acute withdrawal Bipolar disorder - Secondary Discharge Diagnosis Chronic Problems: Chronic Problems Elevated d-dimer (Chronic) Anxiety and depression (Chronic) Bipolar disorder (Chronic) Tobacco use (Chronic) GERD (gastroesophageal reflux disease) (Chronic) Neuropathy (Chronic) Overweight (BMI 25.0-29.9) (Chronic) Neuropathy (Chronic) Anxiety (Chronic) HTN (hypertension) (Chronic) Alcohol abuse (Chronic) Fractured nose (Chronic) Hospital Course and Treatment Imaging Results: 08/14/20 09:31 Nuclear Stress Test - Chemical [NM] Routine Gated SPECT analysis: The gated ejection fraction is 70%. Conclusion: Normal pharmacologic myocardial perfusion stress test. Preserved ejection fraction. RAD/Chest 1 View (Portable) IMPRESSION: The lungs are clear. Bilateral shoulder prostheses. 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 Operations: None Procedures: 2-D Echocardiogram, Stress test Summary of Care Provided: Hospital Course: The patient is a 70 year old F with pmhx of alcoholism, bipolar disorder, tobacco abuse, palpitations NOS, PE following COVID dx taking eliquis, who presented to the ER with c/o chest pain in the midepigastric region described as tightness. The patient was seen in the ER and had negative EKG, but indeterminate troponin, and had evidence of KARIS. She had had several days of nausea vomiting and diarrhea. Lipase was negative. The patient was admitted to the PCU for chest pain workup. She was placed on alcohol withdrawal protocol and treated with prn ativan. Repeat troponins were negative. She was taken for a stress test which was negative. She continued to have epigastric discomfort and nausea. She was continued on protonix and provided with zofran for nausea. She was given IV fluids overnight with good improvement of her renal function. She had an episode of vomiting the day of stress. She however did not want to stay another night for further IV fluids and monitoring of BMP. She wanted to be discharged home. She will need an outpatient BMP in 1 week and was recommended to talk to her PCP to arrange this. She should follow up with her PCP in 1-2 weeks. She was discharged home ins table condition. This patient was seen by Virgilio Mcguire PA-C under the supervision of Dr. Wells. [] Patient Problems: Active and Suspected Problems KARIS (acute kidney injury) (Acute) Chest pain (Acute) - Physical Exam Vitals/I&O's: Vital Signs Temp Pulse Resp BP Pulse Ox 98.0 F 78 16 134/69 H 94 08/14/20 13:50 08/14/20 13:50 08/14/20 13:50 08/14/20 13:50 08/14/20 13:50 Oxygen Flow Rate (L/min) 2 Oxygen Delivery Method Room Air Weight: 164 lb 3.91 oz Body Mass Index (BMI) 25.7 Intake and Output for Last 24 Hours 08/13/20 08/13/20 08/14/20 00:59 23:59 23:59 Intake Total 1308.33 / 1308.33 Balance 1308.33 / 1308.33 General: Alert, Oriented x3, Cooperative HEENT: Atraumatic, PERRLA, EOMI, Normocephalic Neck: Supple, No JVD, Negative Carotid Bruits Lungs: Clear to auscultation, Normal air movement Cardiovascular: Regular rate, No murmurs Abdomen: Bowel Sounds Present, Soft, Non Tender Extremities: No edema, Capillary Refill Less than 3 Seconds Skin: No rashes, No breakdown Musculoskeletal: No Tenderness to Palpation of Joints or Extremities Neurological: Cranial nerves II-XII grossly intact Psych/Mental Status: Normal Affect, Appropriate, Alert and oriented to time, place, person, mood and affect Laboratory Results 08/13/20 16:01: Troponin I 0.024 08/14/20 05:16: WBC 10.2, RBC 4.53, Hgb 13.5, Hct 40.1, MCV 88.5, MCH 29.8, MCHC 33.7, RDW Std Deviation 47.8 H, RDW Coeff of Mikayla 14.7 H, Plt Count 351, MPV 9.1, Immature Gran % (Auto) 0.600, Neut % (Auto) 68.5, Lymph % (Auto) 23.3, [place] % (Auto) 7.0, Eos % (Auto) 0.4, Baso % (Auto) 0.2, Absolute Neuts (auto) 7.0, Absolute Lymphs (auto) 2.38, Nucleated RBC % 0 08/14/20 05:16: Sodium 133 L, Potassium 3.4 L, Chloride 104, Carbon Dioxide 17.0 L, Anion Gap 12, BUN 57 H, Creatinine 2.48 H, Estim Creat Clear Calc 21.11, Est GFR (MDRD) Af Amer 25 L, Est GFR (MDRD) Non-Af 21 L, BUN/Creatinine Ratio 23.0 H, Glucose 100, Calcium 7.6 L, Total Bilirubin 0.60, AST 18, ALT 26, Alkaline Phosphatase 114, Total Protein 6.5, Albumin 2.9 L, Globulin 3.6, Albumin/Globulin Ratio 0.8 L, Triglycerides 85, Cholesterol 228 H, LDL Cholesterol 103, VLDL Cholesterol 17, HDL Cholesterol 108 Current Medications Acetaminophen (Acetaminophen 325 Mg Tablet) 650 mg PO Q6H PRN PRN PRN Reason: Pain Score 1-10/Temp > 100.7 F Apixaban (Apixaban 5 Mg Tablet) 10 mg PO BID [facility] Last Admin: 08/14/20 11:55 Dose: 10 mg Documented by: Aspirin (Aspirin 81 Mg Tab.Chew) 81 mg PO DAILY@0800 [facility] Last Admin: 08/14/20 09:22 Dose: Not Given Documented by: Fluoxetine HCl (Fluoxetine 20 Mg Capsule) 40 mg PO DAILY [facility] Last Admin: 08/14/20 11:56 Dose: 40 mg Documented by: Folic Acid (Folic Acid 1 Mg Tablet) 1 mg PO DAILY@0800 [facility] Last Admin: 08/14/20 09:26 Dose: Not Given Documented by: Gabapentin (Gabapentin 300 Mg Capsule) 300 mg PO DAILY [facility] Last Admin: 08/14/20 11:55 Dose: 300 mg Documented by: Hydroxyzine Pamoate (Hydroxyzine Desiree 25 Mg Capsule) 50 mg PO TID PRN PRN PRN Reason: ANXIETY Sodium Chloride () 1,000 mls @ 100 mls/hr IV .Q10H [facility] Last Infusion: 08/14/20 11:56 Dose: 100 mls/hr Documented by: Lamotrigine (Lamotrigine 100 Mg Tablet) 150 mg PO DAILY [facility] Last Admin: 08/14/20 11:55 Dose: 150 mg Documented by: Lorazepam (Lorazepam 1 Mg Tablet) 2 mg PO Q2H PRN PRN; Protocol PRN Reason: CIWA score > 8 but <15 Last Admin: 08/13/20 23:34 Dose: 2 mg Documented by: Lorazepam (Lorazepam 1 Mg Tablet) 2 mg PO UD PRN; Protocol PRN Reason: CIWA score >/=15. Lorazepam (Lorazepam 2 Mg/Ml Syringe) 2 mg IV Q2H PRN PRN; Protocol PRN Reason: CIWA score > 8 but <15 Lorazepam (Lorazepam 2 Mg/Ml Syringe) 2 mg IV UD PRN; Protocol PRN Reason: CIWA score >/=15. Melatonin (Melatonin 10 Mg Tablet) 20 mg PO QHS [facility] Last Admin: 08/13/20 21:51 Dose: 20 mg Documented by: Morphine Sulfate (Morphine 2 Mg/Ml Syringe) 1 mg IV Q3H PRN PRN PRN Reason: Pain Score 6-10 Nicotine (Nicotine 21 Mg Patch) 21 mg TRANSDERM. DAILY [facility] Last Admin: 08/14/20 11:56 Dose: 21 mg Documented by: Ondansetron HCl (Ondansetron 4 Mg/2 Ml Vial) 4 mg IV Q8H PRN PRN PRN Reason: NAUSEA/VOMITING Last Admin: 08/13/20 19:44 Dose: 4 mg Documented by: Pantoprazole Sodium (Pantoprazole Sodium 40 Mg Tablet) 40 mg PO DAILY [facility] Last Admin: 08/14/20 11:56 Dose: 40 mg Documented by: Propranolol HCl (Propranolol 10 Mg Tablet) 10 mg PO DAILY [facility] Last Admin: 08/14/20 11:56 Dose: 10 mg Documented by: Quetiapine Fumarate (Quetiapine 25 Mg Tablet) 50 mg PO QHS [facility] Last Admin: 08/13/20 21:51 Dose: 50 mg Documented by: Sodium Chloride (0.9% Saline Lock 10 Ml Syringe) 10 - 40 ml IV UD PRN PRN Reason: SALINE FLUSH Last Admin: 08/13/20 19:44 Dose: 10 ml Documented by: Thiamine HCl (Thiamine Hydrochloride 100 Mg Tablet) [address] [facility] Last Admin: 08/14/20 09:26 Dose: Not Given Documented by: Discharge Diet: Low fat/ Low Cholesterol, 2000 mg Sodium Diet Discharge Activity: Return to Normal Activity, May Not Drive - no driving while using alcohol Home Medications: Medications to take at Discharge Gabapentin [Neurontin] 300 mg PO DAILY 08/15/16 Gabapentin [Neurontin] 600 mg PO QHS 08/15/16 Lamotrigine [Lamictal] 150 mg PO DAILY 08/15/16 Propranolol HCl [Inderal (Beta Samantha)] 10 mg PO DAILY 08/15/16 Melatonin 20 mg PO QHS 02/28/17 Fluoxetine HCl 40 mg PO DAILY 06/02/19 Apixaban [Eliquis] 10 mg PO BID 08/13/20 Pantoprazole Sodium [Protonix] 40 mg PO DAILY 08/13/20 Quetiapine Fumarate [Seroquel] 50 mg PO QHS 08/13/20 Ondansetron HCl [Zofran] 4 mg PO Q6H PRN PRN #12 tab 08/14/20 Following Prescriptions Were Given to Patient: Ondansetron HCl [Zofran] 4 mg PO Q6H PRN PRN #12 tab PRN Reason: Nausea Transmission Status: Pending to [facility] Primary Care Physician: Yuki Lopez MD [Primary Care Provider] - Please follow up with your Primary Care Physician in: 1-2 weeks Additional Instructions: Talk to your PCP about having a BMP (lab) in 1 week. Disposition: Home Minutes spent on discharge:: 35 Patient Condition:: Stable Medical Necessity - Tobacco Use Smoking Status: Current every day smoker Tobacco Use: Cigarettes Meaningful Use Info Meaningful Use Diagnoses (Choose all that apply): None applicable
== END 2020-08-14 15:16 | disposition home or self-care (01) | DRG 683 ==
LOC: ED 11:34 → PCU 12:25
PROVIDERS: Physician Assistant; Admitting Provider Family Medicine; Emergency Provider Emergency Medicine; PCP Internal Medicine; Visit Provider Internal Medicine
DX: N17.9 Acute kidney failure, unspecified (principal); F10.239 Alcohol dependence with withdrawal, unspecified; I27.82 Chronic pulmonary embolism; I45.2 Bifascicular block; K21.9 Gastro-esophageal reflux disease without esophagitis; F31.9 Bipolar disorder, unspecified; I10 Essential (primary) hypertension; F41.9 Anxiety disorder, unspecified; F17.210 Nicotine dependence, cigarettes, uncomplicated; G62.9 Polyneuropathy, unspecified; E66.3 Overweight; Z68.25 Body mass index [BMI] 25.0-25.9, adult; Z86.19 Personal history of other infectious and parasitic diseases; Z80.9 Family history of malignant neoplasm, unspecified; Z79.01 Long term (current) use of anticoagulants; Y90.9 Presence of alcohol in blood, level not specified
CPT/HCPCS: 36415; 71045; 78452; 80048; 80053; 80061; 80076; 83690; 84484; 85025; 85379; 85610; 87635; 93005; 93017; 99285; 99406; A9500; J7030; A4216; J2405; J2785; U0002

== ENCOUNTER 2021-04-13 14:48 | Emergency (ER) | payer MEDICARE, OTHER, SELFPAY ==
[2020-08-13 13:06] VITALS: BMI 25.7
[2021-04-13 14:48] VITALS: BP 123/81; PULSE 85; RESP 18; TEMP 36.6; O2SAT 96; BMI 25.1
[2021-04-13 14:56] VITALS: PULSE 81; RESP 15; O2SAT 96; O2SAT 97
--- NOTE | 2021-04-13 15:17 | ED.VIS.LOWEX ---
HPI History of Present Illness HPI Narrative: 70-year-old female currently on Eliquis due to a PE they found when she had Covid. States that she slipped on a wet floor on Friday night twisting and landing awkwardly on her right ankle and complaining of right ankle and lower leg pain. Denies any other injuries. She has been walking on this at home for the last 3 days. Says it is quite painful. Called her primary care physician sent her to the ER. She denies any head injury or other complaints. Chief Complaint: Fall Informant: patient Occured/Mechanism Mechanism/Context: Yes injury Onset/Context/Timing Onset: Days Context: Sudden Onset Timing: Continuous Current Severity: Mild Maximum Severity: Moderate Narrative Narrative: 62-year-old female fell 3 days ago complaining of continued right lower leg and right ankle pain. Has not had it evaluated until today. Prior similar symptoms: No Recent Illness/Hospitalization: No PFSH PFSH Medical History Anxiety Bilateral shoulder injury Depression Pulmonary embolism Seizures Smoker Home Medications gabapentin 300 mg PO DAILY 08/15/16 [History Last Taken 08/13/20] gabapentin 600 mg PO QHS 08/15/16 [History Last Taken 08/12/20] lamotrigine 150 mg PO DAILY 08/15/16 [History Last Taken 08/13/20] propranolol 10 mg PO DAILY 08/15/16 [History Last Taken 08/13/20] melatonin 20 mg PO QHS 02/28/17 [History Last Taken 08/12/20] fluoxetine 40 mg PO DAILY 06/02/19 [History Last Taken 08/13/20] apixaban 10 mg PO BID 08/13/20 [History Last Taken 08/13/20] pantoprazole 40 mg PO DAILY 08/13/20 [History Last Taken 08/13/20] quetiapine 50 mg PO QHS 08/13/20 [History Last Taken 08/12/20] oxycodone-acetaminophen [Percocet] 1 tab PO Q6H PRN 5 Days #14 tab 04/13/21 [Rx Last Taken Unknown] Allergy/AdvReac Type Severity Reaction Status Date / Time No Known Allergies Allergy Verified 04/13/21 14:50 Surgical History History of cholecystectomy Hx of hysterectomy Social History Smoking Status: Current every day smoker tobacco type: cigarettes ROS ROS ED ROS Narrative Denies any recent illness. Review of Systems ROS Unobtainable: Denies due to encephalopathy Constitutional Constitutional ED: Denies chills or fever(s) Eyes Eyes: Denies change in vision ENT ENT ED: Denies ear pain or sore throat Cardiovascular Cardiovascular: Denies chest pain Respiratory/Chest Respiratory/Chest: Denies dyspnea Gastrointestinal Gastrointestinal: Denies abdominal pain, diarrhea, nausea or vomiting Genitourinary Genitourinary ED: Denies dysuria Musculoskeletal Musculoskeletal: Denies myalgias Integumentary Denies rash Neurologic Neurologic: Denies headache(s) Psychiatric Psychiatric: Denies depression Endocrine Endocrinology: Denies polyuria Hematologic/Lymphatic Hematologic/Lymphatic: Denies easy bruising Allergic/Immunologic Allergic/Immunologic ED: Denies urticaria EXAM Physical Exam Narrative Exam Narrative: Older female no acute distress. Exam unremarkable except right proximal lower leg just below the knee has no tenderness on the proximal fibula and also has swelling and bruising and tenderness to the right lateral malleolus. Foot is nontender neurovascular intact normal DP pulse. Medial malleolus nontender. Achilles tendon intact. Const Vital Signs: 04/13/21 14:48 04/13/21 14:56 Temperature 97.8 F Temperature Source Temporal Pulse Rate 85 81 Respiratory Rate 18 15 Respiratory Effort Normal Respiratory Depth Normal Respiratory Pattern Normal Blood Pressure 123/81 H Blood Pressure Mean 95 Pulse Ox 96 96 Oxygen Delivery Method Room Air Room Air Positive well nourished and well developed General Appearance ED: well developed HEENT Reports moist mucous membranes normocephalic and atraumatic; Negative for trauma or tenderness Eyes PERRL Neck full ROM and supple Thyroid: Negative for tender Chest Wall inspection of chest normal and palpation of chest normal Resp normal respiratory effort, no retractions and clear to auscultation bilaterally Cardio regular rate, regular rhythm, S1 normal heart sound, S2 normal heart sound and no murmurs GI non-tender, non-distended and no masses Auscultation: normoactive bowel sounds Palpation: soft; Negative for tender, guarding or rebound tenderness present Back/Spine no CVA tenderness Extremity normal to inspection Extremity Narrative: Except tenderness of the proximal right fibula and also tenderness, swelling and bruising to right lateral malleolus. Many miles nontender. Right foot neurovascularly intact. Neuro oriented x3 Sensorium / Orientation: alert, oriented to person, oriented to place and oriented to time; Negative for orientation impaired Psych mental status grossly normal Skin Lesions: no lesions Rashes: no rashes MDM MDM MDM Narrative Medical decision making narrative: X-ray being obtained of the right lower leg and the right ankle. I discussed all x-ray results with patient and went over the films with her. She placed in an Aircast for the ankle. Since the proximal fibula is nonweightbearing she has a walker at home which she will use. She sees Dr. Donaldo Ni from the local [facility] and will follow up with him. Ice, elevation and limited Percocet for pain. Radiography Diagnostic Testing: Radiology Impression Ankle X-Ray 04/13/21 15:30 IMPRESSION: Avulsion fracture the lateral malleolus the fibula which may be acute or chronic. Lateral soft tissue swelling consistent ligaments injury. Electronically Signed: Jeff Jordan MD at 15:53 EDT Tel , Service support , Tibia/Fibula X-Ray 04/13/21 15:38 IMPRESSION: Acute Maissonueve fracture the proximal shaft of the fibula. Electronically Signed: Jeff Jordan MD at 15:55 EDT Tel , Service support , Right ankle x-ray 3 views interpreted by myself and radiologist shows a possible avulsion fracture of the lateral malleolus Age-indeterminate. Right tib-fib x-ray shows a fracture of the proximal fibula consistent with a Maissonnueve fracture Discharge Plan Triage Chief Complaint: Fall ED Provider: Johnny Rivera Dx/Rx/DC Orders Clinical Impression: Sprain of ankle, right, Fracture of fibula, proximal, Fall Instructions: ED Fracture, Lower Extremity, ED Ankle Sprain (Adult) Prescriptions: New oxycodone-acetaminophen [Percocet] 5-325 mg tablet 1 tab PO Q6H PRN (Reason: pain) 5 Days Qty: 14 RF: 0 No Action gabapentin 300 MG capsule 300 mg PO DAILY RF: 0 lamotrigine 100 MG tablet 150 mg PO DAILY RF: 0 gabapentin 300 MG capsule 600 mg PO QHS RF: 0 propranolol 10 MG tablet 10 mg PO DAILY RF: 0 melatonin 10 MG tablet 20 mg PO QHS RF: 0 fluoxetine 40 MG capsule 40 mg PO DAILY RF: 0 apixaban 5 MG tablet 10 mg PO BID RF: 0 quetiapine 50 MG tablet 50 mg PO QHS RF: 0 pantoprazole 40 MG tablet 40 mg PO DAILY RF: 0 Primary Care Provider: Yuki Lopez Referrals: Donaldo Ni MD [NON-STAFF] - As soon as possible Yuki Lopez MD [Primary Care Provider] - Activity Restrictions/Additional Instructions: You have a sprained right ankle ice and elevate. Aircast to ambulate. Limited weightbearing on the right lower extremity. You also have a broken or fractured right proximal fibula. That is treated without a cast and without surgery. Percocet for pain. Use your walker to ambulate. Limited weightbearing on the right lower extremity Call and follow-up with Dr. Ni of [facility] orthopedics. Disposition Disposition: Home, Self Care
--- NOTE | 2021-04-13 15:30 | RAD_ITS ---
STUDY: X-RAY - RIGHT ANKLE REASON FOR EXAM: Female, 70 years old. trauma TECHNIQUE: 3 view(s) of the ankle. COMPARISON: None. FINDINGS: Normal visualized distal tibia and fibula. Avulsion fracture the inferior aspect lateral malleolus the fibula which may be acute, subacute, or chronic. Normal tibiotalar articulation and ankle mortise. Normal visualized talus and calcaneus. The visualized subtalar, talonavicular, calcaneocuboid and tarsal articulations are normal. Lateral soft tissue swelling consistent with ligamentous injury. RAD/Ankle min 3 Views IMPRESSION: Avulsion fracture the lateral malleolus the fibula which may be acute or chronic. Lateral soft tissue swelling consistent ligaments injury. Electronically Signed: Jeff Jordan MD at 15:53 EDT Tel , Service support ,
--- NOTE | 2021-04-13 15:38 | RAD_ITS ---
STUDY: X-RAY - RIGHT TIBIA AND FIBULA REASON FOR EXAM: Female, 70 years old. trauma TECHNIQUE: 2 view(s) of the tibia and fibula were obtained. COMPARISON: None. FINDINGS: Normal visualized tibia. Acute nondisplaced spiral fracture the proximal shaft of the fibula consistent with a Maissoneuve fracture. The soft tissue structures are unremarkable. RAD/Tibia & Fibula 2 Views IMPRESSION: Acute Maissonueve fracture the proximal shaft of the fibula. Electronically Signed: Jeff Jordan MD at 15:55 EDT Tel , Service support ,
[2021-04-13 17:40] VITALS: BP 122/75; PULSE 82; RESP 15; O2SAT 99
== END 2021-04-13 17:59 | disposition home or self-care (01) ==
PROVIDERS: Emergency Provider Emergency Medicine; PCP Internal Medicine
DX: S82.61XA Displaced fracture of lateral malleolus of right fibula, initial encounter for closed fracture (principal); W01.0XXA Fall on same level from slipping, tripping and stumbling without subsequent striking against object, initial encounter; F32.9 Major depressive disorder, single episode, unspecified; F41.9 Anxiety disorder, unspecified; F17.210 Nicotine dependence, cigarettes, uncomplicated; Z79.01 Long term (current) use of anticoagulants; Z86.711 Personal history of pulmonary embolism; Z90.49 Acquired absence of other specified parts of digestive tract
CPT/HCPCS: 73590; 73610; 99282

== ENCOUNTER 2021-05-22 10:01 | Emergency (ER) | payer MEDICARE, OTHER, SELFPAY ==
[2021-05-22 10:01] VITALS: PULSE 115; RESP 18; TEMP 36.9; O2SAT 97; BMI 24.3
[2021-05-22 10:10] VITALS: BP 198/113
--- NOTE | 2021-05-22 10:16 | EKG12_ITS ---
Test Reason : CP Blood Pressure : / mmHG Vent. Rate : 111 BPM Atrial Rate : 111 BPM P-R Int : 192 ms QRS Dur : 092 ms QT Int : 342 ms P-R-T Axes : 025 -19 072 degrees QTc Int : 465 ms Sinus tachycardia Otherwise normal ECG Confirmed by LEWIS COX, EULALIA ([id number]), supervising editor news reel RICHELLE GALICIA ([id number]) on 05/25/2021 9:17:50 AM Referred By: PRUDENCE/GEREMIAS Confirmed By:EMELINA SAUCEDO MD
--- NOTE | 2021-05-22 10:16 | RAD_ITS ---
STUDY: X-RAY CHEST REASON FOR EXAM: Female, 71 years old. Dyspnea TECHNIQUE: Single AP portable view of the chest. COMPARISON: Comparison is made with prior study dated 08/13/2020. FINDINGS: EKG electrodes are seen. Mild increased markings at the lung bases suggestive of mild linear atelectasis versus scarring. There is no demonstrated pleural abnormality. There is mild cardiac enlargement. Normal mediastinum and althea. Normal visualized pulmonary arteries. There is atherosclerotic tortuosity of the aortic arch and descending thoracic aorta. Normal visualized thoracic spine. The patient is status post bilateral shoulder replacement. There is no demonstrated abnormality of the visualized soft tissue structures of the upper abdomen. RAD/Chest 1 View (Portable) IMPRESSION: Mild increased linear markings at the lung bases suggestive of mild bibasilar atelectasis versus scarring. Electronically Signed: Abraham Montero MD at 11:18 EDT , Service support ,
--- NOTE | 2021-05-22 10:18 | EDS_ITS ---
HPI History of Present Illness Chief Complaint: General Illness Detail of Chief Complaint: Patient presents to the emergency department with multiple complaints Informant: patient Narrative Narrative: Patient presents to the emergency department complaining of chest pain and shortness of breath that started yesterday. Patient states that she was in [place] and left all her medications there and has been without her medications for the last 3 days. Patient has history of Covid a year ago and had DVT associated with it so she is on Eliquis. Patient also has history of depression and anxiety. Patient denies any fever or cough. She is not had any heart history. Prior similar symptoms: No PFSH PFSH Medical History Anxiety Bilateral shoulder injury Depression Pulmonary embolism Seizures Smoker Home Medications gabapentin 300 mg PO DAILY 08/15/16 [History Last Taken 08/13/20] gabapentin 600 mg PO QHS 08/15/16 [History Last Taken 08/12/20] lamotrigine 150 mg PO DAILY 08/15/16 [History Last Taken 08/13/20] propranolol 10 mg PO DAILY 08/15/16 [History Last Taken 08/13/20] melatonin 20 mg PO QHS 02/28/17 [History Last Taken 08/12/20] fluoxetine 40 mg PO DAILY 06/02/19 [History Last Taken 08/13/20] apixaban 10 mg PO BID 08/13/20 [History Last Taken 08/13/20] pantoprazole 40 mg PO DAILY 08/13/20 [History Last Taken 08/13/20] quetiapine 50 mg PO QHS 08/13/20 [History Last Taken 08/12/20] oxycodone-acetaminophen [Percocet] 1 tab PO Q6H PRN 5 Days #14 tab 04/13/21 [Rx Last Taken Unknown] lorazepam [Ativan] 1 mg PO TID PRN #10 tab 05/22/21 [Rx Last Taken Unknown] ondansetron 4 mg PO Q8H PRN PRN #10 tab 05/22/21 [Rx Last Taken Unknown] Allergy/AdvReac Type Severity Reaction Status Date / Time No Known Allergies Allergy Verified 05/22/21 10:01 Surgical History History of cholecystectomy Hx of hysterectomy Social History Smoking Status: Current every day smoker tobacco type: cigarettes ROS ROS ED Constitutional Constitutional ED: Reports systems reviewed and no addt'l complaints, except as documented; Denies body ache(s), change in weight or chills Eyes Eyes: Denies acute decrease in peripheral vision, change in vision, double vision or loss of vision ENT ENT ED: Reports none; Denies ear pain, lip swelling, loss taste/smell, neck pain, otalgia or sore throat Cardiovascular Cardiovascular: Reports none and chest pain; Denies abdominal pain, chest pain with activity, leg edema, lightheadedness, palpitations, rapid heart rate or syncope Respiratory/Chest Respiratory/Chest: Reports none and dyspnea; Denies change in mental status, dry cough, hemoptysis, shortness of breath at rest or shortness of breath with exertion Gastrointestinal Gastrointestinal: Reports none; Denies abdominal pain, change in stool character, diarrhea, hematemesis, hematochezia, melena, rectal bleeding or v omiting Genitourinary Genitourinary ED: Reports none; Denies abdominal discomfort, anuria, dysuria, genital pain or polyuria Musculoskeletal Musculoskeletal: Reports none; Denies arthralgias, back pain, difficulty walking, extremity pain, muscle weakness or myalgias Integumentary Reports none; Denies abscess or rash Neurologic Neurologic: Reports none; Denies abnormal gait, confusion, focal weakness, frequent falls, headache(s), loss of vision, numbness, paresthesias, radicular pain, vertigo or weakness Psychiatric Psychiatric: Reports systems reviewed and no addt'l complaints, except as documented and none; Denies behavioral changes, confusion, difficulty concentrating, hallucinations, suicidal ideation, tactile hallucinations or visual hallucinations Endocrine Endocrinology: Denies none, cold intolerance, excessive sweating, fatigue or heat intolerance Hematologic/Lymphatic Hematologic/Lymphatic: Reports none; Denies anemia, easy bleeding or easy bruisi ng Allergic/Immunologic Allergic/Immunologic ED: Denies as per HPI, none, lip swelling, mouth swelling, throat swelling, tongue swelling or hives EXAM Physical Exam Narrative Exam Narrative: Patient anxious and hyperventilating in room Const Vital Signs: 05/22/21 10:01 05/22/21 10:23 05/22/21 10:38 Temperature 98.4 F Temperature Source Temporal Pulse Rate 115 H 98 Respiratory Rate 18 36 H Respiratory Effort Short of Breath Respiratory Pattern Normal Pulse Ox 97 98 Oxygen Delivery Method Room Air Nasal Cannula Oxygen Flow Rate (L/min) 2 Positive well nourished and well developed General Appearance ED: well developed and NAD HEENT Reports TM's clear and moist mucous membranes normocephalic and atraumatic; Negative for trauma or tenderness Tympanic Membrane ED: Yes TM's clear Eyes PERRL and EOMs intact bilaterally General Eye ED: Negative for pale conjunctiva or scleral icterus Neck no lymphadenopathy, supple and no JVD General: Negative for tenderness Chest Wall inspection of chest normal and palpation of chest normal Chest: Negative for tenderness Resp normal respiratory effort and clear to auscultation bilaterally Effort and Inspection: Negative for respiratory distress or pain with movement Auscultation: Negative for rhonchi, wheezes or diminished lung sounds Cardio regular rate, regular rhythm, S1 normal heart sound, S2 normal heart sound and no murmurs Peripheral Pulses: pulses 2+ throughout GI normal to inspection, nondistended, normoactive bowel sounds, soft to palpation, non-tender, non-distended and no masses Back/Spine no CVA tenderness and no thoracic nor lumbar tenderness Extremity normal to inspection General Extremety ED: Negative for edema General Extremity: Negative for edema Neuro oriented x3, CN's II-XII intact bilaterally, no sensory deficits noted and gait normal Sensorium / Orientation: awake, alert, oriented to person, oriented to place and oriented to time Motor Exam: strength 5/5 throughout and strength abnormal Psych mental status grossly normal Skin no rashes or lesions noted and no wounds MDM MDM MDM Narrative Medical decision making narrative: Patient received a milligram of Ativan in the emergency department and her breathing improved dramatically. Her work-ups essentially otherwise unremarkable other than she did have a little bit of a low potassium. Her white blood cell count was slightly elevated 12.0 but I suspect this is likely reactive. I did give patient a dose of her medications that she has missed including her Eliquis. Patient was given a dose of her fluoxetine as well as gabapentin and lamotrigine. She did have an elevated blood pressure and received labetalol 20 mg IV. On repeat examination her blood pressures improved into the 130s systolic and her diastolic is low 100s. She is feeling markedly improved other than some mild nausea. I feel her symptoms likely related to being without her meds for the last 3 days and also suspect anxiety/panic attack. Patient in agreement with assessment. She will be discharged to home and advised to take her medications when they arrive today. Discharged with instructions to return if worsening chest pain increasing shortness of breath or conditions worsen anyway. Lab Data Labs: Laboratory Results - last 24 hr 05/22/21 05/22/21 05/22/21 10:18 10:18 10:25 WBC 12.0 H RBC 5.17 Hgb 14.1 Hct 42.0 MCV 81.2 MCH 27.3 MCHC 33.6 RDW Std Deviation 46.1 H RDW Coeff of Mikayla 15.5 H Plt Count 398 MPV 9.0 Immature Gran % (Auto) 0.200 Neut % (Auto) 66.7 Lymph % (Auto) 24.3 [place] % (Auto) 8.1 Eos % (Auto) 0.3 Baso % (Auto) 0.4 Absolute Neuts (auto) 8.0 H Absolute Lymphs (auto) 2.92 Nucleated RBC % 0 D-Dimer Quant (PE/DVT) 0.52 H* Sodium 135 L Potassium 2.9 L Chloride 102 Carbon Dioxide 21.0 Anion Gap 12 BUN 13 Creatinine 0.88 Estim Creat Clear Calc 60.86 Est GFR (MDRD) Af Amer 82 Est GFR (MDRD) Non-Af 67 BUN/Creatinine Ratio 14.7 Glucose 132 H Calcium 10.2 H Troponin I High Sens 11.6 Radiography Chest X-Ray - ED: 1 View Diagnostic Testing: Radiology Impression Chest X-Ray 05/22/21 10:16 IMPRESSION: Mild increased linear markings at the lung bases suggestive of mild bibasilar atelectasis versus scarring. Electronically Signed: Abraham Montero MD at 11:18 EDT , Service support , 1 view chest x-ray obtained interpreted by myself no acute disease process. Radiology essentially in agreement other than they noted some mild increased linear markings in the lung bases suggestive of mild bibasilar atelectasis versus scarring. EKG Initial EKG: Attestation: I personally reviewed and interpreted this EKG as follows: Comments: Sinus tachycardia with a ventricular rate of 111 bpm Discharge Plan Triage Chief Complaint: General Illness ED Provider: Robert Butt Dx/Rx/DC Orders Clinical Impression: Anxiety, Chest pain Instructions: ED Anxiety Reaction, ED Chest Pain, Uncertain Cause Prescriptions: New ondansetron [ondansetron] 4 MG tablet 4 mg PO Q8H PRN PRN (Reason: Nausea) Qty: 10 RF: 0 lorazepam [Ativan] 1 mg tablet 1 mg PO TID PRN (Reason: anxiety) Qty: 10 RF: 0 No Action gabapentin 300 MG capsule 300 mg PO DAILY RF: 0 lamotrigine 100 MG tablet 150 mg PO DAILY RF: 0 gabapentin 300 MG capsule 600 mg PO QHS RF: 0 propranolol 10 MG tablet 10 mg PO DAILY RF: 0 melatonin 10 MG tablet 20 mg PO QHS RF: 0 fluoxetine 40 MG capsule 40 mg PO DAILY RF: 0 apixaban 5 MG tablet 10 mg PO BID RF: 0 quetiapine 50 MG tablet 50 mg PO QHS RF: 0 pantoprazole 40 MG tablet 40 mg PO DAILY RF: 0 oxycodone-acetaminophen [Percocet] 5-325 mg tablet 1 tab PO Q6H PRN (Reason: pain) 5 Days Qty: 14 RF: 0 Primary Care Provider: Yuki Lopez Referrals: Yuki Lopez MD [Primary Care Provider] - 3-5 Days Disposition Disposition: Home, Self Care
[2021-05-22 10:24] LABS: Absolute Lymphocyte Count 2.92 X10^3/uL (0.83-4.51); Basophil# 0.05 X10^3/uL; Basophil% 0.4 % (0-1); Eosinophil# 0.04 X10^3/uL; Eosinophils% 0.3 % (0-5); Hemoglobin 14.1 g/dL (12.0-15.0); Lymphocyte # 2.92 X10^3/ul (0.83-4.51); Lymphocyte % 24.3 % (19-41); Mean Corp Hgb Conc 33.6 g/dL (32-36); Mean Corpuscular Hgb 27.3 pg (27.0-32.0); Mean Corpuscular Volume 81.2 fL (81-99); Monocyte# 0.98 X10^3/uL; Monocyte% 8.1 % (0-10); NRBC Flagged by Analyzer 0 % (0-5); Neutrophil # 8.02 X10^3/uL (2.7-7.7); Neutrophil % 66.7 % (47-70); Platelet Count 398 K/mm3 (150-450); RBC Distribution Width CV 15.5 % (11.6-14.6); RBC Distribution Width SD 46.1 fl (35.1-43.9); Red Blood Count 5.17 M/mm3 (4.2-5.4)
[2021-05-22] MEDS: LORazepam 2 MG/ML Syringe 1 MG IV (10:26)
[2021-05-22] MEDS: Ipratropium/Albuterol Sulfate 3 ML AMPUL.NEB INHALATION (10:33)
[2021-05-22 10:38] VITALS: PULSE 98; RESP 36; O2SAT 98
[2021-05-22 10:43] LABS: Anion Gap 12 (5-15); BUN 13 mg/dL (7-18); BUN/Creat Ratio 14.7 RATIO (10-20); Calcium,Total 10.2 mg/dL (8.5-10.1); Chloride 102 mmol/L (98-107); Creatinine, Serum 0.88 mg/dL (0.55-1.02); EST Glomerular Filtration Rate 67 mL/min (>60); Est Glom Filt Rate - Afr Amer 82 mL/min (>60); Estimated Creatinine Clearance 60.86 ml/min; Glucose 132 mg/dL (74-106); Potassium 2.9 mmol/L (3.5-5.1); Sodium Level 135 mmol/L (136-145); Troponin-I HS 11.6 pg/mL (3.0-53.7)
[2021-05-22] MEDS: Ondansetron 4 MG/2 ML Vial IV (10:46)
[2021-05-22] MEDS: 0.9% Normal Saline 1,000 ML 150 ML IV (10:46)
[2021-05-22 10:58] LABS: D-Dimer Quantitative (DVT/PE) 0.52 FEU/ug/m (0.27-0.49)
[2021-05-22] MEDS: Potassium Chloride Oral Tablet 20 MEQ 40 MEQ PO (11:18)
[2021-05-22] MEDS: Gabapentin 600 MG Tablet 300 MG PO (11:18)
[2021-05-22] MEDS: FLUoxetine 20 MG Capsule 40 MG PO (11:19)
[2021-05-22] MEDS: lamoTRIgine 150 MG Tablet PO (11:19)
[2021-05-22 11:27] VITALS: BP 182/126; PULSE 102; RESP 20; O2SAT 98
[2021-05-22] MEDS: Labetalol (Prefilled) 20 MG/4 ML IV (11:48)
[2021-05-22 12:04] VITALS: BP 134/113; PULSE 78; RESP 16; O2SAT 98
[2021-05-22] MEDS: APIXABAN 5 MG TABLET 10 MG PO (12:11)
== END 2021-05-22 12:19 | disposition home or self-care (01) ==
PROVIDERS: Emergency Provider Emergency Medicine; PCP Internal Medicine
DX: F41.9 Anxiety disorder, unspecified (principal); R07.9 Chest pain, unspecified; F17.210 Nicotine dependence, cigarettes, uncomplicated; Z90.49 Acquired absence of other specified parts of digestive tract; Z86.16 Personal history of COVID-19; F32.9 Major depressive disorder, single episode, unspecified; Z79.01 Long term (current) use of anticoagulants; Z79.899 Other long term (current) drug therapy; Z86.711 Personal history of pulmonary embolism; Z86.718 Personal history of other venous thrombosis and embolism
CPT/HCPCS: 71045; 80048; 84484; 85025; 85379; 93005; 94640; 99285; J7030; A4216; J2405

== ENCOUNTER 2021-08-21 01:28 | Emergency (ER) | payer MEDICARE, OTHER, SELFPAY ==
[2021-08-21 01:46] VITALS: BP 190/136; PULSE 107; RESP 23; TEMP 36.3; O2SAT 95; BMI 26.1
--- NOTE | 2021-08-21 02:10 | RAD_ITS ---
STUDY: X-RAY CHEST REASON FOR EXAM: Female, 71 years old. chest pain TECHNIQUE: Single AP portable view of the chest. COMPARISON: 05/22/2021 FINDINGS: The lungs are clear and expanded. There is no demonstrated pleural abnormality. There is borderline cardiomegaly. Normal mediastinum and althea. Normal visualized pulmonary arteries. Normal visualized aortic arch and descending thoracic aorta. Normal visualized thoracic spine. Normal visualized ribs, clavicles, and shoulders. Bilateral shoulder arthroplasty There is no demonstrated abnormality of the visualized soft tissue structures of the upper abdomen. RAD/Chest 1 View (Portable) IMPRESSION: Normal x-ray examination of the chest. Electronically Signed: Rk Monge DO at 4:08 EST Tel , Service support ,
--- NOTE | 2021-08-21 02:11 | EKG12_ITS ---
Test Reason : CHEST PAIN Blood Pressure : / mmHG Vent. Rate : 107 BPM Atrial Rate : 107 BPM P-R Int : 216 ms QRS Dur : 086 ms QT Int : 338 ms P-R-T Axes : 034 -32 046 degrees QTc Int : 451 ms Sinus tachycardia with 1st degree A-V block Left axis deviation Poor R wave progression Abnormal ECG Confirmed by ALEJANDRO COX, ROBE ([id number]), greeting card editor RICHELLE GALICIA ([id number]) on 08/22/2021 9:27:47 AM Referred By: PAULINO Confirmed By:ROBE ALLEN MD
--- NOTE | 2021-08-21 02:14 | EDS_ITS ---
HPI History of Present Illness Chief Complaint: General Illness Informant: patient and spouse/S.O. Narrative Narrative: Patient is a 71-year-old female with history of pulmonary emboli?on Eliquis, anxiety and GERD presenting with anxiety and chest pain. Patient st ates every morning she has discomfort in the center of her chest when she takes her medicine. She notes today it persisted. This evening she started to feel more anxious about it and developed worsening chest pain. She describes as substernal in nature. It started worsening around 7 PM. Around 10 PM she threw up. Denies any black or blood in her vomit. She notes her bowel movements have been normal. She feels short of breath and now feels that she cannot breathe. She feels like she is having a panic attack. Her notes that she has had this before. She did not take any medications prior to arrival. She denies any abdominal pain. She denies any other complaints at this time. PFSH PFSH Medical History Anxiety Bilateral shoulder injury Depression Pulmonary embolism Seizures Smoker Home Medications gabapentin 300 mg PO DAILY 08/15/16 [History Last Taken 08/13/20] gabapentin 600 mg PO QHS 08/15/16 [History Last Taken 08/12/20] lamotrigine [Lamictal] 150 mg PO DAILY 08/15/16 [History Last Taken 08/13/20] propranolol 10 mg PO DAILY 08/15/16 [History Last Taken 08/13/20] melatonin 20 mg PO QHS 02/28/17 [History Last Taken 08/12/20] apixaban 5 mg PO BID 08/13/20 [History Last Taken 08/13/20] pantoprazole 40 mg PO DAILY 08/13/20 [History Last Taken 08/13/20] quetiapine [Seroquel] 50 mg PO QHS 08/13/20 [History Last Taken 08/12/20] lorazepam [Ativan] 1 mg PO TID PRN #10 tab 05/22/21 [Rx Last Taken Unknown] ondansetron 4 mg PO Q8H PRN PRN #10 tab 05/22/21 [Rx Last Taken Unknown] venlafaxine mg PO 08/21/21 [History Last Taken Unknown] Allergy/AdvReac Type Severity Reaction Status Date / Time No Known Allergies Allergy Verified 08/21/21 01:38 Surgical History History of cholecystectomy Hx of hysterectomy Social History Smoking Status: Current every day smoker tobacco type: cigarettes ROS ROS ED Constitutional Constitutional ED: Reports sweats; Denies chills or fever(s) Eyes Eyes: Denies change in vision ENT ENT ED: Denies rhinorrhea or sore throat Cardiovascular Cardiovascular: Reports chest pain; Denies palpitations Respiratory/Chest Respiratory/Chest: Reports dyspnea; Denies cough Gastrointestinal Gastrointestinal: Reports nausea and vomiting; Denies abdominal pain or diarrhea Genitourinary Genitourinary ED: Denies dysuria or hematuria Musculoskeletal Musculoskeletal: Denies myalgias Integumentary Denies rash Neurologic Neurologic: Reports headache(s); Denies weakness Psychiatric Psychiatric: Reports anxiety; Denies depression, suicidal ideation or suicidal thoughts EXAM Physical Exam Const Vital Signs: 08/21/21 01:46 08/21/21 02:40 08/21/21 04:09 Temperature 97.4 F L Temperature Source Axillary Pulse Rate 107 H 108 H Respiratory Rate 23 H 18 Respiratory Pattern Tachypnea Blood Pressure 190/136 H Blood Pressure Mean 154 Pulse Ox 95 92 Oxygen Delivery Method Room Air Room Air 08/21/21 05:51 08/21/21 07:34 Temperature Temperature Source Pulse Rate 121 H Respiratory Rate 16 Respiratory Pattern Blood Pressure 172/124 H 156/107 H Blood Pressure Mean 140 123 Pulse Ox 92 91 Oxygen Delivery Method Room Air Room Air Positive well nourished and well developed General Appearance ED: well developed, anxious and diaphoretic HEENT Reports moist mucous membranes Negative for tenderness Eyes PERRL Neck supple and no JVD Chest Wall inspection of chest normal Resp normal respiratory effort and clear to auscultation bilaterally Cardio regular rhythm and no murmurs Rate: tachycardic GI normal to inspection, nondistended, normoactive bowel sounds and non-tender Extremity normal to inspection General Extremety ED: Negative for edema or tenderness General Extremity: Negative for edema Neuro oriented x3 Sensorium / Orientation: alert Motor Exam: Negative for general weakness Psych Psych Narrative: Patient extremely anxious. She intermittently starts screaming. Is redirectable for short amount of time. Mood & Affect: anxious Skin no rashes or lesions noted and no wounds MDM MDM MDM Narrative Medical decision making narrative: Patient is evaluated for epigastric pain with associated burning chest discomfort, nausea, vomiting and anxiety. On evaluation patient is incredibly anxious, crying and tearful. She is given IV Ativan as well as Zofran and Pepcid. She is tachycardic. She does not really have any pain on palpation. She is anticoagulated on Eliquis so I have a much lower suspicion for a PE or mesenteric ischemia. Patient has a mild white blood cell count of 12.5 which I suspect is reactive. Her platelet count is mildly elevated at 533. She has no obvious source of infection. CT the abdomen pelvis obtained and is pending. Patient is hypertensive emergency room and given a dose of clonidine. She is redosed with Ativan. She is given a dose of Benadryl and Compazine for headache. On reevaluation her headache is feeling better but she states she feels jittery and still feels very anxious. She still intermittently tearful. She is given a dose of IV Haldol. His signout will be reevaluated pending CT of the abdomen pelvis and how she is feeling. If she is medically cleared and does not have improvement of her anxiety she might benefit from a Sindy psych evaluation. If her symptoms are resolved she likely can be discharged home if there is no acute findings on her CT. Lab Data Attestation: I reviewed the patient's lab results. Labs: Laboratory Results - last 24 hr 08/21/21 08/21/21 08/21/21 01:53 02:37 02:37 WBC 12.5 H RBC 5.19 Hgb 14.2 Hct 42.8 MCV 82.5 MCH 27.4 MCHC 33.2 RDW Std Deviation 46.4 H RDW Coeff of Mikayla 15.4 H Plt Count 533 H MPV 8.7 Immature Gran % (Auto) 0.300 Neut % (Auto) 75.6 H Lymph % (Auto) 15.7 L [place] % (Auto) 6.2 Eos % (Auto) 1.4 Baso % (Auto) 0.8 Absolute Neuts (auto) 9.4 H Absolute Lymphs (auto) 1.95 Nucleated RBC % 0 Sodium 134 L Potassium 3.4 L Chloride 100 Carbon Dioxide 23.0 Anion Gap 11 BUN 12 Creatinine 0.84 Estim Creat Clear Calc 63.76 Est GFR (MDRD) Af Amer 87 Est GFR (MDRD) Non-Af 72 BUN/Creatinine Ratio 14.3 Glucose 161 H Calcium 10.1 Total Bilirubin 0.40 AST 14 L ALT 20 Alkaline Phosphatase 151 H Troponin I High Sens 10 Total Protein 9.0 H Albumin 4.1 Globulin 4.9 H Albumin/Globulin Ratio 0.8 L Lipase 86 Urine Color Yellow Urine Clarity Clear Urine pH 7.0 Ur Specific [place] 1.010 Urine Protein 500 H Urine Glucose (UA) 100 H Urine Ketones 5 H Urine Occult Blood 25 H Urine Nitrite Negative Urine Bilirubin Negative Urine Urobilinogen Normal Ur Leukocyte Esterase Negative Urine RBC 0-5 SEEN Urine WBC 0 SEEN Ur Squamous Epith Cells 0 SEEN Urine Bacteria 0 SEEN Urine Mucus 0 SEEN Radiography Chest X-Ray - ED: 1 View, Read by ED Physician, Read by Radiologist and No Acute Disease Diagnostic Testing: Clinical Impression(s) from Imaging Studies Chest X-Ray 08/21/21 02:10 IMPRESSION: Normal x-ray examination of the chest. Electronically Signed: Rk Monge DO at 4:08 EST Tel , Service support , Abdomen/Pelvis CT 08/21/21 06:56 IMPRESSION: Fatty infiltration of the liver. Stable appearance of the multiple hepatic cysts. Increased markings at the lung bases suggestive of atelectasis and/or possible early infiltrate. Electronically Signed: Abraham Montero MD at 8:53 EST , Service support , Rhythm Strip Rhythm Strip: Sinus Tach Rate: 107 Ectopy: None EKG Initial EKG: Attestation: I personally reviewed and interpreted this EKG as follows: Interpretation: Sinus Tachycardia Comments: Sinus tachycardia with first-degree AV block at a rate of 107 DE interval 216 Left axis deviation Normal intervals Normal ST segments Poor baseline due to artifact Discharge Plan Triage Chief Complaint: General Illness ED Provider: Trinidad Grimaldo Dx/Rx/DC Orders Clinical Impression: Anxiety, Abdominal pain, Headache Instructions: ED Pain, Acute, Uncertain Cause Prescriptions: No Action gabapentin 300 MG capsule 300 mg PO DAILY RF: 0 lamotrigine [Lamictal] 100 MG tablet 150 mg PO DAILY RF: 0 gabapentin 300 MG capsule 600 mg PO QHS RF: 0 propranolol 10 MG tablet 10 mg PO DAILY RF: 0 melatonin 10 MG tablet 20 mg PO QHS RF: 0 apixaban 5 MG tablet 5 mg PO BID RF: 0 quetiapine [Seroquel] 50 MG tablet 50 mg PO QHS RF: 0 pantoprazole 40 MG tablet 40 mg PO DAILY RF: 0 ondansetron [ondansetron] 4 MG tablet 4 mg PO Q8H PRN PRN (Reason: Nausea) Qty: 10 RF: 0 lorazepam [Ativan] 1 mg tablet 1 mg PO TID PRN (Reason: anxiety) Qty: 10 RF: 0 venlafaxine 75 mg capsule,extended release 24hr PO RF: 0 Primary Care Provider: Yuki Lopez Referrals: Yuki Lopez MD [Primary Care Provider] -
[2021-08-21] MEDS: Ondansetron 4 MG/2 ML Vial IV (02:33)
[2021-08-21] MEDS: LORazepam 2 MG/ML Syringe 1 MG IV ×2 (02:34→05:20)
[2021-08-21 02:44] LABS: Absolute Lymphocyte Count 1.95 X10^3/uL (0.83-4.51); Absolute Neutrophil Count 9.4 X10^3/uL (2.0-7.7); Basophil% 0.8 % (0-1); Eosinophil# 0.17 X10^3/uL; Eosinophils% 1.4 % (0-5); Hematocrit 42.8 % (37-47); Hemoglobin 14.2 g/dL (12.0-15.0); Lymphocyte # 1.95 X10^3/ul (0.83-4.51); Lymphocyte % 15.7 % (19-41); Mean Corp Hgb Conc 33.2 g/dL (32-36); Mean Corpuscular Hgb 27.4 pg (27.0-32.0); Mean Corpuscular Volume 82.5 fL (81-99); Mean Platelet Vol. 8.7 fl (6.2-12.0); Monocyte# 0.77 X10^3/uL; Monocyte% 6.2 % (0-10); NRBC Flagged by Analyzer 0 % (0-5); Neutrophil # 9.43 X10^3/uL (2.7-7.7); Neutrophil % 75.6 % (47-70); Platelet Count 533 K/mm3 (150-450); RBC Distribution Width CV 15.4 % (11.6-14.6); RBC Distribution Width SD 46.4 fl (35.1-43.9); Red Blood Count 5.19 M/mm3 (4.2-5.4); White Blood Count 12.5 K/mm3 (4.4-11.0)
[2021-08-21 02:48] LABS: Bacteria 0 SEEN /hpf (None Seen); Mucous, Urine 0 SEEN /hpf (<or=2+); Squamous Epithelial Cells - UA 0 SEEN /hpf (5-10); White Blood Cells 0 SEEN /hpf (0-5)
[2021-08-21 02:51] LABS: Color, Urine Yellow (Yellow); Glucose, Dipstick 100 mg/dl (Normal); Ketone-Dipstick 5 mg/dl (Negative); Leukocyte Esterase-Dipstick Negative /ul (Negative); Nitrite-Dipstick Negative (Negative); Occult Blood-Urine 25 /ul (Negative); Protein-Dipstick 500 mg/dl (Negative); Urine Bilirubin Dipstick Negative (Negative); Urine Clarity Clear (Clear); Urine Urobilinogen Normal (Normal)
[2021-08-21 02:58] LABS: Red Blood Cells-Urine 0-5 SEEN /hpf (0-5)
[2021-08-21 03:06] LABS: ALB/GLOB Ratio 0.8 RATIO (0.9-2.4); AST(SGOT) 14 U/L (15-37); Alanine Aminotransfer ALT/SGPT 20 U/L (13-56); Albumin, Serum 4.1 g/dL (3.2-5.0); Alkaline Phosphatase 151 U/L (45-117); Anion Gap 11 (5-15); BUN 12 mg/dL (7-18); BUN/Creat Ratio 14.3 RATIO (10-20); Calcium,Total 10.1 mg/dL (8.5-10.1); Chloride 100 mmol/L (98-107); Creatinine, Serum 0.84 mg/dL (0.55-1.02); EST Glomerular Filtration Rate 72 mL/min (>60); Est Glom Filt Rate - Afr Amer 87 mL/min (>60); Estimated Creatinine Clearance 63.76 ml/min; Globulin 4.9 g/dL (2.2-4.2); Glucose 161 mg/dL (74-106); Lipase 86 U/L (73-393); Potassium 3.4 mmol/L (3.5-5.1); Sodium Level 134 mmol/L (136-145); Troponin-I HS 10 pg/mL (3.0-54.0)
[2021-08-21] MEDS: DiphenhydrAMINE 50 MG/ML Syringe 25 MG IV (03:58)
[2021-08-21] MEDS: proCHLORPERazine 10 MG/2 ML Vial IV (03:59)
[2021-08-21] MEDS: Acetaminophen 500 MG Tablet PO (04:00)
[2021-08-21 04:09] VITALS: PULSE 108; RESP 18; O2SAT 92
[2021-08-21] MEDS: cloNIDine HCl 0.1 MG Tablet PO (04:59)
[2021-08-21] MEDS: Mag Hydrox/Al Hydrox/Simeth 30 ML UDC PO (05:20)
[2021-08-21 05:51] VITALS: BP 172/124; O2SAT 92
--- NOTE | 2021-08-21 06:56 | CT_ITS ---
STUDY: CT ABDOMEN AND PELVIS WITH CONTRAST REASON FOR EXAM: Female, 71 years old. Abdominal pain. Vomiting. RADIATION DOSAGE (If Supplied By Facility): CTDIvol = ( 15.27 ) mGy, DLP = ( 837.97 ) mGycm TECHNIQUE: Transaxial images were obtained from the dome of the diaphragm to the symphysis pubis without oral contrast. IV 100mL Isovue-300 was administered. Sagittal and coronal images were reconstructed. Individualized dose optimization techniques were used for this CT. COMPARISON: Comparison is made with prior study 08/08/2019. FINDINGS: Mild increased markings with areas of confluence at the lung bases worse on the right side. This may represent atelectasis and/or early infiltrate. The visualized portions of the heart are within normal limits. There is decreased attenuation of the liver consistent with steatosis. Stable appearance of the hepatic cysts. The patient is status post cholecystectomy. Normal spleen. Normal pancreas. Normal bilateral adrenal glands. Normal right kidney. Normal left kidney. Normal visualized stomach. Normal small intestine. There are multiple colonic diverticula consistent with diverticulosis. The appendix is visualized and appears normal. There is scattered atherosclerotic calcification of the abdominal aorta, without a demonstrated aneurysm. Normal inferior vena cava. Normal retroperitoneum. Normal urinary bladder. Normal abdominal wall. There are diffuse degenerative changes of the visualized lumbar spine. There is evidence of bilateral hip replacement. CT/Abdomen/Pelvis W IV Cont ONLY IMPRESSION: Fatty infiltration of the liver. Stable appearance of the multiple hepatic cysts. Increased markings at the lung bases suggestive of atelectasis and/or possible early infiltrate. Electronically Signed: Abraham Montero MD at 8:53 EST , Service support ,
[2021-08-21] MEDS: Haloperidol Lactate 5 MG/ML Vial 1 MG IV (07:32)
[2021-08-21 07:34] VITALS: BP 156/107; PULSE 121; RESP 16; O2SAT 91
[2021-08-21 09:11] VITALS: BP 152/97; PULSE 111; RESP 15; O2SAT 91
[2021-08-21 10:41] VITALS: BP 167/74; PULSE 100; RESP 16; O2SAT 92
== END 2021-08-21 11:05 | disposition home or self-care (01) ==
PROVIDERS: Emergency Provider Emergency Medicine; PCP Internal Medicine
DX: F41.9 Anxiety disorder, unspecified (principal); R10.9 Unspecified abdominal pain; R51.9 Headache, unspecified; I44.0 Atrioventricular block, first degree; K76.0 Fatty (change of) liver, not elsewhere classified; K76.89 Other specified diseases of liver; F17.210 Nicotine dependence, cigarettes, uncomplicated; Z90.49 Acquired absence of other specified parts of digestive tract; Z90.710 Acquired absence of both cervix and uterus; Z86.711 Personal history of pulmonary embolism; F32.9 Major depressive disorder, single episode, unspecified; K21.9 Gastro-esophageal reflux disease without esophagitis; Z79.01 Long term (current) use of anticoagulants
CPT/HCPCS: 71045; 74177; 80053; 81001; 83690; 84484; 85025; 93005; 96374; 96375; 96376; 99284; J7030; A4216; J2405

== ENCOUNTER 2024-03-25 11:41 | Emergency (ER) | payer MEDICARE, OTHER, SELFPAY ==
[2024-03-25 11:42] VITALS: BP 149/119; PULSE 115; RESP 26; TEMP 37.2; O2SAT 94
--- NOTE | 2024-03-25 11:56 | ED.RN ---
SPOUSE CONCERNED PT PASSED OUT IN THE WAITING ROOM, PT WOULD NOT RESPOND TO THIS RN UNTIL SHE WAS STERNAL RUBBED THEN SHE PUSHED THIS RN AWAY, PT AGAIN PASSED OUT, PT AGAIN STERNAL RUBBED AND AGAIN PUSHED THIS RN AWAY STATING WELL DONT DO THAT, IT HURTS. PT AGAIN BEGINS TO THRASH AROUND IN THE CHAIR.
--- NOTE | 2024-03-25 12:10 | EKG12_ITS ---
Test Reason : SNYCOPE Blood Pressure : / mmHG Vent. Rate : 119 BPM Atrial Rate : 119 BPM P-R Int : 166 ms QRS Dur : 086 ms QT Int : 356 ms P-R-T Axes : 100 -29 046 degrees QTc Int : 500 ms Sinus tachycardia Moderate voltage criteria for LVH, may be normal variant ( R in aVL , Quan product ) Nonspecific ST and T wave abnormality Abnormal ECG Confirmed by LEEANN COX, TITI ([id number]), associate entertainment editor JOSE ANGEL COREA ([id number]) on 03/26/2024 1:44:11 PM Referred By: Confirmed By:TITI BRADSHAW MD
--- NOTE | 2024-03-25 12:25 | EDS_ITS ---
HPI History of Present Illness Chief Complaint: Syncope Informant: patient and spouse/S.O. Narrative Narrative: 73-year-old female presenting to the emergency room with hypertension and possible anxiety/panic attack. Patient has been tells me that she was scheduled for colonoscopy today. He states that he believes that she has been quite worried about this recently. She took the colon prep yesterday and has not had any of her morning medications because of the colonoscopy. He reports that she has had episodes in the past that have resembled this with an elevated blood pressure. Patient notes a frontal headache. Patient noted to be thrashing in the wheelchair. Unable to calm down. She has a previous medical history of anxiety depression, bipolar disorder tobacco use. The outpatient surgical center reported that the patient seemed to have a near syncopal episode and was sweaty. They did not mention any of the anxiety to us. Patient takes Seroquel at night for sleep. She is on Lamictal for what patient tells me is seizures that she had when she was young but possibly for mood swings. [facility] Medical History Pulmonary embolism Anxiety Depression Smoker Seizures Bilateral shoulder injury Acute alcohol withdrawal Home Medications ?Medication ?Instructions ?Recorded ?Last Taken ?Type gabapentin 300 mg capsule 300 mg PO DAILY NERVE PAIN 08/15/16 08/13/20 History gabapentin 300 mg capsule 600 mg PO QHS NERVE PAIN 08/15/16 08/12/20 History lamotrigine 100 mg tablet 150 mg PO DAILY MOODS 08/15/16 08/13/20 History (Lamictal) propranolol 10 mg tablet 10 mg PO DAILY HEART 08/15/16 08/13/20 History melatonin 10 mg tablet 20 mg PO QHS SLEEP 02/28/17 08/12/20 History apixaban 5 mg tablet 5 mg PO BID blood thinner for pe 08/13/20 08/13/20 History pantoprazole 40 mg tablet,delayed 40 mg PO DAILY stomach 08/13/20 08/13/20 History release quetiapine 50 mg tablet (Seroquel) 50 mg PO QHS SLEEP 08/13/20 08/12/20 History lorazepam 1 mg tablet (Ativan) 1 mg PO TID PRN anxiety #10 tabs 05/22/21 Unknown Rx ondansetron 4 mg disintegrating 4 mg PO Q8H PRN PRN Nausea #10 tabs 05/22/21 Unknown Rx tablet venlafaxine 75 mg capsule,extended mg PO 08/21/21 Unknown History release 24 hr potassium chloride 20 mEq 40 meq (2 x 20 mEq) PO DAILY 5 03/25/24 Unknown Rx tablet,extended release days #10 tabs Allergy/AdvReac Type Severity Reaction Status Date / Time No Known Allergies Allergy Verified 03/25/24 11:42 Surgical History History of cholecystectomy Hx of hysterectomy Social History Smoking Status: Current every day smoker tobacco type: cigarettes ROS ROS ED Constitutional Constitutional ED: Denies chills, fever(s) or weight loss Eyes Eyes: Denies change in vision or diplopia ENT ENT ED: Denies ear pain, rhinorrhea or sore throat Cardiovascular Cardiovascular: Denies chest pain, orthopnea, palpitations or racing heartbeat Respiratory/Chest Respiratory/Chest: Denies cough, dyspnea or orthopnea Gastrointestinal Gastrointestinal: Denies abdominal pain, diarrhea, nausea or vomiting Genitourinary Genitourinary ED: Denies dysuria, hematuria or urinary frequency Musculoskeletal Musculoskeletal: Denies arthralgias or myalgias Integumentary Denies abscess or rash Neurologic Neurologic: Reports headache(s); Denies weakness Psychiatric Psychiatric: Reports anxiety; Denies depression, suicidal ideation or suicidal thoughts Endocrine Endocrinology: Denies polydipsia, polyphagia or polyuria Allergic/Immunologic Allergic/Immunologic ED: Denies mouth swelling, tongue swelling or urticaria EXAM Physical Exam Const Vital Signs: 03/25/24 11:42 03/25/24 12:04 03/25/24 13:42 Temperature 99 F Temperature Source Temporal Pulse Rate 115 H 119 H Respiratory Rate 26 H 18 Respiratory Effort Normal Non-Labored Respiratory Pattern Normal Blood Pressure 149/119 H 194/135 H Blood Pressure Mean 129 154 Pulse Ox 94 98 Oxygen Delivery Method Room Air Room Air 03/25/24 15:00 Temperature Temperature Source Pulse Rate 119 H Respiratory Rate 18 Respiratory Effort Respiratory Pattern Blood Pressure 211/141 H Blood Pressure Mean 164 Pulse Ox 93 Oxygen Delivery Method Room Air Positive well nourished and well developed General Appearance ED: well developed HEENT Reports normocephalic, head/scalp atraumatic and moist mucous membranes Eyes PERRL and EOMs intact bilaterally Neck no lymphadenopathy, supple and no JVD Resp normal respiratory effort and clear to auscultation bilaterally Cardio regular rate, regular rhythm and no murmurs Rate: tachycardic GI normal to inspection, nondistended, normoactive bowel sounds and non-tender Palpation: soft Back/Spine no CVA tenderness and normal ROM Extremity normal to inspection General Extremety ED: Negative for edema General Extremity: Negative for edema Neuro oriented x3 and CN's II-XII intact bilaterally Sensorium / Orientation: alert Motor Exam: strength 5/5 throughout Psych Attitude: agitated Mood & Affect: anxious; Negative for depressed or tearful Skin no rashes or lesions noted and no wounds MDM MDM MDM Narrative Medical decision making narrative: Differential diagnosis includes but not limited to cardiac dysrhythmias, hypertensive urgency, anxiety, ACS, dehydration The patient blood work shows white count 16.3 hemoglobin of 17 creatinine 1.06 with a BUN of 9. Potassium slightly low at 2.9. She received oral potassium. Troponin is normal at 39. Patient received a dose of hydralazine as well as her propranolol. I wonder to what degree her tachycardia is due to anxiety in combination with lack of propranolol today. Last dose was at least yesterday morning. Patient is feeling better. She would like to go home. I think this is reasonable. Will replace her potassium over the next several days.. History & Record Review Discussion w/independent historian: Patient and Significant other Lab Data Attestation: I reviewed the patient's lab results. Labs: Laboratory Results - last 24 hr 03/25/24 12:30 WBC 16.3 H RBC 5.51 H Hgb 17.0 H Hct 48.8 H MCV 88.6 MCH 30.9 MCHC 34.8 RDW Std Deviation 41.0 RDW Coeff of Mikayla 12.5 Plt Count 437 MPV 8.9 Immature Gran % (Auto) 0.400 Neut % (Auto) 87.8 H Lymph % (Auto) 6.0 L [place] % (Auto) 5.5 Eos % (Auto) 0.0 Baso % (Auto) 0.3 Absolute Neuts (auto) 14.3 H Absolute Lymphs (auto) 0.98 Nucleated RBC % 0 Sodium 135 L Potassium 2.9 L Chloride 96 L Carbon Dioxide 26.0 Anion Gap 13 BUN 9 Creatinine 1.06 H Est GFR (MDRD) Af Amer 66 Est GFR (MDRD) Non-Af 54 L BUN/Creatinine Ratio 8.5 L Glucose 186 H Calcium 10.2 H Magnesium 1.6 Total Bilirubin 0.50 Direct Bilirubin 0.26 AST 28 ALT 26 Alkaline Phosphatase 116 Troponin I High Sens 39 Total Protein 8.6 H Albumin 3.9 Globulin 4.7 H Radiography Diagnostic Testing: Clinical Impression(s) from Imaging Studies Chest X-Ray 03/25/24 12:45 IMPRESSION: Stable cardiomegaly. Electronically Signed: Leanne Diego MD at 13:18 EDT , EKG Initial EKG: Attestation: I personally reviewed and interpreted this EKG as follows: Comments: Sinus tachycardia ventricular rate of 119 bpm Discharge Plan Triage Chief Complaint: Syncope ED Provider: Sushil Saleh Dx/Rx/DC Orders Clinical Impression: Hypertension, Tachycardia, Anxiety, Acute hypokalemia Instructions: Understanding Tachycardia, ED High Blood Pressure Hypertension Prescriptions: New potassium chloride 20 mEq tablet extended release 40 meq PO DAILY 5 Days Qty: 10 0RF No Action gabapentin 300 MG capsule 300 mg PO DAILY Patient Comments: nerve pain lamotrigine [Lamictal] 100 MG tablet 150 mg PO DAILY Patient Comments: seizures gabapentin 300 MG capsule 600 mg PO QHS Patient Comments: nerve pain propranolol 10 MG tablet 10 mg PO DAILY Patient Comments: heart melatonin 10 MG tablet 20 mg PO QHS apixaban 5 MG tablet 5 mg PO BID quetiapine [Seroquel] 50 MG tablet 50 mg PO QHS Patient Comments: mood dose based on how pt is feeling pantoprazole 40 MG tablet 40 mg PO DAILY Rx Instructions: GERD ondansetron [ondansetron] 4 MG tablet 4 mg PO Q8H PRN PRN (Reason: Nausea) Qty: 10 0RF lorazepam [Ativan] 1 mg tablet 1 mg PO TID PRN (Reason: anxiety) Qty: 10 0RF venlafaxine 75 mg capsule,extended release 24hr PO Primary Care Provider: Yuki Lopez Referrals: Yuki Lopez MD [Primary Care Provider] - 3-5 Days if not improving Activity Restrictions/Additional Instructions: Please resume your daily medications today. I believe that your tachycardia is in part due to anxiety in part due to not having your propranolol today. Please return to emergency if any concerns or worsening I would also encourage you to drink plenty of fluids today to replace the fluids you lost through the bowel prep for the colonoscopy Print Language: Korean Disposition Disposition: Home, Self Care
[2024-03-25] MEDS: LORazepam 2 MG/ML Syringe 1 MG IV (12:28)
--- NOTE | 2024-03-25 12:45 | RAD_ITS ---
INDICATION: hypertension EXAMINATION/TECHNIQUE: X-RAY - XR Chest 1 View COMPARISON: August 21, 2021 FINDINGS: LINES/DEVICES: None. LUNGS: No new consolidation, edema or effusion. No pneumothorax. MEDIASTINUM AND CARDIOVASCULAR STRUCTURES: There is stable cardiomegaly. Central airways and mediastinal contour are unremarkable. BONES AND SOFT TISSUES: There are stable bilateral shoulder arthroplasties. RAD/Chest 1 View (Portable) IMPRESSION: Stable cardiomegaly. Electronically Signed: Leanne Diego MD at 13:18 EDT ,
[2024-03-25 12:46] LABS: Absolute Lymphocyte Count 0.98 X10^3/uL (0.83-4.51); Absolute Neutrophil Count 14.3 X10^3/uL (2.0-7.7); Basophil# 0.05 X10^3/uL; Basophil% 0.3 % (0-1); Hematocrit 48.8 % (37-47); Lymphocyte # 0.98 X10^3/ul (0.83-4.51); Mean Corp Hgb Conc 34.8 g/dL (32-36); Mean Corpuscular Hgb 30.9 pg (27.0-32.0); Mean Corpuscular Volume 88.6 fL (81-99); Mean Platelet Vol. 8.9 fl (6.2-12.0); Monocyte% 5.5 % (0-10); NRBC Flagged by Analyzer 0 % (0-5); Neutrophil # 14.26 X10^3/uL (2.7-7.7); Neutrophil % 87.8 % (47-70); Platelet Count 437 K/mm3 (150-450); RBC Distribution Width CV 12.5 % (11.6-14.6); Red Blood Count 5.51 M/mm3 (4.2-5.4); White Blood Count 16.3 K/mm3 (4.4-11.0)
[2024-03-25 13:02] LABS: AST(SGOT) 28 U/L (15-37); Alanine Aminotransfer ALT/SGPT 26 U/L (13-56); Albumin, Serum 3.9 g/dL (3.2-5.0); Alkaline Phosphatase 116 U/L (45-117); Anion Gap 13 (5-15); BUN 9 mg/dL (7-18); BUN/Creat Ratio 8.5 RATIO (10-20); Bilirubin, Direct 0.26 mg/dL (0.00-0.30); Calcium,Total 10.2 mg/dL (8.5-10.1); Chloride 96 mmol/L (98-107); Creatinine, Serum 1.06 mg/dL (0.55-1.02); EST Glomerular Filtration Rate 54 mL/min (>60); Est Glom Filt Rate - Afr Amer 66 mL/min (>60); Globulin 4.7 g/dL (2.2-4.2); Glucose 186 mg/dL (74-106); Potassium 2.9 mmol/L (3.5-5.1); Protein, Total 8.6 g/dL (6.4-8.2); Sodium Level 135 mmol/L (136-145); Troponin-I HS 39 pg/mL (3.0-54.0)
[2024-03-25 13:35] LABS: Magnesium 1.6 mg/dL (1.6-2.6)
[2024-03-25 13:42] VITALS: BP 194/135; PULSE 119; RESP 18; O2SAT 98
--- NOTE | 2024-03-25 14:06 | ED.RN ---
Pt thrashing in bed, grabs bedrails shaking bed, kicking legs, difficult for this RN to redirect. Pt then closes eyes and refuses to speak for several minutes.
[2024-03-25] MEDS: Potassium Chloride Oral Tablet 20 MEQ 40 MEQ PO (14:19)
[2024-03-25 15:00] VITALS: BP 211/141; PULSE 119; RESP 18; O2SAT 93
[2024-03-25] MEDS: hydrALAZINE 20 MG/ML Vial 10 MG IV (15:09)
[2024-03-25] MEDS: lamoTRIgine 150 MG Tablet PO (15:13)
[2024-03-25] MEDS: Propranolol 10 MG Tablet 20 MG PO (15:13)
[2024-03-25 15:57] VITALS: BP 209/109; PULSE 91; RESP 16; TEMP 36.6; O2SAT 94
--- NOTE | 2024-03-25 15:58 | ED.RN ---
ED MD aware of elevated blood pressures, pt has been without home meds for two days. Pt medicated for blood pressures during ED visit, voices understanding on discharge instructions and monitoring pressures at home, spouse aware as well.
== END 2024-03-25 16:00 | disposition home or self-care (01) ==
PROVIDERS: Emergency Provider Emergency Medicine; PCP Internal Medicine; Visit Provider Emergency Medicine
DX: I10 Essential (primary) hypertension (principal); F31.9 Bipolar disorder, unspecified; E87.6 Hypokalemia; F17.210 Nicotine dependence, cigarettes, uncomplicated; F41.9 Anxiety disorder, unspecified; R55 Syncope and collapse; Z90.49 Acquired absence of other specified parts of digestive tract; Z90.710 Acquired absence of both cervix and uterus; Z86.711 Personal history of pulmonary embolism
CPT/HCPCS: 71045; 80048; 80076; 83735; 84484; 85025; 93005; 99284

== ENCOUNTER 2025-03-04 13:36 | Emergency (ER) | payer OTHER, MEDICARE, SELFPAY ==
[2025-03-04 13:37] VITALS: BP 196/121; PULSE 77; RESP 23; TEMP 36.6; O2SAT 96; BMI 26.9
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
[2025-03-04 14:37] VITALS: BP 197/126; PULSE 77; RESP 18; O2SAT 98
[2025-03-04 15:00] VITALS: BP 211/118; PULSE 78; RESP 18; O2SAT 97
[2025-03-04 15:43] VITALS: BP 119/109; PULSE 78; RESP 14; TEMP 36.3; O2SAT 97
== END 2025-03-04 15:44 | disposition home or self-care (01) ==
PROVIDERS: Emergency Provider Emergency Medicine; PCP Internal Medicine; Visit Provider Emergency Medicine
DX: S09.90XA Unspecified injury of head, initial encounter (principal); S60.212A Contusion of left wrist, initial encounter; R03.0 Elevated blood-pressure reading, without diagnosis of hypertension; Z90.710 Acquired absence of both cervix and uterus; F17.210 Nicotine dependence, cigarettes, uncomplicated; Z90.49 Acquired absence of other specified parts of digestive tract; Z86.711 Personal history of pulmonary embolism; V48.5XXA Car driver injured in noncollision transport accident in traffic accident, initial encounter; F41.9 Anxiety disorder, unspecified; F32.A Depression, unspecified
CPT/HCPCS: 70450; 71046; 72125; 72170; 73110; 99284

== ENCOUNTER 2025-03-06 13:37 | Inpatient (IN) | payer MEDICARE, OTHER, SELFPAY ==
[2025-03-06] VITALS (10 sets, daily range): BP systolic 153–189; BP diastolic 99–120; PULSE 77–110; RESP 16–104; TEMP 36.1–37.2; O2SAT 93–98; BMI 24.4; BMI 25.2
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
--- NOTE | 2025-03-06 14:20 | CM.ED ---
Social Work: Date of referral: 03/06/25 Reason for referral: [facility] Directives not on file Referred by: Social Work identification Patient's provided consent to social work visit. Patient not talking. custom shop worker requested a copy of ACD's which patient's stated he would try and get a copy and have it dropped off at the hospital. No additional needs/requests identified at this time. Ijeoma Lazaro, HEAD OF OPERATION AND LOGISTICS, PRODUCT INSPECTION SUPERVISOR
[2025-03-06] MEDS: Haloperidol Lactate 5 MG/ML Vial 1 MG IV (14:37)
[2025-03-06 14:45] LABS: Absolute Lymphocyte Count 1.43 X10^3/uL (0.83-4.51); Absolute Neutrophil Count 10.6 X10^3/uL (2.0-7.7); Basophil# 0.05 X10^3/uL; Basophil% 0.4 % (0-1); Eosinophil# 0.02 X10^3/uL; Eosinophils% 0.2 % (0-5); Hematocrit 42.5 % (37-47); Hemoglobin 15.2 g/dL (12.0-15.0); Lymphocyte # 1.43 X10^3/ul (0.83-4.51); Mean Corp Hgb Conc 35.8 g/dL (32-36); Mean Corpuscular Hgb 30.8 pg (27.0-32.0); Monocyte# 0.83 X10^3/uL; Monocyte% 6.4 % (0-10); NRBC Flagged by Analyzer 0 % (0-5); Neutrophil # 10.58 X10^3/uL (2.7-7.7); Neutrophil % 81.5 % (47-70); Platelet Count 343 K/mm3 (150-450); RBC Distribution Width CV 12.1 % (11.6-14.6); Red Blood Count 4.94 M/mm3 (4.2-5.4)
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
--- NOTE | 2025-03-06 15:12 | EKG12_ITS ---
Test Reason : SEIZURE Blood Pressure : */* mmHG Vent. Rate : 103 BPM Atrial Rate : 103 BPM P-R Int : 232 ms QRS Dur : 92 ms QT Int : 334 ms P-R-T Axes : 60 -17 75 degrees QTcB Int : 437 ms Sinus tachycardia with 1st degree A-V block Incomplete right bundle branch block Minimal voltage criteria for LVH, may be normal variant ( Quan product ) Borderline ECG Confirmed by Ventura Nixon [id number]), business editor JOSE ANGEL COREA ([id number]) on 03/14/2025 1:09:11 PM Referred By: Confirmed By: Ventura Nixon
[2025-03-06 15:17] LABS: Alcohol, Blood (Medical)-Serum < 10.1 mg/dL (<=10.0)
[2025-03-06 15:19] LABS: Anion Gap 16 (5-15); BUN 18 mg/dL (4-19); BUN/Creat Ratio 14.6 RATIO (10-20); Calcium,Total 10.1 mg/dL (7.6-11.0); Carbon Dioxide 23.8 mmol/L (21.0-32.0); Chloride 93 mmol/L (98-108); Creatinine, Serum 1.22 mg/dL (0.70-1.20); EST Glomerular Filtration Rate 47 (>60); Estimated Creatinine Clearance 42.05 ml/min (50-250); Glucose 132 mg/dL (70-99); Potassium 3.5 mmol/L (3.3-5.1); Sodium Level 133 mmol/L (133-145)
[2025-03-06] MEDS: Lorazepam 2 MG/ML WCH Syringe 1 MG IV (15:22)
[2025-03-06 15:29] LABS: Bedside Glucose 161 mg/dL (74-106)
--- NOTE | 2025-03-06 15:45 | RAD_ITS ---
PROCEDURE: CHEST 1 VIEW (PORTABLE) 03/06/2025 REASON FOR EXAM: Altered mental status TECHNIQUE: Frontal view of the chest. COMPARISON: Chest radiograph March 04, 2025 FINDINGS: Hardware: Bilateral shoulder arthroplasties. EKG lead wires project over the chest. Heart: Normal size Lungs: Clear Bones: No aggressive bone lesions Other: RAD/Chest 1 View (Portable) IMPRESSION: No acute process detected Reading Location: [facility]
[2025-03-06 15:48] LABS: Mucous, Urine 0 SEEN /hpf (<or=2+); White Blood Cells 0 SEEN /hpf (0-5)
[2025-03-06 15:50] LABS: Color, Urine Yellow (Yellow); Glucose, Dipstick 100 mg/dl (Normal); Ketone-Dipstick Negative (Negative); Leukocyte Esterase-Dipstick Negative /ul (Negative); Nitrite-Dipstick Negative (Negative); Occult Blood-Urine 50 /ul (Negative); Protein-Dipstick 500 mg/dl (Negative); Specific Gravity, Urine 1.015 (1.002-1.030); Urine Bilirubin Dipstick Negative (Negative); Urine Clarity Sl. Cloudy (Clear); Urine Urobilinogen Normal (Normal); Urine pH 6.5 (5.0 - 8.0)
[2025-03-06 15:59] LABS: Bacteria 2+ /hpf (None Seen); Red Blood Cells-Urine 0-5 SEEN /hpf (0-5); Squamous Epithelial Cells - UA 5-10 SEEN /hpf (5-10)
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
[2025-03-06] MEDS: Ibuprofen 600 MG Tablet PO (18:02)
[2025-03-06] MEDS: hydrALAZINE 20 MG/ML Vial 5 MG IV (20:04)
[2025-03-06] MEDS: 0.9% Saline Lock 10 ML Syringe IV (20:05)
[2025-03-06] MEDS: LORazepam 1 MG Tablet PO (21:01)
[2025-03-06] MEDS: Gabapentin 600 MG Tablet PO (21:01)
[2025-03-06] MEDS: Acetaminophen 325 MG Tablet 650 MG PO (21:01)
[2025-03-06] MEDS: APIXABAN 5 MG TABLET PO (21:01)
[2025-03-06] MEDS: QUEtiapine 25 MG Tablet 50 MG PO (21:01)
[2025-03-06] MEDS: MELATONIN 10 MG TABLET 20 MG PO (21:01)
[2025-03-07 02:55] VITALS: BP 134/84; PULSE 82; RESP 16; TEMP 36.7; O2SAT 95
--- NOTE | 2025-03-07 08:00 | MRI_ITS ---
PROCEDURE: BRAIN WITHOUT CONTRAST 03/07/2025 REASON FOR EXAM: SEIZURE TECHNIQUE: Noncontrast brain MRI. Multiplanar and multisequence images were obtained. FINDINGS: There is no diffusion restriction to represent an acute or recent territory of infarction. Coronal T2 weighted images have heavy limitation due to motion. However the question of right hippocampal atrophy is raised. Normal brainstem and cerebellum without pathologic flow voids. Symmetric appearance of the orbits. Negative for intracranial mass. Positive for periventricular chronic small-vessel ischemic change. No extra-axial fluid collections. MRI/Brain without Contrast IMPRESSION: No acute infarct, mass or hydrocephalus. Potential right-sided mesial temporal sclerosis Reading Location: [facility]
[2025-03-07] MEDS: Ibuprofen 600 MG Tablet PO ×2 (08:16→17:05)
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
[2025-03-07 11:03] VITALS: BP 117/75; PULSE 81; RESP 18; TEMP 36.6; O2SAT 95
[2025-03-07] MEDS: Pantoprazole Sodium 40 MG Tablet PO (11:08)
[2025-03-07] MEDS: Potassium Chloride Oral Tablet 20 MEQ 40 MEQ PO (11:08)
[2025-03-07] MEDS: Venlafaxine XR 75 MG Capsule PO (11:09)
[2025-03-07] MEDS: lamoTRIgine 150 MG Tablet PO (11:09)
[2025-03-07] MEDS: Propranolol 10 MG Tablet PO (11:09)
[2025-03-07] MEDS: Gabapentin 300 MG Capsule PO (11:19)
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
[2025-03-07 17:01] VITALS: BP 119/74; PULSE 66; RESP 16; TEMP 36.7; O2SAT 95
[2025-03-07 20:25] VITALS: BP 135/87; PULSE 67; RESP 16; TEMP 36.8; O2SAT 94
[2025-03-07] MEDS: 0.9% Saline Lock 10 ML Syringe IV (20:27)
[2025-03-07] MEDS: Gabapentin 600 MG Tablet PO (21:11)
[2025-03-07] MEDS: LORazepam 1 MG Tablet PO (21:11)
[2025-03-07] MEDS: MELATONIN 10 MG TABLET 20 MG PO (21:11)
[2025-03-07] MEDS: QUEtiapine 25 MG Tablet 50 MG PO (21:11)
[2025-03-08 03:15] VITALS: BP 126/91; PULSE 68; RESP 14; TEMP 36.2; O2SAT 95
[2025-03-08 05:55] LABS: Absolute Neutrophil Count 5.4 X10^3/uL (2.0-7.7); Basophil# 0.06 X10^3/uL; Basophil% 0.6 % (0-1); Eosinophil# 0.37 X10^3/uL; Eosinophils% 3.4 % (0-5); Hematocrit 36.9 % (37-47); Hemoglobin 12.8 g/dL (12.0-15.0); Lymphocyte % 35.1 % (19-41); Mean Corp Hgb Conc 34.7 g/dL (32-36); Mean Corpuscular Hgb 30.5 pg (27.0-32.0); Mean Corpuscular Volume 87.9 fL (81-99); Monocyte# 1.12 X10^3/uL; Monocyte% 10.4 % (0-10); NRBC Flagged by Analyzer 0 % (0-5); Neutrophil # 5.43 X10^3/uL (2.7-7.7); Neutrophil % 50.1 % (47-70); Platelet Count 283 K/mm3 (150-450); RBC Distribution Width CV 12.2 % (11.6-14.6); RBC Distribution Width SD 39.2 fl (35.1-43.9); White Blood Count 10.8 K/mm3 (4.4-11.0)
[2025-03-08 06:30] LABS: Anion Gap 12 (5-15); BUN 32 mg/dL (4-19); BUN/Creat Ratio 21.3 RATIO (10-20); Calcium,Total 9.3 mg/dL (7.6-11.0); Carbon Dioxide 25.5 mmol/L (21.0-32.0); Chloride 94 mmol/L (98-108); Creatinine, Serum 1.51 mg/dL (0.70-1.20); EST Glomerular Filtration Rate 37 (>60); Estimated Creatinine Clearance 33.97 ml/min (50-250); Glucose 99 mg/dL (70-99); Potassium 3.5 mmol/L (3.3-5.1); Sodium Level 132 mmol/L (133-145)
[2025-03-08] MEDS: Propranolol 10 MG Tablet PO (08:42)
[2025-03-08] MEDS: lamoTRIgine 150 MG Tablet PO (08:43)
[2025-03-08] MEDS: Pantoprazole Sodium 40 MG Tablet PO (08:43)
[2025-03-08] MEDS: Venlafaxine XR 75 MG Capsule PO (08:43)
[2025-03-08] MEDS: Potassium Chloride Oral Tablet 20 MEQ 40 MEQ PO (08:43)
[2025-03-08] MEDS: 0.9% Normal Saline (1000mL) 1,000 ML 100 ML IV (08:43)
[2025-03-08] MEDS: Gabapentin 300 MG Capsule PO (08:59)
[2025-03-08 09:15] VITALS: BP 145/90; PULSE 72; RESP 16; TEMP 36.6; O2SAT 97
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
--- NOTE | 2025-03-08 14:06 | DCINST_ITS ---
Discharge Instructions Diet Discharge Diet: Low fat / Low cholesterol DC O2, CPAP, BIPAP needs Home O2 Discharge instructions: No Dressing / Incision Weight Bearing Status: Weight bearing as tolerated Dressing / Incision Call your doctor if you observe: Fever of 101 or Higher, Shortness of breath, Dizziness, Swelling in the ankles, Chest pain and - (seizures) Follow Up Care Test Results: Test results from this visit will be discussed in further detail at your follow- up appointment, if applicable. Discharge Plan Admission Admit Date/Time: 03/06/25 17:12 Primary Reason for Your Visit: seizure disorder with breakthrough seizure Attending Provider: Samia Bruce Primary Care Provider: Yuki Lopez Consulting Providers: King Blevins; Terri Feliciano; Rachael Lira; Tim Arreaga; Messi Novak; Charu Adams; LALI AN; Kyung Henderson; Anne Gutierrez; Dominick Power; Kylah Croft; Heber Caballero; Mary Huber; Jo Ann Garcia; Jf Asif; Stella Sandoval; David Garcia; Vicente Gross; Scott De Leon; Miri Galicia; Jasbir Tanner; Ladarius Ozuna; Racheal Solomon; Richard Nicole; Valeri Hobbs; Andrea Mercedes; Mikhail Mitchell Instructions Patient Instructions: EEG Ch, First Aid: Seizures, Epilepsy Ch Dc Additional Instructions / Restrictions: No driving for at least 3 months until cleared by neurology. Discharge Orders/Prescriptions Prescriptions: Continued gabapentin 300 MG capsule 600 mg PO QHS Patient Comments: nerve pain propranolol 10 MG tablet 10 mg PO DAILY Patient Comments: heart melatonin 10 MG tablet 20 mg PO QHS quetiapine [Seroquel] 50 MG tablet 50 mg PO QHS Patient Comments: mood dose based on how pt is feeling pantoprazole 40 MG tablet 40 mg PO DAILY Rx Instructions: GERD lorazepam [Ativan] 1 mg tablet 1 mg PO TID PRN (Reason: anxiety) Qty: 10 0RF venlafaxine 75 mg capsule,extended release 24hr 75 mg PO QHS potassium chloride 20 mEq tablet extended release 40 meq PO DAILY 5 Days Qty: 10 0RF lamotrigine 150 mg tablet 150 mg PO DAILY sodium chloride 1,000 mg tablet,soluble 1,000 mg PO TID Referrals / Follow Up: Yuki Lopez MD [Primary Care Provider] - Within 1 Week Tobias Ac MD [Non-Staff -Ordering Privileges] - Within 2 Weeks Disposition Disposition (needs filled in before D/C Order can be placed): Home, Self Care
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
[2025-03-08 14:55] VITALS: BP 130/90; PULSE 61; RESP 16; TEMP 36.6; O2SAT 95
--- NOTE | 2025-03-08 14:55 | PHA.DC.MR.R ---
Pharmacy [facility] Reconciliation Pharmacy Service has performed discharge medication reconciliation for this patient. The patient's discharge medication list was reviewed for discrepancies and discrepancies were resolved. Medications at Discharge Home Medications gabapentin 300 mg capsule 600 mg PO QHS NERVE PAIN 08/15/16 propranolol 10 mg tablet 10 mg PO DAILY HEART 08/15/16 melatonin 10 mg tablet 20 mg PO QHS SLEEP 02/28/17 pantoprazole 40 mg tablet,delayed release 40 mg PO DAILY stomach 08/13/20 quetiapine 50 mg tablet (Seroquel) 50 mg PO QHS SLEEP 08/13/20 lorazepam 1 mg tablet (Ativan) 1 mg PO TID PRN anxiety #10 tabs 05/22/21 venlafaxine 75 mg capsule,extended release 24 hr 75 mg PO QHS DEPRESSION 08/21/21 potassium chloride 20 mEq tablet,extended release 40 meq (2 x 20 mEq) PO DAILY SUPLEMENT 5 days #10 tabs 03/25/24 lamotrigine 150 mg tablet 150 mg PO DAILY MOOD 03/06/25 sodium chloride 1,000 mg soluble tablet 1,000 mg PO TID SUPPLEMENT 03/06/25
[2025-03-10 14:08] LABS: Lamotrigine (Lamictal) Level 1.3 ug/mL (2.0-20.0)
== END 2025-03-08 15:47 | disposition home or self-care (01) | DRG 101 ==
LOC: ED 17:10 → PCU 17:18
PROVIDERS: Emergency Provider Emergency Medicine; PCP Internal Medicine; Visit Provider Student in an Organized Health Care Education/Training Program
DX: G40.909 Epilepsy, unspecified, not intractable, without status epilepticus (principal); N17.9 Acute kidney failure, unspecified; F10.10 Alcohol abuse, uncomplicated; F32.A Depression, unspecified; F41.9 Anxiety disorder, unspecified; K21.9 Gastro-esophageal reflux disease without esophagitis; F17.210 Nicotine dependence, cigarettes, uncomplicated; Z90.710 Acquired absence of both cervix and uterus; Z86.711 Personal history of pulmonary embolism; Z90.49 Acquired absence of other specified parts of digestive tract
CPT/HCPCS: 36415; 70450; 70551; 71045; 80048; 81001; 82077; 82542; 82962; 85025; 93005; 95819; 99284; A4216